=== PATIENT | female | born 1935 | race Caucasian/White ===

== ENCOUNTER 2017-02-24 09:43 | Inpatient (IN) ==
[2017-02-24] MEDS ORDERED: DUONEB (A & A) INH ONE (10:07)
[2017-02-24] MEDS ORDERED: TYLENOL PO ONE (10:09)
--- NOTE | 2017-02-24 10:10 | PROVIDER DOCUMENTATION ---
HPI-Respiratory General - General Chief Complaint: Flu Symptoms Stated Complaint: FLU SX Time Seen by Provider: 02/24/17 10:01 Allergies/Adverse Reactions: Patient Allergies Allergy/AdvReac Type Severity Reaction Status Date / Time No Known Allergies Allergy Verified 02/24/17 10:16 Home Medications: Home Medication List Medication Instructions Recorded Confirmed Last Taken Type Bimatoprost 0.03% Oph Solution 1 drop BOTH EYES HS 05/31/13 03/31/15 03/31/15 07 :00 History [Lumigan 0.03% Oph Solution] Gabapentin [Neurontin] 300 mg PO QHS 05/31/13 03/31/15 03/30/15 20:00 History Insulin Detemir [Levemir] 35 unit SUBQ HS 05/31/13 03/31/15 03/30/15 20:00 History Metformin [Glucophage] 1,000 mg PO BID CC 05/31/13 03/31/15 03/31/15 07:00 History SIMVAstatin [Zocor] 20 mg PO QHS 05/31/13 03/31/15 03/30/15 20:00 History Timolol Maleate [Timoptic] 2.5 ml OP HS 05/31/13 03/31/15 03/30/15 20:00 History Triamterene/Hctz [Dyazide] 1 each PO DAILY 05/31/13 03/31/15 03/31/15 07:00 History Acetaminophen [Tylenol] 650 mg PO Q4H PRN PRN #0 tablet 01/09/15 03/31/15 Unknown Rx Albuterol Sulfate [Proair Hfa] 8.5 inhaler IH Q4-6H PRN PRN #0 01/09/15 Unknown Rx hfa.[email or web address] Docusate Sodium [Colace] 100 mg PO BID PRN PRN #0 capsule 01/09/15 03/31/15 Unknown Rx Estradiol 1 mg PO DAILY #0 01/09/15 03/31/15 03/31/15 07:00 Rx Non-Formulary Bulk Med 0 each BOTH EYES QAM #0 misc 01/09/15 03/31/15 03/31/15 07:00 Rx [place]-3 Fatty Acids [Fish Oil 1,000 mg PO BID #0 capsule 01/09/15 03/31/1503/31 07:00 Rx Concentrate] Omeprazole [Prilosec] 40 mg PO DAILY@0700 #0 capsule 01/09/15 03/31/15 Unknown Rx Valsartan [Diovan] 320 mg PO DAILY #0 tablet 01/09/15 03/31/15 03/31/15 07:00 Rx Magnesium Oxide [Magnesium] 400 mg PO TID #21 capsule 03/31/15 Unknown Rx Meloxicam [Mobic] 7.5 mg PO DAILY PRN #30 tablet 03/31/15 Unknown Rx Rivaroxaban [Xarelto] 0 mg PO DAILY 03/31/15 03/31/15 03/30/15 20:00 History Tramadol HCl [Ultram] 50 mg PO Q8H PRN PRN #20 tablet 03/31/15 Unknown Rx - History of Present Illness-Resp Nature of Presenting Problem: 81 yof with cough and congestion since that continues to get worse. Mild fever in the ED. Quality of Pain: reports: aching Severity in ED: reports: moderate Onset/Duration: reports: 4 days ago Timing: reports: still present, getting worse Exposure: reports: unknown cause Cough Quality/Degree: reports: moderate, productive cough Episode Frequency: occasional episodes Current Respiratory Medication Therapy: Initiated see nurses note Associated Symptoms: reports: cough, shortness of breath Similar Symptoms Previously?: Yes Recently seen or treated by another doctor?: No Review of Systems - Adult - REVIEW OF SYSTEMS - ADULT Constitutional: reports: see HPI, chills, fever Eyes: reports: no symptoms reported Ears, Nose, Mouth & Throat: reports: no symptoms reported Cardiovascular: reports: no symptoms reported Respiratory: reports: see HPI, cough, excessive sputum production, shortness of breath, wheezing Gastrointestinal: reports: no symptoms reported Genitourinary: reports: no symptoms reported Musculoskeletal: reports: no symptoms reported Integumentary: reports: no symptoms reported Neurological: reports: no symptoms reported Psychiatric: reports: no symptoms reported Endocrine: reports: no symptoms reported Hematologic/Lymphatic: reports: no symptoms reported Allergic/Immunologic: reports: no symptoms reported All Other Systems: Reviewed and Negative Past History - Adult - PAST MEDICAL HISTORY-ADULT Review of Records: reports: Old Records Reviewed, Nursing Assessment Review, Medications Reviewed, Social history reviewed & non-contributory. Cardiovascular: reports: CAD (minimal), HTN, hyperlipidemia Respiratory: reports: asthma, sleep apnea (obstructive) Gastrointestinal: reports: GERD, hemorrhoids (external), polyps (coloric), other (chronic constipation) Musculoskeletal: reports: arthritis (osteo), other (neuropathy) Endocrine/Immune: reports: Diabetes Other Conditions: reports: cataract/glaucoma (glaucoma) - PRIOR SURGERIES/PROCEDURES Surgical/Procedure History: reports: hysterectomy - IMMUNIZATION STATUS Childhood Immunizations: UTD Flu Vaccine: UTD Physical Exam-General - PHYSICAL EXAM-ADULT Initial Vital Signs Reviewed: Yes - CONSTITUTIONAL General Appearance: alert, no apparent distress - EYES Eyes: PERRL/EOMI, pink conjunctivae - HEAD, EARS, NOSE, MOUTH & THROAT HENMT: normocephalic/atraumatic, moist mucous membranes, normal ENT inspection - NECK Neck: non-tender, full range of motion, supple, normal inspection - RESPIRATORY Respiratory: chest non-tender, no pleuratic chest pain, no respiratory distress , no accessory muscle use, rhonchi, wheezing - CARDIOVASCULAR Cardiovascular: normal peripheral pulses, regular rate, rhythm, no edema - GASTROINTESTINAL (ABDOMEN) Abdominal Exam: normal bowel sounds, non tender, soft - LYMPHATIC Lymphatic: no adenopathy - MUSCULOSKELETAL Back Exam: normal inspection, no CVA tenderness, no vertebral tenderness Extremity: normal range of motion, non-tender, normal gait, normal inspection, no pedal edema, no calf tenderness, normal capillary refill, pelvis stable - SKIN Integumentary: normal color, normal turgor, warm/dry - NEUROLOGIC Neurologic: grossly normal, no motor/sensory deficits - PSYCHIATRIC Psych/Mental Status: normal mood/affect, normal thought content, normal thought process, oriented x 3 Progress - PLAN OF CARE/RESULTS Progress/Plan/Lab Results: Vital Signs - 8 hr 02/24/17 09:51 02/24/17 10:22 Temperature 100.4 F H Pulse Rate 106 H 102 H Respiratory Rate 16 22 Blood Pressure 173/74 O2 Sat by Pulse Oximetry 98 94 L 02/24/17 09:53 Influenza Screen - Final Nasopharyngeal Orders Category Date Time Status Saline Loc NOW Care 02/24/17 10:59 Ordered CHEST-2 VIEWS [RAD] Stat Exams 02/24/17 10:07 Completed BLOOD CULTURE [BLDCUL] Stat Lab 02/24/17 10:59 Uncollected CBC WITH DIFF [HEME] Stat Lab 02/24/17 10:59 Uncollected COMPREHENSIVE METABOLIC PANEL [CHEM] Stat Lab 02/24/17 10:59 Uncollected Flu Swab [INFLUENZA SCREEN A/B] Stat Lab 02/24/17 09:53 Completed Acetaminophen [Tylenol] Med 02/24/17 10:09 Discontinued 1,000 mg PO NOW ONE Albuterol 2.5MG/Ipratrop 0.5MG [Duoneb (A & A)] Med 02/24/17 10:07 Discontinued 6 ml INH NOW ONE CefTRIAXONE 1 GM/NS [Rocephin 1 gm/Ns] Med 02/24/17 10:59 Ordered 1 gm in 50 ml IV NOW CefTRIAXONE [Rocephin] Med 02/24/17 10:24 Stop Req 1 gm IM NOW ONE Dexamethasone [Decadron] Med 02/24/17 10:24 Stop Req 10 mg IM NOW ONE Lidocaine 1% Pf [Xylocaine-Mpf 1%] Med 02/24/17 10:24 Stop Req 5 ml INJ NOW ONE Methylprednisolone Sod Succ [Solu-Medrol] Med 02/24/17 11:00 Once 125 mg IV NOW ONE Aerosol Treatments Routine Oth 02/24/17 10:07 Active Aerosol Treatments Stat Oth 02/24/17 10:07 Active - XRAY 1 XRAY Study: Chest Impression: See EMR Report (Small righ middle lobe pneumonia. Per Dr. Su radiologist report.) - CONSULTS/PCP/HOSPITALIST Notification #1 *Consult/PCP/Hospitalist*: Dr. Hansen Time Discussed: 11:01 Consult Disposition: Will see in ED Departure - Departure Time of Disposition Decision: 11:02 DIAGNOSIS: Pneumonia Qualifiers: Pneumonia type: due to unspecified organism Laterality: right Lung location: middle lobe of lung Qualified Code(s): J18.1 - Lobar pneumonia, unspecified organism Disposition: ADMITTED INPATIENT 09 Certified Medical Emergency: Emergent Condition: Stable Referrals and Follow-Ups: South Gaines MD [Primary Care Provider] - - Critical Care Note This patient required my direct & personal management of CC.: No Attestation - Physician/ MICAH Attestation Patient care was provided by Advanced Practice Provider:: Yes Advanced Practice Provider:: Ildefonso Quiles Advanced Practice Provider documentation review:: The Mid-level provider documentation, treatment plan and medical decision making was reviewed by the physician who agrees with all treatment and medical decision making by the MLP.
--- NOTE | 2017-02-24 10:23 | Diag Imaging Result Doc PS360 ---
EXAM: CHEST-2 VIEWS HISTORY: cough/congestion/fever TECHNIQUE: COMPARISON: 01/06/2015 FINDINGS: The lungs are well expanded. The heart is not enlarged. The vessels are not distended. There is a small infiltrate in the right middle lobe. No pleural effusions. IMPRESSION: Small right middle lobe pneumonia. Electronically signed by Arron Su 02/24/2017 10:20 AM
[2017-02-24] MEDS ORDERED: ROCEPHIN IM ONE (10:24)
[2017-02-24] MEDS ORDERED: DECADRON IM ONE (10:24)
[2017-02-24] MEDS ORDERED: XYLOCAINE-MPF 1% INJ ONE (10:24)
[2017-02-24] MEDS ORDERED: ROCEPHIN 1 GM/NS 1 GM/50 ML IVPB IV ONE (10:59)
[2017-02-24] MEDS ORDERED: SOLU-MEDROL IV ONE (11:00)
[2017-02-24 11:30] LABS: MANUAL DIFF NEEDED? NO
[2017-02-24 11:33] LABS: BASO% 0.3 % (0.0-0.8); EOS# 0.25 X1000 (0.0-0.7); EOS% 3.2 % (0.0-10.0); HEMATOCRIT 39.3 % (37.0-47.0); HEMOGLOBIN 13.5 g/dL (12.0-16.0); IMM GRAN# 0.02 X1000 (0.0-0.04); IMM GRAN% 0.3 % (0.0-0.5); LYMPH# 0.99 X1000 (1.2-3.4); LYMPH% 12.7 % (20.5-51.1); MCHC 34.4 g/dL (33-37); MCV 84.3 FL (81-99); MONO# 0.91 X1000 (0.11-0.59); MONO% 11.6 % (1.7-9.3); MPV 11.6 FL (7.4-10.4); NEUT% 71.9 % (42.2-75.2); PLT 184 X1000 (130-400); RBC 4.66 XMIL (4.2-5.4)
[2017-02-24 11:54] LABS: ALBUMIN 4.2 g/dL (3.5-5.0); CALCIUM 9.4 mg/dL (8.8-10.2); POTASSIUM 3.9 mmol/L (3.5-5.1); TOTAL BILIRUBIN 0.44 mg/dL (0.20-1.00); TOTAL PROTEIN 7.8 g/dL (6.3-8.3)
--- NOTE | 2017-02-24 12:38 | HISTORY AND PHYSICAL ---
CHIEF COMPLAINT: Cough, chest congestion, and low-grade fever. PRESENT ILLNESS: Ms. Weber is an 81-year-old woman followed by Dr. South Gaines for multiple medical problems, including type 2 diabetes mellitus, GERD, essential hypertension, obstructive sleep apnea, who presents to the emergency room with a 5-day history of progressive cough, chest congestion, and shortness of breath. She states she gets out of breath walking from 1 end of the house to the other. She is coughing up fairly copious amounts of thick tenacious white sputum. She actually came in complaining of "flu-like symptoms" but her flu nasal swab was negative. She denies any fever at home but has not checked her temperature. She denies any hard shaking chills. She does state she has this almost every spring and was hospitalized here 2 years ago with similar symptoms. Her chest x-ray today does document an infiltrate in the right middle lobe, most obvious on the lateral film. Her blood work tests are pending. She denies a history of lung disease but has fairly regular episodes of "bronchospasm." I suspect she has intermittent asthma, [id number] in severity and just has long enough symptom-free intervals that she does not normally use inhalers at home. She was discharged 2 years ago on a Symbicort inhaler. PAST MEDICAL HISTORY: In addition to her current acute bronchospasm associated with upper respiratory infections, she has a history of atypical chest pain with multiple negative cardiac evaluations, constipation, type 2 diabetes mellitus with peripheral neuropathy, gastroesophageal reflux disease, glaucoma, hyperlipidemia, essential hypertension, obesity, osteoarthritis, obstructive sleep apnea. [facility] HISTORY[facility] HOME MEDICATIONS: 1. Diovan 320 mg daily. 2. Dyazide 1 daily. 3. Estrace 1 mg daily. 4. Fish oil 1000 mg twice a day. 5. Glucophage 1000 mg twice a day. 6. Levemir 35 units subcutaneously at bedtime. 7. Mobic 15 mg daily. 8. Neurontin 300 mg at bedtime. 9. Timoptic eyedrops in each eye every morning. 10. Lumigan eyedrops in each eye at bedtime. 11. Norvasc 5 mg q.a.m. 12. Prilosec 40 mg daily. 13. Zocor 20 mg at bedtime. ALLERGIES: No known drug allergies. SOCIAL HISTORY: She is and lives alone. Her daughter is here with her in the emergency room. She is a never smoker and denies significant alcohol intake. REVIEW OF SYSTEMS: She has a mild headache today after being up all night coughing. Appetite is good. She has had no weight loss. HEENT: Vision and hearing are adequate without recent changes. Respiratory: No history of tuberculosis. Cardiovascular: No recent chest pains. Her television director is Dr. Teddy Gilliam. She is currently wearing a heart monitor from his office. Apparently, this was for some minor palpitations. She denies any syncope or near-syncope. No history of congestive heart failure or valvular heart disease. GI: Appetite is good. No nausea, vomiting, diarrhea, constipation, melena or bright red blood per rectum. No history of liver disease. : No dysuria or hematuria. Neurologic: Some burning tingling pain in her feet at bedtime. No history of strokes or seizures. Psychiatric: Positive history of episodic depression. No recent excessive sadness. No history of memory or disorders. Orthopaedic: She takes meloxicam for generalized osteoarthritis. PHYSICAL EXAMINATION: VITAL SIGNS: Temperature 100.4 degrees, pulse 102, blood pressure 173/74, respirations 22, O2 saturations 94% on room air. GENERAL APPEARANCE: Obese, elderly, white female who was alert and talkative. HEENT: Pupils are equal, round, and react to light. Extraocular movements intact. Tympanic membranes are pink and pearly. Oropharynx is benign. NECK: Supple with no adenopathy, JVD, thyromegaly or bruits. CHEST: There is diffuse bilateral wheezing with slightly reduced air movement and prolonged expiratory phase. I do not appreciate any crackles. CARDIOVASCULAR: Regular rate and rhythm. Borderline tachycardia. No S3 or murmurs are heard. BREASTS: Not examined. ABDOMEN: Soft, obese, and nontender with active bowel sounds. No masses are appreciated. EXTREMITIES: No cyanosis, clubbing, or edema. NEUROLOGIC: Speech is clear and well articulated. Her mental status is normal. She moves all extremities on command. Gait is not tested. DATABASE: White blood count 7800. Hemoglobin 13.5, hematocrit 39.3. Chemistry profile remarkable for glucose of 96, BUN 22, creatinine 1.1. Chest x-ray shows right middle lobe infiltrate. ASSESSMENT: 1. Right middle lobe pneumonia. 2. Recurrent bronchospasm, probably. 3. Intermittent asthma, [id number] in severity. 4. Essential hypertension. 5. Type 2 diabetes mellitus. 6. History of obstructive sleep apnea, TREATMENT PLAN: Admit for intravenous Solu-Medrol around the clock nebulizer treatments, intravenous antibiotics. cc: Edgar Hansen MD
[2017-02-24] MEDS ORDERED: SOLU-MEDROL IV SCH ×2 (14:08→23:00)
[2017-02-24] MEDS ORDERED: ULTRAM PO PRN (14:08)
[2017-02-24] MEDS: ALBUTEROL NEB INH SCH ×2 (15:12→19:17)
[2017-02-24] MEDS ORDERED: DOXYCYCLINE PO SCH (18:00)
[2017-02-24] MEDS: MAG-OX PO SCH ×2 (18:14→18:20)
[2017-02-24] MEDS: GLUCOPHAGE PO SCH (18:20)
[2017-02-24] MEDS: TYLENOL PO PRN (18:28)
[2017-02-24] MEDS ORDERED: TIMOPTIC 0.5% OPH SOLUTION OPH SCH (21:00)
[2017-02-24] MEDS ORDERED: INSULIN PEN NEEDLES ONE (21:12)
[2017-02-24] MEDS: ZOCOR PO SCH (21:15)
[2017-02-24] MEDS: NEURONTIN PO SCH (21:15)
[2017-02-24] MEDS: LOVENOX SUBQ SCH (21:16)
[2017-02-24] MEDS: LEVEMIR SUBQ SCH (21:16)
[2017-02-24] MEDS: TIMOPTIC 0.5% OPH SOLUTION OPH SCH (21:16)
[2017-02-24] MEDS: DOXYCYCLINE PO SCH (21:44)
[2017-02-25] MEDS: PATIENT'S OWN MED BOTH EYES SCH ×2 (02:26→21:17)
[2017-02-25] MEDS: ALBUTEROL NEB INH SCH (03:43)
--- NOTE | 2017-02-25 05:25 | EKG Report ---
Test Performed on : 02/24/2017 2:53:33 PM Test Reason : CP Blood Pressure : / mmHG Vent. Rate : 082 BPM Atrial Rate : 082 BPM P-R Int : 192 ms QRS Dur : 098 ms QT Int : 386 ms P-R-T Axes : 030 -21 032 degrees QTc Int : 450 ms Normal sinus rhythm. Normal ECG When compared with ECG of 31-MAR-2015 15:45, No significant change was found Confirmed by Adam Shah MD ([id number]) on 02/25/2017 8:20:53 AM
[2017-02-25] MEDS: PRILOSEC PO SCH ×2 (05:51→06:38)
[2017-02-25] MEDS: DOXYCYCLINE PO SCH ×2 (08:16→18:53)
[2017-02-25] MEDS: DIOVAN PO SCH (08:17)
[2017-02-25] MEDS: MAG-OX PO SCH ×2 (08:17→13:50)
[2017-02-25] MEDS: GLUCOPHAGE PO SCH ×2 (08:18→17:10)
[2017-02-25] MEDS: ROCEPHIN 1 GM/NS 1 GM/50 ML IVPB IV SCH (08:19)
[2017-02-25] MEDS ORDERED: ESTRACE PO SCH (09:00)
[2017-02-25] MEDS ORDERED: DYAZIDE PO SCH (09:00)
[2017-02-25] MEDS: DUONEB (A & A) INH SCH ×4 (10:31→22:48)
[2017-02-25] MEDS: SOLU-MEDROL IV SCH ×2 (10:59→17:10)
[2017-02-25] MEDS: HUMALOG SUBQ SCH ×3 (11:00→20:48)
[2017-02-25] MEDS: LOVENOX SUBQ SCH (20:46)
[2017-02-25] MEDS: ZOCOR PO SCH (20:46)
[2017-02-25] MEDS: NEURONTIN PO SCH (20:46)
[2017-02-25] MEDS: LEVEMIR SUBQ SCH (20:47)
[2017-02-25] MEDS: TIMOPTIC 0.5% OPH SOLUTION OPH SCH (20:47)
[2017-02-25] MEDS: LUMIGAN 0.01% OPH SOLUTION BOTH EYES SCH (20:47)
[2017-02-25] MEDS: TYLENOL PO PRN (21:01)
--- NOTE | 2017-02-25 22:58 | PROGRESS NOTE ---
DATE: 02/25/2017 SUBJECTIVE: Patient's chart was reviewed. In summary, the patient was admitted yesterday with significant cough, congestion, low-grade fevers, and wheezing. She was diagnosed with a right middle lobe pneumonia and significant bronchospasm. The patient was placed on broad-spectrum antibiotics in the form of Rocephin and doxycycline therapy. Acute bronchospasm was treated with IV steroids and albuterol/Atrovent. Over the course of the first 24 hours, patient's overall condition remained largely unchanged. She continues to have significant weakness. She also notes persistent shortness of breath and wheezing. She denies fevers, chills, nausea, vomiting, or chest discomfort. Patient does complain of some right lower quadrant and right upper quadrant abdominal discomfort. Bowel movements and urination have been unchanged. OBJECTIVE: Vital signs: Temperature maximum 98.2 degrees, heart rate 81-97, respirations 14-18, blood pressure 136 to 167/69 to 80. General: Well nourished, well developed, in no acute distress. Cardiovascular: Regular rate and rhythm. No significant murmurs, rubs, or gallops. Pulmonary: Wheezing diffusely in bilateral lungs. Abdomen: Soft, nondistended. Tenderness in the right lower quadrant and right upper quadrant. No significant guarding or rebound. Positive bowel sounds. Extremities: Moves all extremities well. No significant clubbing, cyanosis, or edema. Dermatologic: Evaluation reveals no evidence of rash. LABORATORY DATA: None. ASSESSMENT AND PLAN: 1. Right middle lobe pneumonia-patient is being covered appropriately with levofloxacin and doxycycline therapy. We will treat patient's acute bronchospasm as below. 2. Acute bronchospasm-patient has considerable bronchospasm with compromised air movement on examination today. We will increase patient's Solu-Medrol 80 mg q.8 hours. We will continue albuterol and Atrovent nebulizer every 4 hours. We will follow this closely. 3. Hypertension-patient will be continued on her home medications while hospitalized. 4. Type 2 diabetes-the patient will be continued on her current home medications. We will add a sliding-scale insulin. We will follow this closely. 5. Disposition-at this point, patient continues to require shelter care in the hospital setting. We will plan discharge home with appropriate. cc: South Gaines MD
[2017-02-26] MEDS: DUONEB (A & A) INH SCH ×6 (03:07→23:01)
[2017-02-26] MEDS: SOLU-MEDROL IV SCH ×4 (03:44→17:19)
[2017-02-26] MEDS: HUMALOG SUBQ SCH ×4 (06:02→20:00)
[2017-02-26] MEDS: PRILOSEC PO SCH (06:06)
[2017-02-26] MEDS: FOLIC ACID PO SCH (08:25)
[2017-02-26] MEDS: DOXYCYCLINE PO SCH ×2 (08:25→20:00)
[2017-02-26] MEDS: LEXAPRO PO SCH (08:25)
[2017-02-26] MEDS: DYAZIDE PO SCH (08:26)
[2017-02-26] MEDS: ZYLOPRIM PO SCH (08:26)
[2017-02-26] MEDS: SINGULAIR PO SCH (08:26)
[2017-02-26] MEDS: DIOVAN PO SCH (08:27)
[2017-02-26] MEDS: GLUCOPHAGE PO SCH ×2 (08:27→16:39)
[2017-02-26] MEDS: FERROUS SULFATE PO SCH (08:27)
[2017-02-26] MEDS: NEURONTIN PO SCH ×2 (08:27→19:59)
[2017-02-26] MEDS: ROCEPHIN 1 GM/NS 1 GM/50 ML IVPB IV SCH (08:29)
--- NOTE | 2017-02-26 08:57 | Diag Imaging Result Doc PS360 ---
EXAM: ABDOMEN FLAT/UPRIGHT HISTORY: abdominal pain TECHNIQUE: Two views COMPARISON: None. FINDINGS: There is stool throughout the colon. No organomegaly. Mild scoliosis with mild degenerative changes IMPRESSION: Prominent constipation Electronically signed by Arron Su 02/26/2017 8:55 AM
[2017-02-26] MEDS ORDERED: NORVASC PO SCH (09:00)
[2017-02-26] MEDS ORDERED: COGENTIN PO SCH (09:00)
[2017-02-26] MEDS: ULTRAM PO PRN ×2 (09:52→17:22)
[2017-02-26] MEDS: TIMOPTIC 0.5% OPH SOLUTION OPH SCH (09:53)
[2017-02-26] MEDS: LOVENOX SUBQ SCH (19:59)
[2017-02-26] MEDS: ZOCOR PO SCH (20:00)
[2017-02-26] MEDS: LEVEMIR SUBQ SCH (20:00)
[2017-02-26] MEDS: NORVASC PO SCH (20:00)
[2017-02-26] MEDS: LUMIGAN 0.01% OPH SOLUTION BOTH EYES SCH (20:04)
[2017-02-26] MEDS: PATIENT'S OWN MED BOTH EYES SCH (20:05)
--- NOTE | 2017-02-26 22:30 | PROGRESS NOTE ---
DATE: 02/26/2017 SUBJECTIVE: Overall patient's condition is largely unchanged from yesterday. Patient continues to have considerable shortness of breath, wheezing, and weakness. She continues to exhibit significant shortness of breath with minimal exertion. She denies fevers, chills, nausea, vomiting, or chest discomfort. Patient's abdominal pain has improved slightly from yesterday. OBJECTIVE: Vital signs: Temperature maximum 98.1 degrees, heart rate 84-94, respirations 14-18, blood pressure 147-158/64-90. General: Well nourished, well developed, in no acute distress. Cardiovascular: Regular rate and rhythm. No significant murmurs, rubs, or gallops. Pulmonary: Diffuse wheezing bilaterally. Abdomen: Soft, diffusely tender without rebound or guarding. Positive bowel sounds. Extremities: Moves all extremities well. No significant clubbing, cyanosis, or edema. Dermatologic: Evaluation reveals no evidence of rash. LABORATORY DATA: None. PLAN/ASSESSMENT: 1. Right middle lobe pneumonia-the patient is currently being treated with levofloxacin and doxycycline therapy. We will continue her current regimen and encourage incentive spirometry and aspiration precautions. We will treat acute bronchospasm as described below. 2. Acute bronchospasm-patient continues to have considerable wheezing. We will continue her current dose of Solu-Medrol 80 mg IV hours. We will continue albuterol and Atrovent nebulizer treatment every 4 hours. We will plan to initiate steroid taper once the patient wheezing improves. 3. Hypertension-patient's blood pressure is reasonably controlled on her current regimen. 4. Type 2 diabetes-we will continue patient on her home regimen with sliding scale. Blood sugars have increased slightly associated with steroid use. 5. Abdominal discomfort-patient's flat and upright suggests constipation. She did have a bowel movement today. Her abdominal discomfort is improving. 6. Disposition-at this point, patient continues to require nursing home care in a hospital setting. We will plan discharge home once appropriate that time. cc: South Gaines MD
[2017-02-27] MEDS: SOLU-MEDROL IV SCH ×3 (02:12→18:24)
[2017-02-27] MEDS: DUONEB (A & A) INH SCH ×6 (04:02→23:00)
[2017-02-27] MEDS: PRILOSEC PO SCH (06:18)
[2017-02-27] MEDS: HUMALOG SUBQ SCH ×4 (06:18→21:43)
[2017-02-27] MEDS: DOXYCYCLINE PO SCH ×2 (08:18→21:41)
[2017-02-27] MEDS: DIOVAN PO SCH (08:19)
[2017-02-27] MEDS: GLUCOPHAGE PO SCH ×2 (08:19→18:24)
[2017-02-27] MEDS: ZYLOPRIM PO SCH (08:20)
[2017-02-27] MEDS: LEXAPRO PO SCH (08:20)
[2017-02-27] MEDS: NEURONTIN PO SCH ×2 (08:20→21:41)
[2017-02-27] MEDS: SINGULAIR PO SCH (08:20)
[2017-02-27] MEDS: FERROUS SULFATE PO SCH (08:20)
[2017-02-27] MEDS: FOLIC ACID PO SCH (08:21)
[2017-02-27] MEDS: ROCEPHIN 1 GM/NS 1 GM/50 ML IVPB IV SCH (08:22)
[2017-02-27] MEDS: TIMOPTIC 0.5% OPH SOLUTION OPH SCH (08:23)
[2017-02-27] MEDS: DYAZIDE PO SCH (08:31)
[2017-02-27] MEDS: ULTRAM PO PRN (21:41)
[2017-02-27] MEDS: LOVENOX SUBQ SCH (21:41)
[2017-02-27] MEDS: NORVASC PO SCH (21:41)
[2017-02-27] MEDS: ZOCOR PO SCH (21:41)
[2017-02-27] MEDS: LUMIGAN 0.01% OPH SOLUTION BOTH EYES SCH (21:42)
[2017-02-27] MEDS: LEVEMIR SUBQ SCH (21:42)
--- NOTE | 2017-02-27 22:02 | PROGRESS NOTE ---
DATE: 02/27/2017 SUBJECTIVE: Patient continues to have considerable wheezing. The patient does note her energy level to be increasing. Her abdominal discomfort has essentially resolved. Her p.o. intake is improving. She continues to tolerate medications as prescribed with the exception of some increasing anxiety. She denies fevers, chills, nausea, and vomiting. She continues to have mild shortness of breath. OBJECTIVE: Vital Signs: Temperature maximum 98.0, heart rate 72-91, respirations 16-20, blood pressure 141-174/72-91. General: Well-nourished, well-developed, in no acute distress. Cardiovascular: Regular rate and rhythm. No significant murmurs, rubs, or gallops. Pulmonary: Bilateral wheezing, diffuse. Abdomen: Soft, nontender, nondistended. Positive bowel sounds. Extremities: Moves all extremities well. No significant clubbing, cyanosis, or edema. Dermatologic Examination: Reveals no evidence of rash. LABORATORY DATA: None. ASSESSMENT AND PLAN: 1. Right middle lobe pneumonia - We will continue patient on levofloxacin and doxycycline therapy. We will plan to recheck a chest x-ray in the morning. We will continue treatment of her underlying bronchospasm as described below. 2. Acute bronchospasm - This is persistent. We will continue Solu-Medrol and bronchodilator. We will encourage aspiration precautions. We will follow this closely as well. 3. Hypertension - Patient's blood pressure is slightly elevated. At this point, we will continue her current regimen. We will consider whether medication adjustments are necessary depending on her progress. 4. Abdominal discomfort - Patient has achieved improvement. We will follow this. DISPOSITION: At this point, patient continues to require usp care in a hospital setting. We will plan discharge home once appropriate. cc: South Gaines MD
[2017-02-28] MEDS: DUONEB (A & A) INH SCH ×6 (03:45→22:44)
[2017-02-28] MEDS: SOLU-MEDROL IV SCH ×3 (05:15→20:18)
[2017-02-28] MEDS: PATIENT'S OWN MED BOTH EYES SCH ×2 (05:16→20:20)
[2017-02-28] MEDS: HUMALOG SUBQ SCH ×4 (06:55→20:19)
--- NOTE | 2017-02-28 07:32 | Diag Imaging Result Doc PS360 ---
EXAM: CHEST-2 VIEWS HISTORY: hypoxia TECHNIQUE: PA and lateral COMMENT: There is continued atelectasis in the right middle lobe. There may be slight improvement since 02/24/2017 otherwise there is been no significant change. IMPRESSION: Slightly improved atelectasis or pneumonia in the right middle lobe. Electronically signed by Julio C Alexis 02/28/2017 7:30 AM
[2017-02-28] MEDS: PRILOSEC PO SCH (08:31)
[2017-02-28] MEDS: SINGULAIR PO SCH (09:01)
[2017-02-28] MEDS: DIOVAN PO SCH (09:02)
[2017-02-28] MEDS: NEURONTIN PO SCH ×2 (09:02→20:18)
[2017-02-28] MEDS: DYAZIDE PO SCH (09:02)
[2017-02-28] MEDS: FERROUS SULFATE PO SCH (09:02)
[2017-02-28] MEDS: GLUCOPHAGE PO SCH ×2 (09:02→17:49)
[2017-02-28] MEDS: DOXYCYCLINE PO SCH ×2 (09:02→20:18)
[2017-02-28] MEDS: LEXAPRO PO SCH (09:03)
[2017-02-28] MEDS: TIMOPTIC 0.5% OPH SOLUTION OPH SCH (09:03)
[2017-02-28] MEDS: ZYLOPRIM PO SCH (09:03)
[2017-02-28] MEDS: FOLIC ACID PO SCH (09:03)
[2017-02-28] MEDS: ROCEPHIN 1 GM/NS 1 GM/50 ML IVPB IV SCH (09:08)
--- NOTE | 2017-02-28 18:24 | PROGRESS NOTE ---
DATE: 02/28/2017 SUBJECTIVE: Unfortunately, patient's condition has not largely changed from yesterday. She continues to have significant wheezing and shortness of breath. Chest x-ray revealed a slight improvement of the right middle lobe pneumonia. The patient continues to have significant dyspnea on exertion. She also complains of weakness. Her p.o. intake is reasonable. She denies fevers, chills, nausea, vomiting, or chest discomfort. OBJECTIVE: Vital Signs: T-max 98.0, heart rate 79 to 98, respirations 18-20, blood pressure 117 to 174/63 to 96. General: Well nourished, well developed, no acute distress. Cardiovascular: Regular rate and rhythm. No significant murmurs, rubs, or gallops. Pulmonary: Bilateral wheezing, slightly improved from yesterday. Abdomen: Soft, nontender, nondistended. Positive bowel sounds. Extremities: Moves all extremities well. No significant clubbing, cyanosis, or edema. Dermatologic: Evaluation reveals no evidence of rash. LABORATORY DATA: None. ASSESSMENT AND PLAN: 1. Right middle lobe pneumonia-as above, patient has achieved some improvement per x-ray. We will continue levofloxacin and doxycycline therapy. We will continue treatment of her acute bronchospasm as described below. 2. Acute bronchospasm-unfortunately, this is very slowly improving. Clinically, patient does not note significant change. On examination, she does have some decreased wheezing. We will continue current dose of Solu-Medrol. We will continue albuterol and Atrovent nebulizer treatments. We will continue aspiration precautions and encourage incentive spirometry. We will follow this. 3. Hypertension-patient's blood pressure is reasonably controlled on her current regimen. We will continue to follow. 4. Abdominal discomfort-patient has achieved improvement with time. We will remain aware. 5. Diabetes-the patient's blood sugars remained reasonably controlled with Levemir and sliding scale insulin. DISPOSITION: At this point, patient continues to require correction care in a hospital setting. We will plan discharge home with appropriate. cc: South Gaines MD
[2017-02-28] MEDS: ZOCOR PO SCH (20:18)
[2017-02-28] MEDS: LUMIGAN 0.01% OPH SOLUTION BOTH EYES SCH (20:18)
[2017-02-28] MEDS: NORVASC PO SCH (20:18)
[2017-02-28] MEDS: LEVEMIR SUBQ SCH (20:19)
[2017-02-28] MEDS: LOVENOX SUBQ SCH (20:19)
[2017-02-28] MEDS: ULTRAM PO PRN (20:30)
[2017-03-01] MEDS: PRILOSEC PO SCH (06:21)
[2017-03-01] MEDS: SOLU-MEDROL IV SCH ×3 (06:21→20:20)
[2017-03-01] MEDS: HUMALOG SUBQ SCH ×4 (06:48→20:17)
[2017-03-01] MEDS: ROCEPHIN 1 GM/NS 1 GM/50 ML IVPB IV SCH (08:15)
[2017-03-01] MEDS: NEURONTIN PO SCH ×2 (08:16→20:18)
[2017-03-01] MEDS: SINGULAIR PO SCH (08:16)
[2017-03-01] MEDS: LEXAPRO PO SCH (08:16)
[2017-03-01] MEDS: GLUCOPHAGE PO SCH ×2 (08:17→16:21)
[2017-03-01] MEDS: FOLIC ACID PO SCH (08:17)
[2017-03-01] MEDS: ZYLOPRIM PO SCH (08:17)
[2017-03-01] MEDS: DOXYCYCLINE PO SCH ×2 (08:17→20:21)
[2017-03-01] MEDS: FERROUS SULFATE PO SCH (08:18)
[2017-03-01] MEDS: DIOVAN PO SCH (08:19)
[2017-03-01] MEDS: TIMOPTIC 0.5% OPH SOLUTION OPH SCH (08:19)
[2017-03-01] MEDS: DYAZIDE PO SCH (08:22)
--- NOTE | 2017-03-01 13:35 | PROGRESS NOTE ---
DATE: 03/01/2017 SUBJECTIVE: The patient's overall condition has improved slightly from yesterday. She notes decreasing wheezing and shortness of breath. She denies fevers, chills, nausea, vomiting, or chest discomfort. Her p.o. intake is adequate. OBJECTIVE: Vital Signs: T-max 98.3 degrees, heart rate 84-95, respirations 16-20, blood pressure 102-160 over 60-76. General: Well nourished, well developed, in no acute distress. Cardiovascular: Regular rate and rhythm. No significant murmurs, rubs, or gallops. Pulmonary: Minimal wheezing bilaterally, significantly improved from previous. Adequate air movement. Abdomen: Soft, nontender, nondistended. Positive bowel sounds. Extremities: Moves all extremities well. No significant clubbing, cyanosis, or edema. Dermatologic: Evaluation reveals no evidence of rash. LABORATORY DATA: None. ASSESSMENT AND PLAN: 1. Right middle lobe pneumonia - Chest x-ray yesterday suggested improvement. We will continue levofloxacin and doxycycline therapy. We will continue treatment of her bronchospasms as below. We will encourage aspiration precautions. 2. Acute bronchospasm - I suspect patient has underlying asthma. We will continue bronchodilators. We will decrease Solu-Medrol to 40 mg q.8 hours. We will encourage incentive spirometry and monitor closely. 3. Hypertension - The patient's blood pressure is controlled on her current regimen. 4. Abdominal discomfort - The patient has achieved resolution. 5. Diabetes - The patient's blood sugars are reasonably controlled with Levemir and sliding scale insulin. 6. Disposition - At this point, patient continues to require senior living care in a hospital setting. We will plan discharge home once appropriate. cc: South Gaines MD
[2017-03-01] MEDS: DUONEB (A & A) INH SCH ×3 (19:15→23:45)
[2017-03-01] MEDS: NORVASC PO SCH (20:18)
[2017-03-01] MEDS: ZOCOR PO SCH (20:18)
[2017-03-01] MEDS: LUMIGAN 0.01% OPH SOLUTION BOTH EYES SCH (20:19)
[2017-03-01] MEDS: LEVEMIR SUBQ SCH (20:19)
[2017-03-01] MEDS: LOVENOX SUBQ SCH (20:20)
[2017-03-01] MEDS: PATIENT'S OWN MED BOTH EYES SCH (20:21)
[2017-03-02] MEDS: SOLU-MEDROL IV SCH ×4 (03:05→17:40)
[2017-03-02] MEDS: DUONEB (A & A) INH SCH ×6 (03:34→22:55)
[2017-03-02] MEDS: PRILOSEC PO SCH (06:10)
[2017-03-02] MEDS: DOXYCYCLINE PO SCH ×3 (06:10→21:36)
[2017-03-02] MEDS: HUMALOG SUBQ SCH ×4 (06:10→21:37)
[2017-03-02] MEDS: ROCEPHIN 1 GM/NS 1 GM/50 ML IVPB IV SCH (08:36)
[2017-03-02] MEDS: LEXAPRO PO SCH (08:37)
[2017-03-02] MEDS: SINGULAIR PO SCH (08:37)
[2017-03-02] MEDS: FERROUS SULFATE PO SCH (08:37)
[2017-03-02] MEDS: GLUCOPHAGE PO SCH ×2 (08:37→16:46)
[2017-03-02] MEDS: DYAZIDE PO SCH (08:37)
[2017-03-02] MEDS: NEURONTIN PO SCH ×2 (08:37→21:36)
[2017-03-02] MEDS: DIOVAN PO SCH (08:38)
[2017-03-02] MEDS: FOLIC ACID PO SCH (08:38)
[2017-03-02] MEDS: ZYLOPRIM PO SCH (08:38)
[2017-03-02] MEDS: TIMOPTIC 0.5% OPH SOLUTION OPH SCH (08:41)
--- NOTE | 2017-03-02 09:26 | PROGRESS NOTE ---
DATE: 03/02/2017 SUBJECTIVE: Overall, patient continues to slowly improve. She notes decreasing wheezing and shortness of breath. She continues to have an intermittent cough, although this is largely nonproductive. She denies fevers, chills, nausea, vomiting, or chest discomfort. The patient has energy level is slowly improving. She is currently tolerating p.o. OBJECTIVE: Vital signs: T-max 98.5 degrees, heart rate 75-100, respirations 18-20, blood pressure 128-149 over 66-73. General: Well nourished, well developed, no acute distress. Cardiovascular: Regular rate and rhythm. No significant murmurs, rubs, or gallops. Pulmonary: Minimal wheezing bilaterally, continued improvement. Adequate air movement. Abdomen: Soft, nontender, nondistended. Positive bowel sounds. Extremities: Moves all extremities well. No significant clubbing, cyanosis, or edema. Dermatologic: Evaluation reveals no evidence of rash. LABORATORY DATA: None. ASSESSMENT AND PLAN: 1. Right middle lobe pneumonia - As per recent chest x-ray, she has achieved improvement, although not resolution with levofloxacin and doxycycline therapy. We will continue current antibiotic coverage. We will treat bronchospasm as described below. 2. Acute bronchospasm - As above, patient continues to have very slow improvement. We will decrease Solu-Medrol to 40 mg q.12 hours. We will continue bronchodilators. We will continue to encourage incentive spirometry as well. 3. Hypertension - Blood pressure is reasonably controlled on her current regimen. This will be continued. 4. Abdominal discomfort - Patient has intermittent abdominal discomfort, although this is non- limiting. She has adequate p.o. intake. For now, we will follow. 5. Diabetes - The patient's blood sugars are reasonably controlled with Levemir and sliding scale insulin. We will continue this. 6. Disposition - At this point, patient continues to require intermediate care in a hospital setting. We will plan discharge home once appropriate. cc: South Gaines MD
[2017-03-02] MEDS ORDERED: INSULIN PEN NEEDLES ONE (15:53)
[2017-03-02] MEDS: LEVEMIR SUBQ SCH (21:36)
[2017-03-02] MEDS: ZOCOR PO SCH (21:36)
[2017-03-02] MEDS: NORVASC PO SCH (21:36)
[2017-03-02] MEDS: LUMIGAN 0.01% OPH SOLUTION BOTH EYES SCH (21:37)
[2017-03-02] MEDS: LOVENOX SUBQ SCH (21:37)
[2017-03-02] MEDS: PATIENT'S OWN MED BOTH EYES SCH (21:37)
[2017-03-02] MEDS: ULTRAM PO PRN (21:39)
[2017-03-03] MEDS: DUONEB (A & A) INH SCH ×3 (03:20→11:27)
[2017-03-03] MEDS ORDERED: PREDNISONE PO ONE (08:08)
[2017-03-03] MEDS ORDERED: MUCINEX DM PO SCH (09:00)
[2017-03-03] MEDS: FOLIC ACID PO SCH (10:35)
[2017-03-03] MEDS: SINGULAIR PO SCH (10:35)
[2017-03-03] MEDS: DYAZIDE PO SCH (10:35)
[2017-03-03] MEDS: DIOVAN PO SCH (10:35)
[2017-03-03] MEDS: GLUCOPHAGE PO SCH (10:35)
[2017-03-03] MEDS: FERROUS SULFATE PO SCH (10:35)
[2017-03-03] MEDS: ZYLOPRIM PO SCH (10:35)
[2017-03-03] MEDS: LEXAPRO PO SCH (10:35)
[2017-03-03] MEDS: NEURONTIN PO SCH (10:35)
[2017-03-03] MEDS: TIMOPTIC 0.5% OPH SOLUTION OPH SCH (10:36)
[2017-03-03] MEDS: ROCEPHIN 1 GM/NS 1 GM/50 ML IVPB IV SCH (10:45)
[2017-03-03] MEDS: HUMALOG SUBQ SCH (11:53)
[2017-03-03 14:10] VITALS: BP 114/66
--- NOTE | 2017-03-04 06:24 | DISCHARGE SUMMARY ---
ADMISSION DATE: 02/24/2017 DISCHARGE DATE: 03/03/2017 ADMISSION DIAGNOSIS: 1. Cough. 2. Congestion. 3. Low grade fever. DISCHARGE DIAGNOSES: 1. Right middle lobe pneumonia, improving. 2. Acute bronchospasm, likely secondary to underlying asthma, improving. 3. Hypertension, present on arrival. 4. Abdominal discomfort, improving. 5. Diabetes, present on arrival. CONSULTATIONS: None. PROCEDURES: 1. A chest x-ray was performed on 02/24/2017 which revealed small right middle lobe pneumonia. 2. Abdominal x-ray was performed on 02/25/2017 which revealed prominent constipation. 3. A chest x-ray was performed on 02/28/2017 which revealed slightly improved atelectasis or pneumonia in the right middle lobe. HISTORY AND PHYSICAL EXAMINATION: See admit note. PHYSICAL EXAMINATION PRIOR TO DISCHARGE: Vital Signs: Temperature 98.6 degrees, heart rate 86, respirations 16, blood pressure is 114/66. General: Well nourished, well developed, no acute distress. Cardiovascular: Regular rate and rhythm. No significant murmurs, rubs, or gallops. Pulmonary: Minimal wheezing bilaterally. Excellent air movement. Abdomen: Soft, nontender, nondistended. Positive bowel sounds. Extremities: Moves all extremities well. No significant clubbing, cyanosis, or edema. Dermatologic: Evaluation reveals no evidence of rash. LABORATORY DATA: Prior to discharge: None. HOSPITAL COURSE: Patient was admitted as per history and physical examination. Hospital course per condition is as follows: 1. Right middle lobe pneumonia-upon admission, patient was noted to have a right middle lobe pneumonia per chest x-ray. Patient was started on levofloxacin and doxycycline therapy. With time, x-ray showed improvement. Patient will complete an additional 7 days of treatment as an outpatient. We will follow this closely. 2. Acute bronchospasm-as above, this likely secondary to underlying asthma. The patient was initially placed on high-dose IV steroids. Unfortunately, patient continued wheezing despite steroid intervention and nebulizers. With time, however, the patient did achieve improvement. Once patient achieved a wheeze-free state, the patient was started on a steroid taper. At time of discharge, she was tolerating oral prednisone. Patient will be discharged home on 60 mg of prednisone decreasing 5 mg daily until off. She will also be discharged home with a nebulizer and DuoNeb to be used every 4 hours while awake. We will follow this closely as an outpatient. 3. Hypertension-patient's blood pressure remained reasonably controlled throughout hospitalization on her current regimen. 4. Abdominal discomfort-patient did achieve improvement while hospitalized. This likely was secondary to underlying constipation. We will follow this as an outpatient as well. 5. Diabetes-patient was continued on Levemir while hospitalized. Sliding scale insulin was also initiated. DISCHARGE CONDITION: Good. DISPOSITION: Discharged to home. MEDICATIONS: 1. Allopurinol 100 mg daily. 2. Doxycycline 100 mg every 12 hours for 7 days. 3. Lexapro 5 mg daily. 4. Iron sulfate 325 mg daily. 5. Folic acid 1 mg daily. 6. Singulair 10 mg daily. 7. Prednisone taper starting at 60 mg decreasing 5 mg daily until off. 8. Tramadol 50 mg 3 times daily as needed. 9. DuoNeb every 4 hours while awake. 10. Amlodipine 5 mg at bedtime. 11. Levofloxacin 500 mg daily. 12. Triamterene hydrochlorothiazide 1 tablet daily. 13. Mucinex DM 1 tablet twice daily. 14. Timoptic eye drops daily. 15. Gabapentin 300 mg at bedtime. 16. Lumigan eye drops 1 drop each eye at bedtime. 17. Simvastatin 20 mg at bedtime. 18. Metformin 1000 mg twice daily. 19. Levemir 35 units at bedtime. 20. Colace 100 mg twice daily as needed. 21. Valsartan 320 mg daily. 22. Omeprazole 40 mg daily. 23. Acetaminophen 650 mg every 4 hours as needed. 24. ProAir HFA as needed. FOLLOWUP: Patient is to follow up with me in approximately 1 week. cc: South Gaines MD
== END 2017-03-03 16:21 | disposition home health service (06) ==
LOC: ED 09:43 → 4N 12:49
PROVIDERS: ADMIT Internal Medicine; ATTEND Internal Medicine

== ENCOUNTER 2018-10-01 12:42 | Inpatient (IN) ==
--- NOTE | 2018-10-01 15:03 | HISTORY AND PHYSICAL ---
PRIMARY CARE PHYSICIAN: Dr. South Gaines. CHIEF COMPLAINT: Alteration of mental status. HISTORY OF PRESENT ILLNESS: An 83-year-old white female with a complicated past medical history presents for evaluation of above-mentioned symptoms. Pertinent history of present illness began approximately a month ago. At that time, patient noted increasing fatigue. She currently is being treated by Dr. Borjas for underlying multiple myeloma. Also of note, she recently lost her daughter to cancer. This has precipitated an increase in depression. Despite this, patient has continued her therapy and her normal activities. On Friday, patient's family found the patient with alteration of her mental status. She had intermittent difficulty with communication as well as an unsteady gait. The patient's [id number] noted a transient episode of an expressive aphasia. Throughout the day, her symptoms improved. She was seen by Dr. Borjas on Friday. Patient's laboratory data was drawn. She was found to be significantly hypomagnesemia. Magnesium therapy was initiated. This morning, patient again had a significant episode of expressive aphasia and confusion. The patient's [id number] contacted us and patient was evaluated in clinic. While in clinic, she was appropriate, but slow to respond. She denies any significant changes in her medications recently. She denies any infectious symptoms, including cough, congestion, fevers, chills, dysuria, hematuria, or pyuria. She does note having a significant fall on and has subsequently experienced headaches. Because of patient's mental status changes, inpatient evaluation was felt most appropriate. Of note, patient is being treated for multiple myeloma. She has a history of moderate carotid artery disease. She also has a history of diabetes, but notes adequately controlled blood sugars. PAST MEDICAL HISTORY: 1. Abnormal electrocardiogram, with chronic poor R-wave progression. 2. 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 3. Aneurysm of the ascending aorta. 4. Atypical chest pain with negative cardiac evaluation in 2005 and 2006. 5. Abnormal skin examination with multiple actinic keratoses, seborrheic keratoses and brown nevi. 6. History of intermittent bronchospasm treated with as needed ProAir HFA. 7. Carotid artery disease. 8. Constipation. 9. Presumed coronary artery disease with elevated CT coronary calcium score 363.5 in November 2016. 10. Depression/anxiety, situational. 11. Diabetes. 12. Diabetic neuropathy. 13. Reflux disease. 14. Hypertension. 15. Glaucoma. 16. Gout. 17. History of external hemorrhoids. 18. Hyperlipidemia. 19. Iron deficiency anemia. 20. Multiple myeloma. 21. Mild cognitive impairment. 22. Obstructive sleep apnea treated with positional management. 23. Osteoarthritis. 24. Overweight. 25. Postmenopausal state. 26. Restless leg syndrome. 27. History of uterine leiomyoma. 28. Vitamin B12 deficiency. CURRENT MEDICATIONS: 1. Colace 100 mg daily. 2. Vitamin B12, IM monthly. 3. Iron sulfate 325 mg twice daily. 4. Folic acid 1 mg daily. 5. Gabapentin 300 mg 1 tablet in the morning and 2 tablets in the evening. 6. Imdur 30 mg daily. 7. Lexapro 5 mg at bedtime. 8. Lumigan eye drops 1 drop each eye at bedtime. 9. Magnesium oxide 400 mg daily. 10. Metformin 1000 mg twice daily. 11. MiraLAX twice daily. 12. Omeprazole 40 mg daily. 13. ProAir HFA 1 2 puffs every 4 6 hours as needed. 14. Simvastatin 20 mg at bedtime. 15. Valacyclovir 500 mg daily. 16. Valsartan 40 mg daily. 17. Xarelto 20 mg with supper. ALLERGIES: The patient answered no known drug allergies. SOCIAL HISTORY: Patient denies tobacco, alcohol, or illicit drug use. 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 She denies hobbies. She does not exercise routinely. FAMILY HISTORY: Patient's father passed at age 86 secondary to complications of congestive heart failure. Patient's mother passed at age 68 secondary to complications of an acute myocardial infarction. She had a history of diabetes. Patient's daughter was diagnosed with breast cancer at age 43 and ultimately passed secondary to metastatic disease. REVIEW OF SYSTEMS: A 12 point review of systems was performed. Pertinent positives and negatives were noted in history of present illness. PHYSICAL EXAMINATION: VITAL SIGNS: Temperature 98, heart rate 93, respirations 18, blood pressure is 146/84. GENERAL: No acute distress. HEENT: Normocephalic, atraumatic. Pupils equal, round, reactive to light. Extraocular muscles intact. Sclerae anicteric. Rainelle conjunctivae. Oral and nasopharynx clear without exudate. NECK: Supple. No lymphadenopathy. No thyromegaly. No bruits auscultated. CARDIOVASCULAR: Regular rate and rhythm. No significant murmurs, rubs or gallops. PULMONARY: Clear to auscultation bilaterally. ABDOMEN: Soft, nontender, nondistended. Positive bowel sounds. EXTREMITIES: Moves all extremities well. No significant clubbing, cyanosis or edema. NEUROLOGIC: Cranial nerves 2-12 grossly intact. Motor and sensory grossly intact. Psychologic examination is appropriate. LABORATORY DATA: Pending at the time of admission. ASSESSMENT AND PLAN: An 83-year-old, white female with a complicated past medical history as noted presents for evaluation of mental status change. On examination, no focal findings are identified. She is, however, very slow to respond. In addition, she is having difficulty remembering her medications. This is outside of the normal range for her mentation. Patient will be admitted to the hospital for full evaluation and management of this condition. 1. Admit to General Medicine. 2. Alteration of mental status/metabolic encephalopathy - Differential diagnosis is quite broad. The patient recently suffered a fall and is anticoagulated. Intracranial bleed including a subdural hematoma will need to be considered. Additionally, patient has a history of carotid artery disease. Advancement of this with underlying stroke will need to be considered. Also of consideration is electrolyte abnormalities, urinary tract infection, and additional infectious etiologies. We will check multiple labs. We will check a CT scan of the head. We will schedule carotid Dopplers. We will follow patient on telemetry. Depending on these findings, we will consider whether an MRI with neurology consultation is appropriate in the a.m. 3. History of lower extremity deep venous thrombosis - We will continue Xarelto therapy. 4. Coronary artery disease - As above, this was noted per CT coronary calcium score in 2017. We will continue optimum medical and nonmedical management. 5. Depression/anxiety - Patient is currently being treated with Lexapro therapy. We will increase dosage to 10 mg at bedtime as this may be exacerbating her symptoms. We will remain aware. 6. Diabetes - We will continue metformin therapy. We will add sliding scale insulin. 7. Diabetic neuropathy - Patient currently is being treated with gabapentin 1 tablet in the morning and 2 tablets in the evening. We will decrease this to a 1 tablet twice daily as this could be precipitating the confusion. We will remain aware. 8. Reflux disease - We will continue patient on as needed omeprazole therapy. 9. Hypertension - We will continue valsartan therapy. We will follow blood pressures and address as necessary. 10. Hyperlipidemia - We will continue patient on simvastatin therapy. 11. Fluid, electrolytes, nutrition - We will monitor electrolytes. Saline lock IV. Diabetic diet. 12. Prophylaxis - Patient will be continued on Xarelto therapy. cc: South Gaines MD
[2018-10-01] MEDS ORDERED: COLACE PO PRN (16:09)
[2018-10-01] MEDS ORDERED: VENTOLIN HFA INH PRN (16:09)
[2018-10-01] MEDS ORDERED: TYLENOL PO PRN ×2 (16:09)
[2018-10-01] MEDS: XARELTO PO SCH (17:18)
--- NOTE | 2018-10-01 17:43 | Diag Imaging Result Doc PS360 ---
EXAM: CT HEAD W/O CONTRAST - 10/01/2018 HISTORY: AMS TECHNIQUE: CT head without contrast COMPARISON: 05/13/2018 FINDINGS: There are mild atrophic changes similar to prior. There is no evidence of intracranial hemorrhage, mass effect, or midline shift. There is no evidence of infarct, although acute infarcts may not be immediately visible. There are atherosclerotic calcifications noted at the base the brain. There is no evidence of skull fracture. IMPRESSION: No visible acute intracranial abnormality. No hemorrhage or mass effect. This exam was performed using automated exposure control, adjustment of mA or kV according to patient size, and/or use of iterative reconstruction technique. Electronically signed by Ariel Panchal 10/01/2018 5:40 PM
[2018-10-01 18:45] LABS: BASO# 0.01 X1000 (0.0-0.2); BASO% 0.2 % (0.0-0.8); EOS# 0.04 X1000 (0.0-0.7); EOS% 0.7 % (0.0-10.0); HEMATOCRIT 39.9 % (37.0-47.0); HEMOGLOBIN 13.5 g/dL (12.0-16.0); IMM GRAN# 0.03 X1000 (0.0-0.04); IMM GRAN% 0.5 % (0.0-0.5); LYMPH# 1.45 X1000 (1.2-3.4); LYMPH% 26.2 % (20.5-51.1); MCH 32.4 PG (27-31); MCHC 33.8 g/dL (33-37); MCV 95.7 FL (81-99); MONO% 10.8 % (1.7-9.3); MPV 12.2 FL (7.4-10.4); NEUT% 61.6 % (42.2-75.2); PLT 156 X1000 (130-400); RBC 4.17 XMIL (4.2-5.4); RDW 12.1 % (11.5-14.5); WBC 5.53 X1000 (4.8-10.8)
[2018-10-01 19:00] LABS: ALB/GLOB RATIO 1.8; ALBUMIN 4.1 g/dL (3.5-5.0); CALCIUM 7.9 mg/dL (8.8-10.2); CREATININE 1.1 mg/dL (0.5-0.9); MAGNESIUM 1.3 mg/dL (1.5-2.7); POTASSIUM 4.2 mmol/L (3.5-5.1); TOTAL BILIRUBIN 0.4 mg/dL (0.20-1.00); TOTAL PROTEIN 6.4 g/dL (6.3-8.3)
[2018-10-01 19:10] LABS: FREE T4 1.24 ng/dL (0.93-1.70); TSH 1.18 uIUmL (0.27-4.20)
[2018-10-01] MEDS ORDERED: MAGNESIUM SULFATE 2 GM/S.W.I. 2 GM/50 ML IVPB IV ONE (19:52)
[2018-10-01] MEDS: NEURONTIN PO SCH (21:03)
[2018-10-01] MEDS: LEXAPRO PO SCH (21:03)
[2018-10-01] MEDS: ZOCOR PO SCH (21:03)
[2018-10-01] MEDS: LUMIGAN 0.01% OPH SOLUTION BOTH EYES SCH (21:03)
[2018-10-01] MEDS: MIRALAX PO SCH (21:03)
[2018-10-02 07:18] LABS: URINE SOURCE CLEAN CATCH
[2018-10-02 07:22] LABS: BILIRUBIN URINE NEGATIVE (NEGATIVE); BLOOD URINE SMALL (NEGATIVE); COLOR YELLOW; GLUCOSE URINE NEGATIVE (NEGATIVE); KETONE URINE TRACE mg/dL (NEGATIVE); LEUKOCYTES URINE SMALL (NEGATIVE); NITRITE URINE NEGATIVE (NEGATIVE); PROTEIN URINE TRACE mg/dL (NEGATIVE); SP GRAVITY URINE 1.019; TURBIDITY URINE HAZY (CLEAR); UROBILINOGEN URINE 2 mg/dL (NORMAL)
[2018-10-02 07:23] LABS: UR EPITHELIAL CELLS <10 /HPF (<10); URINE BACTERIA 4+ /HPF; URINE RBC <10 /HPF (<10); URINE WBC <10 /HPF (<10)
[2018-10-02] MEDS: MIRALAX PO SCH ×2 (08:09→20:58)
[2018-10-02] MEDS: IMDUR PO SCH (08:09)
[2018-10-02] MEDS: MAG-OX PO SCH (08:09)
[2018-10-02] MEDS: VALTREX PO SCH (08:09)
[2018-10-02] MEDS: NEURONTIN PO SCH ×2 (08:10→20:58)
[2018-10-02] MEDS: FOLIC ACID PO SCH (08:10)
[2018-10-02] MEDS: TIMOPTIC 0.25% OPH SOLUTION OPH SCH (08:10)
--- NOTE | 2018-10-02 09:31 | Diag Imaging Result Doc PS360 ---
EXAM: CHEST-2 VIEWS HISTORY: AMS TECHNIQUE: Chest two views COMPARISON: 02/09/2018 FINDINGS: The lungs are well expanded. The heart is not enlarged. The vessels are not distended. There are no infiltrates. No pleural effusions. IMPRESSION: No acute abnormality. Electronically signed by Arron Su 10/02/2018 9:29 AM
--- NOTE | 2018-10-02 10:24 | Diag Imaging Result Doc PS360 ---
EXAM: MRI BRAIN W/WO CONTRAST 10/02/2018 HISTORY: AMS TECHNIQUE: T1 sagittal, axial and post gadolinium-enhanced FSPGR axial with coronal reformation, T2, FLAIR, DWI axial and coronal gradient echo. COMMENT: There are no previous MRI studies available for comparison. There is moderate generalized cerebral atrophy. There is increased T2-weighted signal intensity in the periventricular white matter and in a patchy and punctate manner in the subcortical white matter of both hemispheres. There is no evidence of mass effect, bleed, or abnormal extra-axial fluid collection. There is no evidence of restricted diffusion. There is hyperostosis frontalis interna. No evidence of abnormal gadolinium enhancement is present. IMPRESSION: Chronic ischemic microvascular white matter disease. No evidence of acute disease. Electronically signed by Julio C Alexis 10/02/2018 10:22 AM
[2018-10-02] MEDS ORDERED: MAGNESIUM SULFATE 2 GM/S.W.I. 2 GM/50 ML IVPB IV ONE (10:45)
[2018-10-02] MEDS: XARELTO PO SCH (16:38)
--- NOTE | 2018-10-02 16:59 | Carotid Study ---
DATE: 10/01/2018 PROCEDURE: Carotid duplex imaging. REFERRING PHYSICIAN: Dr. South Gaines INTERPRETING PHYSICIAN: Dr. Rebollar TECH: [place] INDICATIONS: Carotid stenosis. COMPARISON STUDY: 05/13/2018 OBSERVED DATA RIGHT LEFT Brachial Blood Pressure Carotid Pulse Bruits: Carotid/Sub DIAGRAM OF ULTRASOUND IMAGING R L RIGHT INT EXT INT EXT LEFT Shahab (cm/s) Shahab (cm/s) Subclavian 86/0 Subclavian 101/0 CCA Proximal 71/10 CCA Proximal 68/11 CCA Distal 52/9 CCA Distal 57/12 Bulb 61/12 Bulb 41/8 ICA Proximal 104/13 ICA Proximal 54/12 ICA Mid 79/14 ICA Mid 68/17 ICA Distal 82/19 ICA Distal 74/19 ECA 144/5 ECA 42/7 Vertebral 61/12 Vertebral 56/11 ICA/CCA Ratio 1.5 ICA/CCA Ratio 1.1 % Stenosis 0 to 39 % Stenosis 0 to 39 FINDINGS: In the right carotid bulb and internal carotid artery, there is some plaque disease, but no elevation of velocity or turbulence of flow is recorded. There are no ulcerations. The left side appears clear of any significant atherosclerotic disease. PHYSICIAN INTERPRETATION: Mild atherosclerotic disease, mainly in the right carotid bulb and internal carotid artery which is not hemodynamically significant, and it actually appears to be somewhat improved from the previous study on 05/13/2018. cc: MD South Blanc MD
[2018-10-02] MEDS: LUMIGAN 0.01% OPH SOLUTION BOTH EYES SCH (20:58)
[2018-10-02] MEDS: ZOCOR PO SCH (20:58)
[2018-10-02] MEDS: LEXAPRO PO SCH (20:58)
--- NOTE | 2018-10-03 01:53 | PROGRESS NOTE ---
DATE: 10/02/2018 SUBJECTIVE: This morning, the patient complains of persistent fatigue. Mental status, however, was approaching baseline. Laboratory data was significant for a low magnesium level. She was treated with IV replacement. Through the course of the day, the patient did increase her activity. She walked with physical therapy, although with significant instability. This evening, the patient states she feels better, but very weak. She denies fevers, chills, nausea, vomiting, shortness of breath, or chest discomfort. OBJECTIVE: Vital Signs: T-max 98.8 degrees, heart rate 72-77, respirations 16-20, blood pressure 148-174/66-75. General: Well nourished, well developed, no acute distress. Cardiovascular: Regular rate and rhythm. No significant murmurs, rubs, or gallops. Pulmonary: Clear to auscultation bilaterally. Abdomen: Soft, nontender, nondistended. Positive bowel sounds. Extremities: Moves all extremities well. No significant clubbing, cyanosis, or edema. Dermatologic: Evaluation reveals no evidence of rash. LABORATORY DATA: Magnesium 1.8. Urinalysis revealed trace protein, trace ketones, small blood, small leukocyte esterase, 4+ bacteria. MRI of the brain suggests chronic ischemic microvascular white matter disease. No evidence of acute disease. Carotid Doppler suggested mild atherosclerotic disease bilaterally, improved from previous study in April of 2018. ASSESSMENT AND PLAN: 1. Alteration of mental status/metabolic encephalopathy - the patient is demonstrating improvement. Thus far, I have not found a definitive etiology. The laboratory data was significant only for hypomagnesemia. Interestingly, in the past, with hypomagnesemic state, she has demonstrated significant fatigue and alteration. We will continue replacement. For now, we will continue supportive care. 2. History of lower extremity deep venous thrombosis - we will continue the patient on Xarelto therapy. 3. Coronary artery disease - we will continue the patient's optimum medical and nonmedical management. She is asymptomatic. 4. Depression/anxiety - yesterday, the patient's Lexapro was increased to 10 mg at bedtime. We will remain aware that this likely is exacerbating her overall symptoms. 5. Diabetes - we will continue metformin therapy and sliding scale insulin. 6. Diabetic neuropathy - the patient is being treated with gabapentin 1 tablet in the morning and 2 in the evening as an outpatient. Yesterday, I decreased this to 1 twice daily secondary to concern this may be precipitating confusion and weakness. We will continue to follow clinically. 7. Reflux disease - we will continue as needed omeprazole therapy. 8. Hypertension - blood pressure is slightly elevated today. We will continue valsartan for now. We will determine if further intervention is warranted. 9. Hyperlipidemia - we will continue simvastatin therapy. 10. Hypomagnesemia - the patient was replaced again today. We will recheck levels in the morning. 11. Profound weakness and unsteady gait - physical therapy was initiated. The patient continues to have considerable unsteadiness. At this point, we will continue aggressive intervention while inpatient. We will consider whether rehabilitation versus home physical therapy is necessary at discharge. 12. Disposition - at this point, the patient continues to require residential care in a hospital setting. We will plan discharge home once appropriate. cc: South Gaines MD
[2018-10-03 08:42] VITALS: BP 133/83
[2018-10-03] MEDS: FOLIC ACID PO SCH (09:24)
[2018-10-03] MEDS: TIMOPTIC 0.25% OPH SOLUTION OPH SCH (09:24)
[2018-10-03] MEDS: VALTREX PO SCH (09:24)
[2018-10-03] MEDS: NEURONTIN PO SCH (09:24)
[2018-10-03] MEDS: MAG-OX PO SCH (09:24)
[2018-10-03] MEDS: IMDUR PO SCH (09:24)
[2018-10-03] MEDS: MIRALAX PO SCH (09:24)
--- NOTE | 2018-10-03 22:00 | DISCHARGE SUMMARY ---
ADMISSION DATE: 10/01/2018 DISCHARGE DATE: 10/03/2018 ADMISSION DIAGNOSIS: Alteration of mental status. DISCHARGE DIAGNOSES: 1. Alteration of mental status/metabolic encephalopathy, improving. 2. History of lower extremity deep venous thrombosis, present on arrival. 3. Coronary artery disease, present on arrival. 4. Depression/anxiety, present on arrival. 5. Diabetes, present on arrival. 6. Diabetic neuropathy, present on arrival. 7. Reflux disease, present on arrival. 8. Hypertension, present on arrival. 9. Hyperlipidemia, present on arrival. 10. Hypomagnesemia. 11. Profound weakness/unsteady gait. 12. Urinary tract infection. CONSULTATIONS: None. PROCEDURES: 1. A carotid Doppler was performed on 10/01/2018 which revealed mild atherosclerotic disease, mainly in the right carotid bulb and internal carotid artery which is not hemodynamically significant and actually appears to be somewhat improved from the previous study in April 2018. 2. CT scan of the head was performed on 10/01/2018 which revealed no visible acute intracranial abnormality. No hemorrhage or mass effect. 3. Chest x-ray performed on 10/02/2018 which revealed no acute abnormality. 4. MRI of the brain was performed on 10/02/2018 which revealed chronic ischemic microvascular white matter disease. No evidence of acute disease. HISTORY AND PHYSICAL EXAMINATION: See admit note. PHYSICAL EXAMINATION PRIOR TO DISCHARGE: Temperature 98.4 degrees, heart rate 77, respirations 18, blood pressure is 133/83. General: Elderly, no acute distress. Cardiovascular: Regular rate and rhythm. No significant murmurs, rubs, or gallops. Pulmonary: Clear to auscultation bilaterally. Abdomen: Soft, nontender, nondistended. Positive bowel sounds. Extremities: Moves all extremities well. No significant clubbing, cyanosis, or edema. Dermatologic: Evaluation reveals no evidence of rash. LABORATORY DATA: Prior to discharge, magnesium 2.4. HOSPITAL COURSE: Patient was admitted as per history and physical examination. Hospital course per condition. 1. Alteration of mental status/metabolic encephalopathy-upon admission, patient was noted to have considerable symptoms. Full evaluation was pursued with radiologic imaging as described above. No acute abnormality was identified. Laboratory data was significant only for a mild urinary tract infection and hypomagnesemia. With treatment of each, patient's overall condition improved considerably. At time of discharge, her mental status was at baseline. We will continue to follow this closely as an outpatient. 2. Hypomagnesemia-interestingly, patient has presented with alteration of mental status with hypomagnesemia in the past. She was treated with IV replacement while hospitalized. We have subsequently started magnesium orally on a daily basis. This will be followed as an outpatient as well. 3. Profound weakness/unsteady gait-this has been increasing over the course of the last several weeks. This likely is multifactorial. With physical therapy and treatment of the underlying conditions, patient has achieved improvement. The patient will be discharged with home health and physical therapy. We will follow this as well. 4. Urinary tract infection-the patient's urinalysis was modestly abnormal. Culture thus far has revealed gram-negative rods. Patient will be discharged home with Keflex 500 mg twice daily for the next 5 days. 5. History of lower extremity deep venous thrombosis-patient was continued on Xarelto while hospitalized. 6. Coronary artery disease-patient has longstanding disease. She was treated with optimum medical management. She was asymptomatic while hospitalized. 7. Depression/anxiety-upon discussing with patient's family, they are concerned this is increasing recently. She recently lost her daughter secondary to metastatic breast cancer. We increased patient's Lexapro to 10 mg at bedtime. We will continue to follow this closely as an outpatient. 8. Diabetes-patient's blood sugars remain reasonably controlled with metformin and sliding scale insulin. We will continue this as an outpatient. 9. Diabetic neuropathy-upon admission, patient was being treated with gabapentin 300 mg in morning and 600 mg in the evening. With her unsteady gait and altered mental status, this was decreased to 300 mg twice daily. We will continue this as an outpatient. 10. Reflux disease-patient's symptoms remain controlled with as needed omeprazole therapy. 11. Hypertension-the patient's blood pressure remained under reasonable control with her home regimen. 12. Hyperlipidemia-the patient was continued on simvastatin therapy while hospitalized. DISCHARGE CONDITION: Good. DISPOSITION: Discharged to home. MEDICATIONS: 1. Keflex 500 mg twice daily for 5 days. 2. Lexapro was increased to 10 mg at bedtime. 3. Gabapentin was decreased to 300 mg twice daily. 4. Magnesium 400 mg daily. 5. Simvastatin 20 mg at bedtime. 6. Metformin 1000 mg twice daily. 7. Acetaminophen 650 mg every 4 hours as needed. 8. ProAir HFA 1 to 2 puffs every 4-6 hours as needed. 9. Folic acid 1 mg daily. 10. Tramadol 50 mg 3 times daily as needed. 11. Lumigan eye drops at bedtime. 12. Vitamin B12 IM monthly. 13. Colace 100 mg twice daily as needed. 14. Imdur 30 mg daily. 15. Xarelto 20 mg with supper. 16. Timoptic eye drops every morning. 17. MiraLAX 17 g in 8 ounces of juice twice daily as needed. 18. Valtrex 500 mg daily. 19. Valsartan 40 mg daily. 20. Iron sulfate 325 mg daily. 21. Omeprazole 40 mg daily as needed. FOLLOWUP: The patient is to follow up with me next week. Patient is to follow up with Dr. Borjas as arranged. cc: South Gaines MD
== END 2018-10-03 11:33 | disposition home health service (06) | DRG 640 ==
LOC: DIRADM 12:42 → 4N 15:53
PROVIDERS: ADMIT Internal Medicine; ATTEND Internal Medicine
CPT/HCPCS: 70450; 70553; 71020; 71046; 80053; 81001; 82948; 83735; 84439; 84443; 85025; 87077; 87088; 87186; 93880; 97116; 97162; 97530; A9270; A9579; J3475; XXXXX

== ENCOUNTER 2018-11-22 11:34 | Inpatient (IN) ==
--- NOTE | 2018-11-22 11:55 | PROVIDER DOCUMENTATION ---
HPI-Neurological Disorder - General Chief Complaint: Stroke-Like Symptoms Stated Complaint: SLURRED SPEACH / CONFUSION Time Seen by Provider: 11/22/18 11:47 Source: family Allergies/Adverse Reactions: Patient Allergies Allergy/AdvReac Type Severity Reaction Status Date / Time No Known Allergies Allergy Verified 02/24/17 10:16 Home Medications: Home Medication List Medication Instructions Recorded Confirmed Last Taken Type Metformin [Glucophage] 1,000 mg PO BID CC 05/31/13 10/01/18 01/23/18 09:00 History SIMVAstatin [Zocor] 20 mg PO QHS 05/31/13 10/01/18 01/22/18 21:00 History Acetaminophen [Tylenol] 650 mg PO Q4H PRN PRN #0 tablet 01/09/15 10/01/18 Rx Albuterol Sulfate [Proair Hfa] 8.5 inhaler IH Q4-6H PRN PRN #0 01/09/1502/23/17 Rx hfa.aer.ad Folic Acid 1 mg PO DAILY tablet 03/03/17 10/01/18 01/23/18 09:00 Rx Tramadol [Ultram] 50 mg PO TID PRN PRN #0 tablet 03/03/17 10/01/18 01/22/18 21: 00 Rx Bimatoprost 0.01% Oph Solution 0 ml BOTH EYES HS bottle 02/04/18 10/01/18 Unknown Rx [Lumigan 0.01% Oph Solution] Cyanocobalamin (Vitamin B-12) 1,000 mcg IM DIRECTED #1 ml 02/04/18 10/01/18 Unknown Rx [Cyanocobalamin Injection] Docusate Sodium [Colace] 100 mg PO BID PRN PRN capsule 02/04/18 10/01/18 Unknown Rx Isosorbide Mononitrate E.r. [Imdur] 30 mg PO DAILY #1 tablet 02/04/18 10/01/18 Unknown Rx Polyethylene Glycol 3350 [Miralax] 17 gm PO BID PRN PRN #1 powd.pack 02/04/18 Unknown Rx Rivaroxaban [Xarelto] 20 mg PO WSUPPER tablet 02/04/18 10/01/18 Unknown Rx Timolol Maleate/Pf [Timoptic 0.25% 1 each OP QAM #1 droperette 02/04/18 Unknown Rx Ocudose Drop] Valacyclovir [Valtrex] 500 mg PO DAILY 10/01/18 10/01/18 Unknown History Valsartan [Diovan] 40 mg PO DAILY 10/01/18 10/01/18 Unknown History Cephalexin [Keflex] 500 mg PO BID #10 cap 10/03/18 Unknown Rx Escitalopram [Lexapro] 10 mg PO QHS #90 tab 10/03/18 Unknown Rx Ferrous Sulfate 325 mg PO DAILY #0 tablet 10/03/18 10/01/18 Unknown Rx Gabapentin [Neurontin] 300 mg PO BID capsule 10/03/18 Unknown Rx Magnesium Oxide [Mag-Ox] 400 mg PO DAILY tablet 10/03/18 Unknown Rx Omeprazole [Prilosec] 40 mg PO DAILY PRN PRN #0 capsule 10/03/18 10/01/18 Unknown Rx - History of Present Illness-Neuro Nature of Presenting Problem: Woke up at 3am this morning confused with garbled speech, increased generalized weakness. On chemo for multiple myeloma, blood work has been good lately per family. PMH of low magnesium and near syncope. Past History - Adult - PAST MEDICAL HISTORY-ADULT Cardiovascular: reports: CAD (minimal), HTN, hyperlipidemia Respiratory: reports: asthma, sleep apnea (obstructive) Gastrointestinal: reports: GERD, hemorrhoids (external), polyps (coloric), other (chronic constipation) Musculoskeletal: reports: arthritis (osteo), other (neuropathy) Endocrine/Immune: reports: Diabetes Other Conditions: reports: cataract/glaucoma (glaucoma) - PRIOR SURGERIES/PROCEDURES Surgical/Procedure History: reports: hysterectomy - IMMUNIZATION STATUS Childhood Immunizations: UTD Flu Vaccine: UTD Progress - PLAN OF CARE/RESULTS Progress/Plan/Lab Results: Vital Signs - 8 hr 11/22/18 11:38 Pulse Rate 108 H Respiratory Rate 18 Blood Pressure 164/95 O2 Sat by Pulse Oximetry 99 Orders Category Date Time Status CT HEAD W/O CONTRAST [CT] Stat Exams 11/22/18 11:41 Ordered Departure - Departure Referrals and Follow-Ups: South Gaines MD [Primary Care Provider] -
--- NOTE | 2018-11-22 12:08 | Diag Imaging Result Doc PS360 ---
EXAM: CT HEAD W/O CONTRAST - 11/22/2018 HISTORY: code stroke TECHNIQUE: CT head without contrast COMPARISON: 10/01/2018 FINDINGS: Heart exam was repeated due to degradation some of the original images by patient motion. There is no evidence of intracranial hemorrhage, mass effect, or midline shift. There is no evidence of infarct, although acute infarcts may not be immediately visible. IMPRESSION: No visible acute intracranial abnormality. This exam was performed using automated exposure control, adjustment of mA or kV according to patient size, and/or use of iterative reconstruction technique. Electronically signed by Ariel Panchal 11/22/2018 12:06 PM
--- NOTE | 2018-11-22 12:17 | Diag Imaging Result Doc PS360 ---
EXAM: CHEST-PORTABLE - 11/22/2018 HISTORY: stroke like symptoms TECHNIQUE: Portable chest COMPARISON: 11/02/2018 FINDINGS: Heart size appears the upper range of normal and stable. The projection is somewhat lordotic which limits detail at the lung bases. Lungs appear grossly clear. There is no pleural effusion or pneumothorax identified. IMPRESSION: No evidence of acute disease. Electronically signed by Ariel Panchal 11/22/2018 12:15 PM
[2018-11-22 12:45] LABS: BASO# 0.01 X1000 (0.0-0.2); BASO% 0.2 % (0.0-0.8); EOS# 0.05 X1000 (0.0-0.7); EOS% 0.9 % (0.0-10.0); HEMATOCRIT 40.8 % (37.0-47.0); IMM GRAN# 0.02 X1000 (0.0-0.04); IMM GRAN% 0.3 % (0.0-0.5); LYMPH# 1.26 X1000 (1.2-3.4); LYMPH% 21.5 % (20.5-51.1); MCH 31.7 PG (27-31); MCHC 34.3 g/dL (33-37); MCV 92.5 FL (81-99); MONO% 10.2 % (1.7-9.3); MPV 12.7 FL (7.4-10.4); NEUT# 3.92 X1000 (1.4-6.5); NEUT% 66.9 % (42.2-75.2); PLT 145 X1000 (130-400); RBC 4.41 XMIL (4.2-5.4); RDW 11.8 % (11.5-14.5); WBC 5.86 X1000 (4.8-10.8)
[2018-11-22 12:53] LABS: INR 1.98
[2018-11-22 12:54] LABS: PTT 41.3 Seconds (22.3-41.8)
--- NOTE | 2018-11-22 13:05 | PROVIDER DOCUMENTATION ---
This chart was entered by Lachelle Gustafson Scribe, acting as scribe for Carol Fofana MD. HPI-Neurological Disorder - General Chief Complaint: Stroke-Like Symptoms Stated Complaint: SLURRED SPEACH / CONFUSION Time Seen by Provider: 11/22/18 11:47 Source: patient, family Allergies/Adverse Reactions: Patient Allergies Allergy/AdvReac Type Severity Reaction Status Date / Time No Known Allergies Allergy Verified 02/24/17 10:16 Home Medications: Home Medication List Medication Instructions Recorded Confirmed Last Taken Type Metformin [Glucophage] 1,000 mg PO BID CC 05/31/13 10/01/18 01/23/18 09:00 History SIMVAstatin [Zocor] 20 mg PO QHS 05/31/13 10/01/18 01/22/18 21:00 History Acetaminophen [Tylenol] 650 mg PO Q4H PRN PRN #0 tablet 01/09/15 10/01/18 Rx Albuterol Sulfate [Proair Hfa] 8.5 inhaler IH Q4-6H PRN PRN #0 01/09/1502/23/17 Rx hfa.aer.ad Folic Acid 1 mg PO DAILY tablet 03/03/17 10/01/18 01/23/18 09:00 Rx Tramadol [Ultram] 50 mg PO TID PRN PRN #0 tablet 03/03/17 10/01/18 01/22/18 21: 00 Rx Bimatoprost 0.01% Oph Solution 0 ml BOTH EYES HS bottle 02/04/18 10/01/18 Unknown Rx [Lumigan 0.01% Oph Solution] Cyanocobalamin (Vitamin B-12) 1,000 mcg IM DIRECTED #1 ml 02/04/18 10/01/18 Unknown Rx [Cyanocobalamin Injection] Docusate Sodium [Colace] 100 mg PO BID PRN PRN capsule 02/04/18 10/01/18 Unknown Rx Isosorbide Mononitrate E.r. [Imdur] 30 mg PO DAILY #1 tablet 02/04/18 10/01/18 Unknown Rx Polyethylene Glycol 3350 [Miralax] 17 gm PO BID PRN PRN #1 powd.pack 02/04/18 Unknown Rx Rivaroxaban [Xarelto] 20 mg PO WSUPPER tablet 02/04/18 10/01/18 Unknown Rx Timolol Maleate/Pf [Timoptic 0.25% 1 each OP QAM #1 droperette 02/04/18 Unknown Rx Ocudose Drop] Valacyclovir [Valtrex] 500 mg PO DAILY 10/01/18 10/01/18 Unknown History Valsartan [Diovan] 40 mg PO DAILY 10/01/18 10/01/18 Unknown History Cephalexin [Keflex] 500 mg PO BID #10 cap 10/03/18 Unknown Rx Escitalopram [Lexapro] 10 mg PO QHS #90 tab 10/03/18 Unknown Rx Ferrous Sulfate 325 mg PO DAILY #0 tablet 10/03/18 10/01/18 Unknown Rx Gabapentin [Neurontin] 300 mg PO BID capsule 10/03/18 Unknown Rx Magnesium Oxide [Mag-Ox] 400 mg PO DAILY tablet 10/03/18 Unknown Rx Omeprazole [Prilosec] 40 mg PO DAILY PRN PRN #0 capsule 10/03/18 10/01/18 Unknown Rx - History of Present Illness-Neuro Nature of Presenting Problem: 83 year old female presents to the ER with complaint of confusion and headache that started at 3 am per family. Family states the pt was slurring words and did not know name//year. Upon arrival pt had same confusion but when doctor at bedside pt knew name/. Pt states she still does not feel right but cannot explain what is not feeling right. Pt also has a large knot on left norman from a fall several weeks ago. Pt's family states her PCP has evaluated this injury. Headache Location: reports: frontal Onset/Duration: reports: this morning Timing: reports: improving Context: reports: impaired speech Character of Altered Mental Status: reports: disoriented, confused Character of Deficits: reports: new weakness, impaired speech Cognitive Baseline: alert but confused Associated Symptoms: reports: headache, dizziness, confusion, slurred speech Review of Systems - Adult - REVIEW OF SYSTEMS - ADULT Constitutional: denies: chills, fever Eyes: reports: no symptoms reported Ears, Nose, Mouth & Throat: reports: no symptoms reported Cardiovascular: reports: no symptoms reported Respiratory: reports: no symptoms reported Gastrointestinal: reports: no symptoms reported Genitourinary: reports: no symptoms reported Musculoskeletal: reports: bone pain (left lower leg). denies: joint swelling Integumentary: reports: no symptoms reported Neurological: reports: dizziness/vertigo, headache/migraines, slurred speech Psychiatric: reports: no symptoms reported Endocrine: reports: no symptoms reported Hematologic/Lymphatic: reports: no symptoms reported Allergic/Immunologic: reports: no symptoms reported All Other Systems: Reviewed and Negative Past History - Adult - PAST MEDICAL HISTORY-ADULT Review of Records: reports: Nursing Assessment Review, Medications Reviewed Cardiovascular: reports: CAD (minimal), HTN, hyperlipidemia Respiratory: reports: asthma, sleep apnea (obstructive) Gastrointestinal: reports: GERD, hemorrhoids (external), polyps (coloric), other (chronic constipation) Musculoskeletal: reports: arthritis (osteo), other (neuropathy) Endocrine/Immune: reports: Diabetes Other Conditions: reports: cataract/glaucoma (glaucoma) - PRIOR SURGERIES/PROCEDURES Surgical/Procedure History: reports: hysterectomy - IMMUNIZATION STATUS Childhood Immunizations: UTD Flu Vaccine: UTD Physical Exam- Neurological - Physical Exam-Neuro Initial Vital Signs Reviewed: Yes General Appearance: appears well, alert, no apparent distress Eye Exam: bilateral eye: PERRL (pinpoint bilataral) HENMT: moist mucous membranes, normal ENT inspection, TMs normal Head Injury: no evidence of injury Neck: non-tender, supple Respiratory: chest non-tender, lungs clear, normal breath sounds, no pleuratic chest pain, no respiratory distress Cardiovascular: normal peripheral pulses, regular rate, rhythm Abdominal Exam: non tender, soft Lymphatic: no adenopathy Extremity: normal range of motion, non-tender, other (fall a few weeks ago, left tibial tuberosity swelling without redness or 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: normal hearing, PERRL, other (slight slurred speech with 'no ifs ands or buts') Coordination/Gait: ABN nose to finger (R), ABN nose to finger (L) Motor/Sensory: other (RUE pronator drift) Neurologic: grossly normal Integumentary: normal color, normal turgor, warm/dry - [place]ow Coma Scale Best Eye Response: (4) open spontaneously Best Verbal Response: (5) oriented Best Motor Response: (6) obeys commands Progress - PLAN OF CARE/RESULTS Progress/Plan/Lab Results: Vital Signs - 8 hr 11/22/18 11:38 11/22/18 14:04 Temperature 99.9 F H Pulse Rate 108 H Respiratory Rate 18 Blood Pressure 164/95 O2 Sat by Pulse Oximetry 99 Laboratory Results - last 24 hr 11/22/18 11/22/18 11/22/18 11:59 12:08 12:08 WBC 5.86 RBC 4.41 Hgb 14.0 Hct 40.8 MCV 92.5 MCH 31.7 H MCHC 34.3 RDW Std Deviation 11.8 Plt Count 145 MPV 12.7 H Immature Gran % (Auto) 0.3 Neut % (Auto) 66.9 Lymph % (Auto) 21.5 [place] % (Auto) 10.2 H Eos % (Auto) 0.9 Baso % (Auto) 0.2 Immature Gran # (Auto) 0.02 Neut # (Auto) 3.92 Lymph # (Auto) 1.26 [place] # (Auto) 0.60 H Eos # (Auto) 0.05 Baso # (Auto) 0.01 PT INR PTT (Actin FS) Sodium 141 Potassium 4.0 Chloride 100 Carbon Dioxide 27 Anion Gap 14 BUN 21 Creatinine 1.2 H Estimated GFR/1.73 m2 43 BUN/Creatinine Ratio 18 Glucose 159 H POC Glucose 167 H Calculated Osmolality 288 Calcium 8.9 Magnesium 1.0 L* Total Bilirubin 0.44 AST 16 ALT 13 Alkaline Phosphatase 44 Troponin T Total Protein 6.8 Albumin 4.4 Globulin 2.4 Albumin/Globulin Ratio 1.8 11/22/18 11/22/18 12:08 12:08 WBC RBC Hgb Hct MCV MCH MCHC RDW Std Deviation Plt Count MPV Immature Gran % (Auto) Neut % (Auto) Lymph % (Auto) [place] % (Auto) Eos % (Auto) Baso % (Auto) Immature Gran # (Auto) Neut # (Auto) Lymph # (Auto) [place] # (Auto) Eos # (Auto) Baso # (Auto) PT 24.0 H INR 1.98 PTT (Actin FS) 41.3 Sodium Potassium Chloride Carbon Dioxide Anion Gap BUN Creatinine Estimated GFR/1.73 m2 BUN/Creatinine Ratio Glucose POC Glucose Calculated Osmolality Calcium Magnesium Total Bilirubin AST ALT Alkaline Phosphatase Troponin T < 0.010 Total Protein Albumin Globulin Albumin/Globulin Ratio Orders Category Date Time Status Cardiac Monitoring DIRECTED Care 11/22/18 11:53 Active Finger Stick Blood Sugar (ED) DIRECTED Care 11/22/18 11:53 Active Misc. NRSG Communication Order DIRECTED Care 11/22/18 11:53 Active Oxygen Therapy- ED Nursing DIRECTED Care 11/22/18 11:53 Active Saline Loc NOW Care 11/22/18 11:53 Active CHEST-PORTABLE [RAD] Stat Exams 11/22/18 11:[address] HEAD W/O CONTRAST [CT] Stat Exams 11/22/18 11:41 Completed CBC WITH ELECTRONIC DIFF [HEME] Stat Lab 11/22/18 12:08 Completed COMPREHENSIVE METABOLIC PANEL [CHEM] Stat Lab 11/22/18 12:08 Completed MAGNESIUM [CHEM] Stat Lab 11/22/18 12:08 Completed PROTIME WITH INR [COAG] Stat Lab 11/22/18 12:08 Completed PTT [COAG] Stat Lab 11/22/18 12:08 Completed TROPONIN T Stat Lab 11/22/18 12:08 Completed URINALYSIS W/POSS RFLX CULT [URINALYSIS] Stat Lab 11/22/18 11:53 Uncollected Acetaminophen [Tylenol] Med 11/22/18 13:20 Discontinued 650 mg PO NOW ONE Magnesium Sulfate 2 gm/S.w.i. [Magnesium Sulfate 2 gm/S Med 11/22/18 13:32 Discontinued .w.i] 2 gm in 50 ml IV NOW EKG [EKG] Stat Ther 11/22/18 11:53 Ordered Swallow Evaluation [OM.SPT] Stat Ther 11/22/18 13:20 Active per family pt began improving when I first saw pt, hypomag per labs, will give mag and re eval Post Mag family says pt symptoms have not improved, I feel her speech is better and less 'shaking' when lifting BUE 1518 call out to tele neuro [place] 1523 d/w Dr Lewis re HPI PMH exam on arrival subtle here, work up and family concerns and low mag corrected with 2 gm Mag IV, will conduct tele neuro within [address] Lewis completed exam, d/w pt and family plan to admit here, instead of hospitalist, Dr Gaines pt so Dr Hansen industrial relations manager, call out [phone] Dr Hansen 1703 d/w him HPI out of window for tPA, exam on arrival and now, results , treatment of Mg, no significant improvement post Mg [facility] family[facility] Result Diagrams: 11/22/18 12:08 11/22/18 12:08 - EKG 1 Time of EKG reading by physician:: 12:25 EKG Read and Signed by:: Carol Fofana EKG Interpretation (*Must complete 3 of following elements*): Abnormal Rate: 103 Rhythm: sinus tachycardia [place]: left (left axis deviation) QRS: LVH Departure - Departure Date of Disposition Decision: 11/22/18 Time of Disposition Decision: 16:42 DIAGNOSIS: Hypomagnesemia, CVA (cerebral vascular accident) DIAGNOSIS: (Ruled Out): Hypomagnesemia with secondary hypocalcemia Disposition: ADMITTED INPATIENT 09 Certified Medical Emergency: Emergent Condition: Good Additional Freetext Instructions: admit Dr Hansen [phone] Referrals and Follow-Ups: South Gaines MD [Primary Care Provider] - - Critical Care Note This patient required my direct & personal management of CC.: No Attestation - Physician/ MICAH Attestation The physician spent face to face time with patient:: Yes Advanced Practice Provider documentation review:: Supervising physician onsite and consulted in the evaluation and care of this patient. The physician did have a face to face encounter with the patient. - NIH Stroke Scale Level of Consciousness: 0-Alert LOC Questions (ask month and age): 0-Answers Both Correctly LOC Commands (ask to open & close eyes;make a fist, let go): 0-Obeys Both Correctly Best Gaze (horizontal eye movement): 0-Normal Visual (use finger movement, counting or visual threat): 0-No Visual Loss Facial Palsy (show teeth or raise eyebrows & close eyes tght: 0-Symmetrical Movement Motor Function-left arm: 0-Normal Motor Function-right arm: 0-Normal Motor Function-left le-Normal Motor Function-right le-Normal Limb Ataxia([id number], or heel to norman): 1-Present in one limb (RUE shaking limb) Sensory(pin prick to face,arms,trunk,legs-compare side/side): 0-No Ataxia Best Language(name item/read sentence.Ex-[place]): 0-No Aphasia Dysarthria(Pt read words or say words Ex.Mama,Tip-Top,Thanks: 1-Mild-Mod Slurring Words Extinction and Inattention: 0-Normal Modified [place] Score Criteria: 2-slight disability This chart was documented by the indicated scribe, (Lachelle Gustafson, Scribe) and accurately reflects the services I performed and decisions made by me, Carol Fofana MD, as attested by the provider's signature.
[2018-11-22 13:12] LABS: ALB/GLOB RATIO 1.8; ALBUMIN 4.4 g/dL (3.5-5.0); CALCIUM 8.9 mg/dL (8.8-10.2); CREATININE 1.2 mg/dL (0.5-0.9); TOTAL BILIRUBIN 0.44 mg/dL (0.20-1.00); TOTAL PROTEIN 6.8 g/dL (6.3-8.3)
[2018-11-22] MEDS ORDERED: TYLENOL PO ONE (13:20)
[2018-11-22] MEDS ORDERED: MAGNESIUM SULFATE 2 GM/S.W.I. 2 GM/50 ML IVPB IV ONE (13:32)
[2018-11-22] MEDS ORDERED: MIRALAX PO PRN (19:07)
[2018-11-22] MEDS ORDERED: VENTOLIN HFA INH PRN (19:07)
[2018-11-22] MEDS ORDERED: TYLENOL PO PRN ×2 (19:07)
[2018-11-22] MEDS ORDERED: COLACE PO PRN (19:07)
[2018-11-22] MEDS: LEXAPRO PO SCH (20:37)
[2018-11-22] MEDS: ULTRAM PO PRN (20:37)
[2018-11-22] MEDS: XARELTO PO SCH (20:37)
[2018-11-22] MEDS: ZOCOR PO SCH (20:37)
[2018-11-22] MEDS: NEURONTIN PO SCH (20:37)
[2018-11-22] MEDS: ROZEREM PO SCH (22:21)
[2018-11-22] MEDS: LUMIGAN 0.01% OPH SOLUTION BOTH EYES SCH (22:22)
--- NOTE | 2018-11-23 01:27 | HISTORY AND PHYSICAL ---
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 South Gaines. CHIEF COMPLAINT: Dysarthria and expressive aphasia that comes and goes. HISTORY OF PRESENT ILLNESS: Ms. Weber is an 83-year-old white female with a history of type 2 diabetes mellitus, essential hypertension, previous DVT, and multiple myeloma. About 11 o'clock this morning, her son called me and said that she had had difficulty speaking, both pronouncing her words and also putting her thoughts into words since about 3 o'clock this morning. He was visiting from out of town. Yesterday he noticed that she was unable to get out of her chair and walk back to bed when it was time to go to bed. He had to put her walker in front of her and assist her to standing position and then support her while she took a few steps back to bed. She continued to have weakness today, although they were able to get her in the car and bring her here for evaluation in the Emergency Room. He remembers an episode last year when her magnesium was extremely low and she had similar difficulty with garbled speech. When I examined her around 5:30 p.m. today, she was smiling and alert and able to speak without any noticeable difficulty. Her son was in attendance and stated that her ability to speak has come and gone and come back again several times since being here around 10:30. She does mention some occipital headache. PAST MEDICAL HISTORY: 1. Previous deep vein thrombosis of the right calf and left leg in 2014 and 2017. 2. History of multiple echocardiograms and carotid Doppler studies done within the last several years. Her mri technologist is Dr. Teddy Gilliam. She has mild carotid artery disease. 3. She has a history of intermittent bronchospasm treated with p.r.n. albuterol metered dose inhaler. 4. She has chronic constipation. 5. She has a history of adjustment disorder with depressed mood and anxiety following her daughter's from cancer. 6. She has longstanding type 2 diabetes mellitus with diabetic nephropathy. 7. Esophageal reflux. 8. Essential hypertension. 9. Glaucoma. 10.Hyperlipidemia. 11.Multiple myeloma was diagnosed in January of last year and she is followed by Dr. Borjas and has a weekly shot at his office. His note last year mentions Velcade. 12.She has a history of mild cognitive impairment. 13.Obstructive sleep apnea. 14.Osteoarthritis. 15.Obesity. 16.Vitamin B12 deficiency. ALLERGIES: No known drug allergies. CURRENT MEDICATIONS: 1. Colace 100 mg b.i.d. 2. Vitamin B12 IM monthly. 3. Ferrous sulfate 325 mg b.i.d. 4. Folic acid 1 mg daily. 5. Gabapentin 300 mg, 1 in the morning and 2 at h.s. 6. Imdur 30 mg daily. 7. Lexapro 10 mg q.h.s. 8. Lumigan eye drops, 1 drop in each eye at bedtime. 9. Magnesium oxide 400 mg daily. 10.Metformin 1000 mg twice a day. 11.MiraLAX 17 grams twice daily. 12.Omeprazole 40 mg daily. 13.ProAir HFA, 1 to 2 puffs 4 times a day as needed. 14.Simvastatin 20 mg q.h.s. 15.Valacyclovir 500 mg daily. 16.Valsartan 40 mg daily. 17.Xarelto 20 mg daily with supper. 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 She lives alone. She is a . She denies alcohol or tobacco use. FAMILY HISTORY: Her father at age 86 with congestive heart failure. Mother at age 68 with myocardial infarction and also had a history of diabetes. REVIEW OF SYSTEMS: General: Mild, dull, occipital headache that comes and goes since a fall last month. She denies any fever, chills or weight loss. HEENT: Vision and hearing are adequate without recent changes. Respiratory: No cough, shortness of breath, or sputum production or history of chronic lung disease. GI: She has occasional esophageal reflux and takes omeprazole as needed. She denies any nausea, vomiting, diarrhea, melena or bright red blood per rectum. She takes MiraLAX and Colace for chronic constipation. : No dysuria. On last admission 6 to 8 weeks ago, she was treated for a urinary tract infection. She denies symptoms now. Musculoskeletal: She has a history of diffuse osteoarthritis and also recurrent complaints of muscle weakness. She has been able to live alone at home until last night. Neurologic: She has a history of a very similar episode of transient and recurrent dysarthria and expressive aphasia with low magnesium level shortly after New Years this year. Psychiatric: As noted above, she has had some increased mood swings and anxiety since her daughter last year. She is somewhat improved on her higher dose of Lexapro. PHYSICAL EXAMINATION: VITAL SIGNS: Temperature 99.9 degrees, blood pressure 167/97, pulse rate 94, respiratory rate 17, oxygen saturation 95% on room air. GENERAL: A cheerful, elderly, obese female lying on a stretcher. HEENT: No evidence of trauma. Pupils equal, round and reactive to light. Extraocular movements intact. Sclerae are white. Unremarkable oral pharynx. NECK: Supple with no adenopathy, thyromegaly or bruits. CARDIOVASCULAR: Regular rate and rhythm. No murmurs or gallops. LUNGS: Clear to auscultation anteriorly and posteriorly. ABDOMEN: Soft, obese, nontender with active bowel sounds. EXTREMITIES: She moves all extremities well. No clubbing, cyanosis or edema. NEUROLOGICAL: Recent memory is fairly good. Her cranial nerve examination is unremarkable. Smile is symmetric. Neurologic exam by the teleneurologist is appreciated and shows no significant drift and 5/5 strength in her arms, and 4/5 in the legs. She has occasional mild tremors. DATA BASE: White blood cell count, hemoglobin, hematocrit and platelet count are all normal. Electrolytes are normal. BUN is 21, creatinine 1.2, glucose 169, magnesium 1.0. Liver enzymes: albumin unremarkable. ASSESSMENT: 1. Multiple symptoms pointing towards transient cerebral ischemia. She is already on Xarelto. She has a history of similar symptoms with a similarly low magnesium level in the past. Hypomagnesemia can cause cerebral vasospasms and could potentially explain some of her symptoms. However, as her symptoms have come and gone, I feel admission is necessary for Physical Therapy and Speech Therapy assessment. 2. Subjective weakness with difficulty walking. This has also been a frequent accompanying symptom in her recent admissions. I feel she will need some sort of assisted living facility or other support for her future health and safety. 3. Essential hypertension. We will allow blood pressure to remain somewhat elevated to maintain cerebral perfusion acutely. 4. Type 2 diabetes mellitus with acceptable control. We will continue diabetic diet and her metformin as at home. TREATMENT PLAN: 1. The recommendations of the teleneurologist are appreciated. 2. I have only ordered an MRI without contrast, as she has had at least 6 electrocardiograms in the last 5 years, 2 within the last 6 months. She has also had carotid Doppler studies done previously without surgical disease. 3. Continue Xarelto. It is possible that low-dose aspirin could be added to this. 4. Continue her Lexapro. 5. Anemia has resolved. We will leave a decision about her iron to Dr. Gaines. 6. Hyperlipidemia. The neurologist recommended atorvastatin. We will repeat her lipid profile in the morning and let Dr. Gaines decide about changing her statin. cc: Edgar Hansen MD
[2018-11-23 07:32] LABS: CHOLESTEROL 142 mg/dL (0-200); HDL 57 mg/dL (45-65); LDL 55 mg/dL; MAGNESIUM 1.7 mg/dL (1.5-2.7); TRIGLYCERIDES 151 mg/dL (35-135); VLDL 30 mg/dL
[2018-11-23] MEDS ORDERED: MAGNESIUM SULFATE 1 GM/D5W 1 GM/100 ML IVPB IV ONE (08:33)
[2018-11-23] MEDS ORDERED: MAG-OX PO SCH (09:00)
--- NOTE | 2018-11-23 09:01 | EKG Report ---
Test Performed on : 11/22/2018 11:44:36 AM Test Reason : Stroke like symptoms Blood Pressure : / mmHG Vent. Rate : 103 BPM Atrial Rate : 103 BPM P-R Int : 170 ms QRS Dur : 086 ms QT Int : 350 ms P-R-T Axes : 040 -39 049 degrees QTc Int : 458 ms Sinus tachycardia. Possible Left atrial enlargement Left axis deviation Left ventricular hypertrophy Possible Lateral infarct , age undetermined Abnormal ECG When compared with ECG of 24-FEB-2017 14:53, No significant change was found Unconfirmed Result
[2018-11-23] MEDS: VALTREX PO SCH (10:11)
[2018-11-23] MEDS: DIOVAN PO SCH (10:11)
[2018-11-23] MEDS: FOLIC ACID PO SCH (10:12)
[2018-11-23] MEDS: GLUCOPHAGE PO SCH ×2 (10:12→18:03)
[2018-11-23] MEDS: NEURONTIN PO SCH ×2 (10:12→21:37)
[2018-11-23] MEDS: TIMOPTIC 0.25% OPH SOLUTION BOTH EYES SCH (10:13)
[2018-11-23 10:52] LABS: URINE SOURCE CLEAN CATCH
[2018-11-23 10:57] LABS: BILIRUBIN URINE NEGATIVE (NEGATIVE); BLOOD URINE NEGATIVE (NEGATIVE); COLOR YELLOW; GLUCOSE URINE NEGATIVE (NEGATIVE); KETONE URINE NEGATIVE (NEGATIVE); LEUKOCYTES URINE NEGATIVE (NEGATIVE); NITRITE URINE NEGATIVE (NEGATIVE); PH URINE 6.5; PROTEIN URINE NEGATIVE (NEGATIVE); SP GRAVITY URINE 1.012; TURBIDITY URINE CLEAR (CLEAR); UR EPITHELIAL CELLS <10 /HPF (<10); URINE BACTERIA NEGATIVE /HPF; URINE RBC <10 /HPF (<10); URINE WBC <10 /HPF (<10); UROBILINOGEN URINE NORMAL (NORMAL)
[2018-11-23] MEDS: ULTRAM PO PRN ×2 (11:40→18:02)
[2018-11-23] MEDS: MAG-OX PO SCH ×2 (11:41→21:36)
[2018-11-23] MEDS: IMDUR PO SCH (11:41)
--- NOTE | 2018-11-23 13:04 | Diag Imaging Result Doc PS360 ---
EXAM: MRI BRAIN W/WO CONTRAST INDICATION: transient dysarthria COMPARISON: 10/02/2018 FINDINGS: There is no evidence of acute infarct. There is stable diffuse brain atrophy. There is patchy T2/FLAIR hyperintensity in the periventricular and subcortical white matter suggesting mild to moderate microangiopathy, stable. There is no discrete intracranial mass, mass effect, or intracranial hemorrhage. There is no evidence of abnormal intracranial enhancement. The surrounding soft tissues and bony structures are essentially unremarkable. IMPRESSION: Stable chronic changes as described. No evidence of acute intracranial pathology. Electronically signed by Gareth Jean 11/23/2018 1:02 PM
[2018-11-23] MEDS: XARELTO PO SCH (18:03)
[2018-11-23] MEDS: ZOCOR PO SCH (21:36)
[2018-11-23] MEDS: LEXAPRO PO SCH (21:36)
[2018-11-23] MEDS: LUMIGAN 0.01% OPH SOLUTION BOTH EYES SCH (21:36)
[2018-11-23] MEDS: ROZEREM PO SCH (21:42)
--- NOTE | 2018-11-23 22:01 | PROGRESS NOTE ---
DATE: 11/23/2018 SUBJECTIVE: Patient's chart was reviewed. In summary, patient was admitted to [facility] after an episode of profound weakness and dysarthria. CT scan of the head revealed no acute abnormality. Chest x-ray revealed no acute disease. Laboratory data was significant for hypomagnesemia. With IV fluids and magnesium replacement, patient achieved initial improvement. This morning patient stated she felt reasonably well. She noted only a headache and weakness. She denies fevers, chills, nausea, vomiting, shortness of breath, or chest discomfort overnight. Throughout the day, patient did reasonably well. Unfortunately, her headache continued. The MRI of the brain today revealed stable chronic changes with no evidence of acute pathology. This evening, patient states she continues to be very weak. She notes difficulty with ambulating short distances. Her headache persists, but is non limiting. She denies neurological deficits associated. OBJECTIVE: T-max 99.1 degrees, heart rate 77 to 87, respirations 16 to 20, blood pressure 124 to 156 over 64 to 75.General: Well nourished, well-developed, no acute distress. Cardiovascular: Regular rate and rhythm. No significant murmurs, rubs, or gallops. Pulmonary: Clear to auscultation bilaterally. Abdomen: Soft, nontender, nondistended. Positive bowel sounds. Extremities: Moves all extremities well. No significant clubbing, cyanosis, or edema. Dermatologic: Evaluation reveals no evidence of rash. LABORATORY DATA: None. ASSESSMENT AND PLAN: 1. Alteration of mental status-initially, concern was raised for the possibility of a transient ischemic attack. As symptoms were similar to her previous episode of hypomagnesemia, this is highest on my differential. The patient was again provided IV magnesium. We will increase her oral magnesium twice daily. We will remain aware that this could be an atypical presentation of a migraine headache. 2. Headache-this likely is reactive. We will remain aware that an atypical migraine could present in a similar fashion. We will continue supportive care. 3. Profound weakness-we will initiate physical therapy in the a.m. I do not appreciate any true neurological deficits. 4. Hypertension-we will continue patient on her home regimen. 5. Type 2 diabetes-we will continue patient on her home regimen. 6. Multiple myeloma-we will remain aware. 7. Disposition-at this point, patient continues to require [facility] care in a hospital setting. We will plan discharge home once appropriate. cc: MD Edgar Frias MD
[2018-11-24] MEDS: TIMOPTIC 0.25% OPH SOLUTION BOTH EYES SCH (09:25)
[2018-11-24] MEDS: GLUCOPHAGE PO SCH ×2 (09:26→17:36)
[2018-11-24] MEDS: MAG-OX PO SCH ×2 (09:27→21:49)
[2018-11-24] MEDS: IMDUR PO SCH (09:27)
[2018-11-24] MEDS: NEURONTIN PO SCH ×2 (09:27→21:48)
[2018-11-24] MEDS: VALTREX PO SCH (09:27)
[2018-11-24] MEDS: DIOVAN PO SCH (09:27)
[2018-11-24] MEDS: FOLIC ACID PO SCH (09:27)
[2018-11-24] MEDS: XARELTO PO SCH (17:36)
--- NOTE | 2018-11-24 20:44 | PROGRESS NOTE ---
DATE: 11/24/2018 SUBJECTIVE: Upon my arrival this morning, patient was resting in bed. She stated she had a reasonably restful night. Throughout the day today, patient remained active. She worked with physical therapy. Per report, patient had an episode of acute weakness with ambulation during her physical therapy. With rest, the patient improved. This evening, patient has noted some intermittent confusion through the day. She also describes having some visual hallucinations, including seeing her daughter and who are . She denies fevers, chills, nausea, vomiting, shortness of breath, chest discomfort, or additional neurological deficits. OBJECTIVE: Vital Signs: T-max 98.3, heart rate 76-80, respirations 16-20, blood pressure 99-156 over 46-75. General: Well nourished, well developed, in no acute distress. Cardiovascular: Regular rate and rhythm. No significant murmurs, rubs, or gallops. Pulmonary: Clear to auscultation bilaterally. Abdomen: Soft, nontender, nondistended. Positive bowel sounds. Extremities: Moves all extremities well. No significant clubbing, cyanosis, or edema. Dermatologic: Evaluation reveals no evidence of rash. LABORATORY DATA: None. ASSESSMENT AND PLAN: 1. Alteration of mental status/confusion-initially, this likely was a consequence of hypomagnesemia. With replacement, she achieved improvement. Full evaluation including MRI revealed no anatomical abnormalities. This evening, patient has again developed intermittent confusion and visual hallucinations. I suspect this likely represents medication associated changes. We will discontinue Rozerem. We will follow patient's clinical course closely. Should patient have persistence of symptoms, we will consider whether a neurology consultation is appropriate. 2. Headaches-the patient has achieved resolution from yesterday evening. The question is raised as to the etiology. The patient's mental status changes upon admission and associated headache the following day could represent an atypical migraine, however, this seems unlikely. 3. Profound weakness - as above, patient experienced significant weakness during physical therapy today. This raises the question as to her ability to care for herself at home. At this point, I suspect patient would benefit from rehabilitation. We will consult family welfare social work professor in the morning for consideration. 4. Hypertension. Patient's blood pressure is slightly low this evening. We will continue patient's home medication for now. We will continue to follow. 5. Type 2 diabetes-we will continue metformin therapy. 6. Multiple myeloma. We remain aware. 7. Disposition-at this point, patient continues to require half-way care in a hospital setting. We will plan discharge home or to rehabilitation once appropriate. cc: MD Edgar Frias MD
[2018-11-24] MEDS: LEXAPRO PO SCH (21:48)
[2018-11-24] MEDS: LUMIGAN 0.01% OPH SOLUTION BOTH EYES SCH (21:49)
[2018-11-24] MEDS: ZOCOR PO SCH (21:49)
[2018-11-25 06:57] LABS: BASO# 0.01 X1000 (0.0-0.2); BASO% 0.2 % (0.0-0.8); EOS# 0.07 X1000 (0.0-0.7); EOS% 1.3 % (0.0-10.0); HEMATOCRIT 37.7 % (37.0-47.0); LYMPH# 1.11 X1000 (1.2-3.4); LYMPH% 20.6 % (20.5-51.1); MCH 31.8 PG (27-31); MCHC 34.5 g/dL (33-37); MCV 92.2 FL (81-99); MONO% 11.2 % (1.7-9.3); MPV 12.5 FL (7.4-10.4); NEUT# 3.59 X1000 (1.4-6.5); NEUT% 66.7 % (42.2-75.2); PLT 158 X1000 (130-400); RBC 4.09 XMIL (4.2-5.4); RDW 11.7 % (11.5-14.5); WBC 5.38 X1000 (4.8-10.8)
[2018-11-25 07:20] LABS: ALB/GLOB RATIO 1.9; ALBUMIN 4.3 g/dL (3.5-5.0); CALCIUM 8.8 mg/dL (8.8-10.2); CREATININE 1.2 mg/dL (0.5-0.9); MAGNESIUM 1.8 mg/dL (1.5-2.7); POTASSIUM 4.1 mmol/L (3.5-5.1); TOTAL BILIRUBIN 0.43 mg/dL (0.20-1.00); TOTAL PROTEIN 6.6 g/dL (6.3-8.3)
[2018-11-25] MEDS: TIMOPTIC 0.25% OPH SOLUTION BOTH EYES SCH (09:35)
[2018-11-25] MEDS: NEURONTIN PO SCH (09:39)
[2018-11-25] MEDS: DIOVAN PO SCH (09:40)
[2018-11-25] MEDS: MAG-OX PO SCH ×2 (09:40→21:34)
[2018-11-25] MEDS: FOLIC ACID PO SCH (09:40)
[2018-11-25] MEDS: IMDUR PO SCH (09:40)
[2018-11-25] MEDS: GLUCOPHAGE PO SCH ×2 (09:41→17:42)
[2018-11-25] MEDS: VALTREX PO SCH (09:42)
[2018-11-25] MEDS ORDERED: ATIVAN IV ONE (12:13)
[2018-11-25] MEDS: XANAX PO PRN (13:27)
[2018-11-25] MEDS: XARELTO PO SCH (17:39)
[2018-11-25] MEDS ORDERED: MAGNESIUM SULFATE 1 GM/D5W 1 GM/100 ML IVPB IV ONE (19:49)
--- NOTE | 2018-11-25 20:06 | PROGRESS NOTE ---
DATE: 11/25/2018 SUBJECTIVE: Over the course of the last 24 hours, patient has experienced a considerable amount of confusion. This morning, patient was alert to person, but had difficulty understanding place and situation. Later in the day, patient became belligerent and agitated toward her son. This afternoon, upon arrival, patient was resting. She continued to have some confusion. There has been no evidence of fevers, chills, nausea, vomiting, shortness of breath, chest discomfort, or neurological deficits associated. OBJECTIVE: Vital Signs: T-max 98.5, heart rate 84 to 87, respirations 18-20, blood pressure 99- 163 over 46-114. General: Well nourished, well developed, no acute distress. Cardiovascular: Regular rate and rhythm. No significant murmurs, rubs, or gallops. Pulmonary: Clear to auscultation bilaterally. Abdomen: Soft, nontender, nondistended. Positive bowel sounds. Extremities: Moves all extremities well. No significant clubbing, cyanosis, or edema. Dermatologic: Evaluation reveals no evidence of rash. LABORATORY DATA: White blood cell count 5.38, hemoglobin 13.0, hematocrit 37.7, platelet count 158,000. Sodium 136, potassium 4.1, chloride 100, bicarb 24, BUN 27, creatinine 1.2, glucose 110, calcium 8.8, magnesium 1.8. Total bilirubin 0.43. Total protein 6.6, albumin 4.3, alkaline phosphatase 42, AST 15, ALT 11. ASSESSMENT AND PLAN: 1. Alteration of mental status/delirium-initially, this likely was secondary to hypomagnesemia. This has been replaced. Over the course of the day today, patient has developed increasing confusion. I suspect this may be medication associated. Rozerem has been discontinued. We also discontinued tramadol and gabapentin therapy. We will follow patient's clinical course today. We added as needed Xanax for agitation. We will determine whether further neurological consultation is appropriate depending on her progression. 2. Headaches-patient has achieved resolution. 3. Profound weakness-unfortunately, this persists. Patient likely will require physical therapy and rehabilitation at discharge. For now, we will continue physical therapy. 4. Hypertension - the patient's blood pressure is slightly elevated, but reasonably controlled on her current regimen. 5. Hypertension. 6. Diabetes-we will continue metformin therapy. 7. Multiple myeloma. We will remain aware. DISPOSITION: At this point, patient continues to require penitentiary care in a hospital setting. We will plan discharge home once appropriate. cc: MD Edgar Frias MD
[2018-11-25] MEDS: LEXAPRO PO SCH (21:33)
[2018-11-25] MEDS: ZOCOR PO SCH (21:33)
[2018-11-25] MEDS: LUMIGAN 0.01% OPH SOLUTION BOTH EYES SCH (22:00)
[2018-11-25 23:26] LABS: URINE SOURCE CLEAN CATCH
[2018-11-25 23:29] LABS: BILIRUBIN URINE NEGATIVE (NEGATIVE); BLOOD URINE TRACE (NEGATIVE); COLOR YELLOW; GLUCOSE URINE NEGATIVE (NEGATIVE); KETONE URINE NEGATIVE (NEGATIVE); LEUKOCYTES URINE TRACE (NEGATIVE); NITRITE URINE NEGATIVE (NEGATIVE); PROTEIN URINE NEGATIVE (NEGATIVE); SP GRAVITY URINE 1.004; TURBIDITY URINE CLEAR (CLEAR); UROBILINOGEN URINE NORMAL (NORMAL)
[2018-11-25 23:33] LABS: UR EPITHELIAL CELLS <10 /HPF (<10); URINE BACTERIA NEGATIVE /HPF; URINE RBC <10 /HPF (<10); URINE WBC <10 /HPF (<10)
[2018-11-26] LABS: URINE CASTS NONE SEEN; URINE CRYSTALS NONE SEEN; URINE SMALL ROUND CELLS NONE SEEN; URINE YEAST NONE SEEN
[2018-11-26] MEDS: XANAX PO PRN (05:22)
[2018-11-26] MEDS: DIOVAN PO SCH ×3 (07:02→21:46)
[2018-11-26] MEDS: IMDUR PO SCH ×2 (07:03→08:49)
[2018-11-26 08:31] LABS: ALB/GLOB RATIO 1.9; ALBUMIN 4.5 g/dL (3.5-5.0); CALCIUM 9.2 mg/dL (8.8-10.2); POTASSIUM 3.9 mmol/L (3.5-5.1); TOTAL BILIRUBIN 0.52 mg/dL (0.20-1.00); TOTAL PROTEIN 6.9 g/dL (6.3-8.3)
[2018-11-26 08:49] LABS: BASO# 0.01 X1000 (0.0-0.2); BASO% 0.1 % (0.0-0.8); EOS# 0.03 X1000 (0.0-0.7); EOS% 0.4 % (0.0-10.0); HEMATOCRIT 43.6 % (37.0-47.0); HEMOGLOBIN 15.1 g/dL (12.0-16.0); IMM GRAN# 0.02 X1000 (0.0-0.04); IMM GRAN% 0.3 % (0.0-0.5); LYMPH# 0.82 X1000 (1.2-3.4); LYMPH% 12.3 % (20.5-51.1); MCH 31.6 PG (27-31); MCHC 34.6 g/dL (33-37); MCV 91.2 FL (81-99); MONO# 0.75 X1000 (0.11-0.59); MONO% 11.2 % (1.7-9.3); MPV 12.7 FL (7.4-10.4); NEUT# 5.05 X1000 (1.4-6.5); NEUT% 75.7 % (42.2-75.2); PLT 164 X1000 (130-400); RBC 4.78 XMIL (4.2-5.4); RDW 11.9 % (11.5-14.5); WBC 6.68 X1000 (4.8-10.8)
[2018-11-26] MEDS: GLUCOPHAGE PO SCH ×2 (08:56→17:53)
[2018-11-26] MEDS: FOLIC ACID PO SCH (08:56)
[2018-11-26] MEDS: VALTREX PO SCH (08:56)
[2018-11-26] MEDS: TIMOPTIC 0.25% OPH SOLUTION BOTH EYES SCH (08:56)
[2018-11-26] MEDS: MAG-OX PO SCH ×2 (08:56→21:46)
[2018-11-26] MEDS: XARELTO PO SCH (17:53)
--- NOTE | 2018-11-26 20:21 | PROGRESS NOTE ---
DATE: 11/26/2018 SUBJECTIVE: Upon my arrival this morning, patient was resting in bed. Her son was at bedside. He noted patient to have rested very little overnight. The patient continued to have considerable confusion throughout the night. Her blood pressure was noted to be significantly elevated. The patient was given her home medical regimen for her blood pressure. Blood pressure demonstrated improvement. Several medications were held secondary to her mental status change. Gabapentin and tramadol were discontinued. As-needed alprazolam was continued. Throughout the day, patient's mental status did demonstrate improvement. There has been no evidence of agitation. She continues to have some confusion and visual hallucinations, although these have decreased. She denies fevers, chills, nausea, vomiting, shortness of breath or chest discomfort. OBJECTIVE: Vital Signs: T-max 98.6, heart rate 85-106, respirations 18-21, blood pressure 157- 242/81-130. General: Well nourished, well developed, no acute distress. Cardiovascular: Regular rate and rhythm. No significant murmurs, rubs, or gallops. Pulmonary: Clear to auscultation bilaterally. Abdomen: Soft, nontender, nondistended. Positive bowel sounds. Extremities: Moves all extremities well. No significant clubbing, cyanosis or edema. Dermatologic: Evaluation reveals no evidence of rash. LABORATORY DATA: White blood cell count 6.68, hemoglobin 15.1, hematocrit 43.6, platelet count 164,000. Sodium 140, potassium 3.9, chloride 102, bicarb 24, BUN 18, creatinine 1.0, glucose 113. Calcium 9.2, total bilirubin 0.52, total protein 6.9, albumin 4.5, alkaline phosphatase 47, AST 23, ALT 16. ASSESSMENT AND PLAN: 1. Alteration of mental status-upon admission, this likely was secondary to hypomagnesemia. Since hospitalization, I am concerned there has been an exacerbation secondary to medications. Rozerem, tramadol, and gabapentin have been discontinued. The patient is demonstrating improvement in her mental status. For now, we will continue as needed Xanax for agitation as this has been effective. 2. Headaches-patient has achieved full resolution. 3. Profound weakness-unfortunately, this persists. We will resume physical therapy in the a.m. The patient likely will require rehabilitation at discharge. 4. Hypertension-this morning, patient had an extremely elevated blood pressure spike. Throughout the day, this has been slightly elevated, but much more acceptable. We will increase patient's valsartan to 40 mg twice daily. We will continue to monitor this closely and adjust as necessary. 5. Diabetes-we will continue patient on metformin therapy. Blood sugars are reasonably controlled. 6. Multiple myeloma. We will discuss this in detail with Dr. Borjas tomorrow. I anticipate patient will require rehabilitation for 2-3 weeks. I would like to confirm it will be acceptable to hold her treatment for this duration of time. If not, we will need to consider alternative arrangements. DISPOSITION: At this point, patient continues to require snf care in a hospital setting. We will plan discharge home once appropriate. cc: MD Edgar Frias MD
[2018-11-26] MEDS: ZOCOR PO SCH (21:46)
[2018-11-26] MEDS: LEXAPRO PO SCH (21:46)
[2018-11-26] MEDS: LUMIGAN 0.01% OPH SOLUTION BOTH EYES SCH (21:46)
[2018-11-27] MEDS: XANAX PO PRN ×2 (02:51→22:01)
[2018-11-27] MEDS: TIMOPTIC 0.25% OPH SOLUTION BOTH EYES SCH (08:43)
[2018-11-27] MEDS: GLUCOPHAGE PO SCH ×2 (08:43→17:05)
[2018-11-27] MEDS: VALTREX PO SCH (08:44)
[2018-11-27] MEDS: MAG-OX PO SCH ×2 (08:44→22:03)
[2018-11-27] MEDS: DIOVAN PO SCH ×2 (08:44→22:02)
[2018-11-27] MEDS: IMDUR PO SCH (08:44)
[2018-11-27] MEDS: FOLIC ACID PO SCH (08:44)
[2018-11-27] MEDS: XARELTO PO SCH (17:13)
--- NOTE | 2018-11-27 20:42 | PROGRESS NOTE ---
DATE: 11/27/2018 SUBJECTIVE: This morning upon my arrival, the patient was alert. Unfortunately, she was noted to have considerable confusion. Throughout the day today, patient did reasonably well. She interacted with staff and with her family. Unfortunately, she continues to have intermittent confusion, and at times mild agitation. Her energy level and strength remain quite low. She denies fevers, chills, nausea, vomiting, shortness of breath, or chest discomfort. OBJECTIVE: Vital Signs: T-max 98.7, heart rate 88 to 96, respirations 16 to 21, blood pressure 128 to 204 over 71 to 102. General: Well nourished, well developed, in no acute distress. Cardiovascular: Regular rate and rhythm. No significant murmurs, rubs, or gallops. Pulmonary: Clear to auscultation bilaterally. Abdomen: Soft, nontender, nondistended. Positive bowel sounds. Extremities: Moves all extremities well. No significant clubbing, cyanosis, or edema. Dermatologic: Evaluation reveals no evidence of rash. LABORATORY DATA: None. ASSESSMENT AND PLAN: 1. Alteration of mental status - since admission, patient has had significant fluctuations. Originally, I felt this likely was secondary to hypomagnesemia. With repletion, her symptoms persist. Remeron, tramadol, and gabapentin have been discontinued. At this point, differential diagnosis, remains quite broad. With a negative MRI upon admission, significant intracranial abnormality seems less likely. She demonstrates no evidence of meningismus to suggest a meningeal infection. At this point, we will continue supportive care. Should her condition continue, we will consider neurology consultation. 2. Headaches - patient has achieved resolution while hospitalized. We will follow clinically. 3. Profound weakness - unfortunately, this is progressive, especially in the setting of her confusion. She likely will require rehabilitation at discharge. 4. Hypertension - the patient's blood pressure has demonstrated significantly lability. For now, we will continue her current regimen. 5. Diabetes - we will continue patient on metformin therapy. Blood sugars were reasonably controlled. 6. Multiple myeloma - the patient is currently receiving outpatient therapy per Dr. Borjas. We will follow this. Patient has no evidence of active disease at present time. 7. Disposition - at this point, patient continues to require assisted care in a hospital setting. We will plan discharge to rehabilitation once able. cc: MD Edgar Frias, MD
[2018-11-27] MEDS: ZOCOR PO SCH (22:02)
[2018-11-27] MEDS: LEXAPRO PO SCH (22:02)
[2018-11-27] MEDS: LUMIGAN 0.01% OPH SOLUTION BOTH EYES SCH (22:07)
[2018-11-27] MEDS: MELATONIN PO SCH (22:09)
[2018-11-28 07:14] LABS: BASO# 0.01 X1000 (0.0-0.2); BASO% 0.1 % (0.0-0.8); EOS# 0.08 X1000 (0.0-0.7); EOS% 1.2 % (0.0-10.0); HEMATOCRIT 41.4 % (37.0-47.0); HEMOGLOBIN 14.5 g/dL (12.0-16.0); LYMPH# 1.63 X1000 (1.2-3.4); MCH 31.9 PG (27-31); MONO# 0.74 X1000 (0.11-0.59); MONO% 10.9 % (1.7-9.3); MPV 12.1 FL (7.4-10.4); NEUT# 4.34 X1000 (1.4-6.5); NEUT% 63.8 % (42.2-75.2); PLT 196 X1000 (130-400); RBC 4.55 XMIL (4.2-5.4); RDW 11.9 % (11.5-14.5)
[2018-11-28 07:46] LABS: ALB/GLOB RATIO 1.8; ALBUMIN 4.4 g/dL (3.5-5.0); CALCIUM 8.6 mg/dL (8.8-10.2); CREATININE 1.1 mg/dL (0.5-0.9); POTASSIUM 4.4 mmol/L (3.5-5.1); TOTAL BILIRUBIN 0.6 mg/dL (0.20-1.00); TOTAL PROTEIN 6.9 g/dL (6.3-8.3)
[2018-11-28] MEDS: TIMOPTIC 0.25% OPH SOLUTION BOTH EYES SCH (09:12)
[2018-11-28] MEDS: FOLIC ACID PO SCH (09:13)
[2018-11-28] MEDS: IMDUR PO SCH (09:13)
[2018-11-28] MEDS: VALTREX PO SCH (09:13)
[2018-11-28] MEDS: DIOVAN PO SCH ×2 (09:13→21:16)
[2018-11-28] MEDS: MAG-OX PO SCH ×2 (09:13→21:16)
[2018-11-28] MEDS: GLUCOPHAGE PO SCH ×2 (09:13→16:47)
[2018-11-28] MEDS: MIRALAX PO SCH ×2 (11:38→21:15)
[2018-11-28] MEDS: NORVASC PO SCH ×2 (11:39→21:16)
[2018-11-28] MEDS: PERICOLACE PO SCH ×2 (11:43→21:16)
--- NOTE | 2018-11-28 13:20 | PROGRESS NOTE ---
DATE: 11/28/2018 SUBJECTIVE: This morning patient is much more alert and interactive than previous days. The patient was provided a dose of melatonin last night. Per report, she slept well. This morning she denies fevers, chills, nausea, vomiting, shortness of breath, or chest discomfort. Her energy level and strength remain quite low. Her only complaint this morning is that of a headache. Patient has been suffering from intermittent headaches for the last several weeks. OBJECTIVE: T-max 98.5 degrees, heart rate 74 to 86, respirations 16 to 20, and blood pressure 157 to 187 over 66 to 94.General: Well nourished, well developed in no acute distress. Cardiovascular: Regular rate and rhythm. No significant murmurs, rubs, or gallops. Pulmonary: Clear to auscultation bilaterally. Abdomen: Soft, nontender, and nondistended. Positive bowel sounds. Extremities: Moves all extremities well. No significant clubbing, cyanosis, or edema. Dermatologic: Evaluation reveals no evidence of rash. LABORATORY DATA: White blood cell count 6.80, hemoglobin 14.5, hematocrit 41.4 and platelet count 196,000. Sodium 137, potassium 4.4, chloride 102, bicarb 24, BUN 23, creatinine 1.1, glucose 104, calcium 8.6, total bilirubin 0.60. Total protein 6.9, albumin 4.4, alkaline phosphatase 43, AST 16 and ALT 13. ASSESSMENT AND PLAN: 1. Alteration of mental status - I am very encouraged the patient has had improvement over the last 24 hours. Since admission, her Rozerem, tramadol, and gabapentin have been discontinued. MRI returned without acute abnormality. Patient demonstrated no evidence of meningismus to suggest a meningeal infection. As above, patient was provided a dose of melatonin. She slept well. With the patient's improvement, we will begin to pursue more aggressive treatment of her weakness with physical therapy and rehabilitation. 2. Headaches-The patient has experienced intermittent headaches while hospitalized. Today, she has been treated with Tylenol therapy. Her headache is tolerable. As above, patient's gabapentin and tramadol have been held, likely playing a role. For now, we will continue Tylenol therapy. We will treat patient's blood pressure as below as this may also be playing a role. 3. Profound weakness-This remains a significant concern. We will continue physical therapy and plan rehabilitation at discharge. 4. Hypertension-The question is raised whether this may also be playing a role in her headaches. We will continue her current dose of valsartan. We will add amlodipine 2.5 mg twice daily. We will continue to follow blood pressure closely and address/adjust as necessary. 5. Diabetes-blood sugars are reasonably controlled with metformin therapy. 6. Multiple myeloma-We will remain aware. She currently is being treated as an outpatient by Dr. Borjas. 7. Disposition-At this point, patient continues to require care home care in a hospital setting. We will plan discharge to rehabilitation once appropriate. cc: MD Edgar Frias MD
[2018-11-28] MEDS: TYLENOL PO SCH ×2 (13:22→16:49)
[2018-11-28] MEDS: XARELTO PO SCH (16:47)
[2018-11-28] MEDS: LUMIGAN 0.01% OPH SOLUTION BOTH EYES SCH (21:15)
[2018-11-28] MEDS: ZOCOR PO SCH (21:15)
[2018-11-28] MEDS: LEXAPRO PO SCH (21:15)
[2018-11-28] MEDS: XANAX PO PRN (21:15)
[2018-11-28] MEDS: MELATONIN PO SCH (21:16)
[2018-11-29] MEDS: DIOVAN PO SCH ×2 (12:00→20:33)
[2018-11-29] MEDS: GLUCOPHAGE PO SCH ×2 (12:01→18:26)
[2018-11-29] MEDS: TYLENOL PO SCH ×2 (12:01→18:26)
[2018-11-29] MEDS: VALTREX PO SCH (12:02)
[2018-11-29] MEDS: FOLIC ACID PO SCH (12:02)
[2018-11-29] MEDS: NORVASC PO SCH ×2 (12:02→20:34)
[2018-11-29] MEDS: PERICOLACE PO SCH ×2 (12:02→20:35)
[2018-11-29] MEDS: IMDUR PO SCH (12:02)
[2018-11-29] MEDS: MIRALAX PO SCH ×2 (12:03→20:36)
[2018-11-29] MEDS: MAG-OX PO SCH ×2 (12:03→20:35)
[2018-11-29] MEDS: TIMOPTIC 0.25% OPH SOLUTION BOTH EYES SCH (12:03)
--- NOTE | 2018-11-29 13:04 | PROGRESS NOTE ---
DATE: 11/29/2018 SUBJECTIVE: Over the last 24 hours, patient has done quite well. Her mental status remains at baseline. This morning, she is sitting upright in a chair. She has already walked with Physical Therapy this morning. She denies fevers, chills, nausea, vomiting, shortness of breath, or chest discomfort. Headache has resolved from yesterday. Energy level remains low, but is slowly improving. OBJECTIVE: Vitals: Temperature maximum 98 degrees, heart rate 71 to 83, respirations 18 to 20, blood pressure 135 to 151/67 to 75. General: Well nourished, well developed, in no acute distress. Cardiovascular: Regular rate and rhythm. No significant murmurs, rubs, or gallops. Pulmonary: Clear to auscultation bilaterally. Abdomen: Soft, nontender, nondistended. Positive bowel sounds. Extremities: Moves all extremities well. No significant clubbing, cyanosis, or edema. Dermatologic: Evaluation reveals no evidence of rash. LABORATORY DATA: None. ASSESSMENT AND PLAN: 1. Alteration of mental status-the patient had a significant improvement beginning yesterday morning. Her mentation has returned to her baseline. The patient Rozerem, tramadol, and gabapentin have been discontinued. As described previously, MRI returned without acute abnormality. For now, we will continue supportive care. 2. Headaches-I am encouraged the patient has achieved improvement. I suspect this may be secondary to discontinuing her gabapentin and tramadol therapy. Yesterday, we scheduled Tylenol. Symptoms are controlled. 3. Profound weakness-this is of significant concern. As described above, she walked with Physical Therapy this morning. We will plan rehabilitation at discharge. 4. Hypertension-question was raised whether this was playing a role in her headaches. Yesterday, we continued valsartan, but added amlodipine 2.5 twice daily. Blood pressure has improved considerably. For now, we will continue her current regimen. 5. Diabetes-the patient's blood sugars are adequately controlled with metformin therapy. 6. Multiple myeloma-we will remain aware. She is treated as an outpatient by Dr. Borjas. 7. Disposition-at this point, patient continues to require correction care in a hospital setting. We will plan discharge to rehabilitation once able. cc: MD Edgar Frias MD
[2018-11-29] MEDS: XARELTO PO SCH (18:26)
[2018-11-29] MEDS: LUMIGAN 0.01% OPH SOLUTION BOTH EYES SCH (20:32)
[2018-11-29] MEDS: XANAX PO PRN (20:33)
[2018-11-29] MEDS: ZOCOR PO SCH (20:33)
[2018-11-29] MEDS: LEXAPRO PO SCH (20:33)
[2018-11-29] MEDS: MELATONIN PO SCH (20:35)
[2018-11-30] MEDS: TYLENOL PO SCH ×4 (03:21→16:10)
[2018-11-30] MEDS: MIRALAX PO SCH (08:06)
[2018-11-30] MEDS: NORVASC PO SCH (08:06)
[2018-11-30] MEDS: FOLIC ACID PO SCH (08:07)
[2018-11-30] MEDS: IMDUR PO SCH (08:07)
[2018-11-30] MEDS: GLUCOPHAGE PO SCH ×2 (08:07→16:10)
[2018-11-30] MEDS: DIOVAN PO SCH (08:07)
[2018-11-30] MEDS: VALTREX PO SCH (08:07)
[2018-11-30] MEDS: TIMOPTIC 0.25% OPH SOLUTION BOTH EYES SCH (08:07)
[2018-11-30] MEDS: MAG-OX PO SCH (08:07)
[2018-11-30] MEDS: PERICOLACE PO SCH (08:07)
[2018-11-30 11:30] VITALS: BP 146/67
--- NOTE | 2018-11-30 15:54 | DISCHARGE SUMMARY ---
ADMISSION DATE: 11/22/2018 DISCHARGE DATE: 11/30/2018 ADMISSION DIAGNOSIS: Dysarthria and expressive aphasia, transient. DISCHARGE DIAGNOSES: 1. Alteration of mental status, likely multifactorial. 2. Headaches, resolved. 3. Hypomagnesemia, resolved. 4. Profound weakness. 5. Hypertension, present on arrival. 6. Diabetes, present on arrival. 7. Multiple myeloma, present on arrival. CONSULTATIONS: None. PROCEDURES: 1. CT scan of the head was performed on 11/22/2018 which revealed no visible acute intracranial abnormalities. 2. MRI of the brain was performed on 11/23/2018 which revealed stable chronic changes. No evidence of acute intracranial pathology. HISTORY AND PHYSICAL EXAMINATION: See admit note. PHYSICAL EXAMINATION: Prior to discharge: Vital Signs: Temperature 98.1, heart rate 92, respirations 17, blood pressure is 146/67. General: Well nourished, well developed. In no acute distress. Cardiovascular: Regular rate and rhythm. No significant murmurs, rubs or gallops. Pulmonary: Clear to auscultation bilaterally. Abdomen: Soft, nontender, nondistended. Positive bowel sounds. Extremities: Moves all extremities well. No significant clubbing, cyanosis or edema. Dermatologic: Evaluation reveals no evidence of rash. LABORATORY DATA: Prior to discharge: None. HOSPITAL COURSE: Patient was admitted as per history and physical examination. Hospital course per condition is as follows: 1. Alteration of mental status/metabolic encephalopathy - Upon admission, patient was noted to have considerable alteration. A full evaluation revealed only hypomagnesemia. Patient was treated with replacement. Unfortunately, patient developed a persistent confusion for several days while hospitalized. This likely was multifactorial. Rozerem, tramadol and gabapentin were all discontinued. Melatonin was provided for sleep. With this change in medications and time, her mentation returned to baseline. At time of discharge, patient states she felt well and was approaching baseline mentally. 2. Hypomagnesemia - Upon admission, patient was noted to have considerable hypomagnesemia. Historically, she has been admitted to the hospital with hypomagnesemia and mental status changes. With replacement of her magnesium, however, she rapidly gained improvement. This hospitalization, replacing magnesium did not fully correct her mentation. Medication adjustments as described above were also necessary. Regardless, patient was treated with replacement and her home dosage was increased to twice daily. We will continue this at rehabilitation. 3. Headaches - Upon admission, patient was noted to have a considerable headache. MRI and CT scan were as described above. While hospitalized, patient continued to have intermittent headaches. This likely was secondary to a primary headache as well as exacerbated with discontinuing tramadol and gabapentin. With scheduled acetaminophen, headaches improved. We will follow this as an outpatient as well. 4. Profound weakness - Unfortunately, this became a limiting factor while hospitalized. At this point, physical therapy and rehabilitation are the best option for regaining her strength. We will follow this at rehabilitation. 5. Hypertension - The patient has longstanding disease. She was continued on valsartan therapy while hospitalized. Her amlodipine was increased to 2.5 mg twice daily. Blood pressure has improved considerably, approaching goal. The patient may require further titration at rehabilitation. 6. Diabetes - Patient has longstanding disease. She currently is being treated with metformin therapy alone with adequate response. I would recommend continuing a diabetic diet at rehabilitation. 7. Multiple myeloma - Patient is followed by Dr. Borjas as an outpatient. She is treated with chemotherapeutic intervention. We will defer further management to Dr. Borjas. DISCHARGE CONDITION: Good. DISPOSITION: Discharged to rehabilitation. MEDICATIONS: 1. Magnesium oxide 400 mg twice daily. 2. Melatonin 3 mg at bedtime. 3. Amlodipine 2.5 mg twice daily. 4. Simvastatin 20 mg at bedtime. 5. Glucophage 1000 mg twice daily. 6. Acetaminophen 650 mg every 4 hours as needed. 7. ProAir HFA 1 to 2 puffs every 4 to 6 hours as needed. 8. Folic acid 1 mg daily. 9. Lumigan eyedrops at bedtime. 10. Vitamin B12 injection monthly. 11. Colace 100 mg twice daily as needed. 12. Imdur 30 mg daily. 13. Xarelto 20 mg with supper. 14. Timoptic eyedrops every morning. 15. MiraLAX 17 g in 8 ounces of juice twice daily as needed. 16. Valtrex 500 mg daily. 17. Valsartan 40 mg daily. 18. Lexapro 10 mg at bedtime. 19. Iron sulfate 325 mg daily. 20. Omeprazole 40 mg daily as needed. 21. Patient has been instructed to discontinue tramadol and gabapentin therapy. FOLLOWUP: The patient is to follow up with me upon discharge from rehabilitation. cc: MD Edgar Frias, MD
[2018-11-30] MEDS: XARELTO PO SCH (16:10)
== END 2018-11-30 17:37 | DRG 92 ==
LOC: ED 11:34 → 3N 18:47
PROVIDERS: ADMIT Internal Medicine; ATTEND Internal Medicine
CPT/HCPCS: 70450; 70553; 71010; 71045; 80053; 80061; 81001; 82948; 83735; 84484; 85025; 85610; 85730; 87088; 92523; 93005; 94640; 94761; 96365; 97116; 97162; 97530; 99285; A9270; A9579; J2060; J3475; XXXXX

== ENCOUNTER 2019-06-17 18:03 | Inpatient (IN) ==
[2019-06-17] MEDS ORDERED: TYLENOL PO PRN ×2 (19:00)
[2019-06-17] MEDS ORDERED: ANUSOL-HC SUPP PR ONE (19:00)
[2019-06-17] MEDS ORDERED: ZOFRAN IV PRN (19:00)
[2019-06-17] MEDS ORDERED: ANUSOL-HC SUPP PR PRN (19:00)
[2019-06-17 19:49] LABS: BASO# 0.01 X1000 (0.0-0.2); BASO% 0.1 % (0.0-0.8); EOS# 0.03 X1000 (0.0-0.7); EOS% 0.4 % (0.0-10.0); HEMATOCRIT 35.9 % (37.0-47.0); HEMOGLOBIN 12.1 g/dL (12.0-16.0); IMM GRAN# 0.02 X1000 (0.0-0.04); IMM GRAN% 0.3 % (0.0-0.5); LYMPH# 0.85 X1000 (1.2-3.4); LYMPH% 12.2 % (20.5-51.1); MCH 29.8 PG (27-31); MCHC 33.7 g/dL (33-37); MCV 88.4 FL (81-99); MONO# 0.69 X1000 (0.11-0.59); MONO% 9.9 % (1.7-9.3); MPV 11.6 FL (7.4-10.4); NEUT# 5.34 X1000 (1.4-6.5); NEUT% 77.1 % (42.2-75.2); PLT 215 X1000 (130-400); RBC 4.06 XMIL (4.2-5.4); RDW 13.2 % (11.5-14.5); WBC 6.94 X1000 (4.8-10.8)
--- NOTE | 2019-06-17 19:58 | Diag Imaging Result Doc PS360 ---
EXAM: ABDOMEN FLAT/UPRIGHT INDICATION: Intractable nausea/ abdominal pain TECHNIQUE: 2 views COMPARISON: 02/25/2017 FINDINGS: There is a large amount stool in the rectum which may indicate a rectal fecal impaction. There is also increased stool in the colon on the right. There is no obstructive bowel pattern. There is no evidence of large volume free abdominal gas. IMPRESSION: Suggestion of constipation and likely rectal fecal impaction. Electronically signed by Gareth Jean 06/17/2019 7:55 PM
[2019-06-17 20:11] LABS: ALB/GLOB RATIO 1.8; ALBUMIN 4.2 g/dL (3.5-5.0); CALCIUM 9.1 mg/dL (8.8-10.2); POTASSIUM 4.1 mmol/L (3.5-5.1); TOTAL BILIRUBIN 0.38 mg/dL (0.20-1.00); TOTAL PROTEIN 6.5 g/dL (6.3-8.3)
[2019-06-17] MEDS: NS 1,000 ML IV SCH (20:13)
[2019-06-17 20:47] LABS: URINE SOURCE CLEAN CATCH
[2019-06-17 20:55] LABS: BILIRUBIN URINE NEGATIVE (NEGATIVE); BLOOD URINE SMALL (NEGATIVE); COLOR YELLOW; GLUCOSE URINE NEGATIVE (NEGATIVE); KETONE URINE NEGATIVE (NEGATIVE); LEUKOCYTES URINE TRACE (NEGATIVE); NITRITE URINE NEGATIVE (NEGATIVE); PH URINE 7.5; PROTEIN URINE TRACE mg/dL (NEGATIVE); SP GRAVITY URINE 1.015; TURBIDITY URINE HAZY (CLEAR); UROBILINOGEN URINE NORMAL (NORMAL)
[2019-06-17 20:58] LABS: UR EPITHELIAL CELLS <10 /HPF (<10); URINE BACTERIA 4+ /HPF; URINE RBC 20-40 /HPF (<10); URINE WBC <10 /HPF (<10)
[2019-06-17] MEDS ORDERED: COLACE PO SCH (21:00)
[2019-06-17] MEDS ORDERED: FLEET ENEMA PR ONE (21:12)
[2019-06-17] MEDS: ZOCOR PO SCH (21:53)
[2019-06-17] MEDS: LEXAPRO PO SCH (21:53)
[2019-06-17] MEDS: MELATONIN PO SCH (21:53)
[2019-06-17] MEDS: MAG-OX PO SCH (21:53)
[2019-06-17] MEDS: MIRALAX PO SCH (21:53)
[2019-06-17] MEDS: NORVASC PO SCH (21:54)
--- NOTE | 2019-06-18 02:01 | HISTORY AND PHYSICAL ---
PRIMARY CARE PHYSICIAN: Dr. South Gaines. CHIEF COMPLAINT: Profound weakness. HISTORY OF PRESENT ILLNESS: An 84-year-old, white female with a complicated past medical history, presents for evaluation of above-mentioned symptoms. Pertinent history of present illness began several weeks ago. The patient was evaluated at [facility] secondary to a pathologic fracture of the left tibia. The patient was taken to surgery by Dr. Karol Ramos and a biopsy, open reduction and internal fixation was performed on 05/14/2019. Postoperatively, patient did reasonably well. Per report, pathology returned with persistent multiple myeloma. The patient was transferred to [facility]. While there, patient states she did reasonably well. She was discharged home on Friday. Unfortunately, on Friday evening, she developed persistent nausea. Since Friday, she has had very little p.o. intake. Her energy level has persistently declined. She has had chills, but no fever. She denies dysuria, hematuria, or pyuria. She has had considerable constipation with rectal pain. She has had mild hematochezia, but no melena. Because of patient's progressive symptoms, she was seen in the office today. Upon my evaluation, patient was unable to ambulate without significant assistance. She noted difficulty tolerating p.o. secondary to persistent nausea. The patient will be admitted to the hospital for full evaluation and management of progressive weakness. PAST MEDICAL HISTORY: 1. Abnormal electrocardiogram with poor R-wave progression. 2. History of a right lower extremity DVT in 2014 and 2016. She is treated with lifelong Xarelto. 3. Ascending aortic aneurysm. 4. History of atypical chest pain with negative stress testing in 2006 and 2009. 5. Multiple actinic keratoses, seborrheic keratoses, and brown nevi. 6. History of a right breast nodule status post negative biopsy in 2018. 7. Minimal carotid artery disease. 8. Constipation. 9. Coronary artery disease with elevated CT coronary calcium score of 363.5. 10. Depression/anxiety. 11. Diabetes. 12. Neuropathy. 13. Reflux disease. 14. Hypertension. 15. Glaucoma. 16. Gout. 17. External hemorrhoids. 18. Hyperlipidemia. 19. Iron deficiency anemia. 20. Multiple myeloma diagnosed in 2018. 21. Obstructive sleep apnea, treated with positional management. 22. Osteoarthritis. 23. Overweight. 24. History of colonic polyps. 25. Menopause. 26. Restless legs syndrome. 27. Uterine leiomyoma status post ALBERTO/BSO. 28. Vitamin B12 deficiency. CURRENT MEDICATIONS: 1. Amlodipine 2.5 mg twice daily. 2. Vitamin B12, 1000 mcg monthly. 3. Colace 100 mg twice daily. 4. Lexapro 10 mg daily. 5. Folic acid 1 mg daily. 6. Levemir 3 units at bedtime for blood sugar greater than 200. 7. Imdur 30 mg daily. 8. Magnesium oxide 400 mg twice daily. 9. Melatonin 3 mg at bedtime. 10. Omeprazole 40 mg twice daily. 11. MiraLAX 17 g in 8 ounces of juice daily, as needed. 12. Simvastatin 20 mg at bedtime. 13. Valtrex 500 mg daily. 14. Valsartan 40 mg daily. 15. Xarelto 20 mg nightly with supper. 16. ProAir HFA 2 puffs every 4 hours as needed. 17. Metformin ER 500 mg twice daily. 18. Iron sulfate 325 mg twice daily. 19. Oxycodone 7.5/325 every 6 hours as needed for pain. 20. Gabapentin 300 mg in the morning and 900 mg in the evening. 21. Milk of magnesia as needed. ALLERGIES: Patient answered no known drug allergies. SOCIAL HISTORY: Patient denies tobacco, alcohol, or illicit drug use. 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 She is unable to exercise routinely. FAMILY HISTORY: Patient's Father passed at age 86 secondary to complications of congestive heart failure. Patient's Mother passed at age 68 secondary to complications of an acute myocardial infarction. She had a history of diabetes. The patient has a daughter that passed with breast cancer at age 43. REVIEW OF SYSTEMS: A 12-point review of systems was performed. Pertinent positives and negatives are noted in history present illness. PHYSICAL EXAMINATION: VITAL SIGNS: Temperature 99 degrees, heart rate 108, respirations 16, blood pressure is 135/81. GENERAL: Chronically ill appearing, no acute distress. HEENT: Normocephalic, atraumatic. Pupils equal, round, react to light. Extraocular muscles intact. Sclerae anicteric. [place] conjunctivae. Oral and nasopharynx clear without exudate. NECK: Supple. No lymphadenopathy. No thyromegaly. No bruits auscultated. CARDIOVASCULAR: Regular rate and rhythm. No significant murmurs, rubs, or gallops. PULMONARY: Clear to auscultation bilaterally. ABDOMEN: Soft, diffusely tender. No rebound. Positive bowel sounds. EXTREMITIES: Moves all extremities well. No significant clubbing, cyanosis, or edema. NEUROLOGIC: Cranial nerves 2-12 grossly intact. Motor and sensory grossly intact. PSYCHOLOGIC: Appropriate. LABORATORY DATA: White blood cell count 6.94, hemoglobin 12.1, hematocrit 35.9, platelet count 215,000. Sodium 138, potassium 4.1, chloride 100, bicarb 24, BUN 21, creatinine 1.0. Glucose 136, calcium 9.1, total bilirubin 0.38, total protein 6.5, albumin 4.2, alkaline phosphatase 113, AST 13, ALT 7, amylase 40, lipase 21. TSH is 1.71. Urinalysis revealed 4+ bacteria, less than 10 white blood cells. Abdomen flat and upright revealed suggestion of constipation and likely rectal fecal impaction. ASSESSMENT AND PLAN: An 84-year-old, white female with a very complicated past medical history, presents for evaluation of profound weakness. Examination is significant for abdominal discomfort. The patient does admit to intermittent rectal pain. X-ray suggests underlying constipation. Patient will be admitted to the hospital for full evaluation and management of each of these conditions. 1. Admit to General Medicine. 2. Profound weakness--differential diagnosis is quite broad. We will treat the patient's dehydration and constipation as described below. We will initiate physical therapy. We will start patient on IV hydration. We will monitor patient's clinical course closely. 3. Dehydration--the patient's oral intake has decreased over the course of the last several days. BUN/creatinine ratio is elevated. We will start patient on IV fluids. We will follow this closely. 4. Constipation with possible fecal rectal impaction--we will provide a Fleet's enema this evening. This will need to be monitored as well. 5. Multiple myeloma--unfortunately, patient has refractory disease. She recently has suffered a pathologic fracture. We will defer management to Dr. Borjas. 6. Type 2 diabetes--we will cover patient with sliding scale insulin. 7. Hypertension--we will continue patient on home medications. 8. External hemorrhoids--we will continue patient on as-needed Anusol HC. 9. Fluid, electrolytes, nutrition. We will monitor electrolytes. Normal saline at 75 mL/h. Diabetic diet. 10. Prophylaxis. Patient will be continued on Xarelto therapy. cc: South Gaines MD
[2019-06-18] MEDS: LUMIGAN 0.01% OPH SOLUTION BOTH EYES SCH ×2 (03:06→23:03)
[2019-06-18] MEDS: OXY IR PO PRN ×2 (04:33→08:50)
[2019-06-18] MEDS: PRILOSEC PO SCH (06:17)
[2019-06-18] MEDS: VENTOLIN HFA INH PRN (08:38)
[2019-06-18] MEDS: PERICOLACE PO SCH ×2 (08:50→21:20)
[2019-06-18] MEDS: VALTREX PO SCH (08:50)
[2019-06-18] MEDS: FOLIC ACID PO SCH (08:50)
[2019-06-18] MEDS: DIOVAN PO SCH (08:50)
[2019-06-18] MEDS: IMDUR PO SCH (08:50)
[2019-06-18] MEDS: NORVASC PO SCH ×2 (08:50→21:21)
[2019-06-18] MEDS: MIRALAX PO SCH ×2 (08:51→21:20)
[2019-06-18] MEDS: FERROUS SULFATE PO SCH (08:51)
[2019-06-18] MEDS: MAG-OX PO SCH ×2 (08:51→21:20)
[2019-06-18] MEDS: NS 1,000 ML IV SCH ×2 (08:51→21:21)
[2019-06-18] MEDS ORDERED: CYANOCOBALAMIN IM SCH (09:00)
[2019-06-18] MEDS: TIMOPTIC 0.25% OPH SOLUTION OPH SCH (12:32)
[2019-06-18] MEDS: XARELTO PO SCH (17:07)
--- NOTE | 2019-06-18 21:04 | PROGRESS NOTE ---
DATE: 06/18/2019 SUBJECTIVE: The patient was admitted yesterday with profound weakness. Full evaluation revealed dehydration, and constipation in the setting of underlying multiple myeloma with recent pathologic fracture. The patient's constipation was treated with a Fleet enema. She was started on IV fluids. This morning, upon my arrival, patient states that she did not rest well. She continued to have considerable rectal pain. She denied fevers, chills, nausea, fevers, chills, vomiting, or shortness of breath. She was noted to have some nausea and decreased appetite. Throughout the day, patient was treated with soapsuds enemas. She did have considerable output. This evening, patient states she continues to feel weak, but improved from this morning. She continues to be afebrile. P.o. intake is marginal. OBJECTIVE: VITAL SIGNS: T-max 99 degrees, heart rate 81 to 100, respirations 12-19, blood pressure 117 to 190 over 56 to 82. General: Chronically ill appearing, no acute distress. Cardiovascular: Regular rate and rhythm. No significant murmurs, rubs, or gallops. Pulmonary: Clear to auscultation bilaterally. Abdomen: Soft, decreased tenderness, nondistended positive bowel sounds. Extremities: Moves all extremities well. No significant clubbing, cyanosis, or edema. Dermatologic: Evaluation reveals no evidence of rash. LABORATORY DATA: None. ASSESSMENT AND PLAN: 1. Profound weakness-this likely is a consequence of dehydration, constipation, and urinary tract infection. Patient will be treated for each of these as below. Physical therapy was initiated today. I suspect with treatment of each, patient likely will be prepared for discharge in the near future. 2. Dehydration-we will continue patient on IV fluids. Volume status is approaching euvolemia. 3. Constipation with fecal rectal impaction-patient was treated with soapsuds enemas. Throughout the day today. The patient has achieved improvement. [*] 4. Urinary tract infection. [*] 5. Type 2 diabetes-we will continue patient on sliding scale insulin. 6. Hypertension-we will continue patient's home medications. Blood pressure is improving. 7. External hemorrhoids-on examination, I do not appreciate any evidence of thrombosis. We will continue SCDs and [*]. 8. Disposition-at this point, patient continues to require [facility] care in a hospital setting. We will plan discharge home once appropriate. cc: South Gaines MD
[2019-06-18] MEDS: KEFLEX PO SCH (21:20)
[2019-06-18] MEDS: ZOCOR PO SCH (21:21)
[2019-06-18] MEDS: MELATONIN PO SCH (21:21)
[2019-06-18] MEDS: LEXAPRO PO SCH (21:21)
[2019-06-19] MEDS: PRILOSEC PO SCH (06:23)
[2019-06-19] MEDS: MIRALAX PO SCH ×2 (09:48→20:12)
[2019-06-19] MEDS: FERROUS SULFATE PO SCH (09:49)
[2019-06-19] MEDS: FOLIC ACID PO SCH (09:49)
[2019-06-19] MEDS: KEFLEX PO SCH ×2 (09:49→20:11)
[2019-06-19] MEDS: DIOVAN PO SCH (09:49)
[2019-06-19] MEDS: PERICOLACE PO SCH ×2 (09:49→20:11)
[2019-06-19] MEDS: VALTREX PO SCH (09:49)
[2019-06-19] MEDS: NORVASC PO SCH ×2 (09:49→20:11)
[2019-06-19] MEDS: MAG-OX PO SCH ×2 (09:49→20:11)
[2019-06-19] MEDS: IMDUR PO SCH (09:49)
[2019-06-19] MEDS: TIMOPTIC 0.25% OPH SOLUTION OPH SCH (09:50)
[2019-06-19] MEDS: VENTOLIN HFA INH PRN (10:49)
[2019-06-19] MEDS ORDERED: NS 1,000 ML IV SCH (12:05)
--- NOTE | 2019-06-19 12:29 | PROGRESS NOTE ---
DATE: 06/19/2019 SUBJECTIVE: Upon arrival this morning, patient was sitting upright in the bed. Overall, she states she feels better than yesterday. She continues to have some abdominal discomfort and some rectal pain. She contributes this to constipation. She has had no evidence of fevers, chills, vomiting, chest pain, shortness of breath, or chest discomfort. She continues to have some nausea, as well as decreased appetite. Her energy level remains low. OBJECTIVE: Vital Signs: T-max 99.1 degrees, heart rate 76 to 100, respiration 12 to 18, blood pressure 117 to 164 over 56 to 72. General: Well nourished, well developed, no acute distress. Cardiovascular: Regular rate and rhythm. No significant murmurs, rubs, or gallops. Pulmonary: Clear to auscultation bilaterally. Abdomen: Soft. Tenderness in the right lower quadrant without guarding or rebound. Positive bowel sounds. Extremities: Moves all extremities well. No significant clubbing, cyanosis or edema. Dermatologic: Evaluation reveals no evidence of rash. LABORATORY DATA: None. ASSESSMENT AND PLAN: 1. Profound weakness--this likely is a consequence of dehydration, constipation and urinary tract infection. We will continue treatment of her urinary tract infection as described below. We will continue physical therapy and intravenous fluids. With her clinical improvement, my expectation is this patient will be prepared for discharge with home health in the next 24 to 48 hours. 2. Dehydration--clinically, patient approaching euvolemia. We will decrease normal saline to keep veins open. We will encourage oral intake. 3. Constipation--patient was treated with soapsuds enemas, MiraLAX, and Hilary-Colace yesterday. She has achieved improvement, although states she does not feel that this has resolved. We will treat patient again with soapsuds enemas today. We will follow this as well. Should patient continue to have abdominal discomfort in the near future, we will consider CT scan evaluation. 4. Urinary tract infection--culture grew Escherichia coli. The patient was started on Keflex yesterday. We will continue this. 5. Type 2 diabetes--we will continue patient on sliding scale insulin. 6. Hypertension--the patient's blood pressure is reasonably controlled on home medications. We will continue this. 7. External hemorrhoids--the patient has a history with rectal pain; it was suspected this may be the culprit. On examination, I do not appreciate any concern for thrombosed hemorrhoids. For now, we will continue symptomatic management. 8. Disposition--at this point, patient continues to require penitentiary care in a hospital setting. We will plan discharge home once appropriate. cc: South Gaines MD
[2019-06-19] MEDS: XARELTO PO SCH (17:55)
[2019-06-19] MEDS: ZOCOR PO SCH (20:11)
[2019-06-19] MEDS: MELATONIN PO SCH (20:11)
[2019-06-19] MEDS: LEXAPRO PO SCH (20:11)
[2019-06-19] MEDS: LUMIGAN 0.01% OPH SOLUTION BOTH EYES SCH (20:12)
[2019-06-20] MEDS: PRILOSEC PO SCH (05:59)
[2019-06-20] MEDS: FERROUS SULFATE PO SCH (09:52)
[2019-06-20] MEDS: MIRALAX PO SCH ×2 (09:52→20:13)
[2019-06-20] MEDS: FOLIC ACID PO SCH (09:52)
[2019-06-20] MEDS: MAG-OX PO SCH ×2 (09:52→20:14)
[2019-06-20] MEDS: DIOVAN PO SCH (09:52)
[2019-06-20] MEDS: VALTREX PO SCH (09:52)
[2019-06-20] MEDS: KEFLEX PO SCH ×2 (09:52→20:14)
[2019-06-20] MEDS: IMDUR PO SCH (09:53)
[2019-06-20] MEDS: PERICOLACE PO SCH ×2 (09:53→20:14)
[2019-06-20] MEDS: NORVASC PO SCH ×2 (09:53→20:13)
[2019-06-20] MEDS: TIMOPTIC 0.25% OPH SOLUTION OPH SCH (09:54)
--- NOTE | 2019-06-20 10:11 | Diag Imaging Result Doc PS360 ---
EXAM: ABDOMEN FLAT/UPRIGHT 06/20/2019 HISTORY: Abdominal pain TECHNIQUE: Flat and upright abdomen COMMENT: There is a large amount of stool present in the right colon and to a lesser extent in the left. The stomach and small bowel are not distended. 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 No evidence of organomegaly or mass is present. Compared to 06/17/2019 the quantity of stool particularly in the rectum has diminished. IMPRESSION: Improved constipation. Electronically signed by Julio C Alexis 06/20/2019 10:09 AM
--- NOTE | 2019-06-20 10:22 | PROGRESS NOTE ---
DATE: 06/20/2019 SUBJECTIVE: Over the course of the last 24 hours, patient states she has continued to demonstrate improvement. The patient was treated with soapsuds enemas yesterday. She does note having significant bowel output. She notes decreasing abdominal and rectal pain. Energy level remains low, but is improving. Appetite remains low, but also is improving. She denies fevers, chills, nausea, vomiting, shortness of breath, or chest discomfort. OBJECTIVE: T-max 99 degrees, heart rate 68 to 102, respirations 14 to 18, blood pressure 96 to 166 over 48 to 77.General: Well nourished, well developed, no acute distress. Cardiovascular: Regular rate and rhythm. No significant murmurs, rubs, or gallops. Pulmonary: Clear to auscultation bilaterally. Abdomen: Soft, nontender, nondistended. Positive bowel sounds. Extremities: Moves all extremities well. No significant clubbing, cyanosis, or edema. Dermatologic: Evaluation reveals no evidence of rash. LABORATORY DATA: None. ASSESSMENT AND PLAN: 1. Profound weakness-this likely is a consequence of dehydration, constipation, and urinary tract infection. With treatment of each of these, patient is demonstrating some improvement. We will continue physical therapy. We will encourage p.o. intake. Should patient's condition continue to improve over the next 24 hours we will plan discharge home with home health. 2. Dehydration-patient does appear to be euvolemic on examination today. We will saline lock IV. We will encourage p.o. intake. 3. Constipation-the patient has achieved significant improvement after soapsuds enemas, MiraLAX, and Hilary-Colace therapy. We will check a flat and upright of the abdomen today to confirm resolution of her obstipation. We will follow this as well. 4. Urinary tract infection-we will continue Keflex therapy. Escherichia coli is sensitive. 5. Type 2 diabetes-we will continue sliding scale insulin. 6. Hypertension-we will continue to continue patient on her home regimen. Blood pressure is reasonably controlled. 7. Disposition-at this point, patient continues to require prison care in a hospital setting. We will plan discharge home once appropriate. cc: South Gaines MD
[2019-06-20] MEDS: XARELTO PO SCH (17:20)
[2019-06-20] MEDS: TYLENOL PO SCH ×2 (17:21→20:16)
[2019-06-20] MEDS: LUMIGAN 0.01% OPH SOLUTION BOTH EYES SCH (20:14)
[2019-06-20] MEDS: MELATONIN PO SCH (20:14)
[2019-06-20] MEDS: LEXAPRO PO SCH (20:14)
[2019-06-20] MEDS: ZOCOR PO SCH (20:14)
[2019-06-21] MEDS: PRILOSEC PO SCH (06:01)
[2019-06-21] MEDS: TYLENOL PO SCH ×2 (06:01→20:47)
[2019-06-21 07:17] LABS: HEMATOCRIT 35.8 % (37.0-47.0); HEMOGLOBIN 12.1 g/dL (12.0-16.0); MCH 29.8 PG (27-31); MCHC 33.8 g/dL (33-37); MCV 88.2 FL (81-99); MPV 11.1 FL (7.4-10.4); PLT 211 X1000 (130-400); RBC 4.06 XMIL (4.2-5.4); RDW 13.1 % (11.5-14.5)
[2019-06-21 07:18] LABS: BASO# 0.01 X1000 (0.0-0.2); BASO% 0.2 % (0.0-0.8); EOS# 0.19 X1000 (0.0-0.7); EOS% 3.7 % (0.0-10.0); IMM GRAN# 0.02 X1000 (0.0-0.04); IMM GRAN% 0.4 % (0.0-0.5); LYMPH# 0.91 X1000 (1.2-3.4); LYMPH% 17.8 % (20.5-51.1); MONO# 0.66 X1000 (0.11-0.59); MONO% 12.9 % (1.7-9.3); NEUT# 3.31 X1000 (1.4-6.5)
[2019-06-21 07:36] LABS: ALB/GLOB RATIO 1.3; ALBUMIN 3.5 g/dL (3.5-5.0); CALCIUM 9.1 mg/dL (8.8-10.2); CREATININE 0.9 mg/dL (0.5-0.9); TOTAL BILIRUBIN 0.27 mg/dL (0.20-1.00); TOTAL PROTEIN 6.1 g/dL (6.3-8.3)
--- NOTE | 2019-06-21 09:26 | Diag Imaging Result Doc PS360 ---
CT HEAD W/O CONTRAST - 06/21/2019 INDICATION: Fall COMPARISON: 11/22/2018 FINDINGS: There is stable severe diffuse cerebral atrophy. This is worst at the frontal and temporal lobes. The parietal and occipital lobes are spared. No intracranial mass or hemorrhage. The skull is intact. The sinuses, mastoids, and middle ears are clear. IMPRESSION: Severe cerebral atrophy with a frontotemporal pattern. 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 No acute injury. This exam was performed using automated exposure control, adjustment of mA or kV according to patient size, and/or use of iterative reconstruction technique Electronically signed by Eder Clark 06/21/2019 9:24 AM
[2019-06-21] MEDS: DIOVAN PO SCH (09:35)
[2019-06-21] MEDS: VALTREX PO SCH (09:35)
[2019-06-21] MEDS: MAG-OX PO SCH ×2 (09:35→20:45)
[2019-06-21] MEDS: FOLIC ACID PO SCH (09:35)
[2019-06-21] MEDS: KEFLEX PO SCH ×2 (09:35→20:45)
[2019-06-21] MEDS: PERICOLACE PO SCH ×2 (09:35→20:44)
[2019-06-21] MEDS: FERROUS SULFATE PO SCH (09:35)
[2019-06-21] MEDS: MIRALAX PO SCH ×2 (09:35→20:46)
[2019-06-21] MEDS: IMDUR PO SCH (09:35)
[2019-06-21] MEDS: NORVASC PO SCH ×2 (09:36→20:44)
[2019-06-21] MEDS: TIMOPTIC 0.25% OPH SOLUTION OPH SCH (09:38)
--- NOTE | 2019-06-21 20:23 | PROGRESS NOTE ---
DATE: 06/21/2019 SUBJECTIVE: Upon my arrival, the patient was doing very well. She was prepared for discharge. Discharge arrangements were made. Sensor Operator were consulted to plan home health and physical therapy. Soon after I left this morning, the patient suffered a fall. Patient noted that she fell to the ground, striking her head on her way down. She denied loss of consciousness. The patient was noted to have headache as well as some dizziness. CT scan of the head was performed. This revealed severe cerebral atrophy with a frontotemporal pattern. No evidence of acute bleed was identified. Throughout the day, patient continued to have some dizziness and weakness. This evening, patient states she has achieved some improvement. She denies fevers, chills, nausea, vomiting, shortness of breath, or chest discomfort. Her p.o. intake has been decreased today. OBJECTIVE: Vital Signs: T-max 99.0 degrees, heart rate 74 to 86, respirations 14 to 20, blood pressure 94 to 176 over 59 to 84. General: Well nourished, well developed, in no acute distress. Cardiovascular: Regular rate and rhythm. No significant murmurs, rubs, or gallops. Pulmonary: Clear to auscultation bilaterally. Abdomen: Soft, nontender, nondistended. Positive bowel sounds. Extremities: Moves all extremities well. No significant clubbing, cyanosis, or edema. Dermatologic: Evaluation reveals no evidence of rash. LABORATORY DATA: White blood cell count 5.10, hemoglobin 12.1, hematocrit 35.8, platelet counts 211,000. Sodium 142, potassium 4.0, chloride 104, bicarb 26, BUN 10, creatinine 0.9, glucose 134, calcium 9.1, total bilirubin 0.27, total protein 6.1, albumin 3.5, alkaline phosphatase 90, AST 11, ALT 7. ASSESSMENT AND PLAN: 1. Profound weakness: This likely was a consequence of dehydration, constipation, and urinary tract infection. With each of these, patient has achieved improvement while hospitalized. Unfortunately, patient did suffer a fall as described below today. Physical therapy was resumed. Should the patient's condition continue to improve over the next 24 hours, we will plan discharge home. 2. Dehydration: The patient has achieved improvement with intravenous hydration. 3. Constipation: The patient has achieved resolution status post soapsuds enemas, MiraLAX, and Hilary-Colace therapy. We will continue MiraLAX and Hilary-Colace as needed as an outpatient. 4. Urinary tract infection: Patient's urine culture grew Escherichia coli. Patient is treated with Keflex therapy. 5. Type 2 diabetes: Patient will be continued on sliding scale insulin. 6. Hypertension: Patient's blood pressure is reasonably controlled on her current regimen. 7. Fall with closed head trauma: Patient did note modest head trauma with the fall. CT scan revealed no evidence of bleed. The patient did have dizziness through the day, but has achieved improvement. We will monitor patient overnight. Should her condition continue to improve, we will plan discharge home tomorrow. 8. Disposition: At this point, patient continues to require long term care in a hospital setting. We will plan discharge home once appropriate. cc: South Gaines MD
[2019-06-21] MEDS: LEXAPRO PO SCH (20:45)
[2019-06-21] MEDS: ZOCOR PO SCH (20:45)
[2019-06-21] MEDS: MELATONIN PO SCH (20:45)
[2019-06-21] MEDS: LUMIGAN 0.01% OPH SOLUTION BOTH EYES SCH (20:46)
[2019-06-22] MEDS: TYLENOL PO SCH (06:33)
[2019-06-22] MEDS: PRILOSEC PO SCH (06:34)
[2019-06-22 08:14] VITALS: BP 134/66
[2019-06-22] MEDS: MAG-OX PO SCH (09:28)
[2019-06-22] MEDS: MIRALAX PO SCH (09:28)
[2019-06-22] MEDS: FOLIC ACID PO SCH (09:29)
[2019-06-22] MEDS: VALTREX PO SCH (09:29)
[2019-06-22] MEDS: NORVASC PO SCH (09:29)
[2019-06-22] MEDS: IMDUR PO SCH (09:30)
[2019-06-22] MEDS: PERICOLACE PO SCH (09:30)
[2019-06-22] MEDS: DIOVAN PO SCH (09:30)
[2019-06-22] MEDS: KEFLEX PO SCH (09:30)
[2019-06-22] MEDS: TIMOPTIC 0.25% OPH SOLUTION OPH SCH (09:30)
[2019-06-22] MEDS: FERROUS SULFATE PO SCH (09:30)
--- NOTE | 2019-06-22 20:47 | DISCHARGE SUMMARY ---
ADMISSION DATE: 06/17/2019 DISCHARGE DATE: 06/22/2019 ADMISSION DIAGNOSIS: Profound weakness. DISCHARGE DIAGNOSES: 1. Profound weakness, improving. 2. Dehydration, resolved. 3. Constipation, resolved . 4. Urinary tract infection, treated. 5. Fall with closed head trauma with no residual effect. 6. Type 2 diabetes, present on arrival. 7. Hypertension, present on arrival. CONSULTATIONS: None. PROCEDURES: 1. Abdominal x-ray was performed on 06/17/2019 which revealed suggestion of constipation and likely rectal fecal impaction. 2. Abdominal x-ray was performed on 06/20/2019 which revealed improved constipation . 3. CT scan of the head was performed on 06/21/2019 which revealed severe cerebral atrophy with a frontotemporal pattern. 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 No acute injury . HISTORY AND PHYSICAL EXAMINATION: See admit note. PHYSICAL EXAMINATION PRIOR TO DISCHARGE: Temperature 98.2 degrees, heart rate 75, respirations 19, blood pressure is 134/66. General: Well nourished, well developed, no acute distress. Cardiovascular: Regular rate and rhythm. No significant murmurs, rubs or gallops. Pulmonary: Clear to auscultation bilaterally. Abdomen: Soft, nontender, nondistended. Positive bowel sounds. Extremities: Moves all extremities well. No significant clubbing, cyanosis or edema. Dermatologic: Evaluation reveals no evidence of rash. LABORATORY DATA: Prior to discharge none. HOSPITAL COURSE: Patient was admitted as per history and physical examination. Hospital course per condition is as follows. 1. Profound weakness-upon admission, patient was noted to be profoundly weak. She was having difficulty with ambulation. This likely is a consequence of dehydration, constipation, and urinary tract infection. With treatment of each of these, patient's condition improved. Patient was treated with physical therapy while hospitalized. Patient will be discharged home with home health and physical therapy. We will follow patient closely as an outpatient. 2. Dehydration-upon admission, patient was noted to be dehydrated. Patient was treated with IV fluids with resolution. We will encourage p.o. intake as an outpatient. 3. Constipation-patient was noted to have abdominal discomfort as well as significant constipation per x-ray upon admission. The patient was treated with soapsuds enemas, MiraLAX and Hilary-Colace. Ultimately, we achieved resolution of her constipation. The patient will be treated with MiraLAX and Hilary-Colace as an outpatient as needed. We will follow this as well. 4. Urinary tract infection-initial urine culture grew E coli. The patient was treated with Keflex while hospitalized. She will complete 5 additional days as an outpatient. 5. Fall with closed head trauma-this occurred on the day prior to discharge. The patient was noted to have some dizziness on that day. CT scan returned as above. On the day of discharge patient denied any symptoms associated. We will remain aware. 6. Type 2 diabetes-patient was continued on sliding scale insulin while hospitalized. We will continue this as an outpatient. 7. Hypertension-patient's blood pressure remains reasonably controlled on her current regimen. DISCHARGE CONDITION: Good. DISPOSITION: Discharge to home. MEDICATIONS: 1. Keflex 500 mg twice daily for 5 additional days. 2. Lexapro 10 mg at bedtime. 3. Melatonin 3 mg at bedtime. 4. Omeprazole 40 mg daily. 5. Valtrex 500 mg daily. 6. Valsartan 40 mg daily. 7. Acetaminophen 650 mg every 8 hours as needed. 8. Hilary-Colace 1 tablet twice daily as needed. 9. Simvastatin 20 mg at bedtime. 10. Metformin 1000 mg twice daily. 11. ProAir HFA 1 to 2 puffs every 4-6 hours as needed. 12. Folic acid 1 mg daily. 13. Lumigan eye drops to each eye at bedtime. 14. Vitamin B12 1000 mcg IM monthly. 15. Imdur 30 mg daily. 16. Xarelto 20 mg with supper. 17. MiraLAX 17 g in 8 ounces of juice twice daily as needed. 18. Iron sulfate 325 mg daily. 19. Magnesium oxide 400 mg twice daily. 20. Amlodipine 2.5 mg daily. FOLLOWUP: The patient is to follow up with me in approximately 1 to 2 weeks. cc: South Gaines MD
== END 2019-06-22 10:52 | disposition home health service (06) | DRG 690 ==
LOC: DIRADM 18:03 → EDIPHOLD 18:19 → 3N 23:08
PROVIDERS: ADMIT Internal Medicine; ATTEND Internal Medicine

== ENCOUNTER 2019-09-18 15:42 | Inpatient (IN) ==
--- NOTE | 2019-09-18 16:34 | Diag Imaging Result Doc PS360 ---
EXAM: CT HEAD W/O CONTRAST HISTORY: stroke like symptoms TECHNIQUE: CT head without contrast COMPARISON: 06/21/2019 FINDINGS: No parenchymal hemorrhage. No epidural or subdural hematoma. No subarachnoid hemorrhage. There is atrophy with chronic microvascular ischemic changes. No mass identified on this noncontrasted exam. No hydrocephalus. No sinus opacification. IMPRESSION: 1.No hemorrhage 2.Atrophy with chronic microvascular ischemic changes This exam was performed using automated exposure control, adjustment of mA or kV according to patient size, and/or use of iterative reconstruction technique. Electronically signed by Arron Su 09/18/2019 4:32 PM
--- NOTE | 2019-09-18 17:07 | Diag Imaging Result Doc PS360 ---
EXAM: CHEST-PORTABLE HISTORY: stroke like symptoms TECHNIQUE: Single view COMPARISON: 11/22/2018 FINDINGS: Poor inspiratory effort. The heart is mildly prominent. The vessels are not distended. There are no infiltrates. No effusion identified. There is a right-sided portacatheter. No pneumothorax. IMPRESSION: Mild cardiac megaly. Electronically signed by Arron Su 09/18/2019 5:05 PM
[2019-09-18 17:43] LABS: BASO# 0.01 X1000 (0.0-0.2); BASO% 0.2 % (0.0-0.8); EOS# 0.02 X1000 (0.0-0.7); EOS% 0.4 % (0.0-10.0); HEMATOCRIT 30.7 % (37.0-47.0); HEMOGLOBIN 10.1 g/dL (12.0-16.0); LYMPH# 0.35 X1000 (1.2-3.4); LYMPH% 7.3 % (20.5-51.1); MCH 28.9 PG (27-31); MCHC 32.9 g/dL (33-37); MONO# 0.75 X1000 (0.11-0.59); MONO% 15.6 % (1.7-9.3); MPV 11.9 FL (7.4-10.4); NEUT# 3.68 X1000 (1.4-6.5); NEUT% 76.5 % (42.2-75.2); PLT 103 X1000 (130-400); RBC 3.49 XMIL (4.2-5.4); RDW 15.4 % (11.5-14.5); WBC 4.81 X1000 (4.8-10.8)
[2019-09-18 17:49] LABS: INR 1.42; PROTIME 17.6 Seconds (11.0-16.0); PTT 27.3 Seconds (22.3-41.8)
--- NOTE | 2019-09-18 18:07 | PROVIDER DOCUMENTATION ---
This chart was entered by Whitney Dasilva Scribe, acting as scribe for Braxton Curiel MD. HPI-General Adult - General Stated Complaint: GENERAL WEAKNESS Time Seen by Provider: 09/18/19 15:44 Source: patient, EMS (First Response) Unable to obtain history due to:: altered (pt showed confusion at time of arrival in ED) Allergies/Adverse Reactions: Patient Allergies Allergy/AdvReac Type Severity Reaction Status Date / Time No Known Allergies Allergy Verified 09/18/19 16:12 Home Medications: Home Medication List Medication Instructions Recorded Confirmed Last Taken Type Metformin [Glucophage] 1,000 mg PO BID CC 05/31/13 09/18/19 09/17/19 History SIMVAstatin [Zocor] 20 mg PO QHS 05/31/13 09/18/19 09/17/19 History Folic Acid 1 mg PO DAILY tablet 03/03/17 09/18/19 09/17/19 Rx Rivaroxaban [Xarelto] 20 mg PO WSUPPER tablet 02/04/18 09/18/19 09/17/19 Rx Amlodipine [Norvasc] 2.5 mg PO BID tablet 11/30/18 09/18/19 09/17/19 Rx Magnesium Oxide [Mag-Ox] 400 mg PO BID tablet 11/30/18 09/18/19 09/17/19 Rx Escitalopram [Lexapro] 10 mg PO QHS tab 06/21/19 09/18/19 09/17/19 Rx Melatonin 3 mg PO QHS tab 06/21/19 Unknown Rx Omeprazole [Prilosec] 40 mg PO DAILY@0700 cap 06/21/19 09/18/19 09/17/19 Rx Valacyclovir [Valtrex] 500 mg PO DAILY tab 06/21/19 09/18/19 09/17/19 Rx Valsartan [Diovan] 40 mg PO DAILY tab 06/21/19 09/18/19 09/17/19 Rx - History of Present Illness -Gen Adult Nature of Presenting Problems: Patient was brought to the ED by EMS, reporting Nausea and vomiting. Family thinks her magnesium must have been low per EMS as previous. Here in the ED, p atient unable to give history, patient was confused and ems states this was a change from when they picked her up. Further hx could not been obtained Location of Pain/Injury: reports: generalized (weakness) Pain Radiation: reports: no radiation Quality of Pain: reports: none Severity: reports: moderate Onset/Duration: reports: unsure, this morning Timing: reports: still present, getting worse (showed general weakness at home and is now slurring words and showing confusion) Context/Activities at Onset: reports: light activity Associated Symptoms: reports: nausea (x2), vomiting (x2). denies: back/neck pain, chest pain Similar Symptoms Previously?: Yes (PCP stated pt has had previous episodes of low magnesium) Recently seen or treated by another doctor?: Yes (PCP) Review of Systems - Adult - REVIEW OF SYSTEMS - ADULT ROS:: limited per condition (pt presented in ED with confusion and slurring of words) Constitutional: reports: no symptoms reported Eyes: reports: no symptoms reported Ears, Nose, Mouth & Throat: reports: no symptoms reported Cardiovascular: reports: no symptoms reported Respiratory: reports: no symptoms reported Gastrointestinal: reports: no symptoms reported Genitourinary: reports: no symptoms reported Musculoskeletal: reports: no symptoms reported Integumentary: reports: no symptoms reported Neurological: reports: no symptoms reported Psychiatric: reports: no symptoms reported Endocrine: reports: no symptoms reported Hematologic/Lymphatic: reports: no symptoms reported Allergic/Immunologic: reports: no symptoms reported All Other Systems: Reviewed and Negative Past History - Adult - PAST MEDICAL HISTORY-ADULT Review of Records: reports: Old Records Reviewed, Nursing Assessment Review, Medications Reviewed, Social history reviewed & non-contributory. Major Childhood Illnesses: reports: denies history Cardiovascular: reports: CAD (minimal), HTN, hyperlipidemia Respiratory: reports: asthma, sleep apnea (obstructive) Gastrointestinal: reports: GERD, hemorrhoids (external), polyps (coloric), other (chronic constipation) Genitourinary: reports: denies history Musculoskeletal: reports: arthritis (osteo), other (neuropathy) Neurological: reports: denies history Endocrine/Immune: reports: Diabetes Other Conditions: reports: cataract/glaucoma (glaucoma) - PRIOR SURGERIES/PROCEDURES Surgical/Procedure History: reports: hysterectomy - IMMUNIZATION STATUS Childhood Immunizations: UTD Flu Vaccine: UTD - SOCIAL HISTORY Smoking: non-smoker Living Situation: family (son and daughter in law) Physical Exam-General - PHYSICAL EXAM-ADULT Initial Vital Signs Reviewed: Yes (Temp 102.9, HR 118, O2 94 RA) - CONSTITUTIONAL General Appearance: no apparent distress, obese, lethargic, slow to respond - EYES Eyes: PERRL/EOMI - HEAD, EARS, NOSE, MOUTH & THROAT HENMT: moist mucous membranes - NECK Neck: non-tender, full range of motion - RESPIRATORY Respiratory: chest non-tender, lungs clear, normal breath sounds - CARDIOVASCULAR Cardiovascular: normal peripheral pulses, tachycardia - GASTROINTESTINAL (ABDOMEN) Abdominal Exam: normal bowel sounds, non tender, soft - MUSCULOSKELETAL Back Exam: no CVA tenderness, no vertebral tenderness Extremity: normal range of motion, non-tender - SKIN Integumentary: normal color, normal turgor, warm/dry, abrasion(s) (left congregational) - NEUROLOGIC Neurologic: motor weakness - PSYCHIATRIC Psych/Mental Status: normal mood/affect, disoriented x 3 Progress - PLAN OF CARE/RESULTS Result Diagrams: 09/18/19 17:16 09/18/19 17:16 - REASSESSMENT Reassessment #1 Time Reassessed: 18:35 Status: unchanged (Awake, condition remained unchange) - EKG 1 Time of EKG reading by physician:: 17:45 EKG Read and Signed by:: Oswald Caballero EKG Interpretation (*Must complete 3 of following elements*): Abnormal Rate: 100 Rhythm: NSR [place]: left (deviation) QRS: LVH (minimal voltage criteria, may be normal variant) - XRAY 1 XRAY Study: Chest ( EXAM: CHEST-PORTABLE HISTORY: stroke like symptoms TECHNIQUE: Single view COMPARISON: 11/22/2018 FINDINGS: Poor inspiratory effort. The heart is mildly prominent. The vessels are not distended. There are no infiltrates. No effusion identified. There is a right-sided portacatheter. No pneumothorax. IMPRESSION: Mild cardiac megaly. Electronically signed by Arronkumar Su 09/18/2019 5:05 PM) Impression: See EMR Report (EXAM: CHEST-PORTABLE HISTORY: stroke like symptoms TECHNIQUE: Single view COMPARISON: 11/22/2018 FINDINGS: Poor inspiratory effort. The heart is mildly prominent. The vessels are not distended. There are no infiltrates. No effusion identified. There is a right-sided portacatheter. No pneumothorax. IMPRESSION: Mild cardiac megaly. Electronically signed by Arronkumar Su 09/18/2019 5:05 PM 09/18/19 1705 Interpreting Physician: Arron Su MD Dictated Date/Time: 09/18/19 1704 cc: Maty Curiel MD; South Gaines MD) - CT/MRI 1 CT Study: Head ( EXAM: CT HEAD W/O CONTRAST HISTORY: stroke like symptoms TECHNIQUE: CT head without contrast COMPARISON: 06/21/2019 FINDINGS: No parenchymal hemorrhage. No epidural or subdural hematoma. No subarachnoid hemorrhage. There is atrophy with chronic microvascular ischemic changes. No mass identified on this noncontrasted exam. No hydrocephalus. No sinus opacification. IMPRESSION: 1.No hemorrhage 2.Atrophy with chronic microvascular ischemic changes This exam was performed using automated exposure control, adjustment of mA or kV according to patient size, and/or use of iterative reconstruction technique. Electronically signed by Arron Su 09/18/2019 4:32 PM) MRI Study: Head ( EXAM: CT HEAD W/O CONTRAST HISTORY: stroke like symptoms TECHNIQUE: CT head without contrast COMPARISON: 06/21/2019 FINDINGS: No parenchymal hemorrhage. No epidural or subdural hematoma. No subarachnoid hemorrhage. There is atrophy with chronic microvascular ischemic changes. No mass identified on this noncontrasted exam. No hydrocephalus. No sinus opacification. IMPRESSION: 1.No hemorrhage 2.Atrophy with chronic microvascular ischemic changes This exam was performed using automated exposure control, adjustment of mA or kV according to patient size, and/or use of iterative reconstruction technique. Electronically signed by Arron Su 09/18/2019 4:32 PM) - CONSULTS/PCP/HOSPITALIST Notification #1 *Consult/PCP/Hospitalist*: Dr Thapa Time Discussed: 18:40 Consult Disposition: Admit (Dr Thapa was in the ER, I discussed admission with him and he took over management of patient.) Departure - Departure Date of Disposition Decision: 09/18/19 Time of Disposition Decision: 18:53 DIAGNOSIS: Hypomagnesemia AMS (altered mental status) Qualifiers: Altered mental status type: disorientation Qualified Code(s): R41.0 - Disorientation, unspecified Disposition: ADMITTED INPATIENT 09 Certified Medical Emergency: Emergent Condition: Fair - Critical Care Note This patient required my direct & personal management of CC.: No Attestation - Physician/ MICAH Attestation Patient care was provided by Advanced Practice Provider:: No The physician spent face to face time with patient:: Yes Advanced Practice Provider documentation review:: Supervising physician onsite and consulted in the evaluation and care of this patient. The physician did have a face to face encounter with the patient. This chart was documented by the indicated scribe, (Whitney Dasilva, Andry) and accurately reflects the services I performed and decisions made by me, Braxton Curiel MD, as attested by the provider's signature.
--- NOTE | 2019-09-18 18:09 | EKG Report ---
Test Performed on : 09/18/2019 5:39:54 PM Test Reason : ams Blood Pressure : / mmHG Vent. Rate : 100 BPM Atrial Rate : 100 BPM P-R Int : 144 ms QRS Dur : 094 ms QT Int : 362 ms P-R-T Axes : 014 -33 023 degrees QTc Int : 466 ms Normal sinus rhythm. Left axis deviation Minimal voltage criteria for LVH, may be normal variant Abnormal ECG When compared with ECG of 22-NOV-2018 11:44, No significant change was found Unconfirmed Result
[2019-09-18] MEDS ORDERED: NS 1,000 ML IV ONE (18:11)
[2019-09-18 18:19] LABS: ALB/GLOB RATIO 2.1; ALBUMIN 3.6 g/dL (3.5-5.0); CALCIUM 8.9 mg/dL (8.8-10.2); CREATININE 1.2 mg/dL (0.5-0.9); MAGNESIUM 0.7 mg/dL (1.5-2.7); POTASSIUM 3.7 mmol/L (3.5-5.1); TOTAL BILIRUBIN 0.52 mg/dL (0.20-1.00); TOTAL PROTEIN 5.3 g/dL (6.3-8.3)
[2019-09-18] MEDS ORDERED: MAGNESIUM SULFATE 2 GM/S.W.I. 2 GM/50 ML IVPB IV ONE (18:55)
[2019-09-18] MEDS ORDERED: VANCOMYCIN IV PER PHARMACY MISC SCH (19:15)
[2019-09-18 19:17] LABS: URINE SOURCE CLEAN CATCH
[2019-09-18 19:20] LABS: BILIRUBIN URINE NEGATIVE (NEGATIVE); BLOOD URINE SMALL (NEGATIVE); COLOR YELLOW; GLUCOSE URINE NEGATIVE (NEGATIVE); KETONE URINE NEGATIVE (NEGATIVE); LEUKOCYTES URINE MODERATE (NEGATIVE); NITRITE URINE POSITIVE (NEGATIVE); PROTEIN URINE 50 mg/dL (NEGATIVE); SP GRAVITY URINE 1.017; TURBIDITY URINE CLEAR (CLEAR); UR EPITHELIAL CELLS <10 /HPF (<10); URINE BACTERIA 4+ /HPF; URINE RBC <10 /HPF (<10); URINE WBC 20-40 /HPF (<10); UROBILINOGEN URINE NORMAL (NORMAL)
[2019-09-18 19:35] LABS: UR AMPHETAMINES QUAL NONE DETECTED (NONE DETECT); UR BARBITUATES QUAL NONE DETECTED (NONE DETECT); UR BENZODIAZEPIN QUAL NONE DETECTED (NONE DETECT); UR CANNABINOIDS QUAL NONE DETECTED (NONE DETECT); UR COCAINE QUAL NONE DETECTED (NONE DETECT); UR METHADONE QUAL NONE DETECTED (NONE DETECT); UR OPIATES QUAL NONE DETECTED (NONE DETECT); UR OXYCODONE QUAL NONE DETECTED (NONE DETECT); UR PCP QUAL NONE DETECTED (NONE DETECT)
[2019-09-18] MEDS ORDERED: MAXIPIME 2 GM/NS 2 GM/100 ML IVPB IV ONE (20:00)
[2019-09-18] MEDS ORDERED: VANCOMYCIN 1.3 GM in NS 250 ML IV SCH (20:00)
[2019-09-18] MEDS ORDERED: VANCOMYCIN 1.7 GM in NS 250 ML IV ONE (20:15)
[2019-09-18] MEDS ORDERED: TYLENOL PO PRN (20:16)
[2019-09-18] MEDS ORDERED: HUMALOG SUBQ ONE (20:16)
--- NOTE | 2019-09-18 20:55 | HISTORY AND PHYSICAL ---
PRIMARY CARE PHYSICIAN: Dr. South Gaines CHIEF COMPLAINT: Alteration of mental status. 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 Pertinent history of present illness began on Friday. At that time, patient states she had 2 episodes of loose stools. The patient denied any associated symptoms. Overall, she states she continued to feel well. Yesterday she awoke and "felt bad." She denied any specific symptoms at that time. Throughout the day, she had decreased p.o. intake. Overnight, patient states she slept well. Upon awaking this morning, she again felt poorly. She attempted to eat breakfast, although this proved unsuccessful. Throughout the day, she continued to have considerable fatigue as well as have feeling of ill being. Relatives were at her house during the day and she experienced 2 episodes of vomiting. She denied abdominal discomfort or loose stools associated. This afternoon upon arrival of her [id number]-cz-xhn, she was resting on her couch. The patient's yleebdkt-wz-zgo noted considerable confusion. Because of her profound weakness and confusion, EMS was contacted. Patient was transported to the emergency department for further evaluation and management. Upon arrival, patient was noted to be febrile at a temperature of 102.9 degrees. Her mental status was noted to be altered. Full evaluation was pursued. The patient was found to have an abnormal urinalysis, hypomagnesemia, and an elevated lactate. Patient will be admitted to the hospital for full evaluation and management of each of these conditions. Of note, the patient denies abdominal pain, recent diarrhea, constipation, hematochezia, melena, dysuria, hematuria, pyuria, cough, congestion, shortness of breath, or sick contacts. She has had an increase in her blood sugars recently. PAST MEDICAL HISTORY: 1. Abnormal electrocardiogram with chronic poor R-wave progression. 2. History of a right lower extremity deep venous thrombosis in 2016 and left lower extremity DVT in 2017 treated with lifelong Xarelto. 3. Ascending aortic aneurysm. 4. 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 5. History of abnormal mammogram in 2018 with negative pathology. 6. Intermittent bronchospasm. 7. Minimal carotid artery disease. 8. Constipation. 9. Coronary artery disease with elevated CT coronary calcium score. 10. Depression/anxiety, situational. 11. Type 2 diabetes, insulin dependent. 12. Reflux disease. 13. Hypertension. 14. Glaucoma. 15. Gout. 16. History of external hemorrhoids. 17. Hyperlipidemia. 18. Iron deficiency anemia. 19. Multiple myeloma. 20. Mild cognitive impairment. 21. Obstructive sleep apnea, unable to tolerate CPAP. 22. Generalized osteoarthritis. 23. History of colonic polyps. 24. Restless legs syndrome. 25. Vitamin B12 deficiency. CURRENT MEDICATIONS: 1. Acetaminophen 650 mg every 8 hours as needed. 2. Amlodipine 2.5 mg twice daily. 3. Vitamin B12 1000 mcg IM monthly. 4. Iron sulfate 325 mg daily. 5. Folic acid 1 mg daily. 6. Imdur 30 mg daily. 7. Levemir 15 units at bedtime. 8. Lexapro 10 mg at bedtime. 9. [place] eye drops 1 drop each eye at bedtime. 10. Magnesium oxide 400 mg twice daily. 11. Melatonin 3 mg at bedtime. 12. Metformin 1000 mg twice daily. 13. Omeprazole 40 mg daily. 14. Hilary-Colace daily. 15. Polyethylene glycol as needed. 16. Revlimid 10 mg daily. 17. Simvastatin 20 mg at bedtime. 18. Timolol 1 drop each eye daily. 19. Valacyclovir 500 mg daily. 20. Valsartan 40 mg daily. 21. Ventolin HFA 1 to 2 puffs every 4-6 hours as needed. 22. Xarelto 10 mg daily with supper. ALLERGIES: Patient answered no known drug allergies. SOCIAL HISTORY: Patient denies tobacco, alcohol or illicit drug use. 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 She is unable to exercise routinely. FAMILY HISTORY: Patient's father passed at age 86 secondary to complications of congestive heart failure. Patient's mother passed at age 68 secondary to complications of an acute myocardial infarction. She had a history of diabetes. REVIEW OF SYSTEMS: A 12 point review of systems was performed. Pertinent positives and negatives are noted in history present illness. PHYSICAL EXAMINATION: Temperature 102.9 degrees, heart rate 118, respirations 23, blood pressure is 118/57. GENERAL: Elderly. No acute distress. HEENT: Normocephalic, atraumatic. Pupils equal, round, reactive to light. Extraocular muscles intact. Sclerae anicteric. [place] conjunctivae. Oral and nasopharynx clear without exudate. NECK: Supple. No lymphadenopathy. No thyromegaly. No bruits auscultated. CARDIOVASCULAR: Tachycardic, regular rhythm. No significant murmurs, rubs, or gallops. PULMONARY: Clear to auscultation bilaterally. ABDOMEN: Soft, nontender, nondistended. Positive bowel sounds. EXTREMITIES: Moves all extremities well. No significant clubbing, cyanosis, or edema. NEUROLOGIC: Cranial nerves 2 through 12 grossly intact. Motor and sensory grossly intact. PSYCHOLOGIC: Patient is intermittently confused. LABORATORY DATA: White blood cell count 4.81, hemoglobin 10.1, hematocrit 30.7, platelet count is 103,000, PT 17.6, INR is 1.42, PTT is 27.3. Sodium 131, potassium 3.7, chloride 95, bicarb 23, BUN 18, creatinine 1.2, glucose 175, calcium 8.9, magnesium 0.7, total bilirubin 0.52, total protein 5.3, albumin 3.6, alkaline phosphatase 48, AST 12, ALT 8, CK total 23, troponin less than 0.010. Initial plasma lactate returned at 2.4. Urinalysis reveals positive nitrite, moderate leukocytes, 4+ bacteria. Chest x-ray revealed mild cardiomegaly. CT scan of the head suggested no hemorrhage. Atrophy with chronic microvascular ischemic changes. EKG demonstrated a normal sinus rhythm. ASSESSMENT AND PLAN: An 84-year-old, white female with a very complicated past medical history presents for evaluation of alteration of mental status in the setting of fever and urinary tract infection. Patient will be admitted to the hospital for full evaluation and management of this condition. 1. Admit to General Medicine. 2. Fever/sepsis-in the setting of significant fever, tachycardia, alteration of mental status and elevated lactate, patient will be treated as a septic patient. Patient will be started on aggressive but cautious hydration. We will check blood cultures. We will send urine for culture. Because of her immunocompromised state, we will aggressively manage patient with cefepime, Levaquin and vancomycin therapy. We will treat fevers with as needed Tylenol. 3. Alteration of mental status-this likely is a consequence of her acute illness. CT scan returned without acute changes. For now, we will treat as above. Should patient continue to have persistent symptoms, we will consider further radiologic imaging. 4. Hypomagnesemia-historically, patient has demonstrated episodes of confusion associated with her hypomagnesemia. While I do not expect that this is the primary cause of the patient's confusion this event, we will treat this aggressively. The patient will be provided IV magnesium while in the emergency department. We will continue oral magnesium in the hospital. We will check a level in the a.m. 5. Multiple myeloma-patient is currently undergoing oral chemotherapy. This places patient at an immunocompromised state. We will hold her chemotherapy for the next several days while we are treating her infection. We will resume this once able. 6. History of a deep venous thrombosis-we will continue patient on Xarelto therapy. 7. Diabetes-we will continue home medications. We will cover patient with sliding scale insulin. 8. Hypertension-we will continue her home medications with the exception of holding all blood pressure medications for systolic blood pressure less than 140. 9. Hyperlipidemia-we will continue patient on simvastatin therapy. 10. Anemia/thrombocytopenia-I suspect this is secondary to her chemotherapy. We will remain aware. 11. Fluid, electrolytes, nutrition. We will monitor electrolytes. Normal saline at 75 mL an hour. Diabetic diet. 12. Prophylaxis. Patient will be continued on Xarelto therapy. cc: South Gaines MD
[2019-09-18] MEDS: NS 1,000 ML IV SCH (21:56)
[2019-09-18] MEDS: LUMIGAN 0.01% OPH SOLUTION BOTH EYES SCH (21:57)
[2019-09-18] MEDS: ZOCOR PO SCH (21:57)
[2019-09-18] MEDS: NORVASC PO SCH (21:57)
[2019-09-18] MEDS: MELATONIN PO SCH (21:57)
[2019-09-18] MEDS: MAG-OX PO SCH (21:57)
[2019-09-18] MEDS: LEXAPRO PO SCH (21:59)
[2019-09-18] MEDS: LEVAQUIN 500 MG in NS 100 ML IV SCH (22:24)
[2019-09-19] MEDS ORDERED: OFIRMEV 1000 MG/ISOTONIC SOLN 1,000 MG/100 ML BOTTLE IV PRN (02:11)
[2019-09-19] MEDS: MAXIPIME 2 GM/NS 2 GM/100 ML IVPB IV SCH ×3 (03:51→21:00)
[2019-09-19 04:28] LABS: EOS# 0.02 X1000 (0.0-0.7); EOS% 0.7 % (0.0-10.0); HEMATOCRIT 26.6 % (37.0-47.0); HEMOGLOBIN 8.7 g/dL (12.0-16.0); LYMPH# 0.18 X1000 (1.2-3.4); LYMPH% 6.5 % (20.5-51.1); MCH 29.1 PG (27-31); MCHC 32.7 g/dL (33-37); MONO# 0.23 X1000 (0.11-0.59); MONO% 8.3 % (1.7-9.3); MPV 11.3 FL (7.4-10.4); NEUT# 2.33 X1000 (1.4-6.5); NEUT% 84.5 % (42.2-75.2); PLT 80 X1000 (130-400); RBC 2.99 XMIL (4.2-5.4); RDW 15.2 % (11.5-14.5); WBC 2.76 X1000 (4.8-10.8)
[2019-09-19 05:19] LABS: ALB/GLOB RATIO 1.6; CALCIUM 8.2 mg/dL (8.8-10.2); CREATININE 1.1 mg/dL (0.5-0.9); MAGNESIUM 1.2 mg/dL (1.5-2.7); POTASSIUM 3.7 mmol/L (3.5-5.1); TOTAL BILIRUBIN 0.63 mg/dL (0.20-1.00); TOTAL PROTEIN 4.9 g/dL (6.3-8.3)
[2019-09-19] MEDS: PRILOSEC PO SCH (06:07)
[2019-09-19] MEDS: DIOVAN PO SCH (08:03)
[2019-09-19] MEDS: NORVASC PO SCH ×2 (08:20→20:59)
[2019-09-19] MEDS ORDERED: TIMOPTIC 0.25% OPH SOLUTION BOTH EYES SCH (09:00)
[2019-09-19] MEDS: FOLIC ACID PO SCH (09:00)
[2019-09-19] MEDS: VALTREX PO SCH (09:00)
[2019-09-19] MEDS: GLUCOPHAGE PO SCH ×2 (09:00→16:55)
[2019-09-19] MEDS: MAG-OX PO SCH ×2 (09:00→20:59)
[2019-09-19] MEDS: IMDUR PO SCH (09:00)
[2019-09-19] MEDS: FERROUS SULFATE PO SCH (09:01)
[2019-09-19] MEDS ORDERED: MAGNESIUM SULFATE 2 GM/S.W.I. 2 GM/50 ML IVPB IV ONE (09:59)
[2019-09-19] MEDS ORDERED: NS 1,000 ML IV ONE (10:00)
--- NOTE | 2019-09-19 11:46 | Diag Imaging Result Doc PS360 ---
EXAM: CT ABDOMEN/PELVIS W/O CONTRAST INDICATION: abdominal pain/ elevated lactate/ sepsis TECHNIQUE: This exam was performed using automated exposure control, adjustment of mA or kV according to patient size, and/or use of iterative reconstruction technique. COMPARISON: 02/11/2018 FINDINGS: There is minimal subsegmental atelectasis at the lung bases. The gallbladder, liver, and spleen are unremarkable. The pancreas is somewhat atrophic but is unremarkable, otherwise. The adrenal glands are unremarkable. There is stable chronic bilateral perinephric stranding, which can be associated with renal insufficiency. The urinary bladder is unremarkable. There has been a prior hysterectomy. There is increased stool in the colon and rectum suggesting possible mild to moderate constipation. No definite bowel wall thickening or bowel obstruction is appreciated. No focal inflammatory changes, free abdominal gas, or free fluid is identified. There is a moderate to extensive degree of aortic atherosclerotic calcification. No SMA or celiac trunk calcification is appreciated. There is spinal degenerative changes and there is an essentially stable small lytic lesion associated with the sacrum. IMPRESSION: 1.Possible mild to moderate constipation. No bowel wall thickening is appreciated. 2.Other incidental/nonacute findings detailed above. Electronically signed by Gareth Jean 09/19/2019 11:44 AM
--- NOTE | 2019-09-19 12:08 | PROGRESS NOTE ---
DATE: 09/19/2019 SUBJECTIVE: The patient was admitted yesterday with alteration of mental status, hypomagnesemia, and urinary tract infection with associated sepsis. The patient was placed on broad-spectrum antibiotics in the form of cefepime, Levaquin, and vancomycin therapy. Magnesium was repleted. Overnight, at approximately 2 a.m., I was contacted in regards to further mental status change. Per report, the patient was noted to have slurring of her speech, as well as an expressive aphasia. At that time, the patient's temperature had risen. The patient's antibiotics were continued. IV acetaminophen was provided secondary to associated nausea and vomiting. With this, the patient did have resolution back to her baseline mentation. Upon my arrival this morning, the patient was lying in bed. She was alert to person, place, and situation. The patient states she continues to feel poorly; however, does note some improvement from yesterday. Overnight, she states she also had considerable abdominal discomfort, although this has decreased, but not resolved. She was unable to eat breakfast due to nausea. She denied shortness of breath or chest discomfort. OBJECTIVE: Vital Signs: T-max 102.9 degrees, heart rate 79 to 118, respirations 18 to 25, blood pressure 103 to 124/37 to 57. General: Elderly. No acute distress. Cardiovascular: Regular rate and rhythm. No significant murmurs, rubs, or gallops. Pulmonary: Clear to auscultation bilaterally. Abdomen: Soft. No significant tenderness. Nondistended. Positive bowel sounds. Extremities: Moves all extremities well. No significant clubbing, cyanosis, or edema. Dermatologic: No evidence of rash. LABORATORY DATA: White blood cell count 2.76, hemoglobin 8.7, hematocrit 26.6, platelet count 80,000. Sodium 137, potassium 3.7, chloride 100, bicarb 22, BUN 21, creatinine 1.1, glucose 110, calcium 8.2. Magnesium 1.2. Total bilirubin 0.63, total protein 4.9, albumin 3.0, alkaline phosphatase 38, AST 8, ALT 5. Lactate 4.5 with repeat 1.2. ASSESSMENT AND PLAN: 1. Fever/sepsis. This likely is a consequence of urinary tract infection and possible pyelonephritis. Blood cultures and urine cultures are pending. For now, with the patient's immunocompromised state, we will continue aggressive management with intravenous fluids, cefepime, Levaquin, and vancomycin therapy. In the setting of an elevated lactate, we will re- bolus normal saline. We will repeat a lactate this afternoon. Clinically, the patient appears to have demonstrated some improvement from yesterday. 2. Alteration of mental status. This likely is a consequence of her acute illness. With afebrile state, the patient's symptoms increased considerably. As she is afebrile currently, symptoms have improved. We will follow this. CT scan of the head revealed no evidence of acute disease. 3. Hypomagnesemia. The patient's magnesium level has improved, although not to goal. We will re- dose intravenous magnesium today. We will continue oral replacement as well. 4. Abdominal discomfort/nausea/vomiting. In the setting of an elevated lactate, we will check a CT scan of the abdomen and pelvis. We will determine if further intervention is warranted. 5. Multiple myeloma. The patient is currently being treated with oral chemotherapy. In the setting of her acute illness, we will hold her chemotherapy, but will resume this once infection is better controlled. 6. History of deep venous thrombosis. We will continue Xarelto therapy. 7. Diabetes. The patient's blood sugars are controlled on sliding scale insulin. 8. Hypertension. The patient's home medications have been continued. However, will be held for systolic blood pressure less than 140. We will remain aware. 9. Hyperlipidemia. We will continue simvastatin therapy. 10. Anemia/thrombocytopenia. This likely is a consequence of her current chemotherapy. Levels dropped slightly from yesterday. We will remain aware, and continue following serial examinations. 11. Disposition. At this point, the patient continues to require fpc care in a hospital setting. We will plan discharge home once appropriate. cc: South Gaines MD
[2019-09-19] MEDS: NS 1,000 ML IV SCH ×2 (13:00→21:42)
[2019-09-19] MEDS: TIMOPTIC 0.25% OPH SOLUTION BOTH EYES SCH (15:27)
[2019-09-19] MEDS: XARELTO PO SCH (16:54)
[2019-09-19] MEDS ORDERED: VANCOMYCIN 1.3 GM in NS 250 ML IV SCH (20:15)
[2019-09-19] MEDS: MELATONIN PO SCH (20:59)
[2019-09-19] MEDS: ZOCOR PO SCH (20:59)
[2019-09-19] MEDS: LEXAPRO PO SCH (20:59)
[2019-09-19] MEDS: LUMIGAN 0.01% OPH SOLUTION BOTH EYES SCH (21:00)
[2019-09-19] MEDS: LEVAQUIN 500 MG in NS 100 ML IV SCH (21:42)
[2019-09-20] MEDS: NS 1,000 ML IV SCH (00:25)
[2019-09-20] MEDS: MAXIPIME 2 GM/NS 2 GM/100 ML IVPB IV SCH ×2 (03:42→11:43)
[2019-09-20] MEDS: PRILOSEC PO SCH (06:22)
[2019-09-20 06:49] LABS: BASO# 0.02 X1000 (0.0-0.2); BASO% 0.7 % (0.0-0.8); EOS# 0.12 X1000 (0.0-0.7); EOS% 4.1 % (0.0-10.0); HEMATOCRIT 26.3 % (37.0-47.0); HEMOGLOBIN 8.5 g/dL (12.0-16.0); LYMPH# 0.44 X1000 (1.2-3.4); LYMPH% 15.2 % (20.5-51.1); MCHC 32.3 g/dL (33-37); MCV 89.8 FL (81-99); MONO# 0.28 X1000 (0.11-0.59); MONO% 9.7 % (1.7-9.3); MPV 12.8 FL (7.4-10.4); NEUT# 2.04 X1000 (1.4-6.5); NEUT% 70.3 % (42.2-75.2); PLT 66 X1000 (130-400); RBC 2.93 XMIL (4.2-5.4); RDW 15.4 % (11.5-14.5)
[2019-09-20 06:50] LABS: ALB/GLOB RATIO 1.6; CALCIUM 7.7 mg/dL (8.8-10.2); CREATININE 1.1 mg/dL (0.5-0.9); POTASSIUM 3.8 mmol/L (3.5-5.1); TOTAL BILIRUBIN 0.36 mg/dL (0.20-1.00); TOTAL PROTEIN 4.9 g/dL (6.3-8.3)
[2019-09-20] MEDS: DIOVAN PO SCH (08:08)
[2019-09-20] MEDS: FOLIC ACID PO SCH (08:08)
[2019-09-20] MEDS: MAG-OX PO SCH ×2 (08:08→20:16)
[2019-09-20] MEDS: GLUCOPHAGE PO SCH ×2 (08:08→17:08)
[2019-09-20] MEDS: IMDUR PO SCH (08:08)
[2019-09-20] MEDS: FERROUS SULFATE PO SCH (08:08)
[2019-09-20] MEDS: NORVASC PO SCH ×2 (08:08→20:16)
[2019-09-20] MEDS: VALTREX PO SCH (08:08)
[2019-09-20] MEDS: TIMOPTIC 0.25% OPH SOLUTION BOTH EYES SCH (09:55)
[2019-09-20] MEDS ORDERED: VANCOMYCIN 1.3 GM in NS 250 ML IV SCH (10:00)
--- NOTE | 2019-09-20 13:07 | PROGRESS NOTE ---
DATE: 09/20/2019 SUBJECTIVE: Upon arrival, patient was sitting upright in bed. Overall, she states she feels much better. The patient's mental status has returned to her baseline. Her p.o. intake is improving. She denies fevers, chills, nausea, vomiting, shortness of breath, or chest discomfort. Energy level remains low. OBJECTIVE: Vital Signs: T-max 100.7 degrees, heart rate 71-81 respirations 16-23. Blood pressure 116-151/54-67. General: No acute distress. Cardiovascular: Regular rate and rhythm. No significant murmurs, rubs, or gallops. Pulmonary: Clear to auscultation bilaterally. Abdomen: Soft, nontender, nondistended. Positive bowel sounds. Extremities: Moves all extremities well. No significant clubbing, cyanosis, or edema. Dermatologic: Evaluation reveals no evidence of rash. LABORATORY DATA: White blood cell count 2.90, hemoglobin 8.5, hematocrit 26.3, platelet count 66,000. Sodium 143, potassium 3.8, chloride 107, bicarb 24, BUN 17, creatinine 1.1, glucose 98, calcium 7.7, total bilirubin 0.36, total protein 4.9, albumin 3.0, alkaline phosphatase 37, AST 7, ALT 5. ASSESSMENT AND PLAN: 1. Fever/sepsis-this likely is a consequence of her urinary tract infection and possible pyelonephritis. Blood cultures thus far are negative. Urine culture has grown a pansensitive Escherichia coli. We will transition patient from cefepime, levofloxacin and vancomycin to Rocephin therapy. Depending on her progress, we likely can transition to oral antibiotics in the near future and discharge home. 2. Alteration of mental status-this likely is a consequence of her acute illness as well as hypomagnesemia. With treatment of each, she has achieved improvement. She is approaching baseline. 3. Hypomagnesemia-the patient has been treated with IV magnesium while hospitalized. Her oral magnesium has been resumed. We will continue this. 4. Abdominal discomfort/nausea/vomiting-patient has achieved improvement. This likely is a consequence of her acute illness. CT scan demonstrated no evidence of acute disease. 5. Multiple myeloma-the patient is currently being treated with oral chemotherapy as an outpatient. This has been held while hospitalized. We will plan to resume this as an outpatient. We will remain aware that patient is pancytopenic, likely secondary to her disease and medications. She has no evidence of active bleeding. 6. History of deep venous thrombosis-we will continue patient on Xarelto therapy. 7. Diabetes-patient's blood sugars are reasonably controlled with her home regimen and sliding scale insulin. 8. Hypertension-blood pressure is reasonably controlled on her current regimen. 9. Hyperlipidemia-we will continue patient on simvastatin therapy. 10. Disposition. At this point, patient continues to require care home care in a hospital setting. She will likely be able to be discharged home in the near future. cc: South Gaines MD
[2019-09-20] MEDS ORDERED: ROCEPHIN 1 GM in NS 50 ML IV SCH (15:00)
[2019-09-20] MEDS: XARELTO PO SCH (17:08)
[2019-09-20] MEDS: LEXAPRO PO SCH (20:15)
[2019-09-20] MEDS: ZOCOR PO SCH (20:15)
[2019-09-20] MEDS: MELATONIN PO SCH (20:16)
[2019-09-20] MEDS: LUMIGAN 0.01% OPH SOLUTION BOTH EYES SCH (20:17)
[2019-09-21] MEDS: PRILOSEC PO SCH (06:17)
[2019-09-21 07:41] LABS: BASO# 0.02 X1000 (0.0-0.2); BASO% 0.7 % (0.0-0.8); EOS# 0.16 X1000 (0.0-0.7); EOS% 5.4 % (0.0-10.0); HEMATOCRIT 27.6 % (37.0-47.0); LYMPH# 0.68 X1000 (1.2-3.4); LYMPH% 22.9 % (20.5-51.1); MCH 29.1 PG (27-31); MCHC 32.6 g/dL (33-37); MCV 89.3 FL (81-99); MONO# 0.29 X1000 (0.11-0.59); MONO% 9.8 % (1.7-9.3); MPV 11.8 FL (7.4-10.4); NEUT# 1.82 X1000 (1.4-6.5); NEUT% 61.2 % (42.2-75.2); PLT 77 X1000 (130-400); RBC 3.09 XMIL (4.2-5.4); RDW 15.1 % (11.5-14.5); WBC 2.97 X1000 (4.8-10.8)
[2019-09-21 08:12] LABS: ALB/GLOB RATIO 1.6; ALBUMIN 3.3 g/dL (3.5-5.0); CALCIUM 7.8 mg/dL (8.8-10.2); POTASSIUM 4.2 mmol/L (3.5-5.1); TOTAL BILIRUBIN 0.3 mg/dL (0.20-1.00); TOTAL PROTEIN 5.3 g/dL (6.3-8.3)
[2019-09-21] MEDS: FERROUS SULFATE PO SCH (08:23)
[2019-09-21] MEDS: IMDUR PO SCH (08:23)
[2019-09-21] MEDS: NORVASC PO SCH (08:23)
[2019-09-21] MEDS: GLUCOPHAGE PO SCH (08:23)
[2019-09-21] MEDS: DIOVAN PO SCH (08:24)
[2019-09-21] MEDS: MAG-OX PO SCH (08:24)
[2019-09-21] MEDS: FOLIC ACID PO SCH (08:24)
[2019-09-21] MEDS: VALTREX PO SCH (08:24)
[2019-09-21] MEDS: TIMOPTIC 0.25% OPH SOLUTION BOTH EYES SCH (08:25)
[2019-09-21 08:26] VITALS: BP 156/75
[2019-09-21] MEDS ORDERED: MILK OF MAGNESIA PO ONE (08:37)
--- NOTE | 2019-09-21 09:44 | DISCHARGE SUMMARY ---
ADMISSION DATE: 09/18/2019 DISCHARGE DATE: 09/21/2019 HISTORY OF PRESENT ILLNESS: She presented with altered mental status. She is a patient of Dr. South Gaines. This is an 84-year-old white female, very complicated past medical history including deep venous thrombosis, diabetes mellitus type 2 on insulin, multiple myeloma, recent history of superficial cell left temporal spindle cell cancer. History of illness began on this last Friday, this is Friday today. At that time, the patient states she had 2 episodes of loose stools. Denied any associated symptoms. Overall, she states she continued to feel well. She awoke and felt bad. Denied any specific symptoms at that time. Throughout the day, she had decreased p.o. intake. Overnight, the patient states she slept well. Upon waking the following morning, she again felt poorly. She attempted to eat breakfast although proved unsuccessful. Throughout the day, she continued to have considerable fatigue, as well as feeling of ill-being. Relatives were at her house during the day, and she experienced 2 episodes of vomiting. She denied abdominal discomfort or loose stools, and in the afternoon on arrival, the [id number] states she was resting on the couch. The patient's zabuvhvo-nh-exx had noted considerable confusion. Because of this, she had profound weakness and confusion. EMS was contacted. Patient was transferred to the emergency department for further evaluation and management. Upon arrival, patient noted to be febrile, temperature 102.9 degrees. Her mental status was noted to be altered. Full evaluation was pursued, found abnormal urinalysis, hypomagnesemia, and elevated lactate. The patient admitted to the hospital. PAST MEDICAL HISTORY: 1. Abnormal electrocardiogram, chronic poor R-wave progression. 2. History of right lower extremity deep venous thrombosis in 2016, left lower extremity deep venous thrombosis in 2017, treated with lifelong Xarelto. 3. Ascending aortic aneurysm. 4. Abnormal skin examination, multiple actinic keratosis, seborrheic keratosis, brown nevi, recent history of superficial spindle cell carcinoma of the left gnosticist. 5. History of abnormal mammogram in 2018, negative pathology. 6. Intermittent bronchospasm. 7. Minimal carotid artery disease. 8. Constipation. 9. Coronary artery disease with elevated CT coronary calcium score. 10. Depression and anxiety, situational. 11. Diabetes mellitus type 2, insulin dependent. 12. Reflux disease. 13. Hypertension. 14. Glaucoma. 15. Gout. 16. History of external hemorrhoids. 17. Hyperlipidemia. 18. Iron deficiency anemia. 19. Multiple myeloma. 20. Mild cognitive impairment. 21. Obstructive sleep apnea, unable to tolerate CPAP. 22. Generalized osteoarthritis. 23. History of colonic polyps. 24. Restless legs syndrome. 25. Vitamin B12 deficiency. HOME MEDICATIONS: Reviewed her list of medications coming in. ADMISSION DIAGNOSES/HOSPITAL COURSE: 1. Fever, possible sepsis, stating significant fever, tachycardia, alteration of mental status, elevated lactate. The patient was started on antibiotics and hydration. Blood cultures were obtained. Urine grew out Escherichia coli. Blood cultures with no growth over 48 hours. Her Escherichia coli was sensitive to cefazolin, sensitive to Levaquin. She was given some IV hydration. 2. Ascending aortic aneurysm. Aware. 3. Abnormal skin examination with multiple actinic keratoses, seborrheic keratoses, brown nevi, and recent history of superficial spindle cell carcinoma of the left gnosticist that is being treated. 4. History of multiple myeloma, undergoing current chemotherapy. Note that her blood counts are adequate. Her white count is 2970; on presentation, it was 4810; hematocrit 27, platelet count 77,000. Her electrolytes, magnesium was at 0.7. Started on magnesium sulfate tablets 400 mg twice a day, and magnesium came up to 1.7, continued to climb. She had no further confusion. On 09/21/2019, she was eating well, remained afebrile. Cultures were negative and she wanted to go home. She had discussed with Dr. Gaines about potentially moving to assisted living at some point, but we will plan on letting her go home. DISCHARGE MEDICATIONS: She is on Norvasc 2.5 mg b.i.d., Lexapro 10 mg every night at bedtime, ferrous sulfate 325 mg a day, folic acid 1 mg daily, Imdur 30 mg a day, Mag-Ox 400 mg p.o. b.i.d., melatonin 3 mg every night at bedtime, Glucophage 1000 mg p.o. b.i.d., Prilosec 40 mg a day, Xarelto 10 mg a day, Zocor 20 mg every night at bedtime, Timoptic eye drops, and Valtrex 500 mg p.o. daily, Diovan 40 mg daily. I am going to put her on Levaquin 500 mg p.o. daily for another week because of the Escherichia coli in her urine, and in fact, because it looks like she had possible UTI, we will her on it for another 7 days. FOLLOWUP: She will follow up with Dr. Gaines. cc: MD South Mcnally MD
== END 2019-09-21 12:14 | disposition home health service (06) | DRG 871 ==
LOC: SUPCPDRO → ED 15:42 → 2N 19:27 → 3N 09-20 15:37
PROVIDERS: ADMIT Internal Medicine; ATTEND Internal Medicine

== ENCOUNTER 2019-09-27 16:00 | Inpatient (IN) ==
[2019-09-27] MEDS ORDERED: TYLENOL PO PRN (17:17)
[2019-09-27] MEDS: ZOSYN 3.375 GM in NS 50 ML IV SCH (18:23)
[2019-09-27] MEDS: NS 1,000 ML IV SCH (18:23)
[2019-09-27 18:53] LABS: EOS# 0.04 X1000 (0.0-0.7); EOS% 1.6 % (0.0-10.0); HEMATOCRIT 31.2 % (37.0-47.0); HEMOGLOBIN 10.2 g/dL (12.0-16.0); IMM GRAN# 0.02 X1000 (0.0-0.04); IMM GRAN% 0.8 % (0.0-0.5); LYMPH# 0.55 X1000 (1.2-3.4); LYMPH% 22.6 % (20.5-51.1); MCH 29.4 PG (27-31); MCHC 32.7 g/dL (33-37); MCV 89.9 FL (81-99); MONO# 0.33 X1000 (0.11-0.59); MONO% 13.6 % (1.7-9.3); NEUT# 1.49 X1000 (1.4-6.5); NEUT% 61.4 % (42.2-75.2); PLT 107 X1000 (130-400); RBC 3.47 XMIL (4.2-5.4); RDW 15.6 % (11.5-14.5); WBC 2.43 X1000 (4.8-10.8)
[2019-09-27 19:11] LABS: ALB/GLOB RATIO 1.8; ALBUMIN 3.8 g/dL (3.5-5.0); CREATININE 1.7 mg/dL (0.5-0.9); MAGNESIUM 1.1 mg/dL (1.5-2.7); POTASSIUM 4.3 mmol/L (3.5-5.1); TOTAL BILIRUBIN 0.27 mg/dL (0.20-1.00); TOTAL PROTEIN 5.9 g/dL (6.3-8.3)
[2019-09-27] MEDS ORDERED: MAGNESIUM SULFATE 2 GM/S.W.I. 2 GM/50 ML IVPB IV ONE (19:16)
[2019-09-27] MEDS: HUMALOG SUBQ SCH (20:26)
[2019-09-27] MEDS: ZOCOR PO SCH (20:26)
[2019-09-27] MEDS: MAG-OX PO SCH (20:26)
[2019-09-27] MEDS: MELATONIN PO SCH (20:26)
[2019-09-27] MEDS: LEXAPRO PO SCH (20:26)
[2019-09-28] MEDS: ZOSYN 3.375 GM in NS 50 ML IV SCH ×4 (00:59→18:53)
[2019-09-28 04:06] LABS: URINE SOURCE CLEAN CATCH
[2019-09-28 04:11] LABS: BILIRUBIN URINE NEGATIVE (NEGATIVE); BLOOD URINE NEGATIVE (NEGATIVE); COLOR YELLOW; GLUCOSE URINE NEGATIVE (NEGATIVE); KETONE URINE NEGATIVE (NEGATIVE); LEUKOCYTES URINE NEGATIVE (NEGATIVE); NITRITE URINE NEGATIVE (NEGATIVE); PH URINE 5.5; PROTEIN URINE TRACE mg/dL (NEGATIVE); SP GRAVITY URINE 1.019; TURBIDITY URINE CLEAR (CLEAR); UROBILINOGEN URINE NORMAL (NORMAL)
[2019-09-28 04:46] LABS: UR EPITHELIAL CELLS <10 /HPF (<10); URINE BACTERIA NEGATIVE /HPF; URINE CASTS GRANULAR PRESENT; URINE CRYSTALS NONE SEEN; URINE SMALL ROUND CELLS NONE SEEN; URINE WBC <10 /HPF (<10); URINE YEAST NONE SEEN
[2019-09-28] MEDS: PRILOSEC PO SCH ×2 (05:49→12:09)
--- NOTE | 2019-09-28 06:32 | HISTORY AND PHYSICAL ---
CHIEF COMPLAINT: Alteration of mental status and profound weakness. HISTORY OF PRESENT ILLNESS: An 84-year-old, white female with a very complicated past medical history presents for evaluation of above-mentioned symptoms. Pertinent history of present illness began on 09/18/2019. At that time, patient was admitted to [facility] secondary to fever/sepsis in the setting of a urinary tract infection. The patient also was noted to have mental status changes and hypomagnesemia. The patient was treated aggressively while hospitalized with IV antibiotic intervention. Urine cultures ultimately grew E coli. The patient while hospitalized, with IV hydration, magnesium supplementation, and IV antibiotic intervention, she achieved improvement in her condition. On 09/21/2019 because of a significant improvement, patient was discharged home. Initially, patient did reasonably well, but within 24 to 48 hours, her condition deteriorated. The patient experienced profound weakness and mild mental status changes. Her p.o. intake has remained marginal. The patient has completed antibiotic intervention. She presented to my office today for further evaluation and management. Upon arrival, she was confined to a wheelchair. She was noted to have an elevated heart rate and decreased blood pressure. Because of her deteriorating condition, patient was admitted for full evaluation and management. Of note, patient denies fevers, chills, shortness of breath, chest pain, palpitations, dysuria, hematuria, pyuria, or change in bowel movements. PAST MEDICAL HISTORY: 1. Abnormal electrocardiogram with chronic poor R-wave progression. 2. History of right lower extremity venous thrombosis in 2016 and left lower extremity deep venous thrombosis in 2017. Treated with lifelong Xarelto. 3. Ascending aortic aneurysm. 4. 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 5. History of abnormal mammogram 2018 with negative biopsy. 6. Intermittent bronchospasm. 7. Minimal carotid artery disease. 8. Constipation. 9. Coronary artery disease with elevated CT coronary calcium score. 10. Depression/anxiety. 11. Type 2 diabetes. 12. Reflux disease. 13. Hypertension. 14. Glaucoma. 15. Gout. 16. External hemorrhoids. 17. Hyperlipidemia. 18. Iron deficiency anemia. 19. Multiple myeloma. 20. Mild cognitive impairment. 21. Obstructive sleep apnea, unable tolerate CPAP. 22. Generalized osteoarthritis. 23. History of colonic polyps. 24. Restless legs syndrome. 25. Vitamin B12 deficiency. CURRENT MEDICATIONS: 1. Acetaminophen 650 mg every 8 hours as needed. 2. Amlodipine 2.5 mg twice daily. 3. Vitamin B12 1000 mcg IM monthly. 4. Iron sulfate 325 mg daily. 5. Folic acid 1 mg daily. 6. Imdur 30 mg daily. 7. Levemir 15 units at bedtime. 8. Lexapro 10 mg at bedtime. 9. Lumigan eye drops 1 drop each eye at bedtime. 10. Magnesium 400 mg twice daily. 11. Melatonin 3 mg at bedtime. 12. Metformin 1000 mg twice daily. 13. Omeprazole 40 mg daily. 14. Hilary-Colace 1 tablet daily. 15. Polyethylene glycol as needed. 16. Revlimid 10 mg daily. 17. Simvastatin 20 mg at bedtime. 18. Timolol 1 drop each eye daily. 19. Valacyclovir 500 mg daily. 20. Valsartan 40 mg daily. 21. Ventolin HFA 1-2 puffs every 4-6 hours as needed. 22. Xarelto 10 mg daily with supper. ALLERGIES: Patient answered no known drug allergies. SOCIAL HISTORY: Patient denies tobacco, alcohol or illicit drug use. 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 She is unable to exercise routinely. FAMILY HISTORY: Patient's father passed at age 86 secondary to complications of congestive heart failure. Patient's mother passed at age 68 secondary to complications of an acute myocardial infarction. She had a history of diabetes. REVIEW OF SYSTEMS: A 12-point review of systems was performed. Pertinent positives and negatives are noted in history of present illness. PHYSICAL EXAMINATION: VITAL SIGNS: Temperature 98.7 degrees, heart rate 113, respirations 16, blood pressure 79/50. GENERAL: Chronically ill-appearing, no acute distress. HEENT: Normocephalic, atraumatic. Pupils equal, round, reactive to light. Extraocular muscles intact. Sclerae anicteric. [place] conjunctivae. Oral and nasopharynx clear without exudate. NECK: Supple. No lymphadenopathy. No thyromegaly. No bruits auscultated. CARDIOVASCULAR: Tachycardic. Regular rhythm. No significant murmurs, rubs, or gallops. PULMONARY: Clear to auscultation bilaterally. ABDOMEN: Soft, nontender, nondistended. Positive bowel sounds. EXTREMITIES: Moves all extremities well. No significant clubbing, cyanosis, or edema. NEUROLOGIC: Cranial nerves 2 through 12 grossly intact. Motor and sensory grossly intact. PSYCHOLOGIC EXAMINATION: Appropriate. LABORATORY DATA: White blood cell count 2.43, hemoglobin 10.2, hematocrit 31.2, platelet count 107,000. Sodium 138, potassium 4.3, chloride 99, bicarb 24, BUN 23, creatinine 1.7, glucose 163, calcium 10.0, total bilirubin 0.27, total protein 5.9, albumin 3.8, alkaline phosphatase 47, AST 9, ALT 5, CK total 14, troponin less than 0.010. Urinalysis is pending at the time of your admission. ASSESSMENT AND PLAN: An 84-year-old, white female with a complicated past medical history presents for evaluation of hypotension, profound weakness, and alteration of mental status. Patient will be admitted to the hospital for full evaluation and management of these conditions. 1. Admit to General Medicine. 2. Hypotension--Question is raised as to the etiology. We will check blood cultures and urine cultures. We will start patient on hydration. We will hold antihypertensive intervention. We will follow this closely. At present time, it does not appear pressor intervention is warranted. 3. Alteration of mental status--Patient notes having some alteration of her mental status over the course of the last several days. She is, however, not functioning appropriately. At this point, I suspect this is multifactorial. We will evaluate for possible infection. We will treat patient hypomagnesemia as noted. We will follow this. 4. Profound weakness--Unfortunately, patient is unable to ambulate without assistance. I suspect this is multifactorial. We will evaluate for possible infection. We will treat hypomagnesemia as noted. We will start patient on IV fluids. 5. Hypomagnesemia--Unfortunately, patient continues to have issues despite outpatient intervention. We will provide patient with IV magnesium while hospitalized. We will follow this. 6. Acute renal dysfunction--Patient's creatinine has increased to 1.7. We will start patient on IV hydration. We will remain aware. 7. Multiple myeloma--Patient has longstanding disease. She is currently being treated with chemotherapeutic intervention. We will hold this for now, but plan to resume this once discharged from the hospital. 8. History of deep venous thrombosis--We will continue patient on Xarelto therapy. 9. Diabetes--We will start patient on sliding scale insulin. 10. Hyperlipidemia--We will continue patient on simvastatin therapy. 11. Anemia/thrombocytopenia--This likely is a consequence of her chemotherapy. We will remain aware. She has no evidence of active bleeding. 12. Fluid, electrolytes, nutrition--We will monitor electrolytes. Normal saline at 75 mL an hour. Diabetic diet. 13. Prophylaxis--Patient will be continued on Xarelto therapy. cc: South Gaines MD
[2019-09-28] MEDS ORDERED: MAGNESIUM SULFATE 2 GM/S.W.I. 2 GM/50 ML IVPB IV ONE (08:20)
[2019-09-28] MEDS: FOLIC ACID PO SCH (10:25)
[2019-09-28] MEDS: MAG-OX PO SCH ×2 (10:25→21:14)
[2019-09-28] MEDS: VALTREX PO SCH (10:25)
[2019-09-28] MEDS: GLUCOPHAGE PO SCH ×2 (10:25→18:54)
[2019-09-28] MEDS: HUMALOG SUBQ SCH ×4 (12:39→21:14)
[2019-09-28] MEDS: XARELTO PO SCH (18:55)
--- NOTE | 2019-09-28 19:20 | PROGRESS NOTE ---
DATE: 09/28/2019 SUBJECTIVE: Upon my arrival this morning, the patient was resting in bed. Patient states that she rested well overnight. Throughout the day today, patient does note improvement in her overall condition. Her energy level has increased. Her p.o. intake is increasing. This evening, patient is back in bed, but states she was in the chair for approximately 2 hours. She denies current fevers, chills, nausea, vomiting, shortness of breath, or chest discomfort. OBJECTIVE: Vital Signs: T-max 98.5, heart rate 65 to 95, respirations 18 to 19, blood pressure 108 to 157 over 52 to 73. General: Elderly, no acute distress. Cardiovascular: Regular rate and rhythm. No significant murmurs, rubs, or gallops. Pulmonary: Clear to auscultation bilaterally. Abdomen: Soft, nontender, nondistended. Positive bowel sounds. Extremities: Moves all extremities well. No significant clubbing, cyanosis, or edema. Dermatologic: Evaluation reveals no evidence of rash. LABORATORY DATA: None. ASSESSMENT AND PLAN: 1. Hypotension - While in the office, patient was noted to be hypotensive. With IV hydration, patient has achieved improvement. Antihypertensive intervention has been held. Blood pressure is trending upwards. We will consider resuming and antihypertensives in the a.m. 2. Alteration of mental status - The patient does note some increased improved clarity. This likely is multifactorial. We will continue treatment as below. 3. Profound weakness - Physical therapy was initiated today. Overall, patient states she is improving. We will continue to encourage patient out of bed for all meals. 4. Hypomagnesemia - I suspect this is contributing to her overall condition. She was treated with IV magnesium again today. We will recheck a magnesium level in the morning. We will determine if further intervention is warranted. 5. Acute renal dysfunction - Patient's creatinine was 1.7 upon admission. She is treated with IV fluids. We will recheck creatinine in the a.m. 6. Multiple myeloma - Patient is currently being treated with chemotherapeutic intervention. We will hold this while hospitalized, but plan to resume this upon discharge. 7. History of deep venous thrombosis - We will continue Xarelto therapy. Thus far, she is tolerating well. 8. Diabetes - The patient is currently being covered with sliding-scale insulin. 9. Hyperlipidemia - We will continue the patient on simvastatin therapy. 10. Anemia/thrombocytopenia - We will recheck a CBC in the a.m. 11. Disposition - At this point, patient continues to require [facility] care in a hospital setting. We will plan discharge home once appropriate. cc: South Gaines MD
[2019-09-28] MEDS: ZOCOR PO SCH (21:14)
[2019-09-28] MEDS: LEXAPRO PO SCH (21:14)
[2019-09-28] MEDS: MELATONIN PO SCH (21:14)
[2019-09-29] MEDS: NS 1,000 ML IV SCH ×2 (00:22→11:06)
[2019-09-29] MEDS: ZOSYN 3.375 GM in NS 50 ML IV SCH ×2 (00:23→06:34)
[2019-09-29] MEDS: PRILOSEC PO SCH (06:34)
[2019-09-29] MEDS: HUMALOG SUBQ SCH ×4 (06:34→21:58)
[2019-09-29 07:18] LABS: BASO# 0.01 X1000 (0.0-0.2); BASO% 0.5 % (0.0-0.8); EOS# 0.16 X1000 (0.0-0.7); EOS% 7.8 % (0.0-10.0); HEMATOCRIT 29.8 % (37.0-47.0); HEMOGLOBIN 9.6 g/dL (12.0-16.0); LYMPH# 0.52 X1000 (1.2-3.4); LYMPH% 25.2 % (20.5-51.1); MCH 29.1 PG (27-31); MCHC 32.2 g/dL (33-37); MCV 90.3 FL (81-99); MONO# 0.21 X1000 (0.11-0.59); MONO% 10.2 % (1.7-9.3); MPV 11.6 FL (7.4-10.4); NEUT# 1.16 X1000 (1.4-6.5); NEUT% 56.3 % (42.2-75.2); PLT 92 X1000 (130-400); RDW 15.6 % (11.5-14.5); WBC 2.06 X1000 (4.8-10.8)
[2019-09-29 07:37] LABS: ALB/GLOB RATIO 1.9; ALBUMIN 3.5 g/dL (3.5-5.0); CALCIUM 8.2 mg/dL (8.8-10.2); CREATININE 1.1 mg/dL (0.5-0.9); MAGNESIUM 1.6 mg/dL (1.5-2.7); POTASSIUM 3.8 mmol/L (3.5-5.1); TOTAL BILIRUBIN 0.35 mg/dL (0.20-1.00); TOTAL PROTEIN 5.3 g/dL (6.3-8.3)
[2019-09-29] MEDS: GLUCOPHAGE PO SCH ×2 (08:43→16:21)
[2019-09-29] MEDS: MAG-OX PO SCH ×2 (08:43→21:57)
[2019-09-29] MEDS: FOLIC ACID PO SCH (08:43)
[2019-09-29] MEDS: VALTREX PO SCH (08:43)
[2019-09-29] MEDS ORDERED: MAGNESIUM SULFATE 2 GM/S.W.I. 2 GM/50 ML IVPB IV ONE (10:25)
[2019-09-29] MEDS ORDERED: NS 1,000 ML IV SCH (11:40)
--- NOTE | 2019-09-29 12:00 | PROGRESS NOTE ---
DATE: 09/29/2019 SUBJECTIVE: Overall, the patient continues to demonstrate slow improvement. Over the course of yesterday, the patient states she did reasonably well. This morning, she states that her energy level has decreased, however, remains better than admission. Mental status continues to approach her baseline. PO intake is improving. She denies fevers, chills, nausea, vomiting, shortness of breath, or chest discomfort. OBJECTIVE: Vitals: T-max 98.3 degrees, heart rate 65 to 73, respirations 18 to 20, blood pressure 125 to 155/61 to 76. General: Well nourished, well developed, in no acute distress. Cardiovascular: Regular rate and rhythm. No significant murmurs, rubs, or gallops. Pulmonary: Clear to auscultation bilaterally. Abdomen: Soft, nontender, nondistended. Positive bowel sounds. Extremities: Moves all extremities well. No significant clubbing, cyanosis, or edema. Dermatologic: Evaluation reveals no evidence of rash. LABORATORY DATA: White blood cell count 2.06, hemoglobin 9.6, hematocrit 29.8, platelet count is 92,000. Sodium 143, potassium 3.8, chloride 104, bicarb 27, BUN 17, creatinine 1.1, glucose 83. Calcium 8.2. Magnesium 1.6. Total bilirubin 0.35. Total protein 5.3. Albumin 3.5. Alkaline phosphatase 47, AST 10, ALT 6. ASSESSMENT AND PLAN: 1. Hypotension. The patient was diagnosed while in my office. With IV fluids, her condition has essentially resolved. Once I see more stability in her blood pressure levels, we will plan to resume her home medications. Blood cultures are negative. We will discontinue antibiotics. 2. Alteration of mental status. This likely is a consequence of her hypotension, hypomagnesemia, and acute renal failure. As above, she is approaching her baseline. We will continue aggressive management with anticipation for discharge home in the near future. 3. Profound weakness. Physical therapy was initiated yesterday. They demonstrated a need for further assistance. We will continue this while hospitalized and plan for home health at discharge. 4. Hypomagnesemia. The patient's magnesium level has reached within normal limits, although at the lower limits. We will again treat the patient with 2 g of IV today. We will plan to adjust her home magnesium to 3 times daily at discharge. 5. Acute renal dysfunction. The patient's creatinine has improved from 1.7 to 1.1. We will decrease her IV fluids to KVO. 6. Multiple myeloma. The patient is currently being treated per Dr. Borjas with chemotherapeutic intervention. We will continue to hold this while hospitalized, but plan to resume this at discharge. 7. History of deep venous thrombosis. We will continue Xarelto therapy. 8. Diabetes. Blood sugars are controlled with sliding scale insulin. 9. Hyperlipidemia. We will continue simvastatin therapy. 10. Anemia/thrombocytopenia. We will remain aware. This likely is secondary to her chemotherapeutic intervention. 11. Disposition. At this point, the patient continues to require halfway care in a hospital setting. We will plan discharge home once appropriate. cc: South Gaines MD
[2019-09-29] MEDS: XARELTO PO SCH (16:21)
[2019-09-29] MEDS: MELATONIN PO SCH (21:57)
[2019-09-29] MEDS: LEXAPRO PO SCH (21:57)
[2019-09-29] MEDS: ZOCOR PO SCH (21:57)
[2019-09-30] MEDS: PRILOSEC PO SCH (06:32)
[2019-09-30] MEDS: HUMALOG SUBQ SCH ×4 (06:32→20:20)
[2019-09-30] MEDS: VALTREX PO SCH (10:15)
[2019-09-30] MEDS: FOLIC ACID PO SCH (10:15)
[2019-09-30] MEDS: GLUCOPHAGE PO SCH ×2 (10:15→16:27)
[2019-09-30] MEDS: MAG-OX PO SCH ×3 (10:16→16:27)
[2019-09-30] MEDS: DIOVAN PO SCH (10:17)
[2019-09-30] MEDS: XARELTO PO SCH (16:27)
--- NOTE | 2019-09-30 20:14 | PROGRESS NOTE ---
DATE: 09/30/2019 SUBJECTIVE: Overall, patient's condition continues to slowly improve. This morning, patient was resting in bed. Through the day today, patient states she ambulated with Physical Therapy. Her energy level is improving. Her p.o. intake is also improving. This evening, she is sitting upright in a chair. She denies fevers, chills, nausea, vomiting, shortness of breath, and chest discomfort. OBJECTIVE: Temperature max 98.6 degrees, heart rate 71 to 83 respirations, respirations 71 to 83, blood pressure 114 to 176 over 55 to 72.General: Well nourished, well developed, no acute distress. Cardiovascular: Regular rate and rhythm. No significant murmurs, rubs, or gallops. Pulmonary: Clear to auscultation bilaterally. Abdomen: Soft, nontender, nondistended. Positive bowel sounds. Extremities: Moves all extremities well. No significant clubbing, cyanosis, or edema. Dermatologic: No evidence of rash. LABORATORY DATA: None. ASSESSMENT AND PLAN: 1. Hypotension. The patient has resolved this condition. We will resume patient's home blood pressure medications. We will monitor this closely. 2. Alteration of mental status. This is likely the consequence of hypotension, acute renal failure, and hypomagnesemia. With treatment of each, mental status is approaching baseline. 3. Profound weakness. The patient has demonstrated improvement. We will continue physical therapy. Should this continue to improve, we will plan discharge home tomorrow. 4. Hypomagnesemia. Patient's magnesium was increased to 3 times daily today. We will check a magnesium level in the a.m. 5. Acute renal failure. As of last laboratory evaluation, patient has achieved improvement from admission. The patient's IV fluids have been placed saline lock. 6. Multiple myeloma. Patient is treated per Dr. Borjas. We will resume chemotherapeutic intervention upon discharge. 7. History of deep venous thrombosis. Patient continues to be treated with Xarelto therapy. 8. Diabetes. We will continue patient on sliding scale insulin. 9. Hyperlipidemia. Patient is treated with simvastatin therapy. This will be continued. 10. Anemia/thrombocytopenia. This likely is secondary to her underlying chemotherapy. We will remain aware. 11. Disposition. At this point, patient continues to require [facility] care in a hospital setting. We will plan discharge home once appropriate. cc: South Gaines MD
[2019-09-30] MEDS: MELATONIN PO SCH (20:22)
[2019-09-30] MEDS: LEXAPRO PO SCH (20:22)
[2019-09-30] MEDS: ZOCOR PO SCH (20:22)
[2019-09-30] MEDS ORDERED: NORVASC PO SCH (21:00)
[2019-10-01] MEDS: HUMALOG SUBQ SCH ×2 (06:13→14:39)
[2019-10-01] MEDS: PRILOSEC PO SCH (06:14)
[2019-10-01 07:26] LABS: BASO# 0.01 X1000 (0.0-0.2); BASO% 0.4 % (0.0-0.8); EOS# 0.27 X1000 (0.0-0.7); EOS% 11.5 % (0.0-10.0); HEMATOCRIT 29.9 % (37.0-47.0); HEMOGLOBIN 9.5 g/dL (12.0-16.0); LYMPH# 0.74 X1000 (1.2-3.4); LYMPH% 31.5 % (20.5-51.1); MCH 28.8 PG (27-31); MCHC 31.8 g/dL (33-37); MCV 90.6 FL (81-99); MONO# 0.23 X1000 (0.11-0.59); MONO% 9.8 % (1.7-9.3); MPV 11.3 FL (7.4-10.4); NEUT% 46.8 % (42.2-75.2); PLT 117 X1000 (130-400); RDW 15.8 % (11.5-14.5); WBC 2.35 X1000 (4.8-10.8)
[2019-10-01 07:40] LABS: AGAP 11; ALB/GLOB RATIO 1.7; ALBUMIN 3.4 g/dL (3.5-5.0); ALKALINE PHOSPHATASE 42 U/L (32-104); BUN 14 mg/dL (8-22); CALCIUM 7.7 mg/dL (8.8-10.2); CHLORIDE 106 mmol/L (98-107); COSMO 283; CREATININE 0.8 mg/dL (0.5-0.9); ESTIMATED GFR > 60; GLUCOSE 88 mg/dL (70-104); GOT 9 U/L (10-30); GPT 6 U/L (10-36); MAGNESIUM 1.6 mg/dL (1.5-2.7); POTASSIUM 3.4 mmol/L (3.5-5.1); SODIUM 142 mmol/L (136-145); TCO2 25 mmol/L (25-35); TOTAL BILIRUBIN 0.26 mg/dL (0.20-1.00); TOTAL PROTEIN 5.4 g/dL (6.3-8.3)
[2019-10-01 08:26] VITALS: BP 125/70
[2019-10-01] MEDS ORDERED: MAGNESIUM SULFATE 2 GM/S.W.I. 2 GM/50 ML IVPB IV ONE (08:29)
[2019-10-01] MEDS ORDERED: KLOR-CON PO ONE (08:31)
[2019-10-01] MEDS: FOLIC ACID PO SCH (09:36)
[2019-10-01] MEDS: GLUCOPHAGE PO SCH (09:36)
[2019-10-01] MEDS: MAG-OX PO SCH ×2 (09:36→14:39)
[2019-10-01] MEDS: VALTREX PO SCH (09:36)
[2019-10-01] MEDS: DIOVAN PO SCH (09:37)
--- NOTE | 2019-10-01 15:41 | DISCHARGE SUMMARY ---
ADMISSION DATE: 09/27/2019 DISCHARGE DATE: 10/01/2019 ADMISSION DIAGNOSES: 1. Alteration of mental status. 2. Profound weakness. DISCHARGE DIAGNOSES: 1. Hypotension, resolved. 2. Alteration of mental status/metabolic encephalopathy, resolved. 3. Profound weakness, improving. 4. Hypomagnesemia, resolved. 5. Acute renal failure, resolved. 6. Multiple myeloma, present on arrival. 7. History of a deep venous thrombosis, present on arrival. 8. Diabetes, present on arrival. 9. Hyperlipidemia, present on arrival. 10. Anemia/thrombocytopenia, present on arrival. CONSULTATIONS: None. PROCEDURES: None. HISTORY AND PHYSICAL EXAMINATION: See admit note. PHYSICAL EXAMINATION PRIOR TO DISCHARGE: Vitals: Temperature 98.1 degrees, heart rate 68, respirations 18, blood pressure is 125/70. General: Elderly, in no acute distress. Cardiovascular: Regular rate and rhythm. No significant murmurs, rubs, or gallops. Pulmonary: Clear to auscultation bilaterally. Abdomen: Soft, nontender, nondistended. Positive bowel sounds. Extremities: Moves all extremities well. No significant clubbing, cyanosis, or edema. Dermatologic: Evaluation reveals no evidence of rash. LABORATORY DATA PRIOR TO DISCHARGE: White blood cell count 2.35, hemoglobin 9.5, hematocrit 29.9, platelet count 117,000. Sodium 142, potassium 3.4, chloride 106, bicarb 25, BUN 14, creatinine 0.8, glucose 159, calcium 7.7, magnesium 1.6. Total bilirubin 0.26, total protein 5.4, albumin 3.4, alkaline phosphatase 42, AST 9, ALT 6. HOSPITAL COURSE: The patient was admitted as per history and physical examination. Hospital course per condition is as follows: 1. Hypotension-upon arrival at my office, patient's blood pressure was noted to be considerably low. With IV hydration and holding antihypertensive intervention, patient achieved resolution while hospitalized. With resolution, patient's blood pressure has returned to an elevated state. The patient's valsartan was resumed at home dosage. Amlodipine was decreased to 2.5 mg at bedtime. With these changes, patient tolerated this quite well. Blood pressure remains reasonably controlled. We will reevaluate patient as an outpatient. We will determine if increasing amlodipine is necessary. We will ask patient to keep a blood pressure log between now and next visit. 2. Alteration of mental status-upon admission, patient was noted to have alteration of mental status. This likely was a consequence of metabolic encephalopathy in the setting of hypotension, acute renal failure, and hypomagnesemia. With treatment of each of these, her mental status returned to baseline. At time of discharge, patient's mentation was within normal limits. 3. Profound weakness-once again, this likely was a consequence of hypotension, acute renal failure and hypomagnesemia. With treatment of each, patient achieved improvement. She will be discharged home with home health and physical therapy. We will follow this as well. 4. Hypomagnesemia-the patient was treated with IV magnesium while hospitalized. The patient's magnesium will be increased to 400 mg 3 times daily as an outpatient. Once again, this will be followed. 5. Acute renal failure-patient's creatinine was 1.7 upon admission. With hydration, patient has achieved resolution. At time of discharge, creatinine is 0.8. We will follow this. We will encourage hydration. 6. Multiple myeloma-patient has advanced disease. She is followed by Dr. Borjas. She will resume chemotherapeutic intervention at discharge. 7. History of deep venous thrombosis-the patient was maintained on Xarelto therapy while hospitalized. She continues to tolerate this well. 8. Diabetes-the patient was treated with metformin and sliding scale insulin while hospitalized. Blood sugars remained reasonably controlled. We will follow this as an outpatient as well. 9. Hyperlipidemia-patient was continued on simvastatin therapy. 10. Anemia/thrombocytopenia-this likely is a consequence of her chemotherapy in the setting of multiple myeloma. Levels remained reasonably stable while hospitalized. DISCHARGE CONDITION: Good. DISPOSITION: Discharged to home. MEDICATIONS: 1. Acetaminophen 650 mg every 6 hours as needed. 2. Lexapro 10 mg at bedtime. 3. Folic acid 1 mg daily. 4. Magnesium oxide 400 mg 3 times daily. 5. Melatonin 3 mg at bedtime. 6. Metformin 1,000 mg twice daily. 7. Omeprazole 40 mg daily. 8. Xarelto 20 mg with supper. 9. Simvastatin 20 mg at bedtime. 10. Valtrex 500 mg daily. 11. Amlodipine 2.5 mg at bedtime, decreased from 2.5 mg twice daily. 12. Valsartan 40 mg daily. FOLLOWUP: The patient is to follow up with me in approximately 1 to 2 weeks. cc: South Gaines MD
== END 2019-10-01 15:14 | disposition home health service (06) | DRG 314 ==
LOC: DIRADM 16:00 → 3N 17:06
PROVIDERS: ADMIT Internal Medicine; ATTEND Internal Medicine

== ENCOUNTER 2019-11-13 11:24 | Inpatient (IN) ==
[2019-11-13] MEDS ORDERED: ZOFRAN IV ONE ×2 (12:45→15:30)
[2019-11-13] MEDS ORDERED: NS 1,000 ML IV ONE ×2 (12:45)
[2019-11-13] MEDS ORDERED: MAXIPIME 1 GM in NS 50 ML IV ONE (12:46)
[2019-11-13] MEDS ORDERED: VANCOMYCIN 1 GM/NS 1 GM/250 ML IVPB IV ONE (12:46)
--- NOTE | 2019-11-13 13:18 | Diag Imaging Result Doc PS360 ---
EXAM: CHEST-2 VIEWS HISTORY: fever, cancer TECHNIQUE: Two views COMPARISON: 09/18/2019 FINDINGS: The lungs are well expanded. The heart is not enlarged. The vessels are not distended. There are no infiltrates. No pleural effusions. Right-sided portacatheter. No pneumothorax. No lung nodules identified. IMPRESSION: No pneumonia Electronically signed by Arron Su 11/13/2019 1:16 PM
[2019-11-13 14:16] LABS: BASO# 0.01 X1000 (0.0-0.2); BASO% 0.2 % (0.0-0.8); HEMATOCRIT 29.8 % (37.0-47.0); HEMOGLOBIN 10.1 g/dL (12.0-16.0); IMM GRAN# 0.02 X1000 (0.0-0.04); IMM GRAN% 0.5 % (0.0-0.5); LYMPH# 0.45 X1000 (1.2-3.4); LYMPH% 10.3 % (20.5-51.1); MCH 31.3 PG (27-31); MCHC 33.9 g/dL (33-37); MCV 92.3 FL (81-99); MONO# 1.21 X1000 (0.11-0.59); MONO% 27.6 % (1.7-9.3); NEUT% 61.4 % (42.2-75.2); PLT 113 X1000 (130-400); RBC 3.23 XMIL (4.2-5.4); RDW 18.3 % (11.5-14.5); WBC 4.39 X1000 (4.8-10.8)
[2019-11-13 14:25] LABS: INR 1.91; PROTIME 22.3 Seconds (11.0-16.0); PTT 43.2 Seconds (22.3-41.8)
[2019-11-13 14:45] LABS: LARGE PLATELETS 1+; LYMPHS 22 % (21-51); MONO 8 % (1-9); SEGS 70 % (42-75)
[2019-11-13 15:03] LABS: ALB/GLOB RATIO 1.9; ALBUMIN 3.5 g/dL (3.5-5.0); CALCIUM 5.5 mg/dL (8.8-10.2); CREATININE 1.3 mg/dL (0.5-0.9); POTASSIUM 3.4 mmol/L (3.5-5.1); TOTAL BILIRUBIN 0.73 mg/dL (0.20-1.00); TOTAL PROTEIN 5.3 g/dL (6.3-8.3)
[2019-11-13] MEDS ORDERED: CALCIUM GLUCONATE 2 GM in NS 100 ML IV ONE (15:19)
[2019-11-13 16:05] LABS: MAGNESIUM 0.8 mg/dL (1.5-2.7); PHOSPHORUS 0.6 mg/dL (2.7-4.5)
[2019-11-13] MEDS ORDERED: MAGNESIUM SULFATE 2 GM/S.W.I. 2 GM/50 ML IVPB IV ONE (16:18)
[2019-11-13 17:28] LABS: URINE SOURCE CLEAN CATCH
[2019-11-13 17:31] LABS: BILIRUBIN URINE NEGATIVE (NEGATIVE); BLOOD URINE TRACE (NEGATIVE); COLOR YELLOW; GLUCOSE URINE NEGATIVE (NEGATIVE); KETONE URINE NEGATIVE (NEGATIVE); LEUKOCYTES URINE SMALL (NEGATIVE); NITRITE URINE NEGATIVE (NEGATIVE); PROTEIN URINE 50 mg/dL (NEGATIVE); SP GRAVITY URINE 1.013; TURBIDITY URINE HAZY (CLEAR); UROBILINOGEN URINE NORMAL (NORMAL)
[2019-11-13 17:32] LABS: UR EPITHELIAL CELLS <10 /HPF (<10); URINE BACTERIA 2+ /HPF; URINE RBC <10 /HPF (<10); URINE WBC 20-40 /HPF (<10)
--- NOTE | 2019-11-13 17:49 | PROVIDER DOCUMENTATION ---
This chart was entered by Myrna Prabhakar Scribe, acting as scribe for Norm Yip MD. HPI-General Adult - General Chief Complaint: UTI Symptoms Stated Complaint: SOB,UTI Time Seen by Provider: 11/13/19 12:32 Source: patient, family Allergies/Adverse Reactions: Patient Allergies Allergy/AdvReac Type Severity Reaction Status Date / Time No Known Allergies Allergy Verified 09/18/19 16:12 Home Medications: Home Medication List Medication Instructions Recorded Confirmed Last Taken Type Metformin [Glucophage] 1,000 mg PO BID CC 05/31/13 09/18/19 09/17/19 History SIMVAstatin [Zocor] 20 mg PO QHS 05/31/13 09/18/19 09/17/19 History Folic Acid 1 mg PO DAILY tablet 03/03/17 09/18/19 09/17/19 Rx Rivaroxaban [Xarelto] 20 mg PO WSUPPER tablet 02/04/18 09/18/19 09/17/19 Rx Escitalopram [Lexapro] 10 mg PO QHS tab 06/21/19 09/18/19 09/17/19 Rx Melatonin 3 mg PO QHS tab 06/21/19 Unknown Rx Omeprazole [Prilosec] 40 mg PO DAILY@0700 cap 06/21/19 09/18/19 09/17/19 Rx Valacyclovir [Valtrex] 500 mg PO DAILY tab 06/21/19 09/18/19 09/17/19 Rx Valsartan [Diovan] 40 mg PO DAILY tab 06/21/19 09/18/19 09/17/19 Rx Acetaminophen [Tylenol] 650 mg PO Q6H PRN PRN tab 10/01/19 Unknown Rx Amlodipine [Norvasc] 2.5 mg PO QHS #0 tab 10/01/19 09/18/19 09/17/19 Rx Magnesium Oxide [Mag-Ox] 400 mg PO TID #270 tab 10/01/19 Unknown Rx - History of Present Illness -Gen Adult Nature of Presenting Problems: 84 yowf presents to the ed with c/o fever, chills, nausea, vomiting, diarrhea acute onset yesterday with abdominal tenderness. pt sts it feels like she has a UTI but denies any dysuria or hematuria. pt is currently taking weekly chemo for multiple cancers. pt saw dr murdock yesterday and was given abx and started last night Location of Pain/Injury: reports: abdomen Quality of Pain: reports: aching Severity: reports: mild Onset/Duration: reports: last night Timing: reports: still present, intermittent Context/Activities at Onset: reports: light activity Modifying Factors: improves with: nothing Associated Symptoms: reports: diarrhea, fever/chills, malaise, nausea, vomiting. denies: back/neck pain, chest pain, shortness of breath Similar Symptoms Previously?: Yes Recently seen or treated by another doctor?: Yes (saw dr murdock yesterday) Review of Systems - Adult - REVIEW OF SYSTEMS - ADULT Constitutional: reports: chills, fever Eyes: reports: no symptoms reported Ears, Nose, Mouth & Throat: reports: no symptoms reported Cardiovascular: denies: chest pain, palpitations Respiratory: denies: cough, shortness of breath, wheezing Gastrointestinal: reports: see HPI, abdominal pain, diarrhea, nausea, vomiting Genitourinary: reports: see HPI, frequent UTI's. denies: dysuria, hematuria Musculoskeletal: denies: back pain, neck pain Integumentary: reports: no symptoms reported Neurological: reports: no symptoms reported Psychiatric: reports: no symptoms reported Endocrine: reports: no symptoms reported Hematologic/Lymphatic: reports: no symptoms reported Allergic/Immunologic: reports: no symptoms reported All Other Systems: Reviewed and Negative Past History - Adult - PAST MEDICAL HISTORY-ADULT Review of Records: reports: Old Records Reviewed, Nursing Assessment Review, Medications Reviewed, Social history reviewed & non-contributory. Major Childhood Illnesses: reports: denies history Cardiovascular: reports: CAD (minimal), HTN, hyperlipidemia Respiratory: reports: asthma, sleep apnea (obstructive) Gastrointestinal: reports: GERD, hemorrhoids (external), polyps (coloric), other (chronic constipation) Obstetrical/Gynecological: reports: denies history Genitourinary: reports: chronic UTI's Musculoskeletal: reports: arthritis (osteo), other (neuropathy) Neurological: reports: denies history Psychiatric: reports: denies history Endocrine/Immune: reports: Diabetes, immunosuppression Diabetes Type: Type 2 Other Conditions: reports: cataract/glaucoma (glaucoma) Additional History: multiple cancers - PRIOR SURGERIES/PROCEDURES Surgical/Procedure History: reports: hysterectomy - IMMUNIZATION STATUS Childhood Immunizations: UTD Flu Vaccine: UTD - FAMILY HISTORY Family History: reviewed, not pertinent - SOCIAL HISTORY Smoking: denies Substance Use: denies Living Situation: alone Physical Exam-General - PHYSICAL EXAM-ADULT Initial Vital Signs Reviewed: Yes - CONSTITUTIONAL General Appearance: appears well, alert, mild distress, obese - EYES Eyes: PERRL/EOMI, pink conjunctivae - HEAD, EARS, NOSE, MOUTH & THROAT HENMT: moist mucous membranes - NECK Neck: non-tender, full range of motion, supple, normal inspection - RESPIRATORY Respiratory: chest non-tender, lungs clear, normal breath sounds, increased rate - CARDIOVASCULAR Cardiovascular: normal peripheral pulses, tachycardia (108) - CHEST (BREASTS) Chest/Breast: other (port noted rt upper chest) - GASTROINTESTINAL (ABDOMEN) Abdominal Exam: normal bowel sounds, soft, tenderness (LUQ) - GENITOURINARY Female Genitalia/Pelvic Exam: deferred Rectal Exam: deferred Hemoccult Exam: deferred - LYMPHATIC Lymphatic: no adenopathy - MUSCULOSKELETAL Back Exam: no CVA tenderness, no vertebral tenderness Extremity: normal range of motion, non-tender, normal inspection - SKIN Integumentary: normal color, normal turgor, warm/dry - NEUROLOGIC Neurologic: grossly normal - PSYCHIATRIC Psych/Mental Status: normal mood/affect, normal thought content, normal thought process, oriented x 3 Progress - PLAN OF CARE/RESULTS Progress/Plan/Lab Results: Vital Signs - 8 hr 11/13/19 11:33 Temperature 99.0 F Pulse Rate 101 H Respiratory Rate 18 Blood Pressure 103/82 O2 Sat by Pulse Oximetry 97 Orders Category Date Time Status Cardiac Monitoring DIRECTED Care 11/13/19 12:44 Active IV Insertion ORDERED Care 11/13/19 12:44 Active Nursing- Obtain EKG once Care 11/13/19 12:44 Active CHEST-2 VIEWS [RAD] Stat Exams 11/13/19 12:44 Ordered BLOOD CULTURE [BLDCUL] Stat Lab 11/13/19 12:44 Uncollected CBC WITH DIFF [HEME] Stat Lab 11/13/19 12:44 Uncollected CK PROFILE [SP CHEM] Stat Lab 11/13/19 12:44 Uncollected COMPREHENSIVE METABOLIC PANEL [CHEM] Stat Lab 11/13/19 12:44 Uncollected DIRECT STREP Stat Lab 11/13/19 12:45 Ordered INFLUENZA SCREEN A/B Stat Lab 11/13/19 12:45 Uncollected LACTATE, PLASMA [CHEM] Q3H Lab 11/13/19 12:45 Uncollected LACTATE, PLASMA [CHEM] Q3H Lab 11/13/19 15:45 Uncollected LACTATE, PLASMA [CHEM] Q3H Lab 11/13/19 18:45 Uncollected PROTIME WITH INR [COAG] Stat Lab 11/13/19 12:44 Uncollected PTT [COAG] Stat Lab 11/13/19 12:44 Uncollected TROPONIN T HIGH SENSITIVITY Stat Lab 11/13/19 12:44 Uncollected URINALYSIS W/POSS RFLX CULT [URINALYSIS] Stat Lab 11/13/19 12:22 Uncollected 0.9% Sodium Chloride Inj [Ns] 1,000 ml Med 11/13/19 12:45 Active IV 999 mls/hr 0.9% Sodium Chloride Inj [Ns] 1,000 ml Med 11/13/19 12:45 Active IV 999 mls/hr CefEPIME [Maxipime] 1 gm Med 11/13/19 12:46 Active 0.9% Sodium Chloride Inj [Ns] 50 ml IV NOW Ondansetron [Zofran] Med 11/13/19 12:45 Discontinued 4 mg IV NOW ONE Vancomycin 1 gm/Ns Med 11/13/19 12:46 Active 1 gm in 250 ml IV NOW Oxygen Device Stat Oth 11/13/19 12:44 Active EKG [EKG] Stat Ther 11/13/19 12:44 Ordered Result Diagrams: 11/13/19 13:39 11/13/19 13:39 - REASSESSMENT Reassessment #1 Time Reassessed: 15:33 Status: improving (States feels better after IVF bolus. Given Maxepime and Vanc in case of sepsis d/t UTI or skin infection from port. Given 2 grams of calcium gluconate for severe hypocalcemia. Awiating Urine and CT a/p results prior to admission.) - EKG 1 Time of EKG reading by physician:: 16:01 EKG Read and Signed by:: Norm Yip EKG Interpretation (*Must complete 3 of following elements*): Abnormal Rate: 89 Rhythm: nsr Eugene: normal QRS: LVH AL Interval: normal ST Wave: normal Comments: prolonged QT - XRAY 1 XRAY: Bilateral XRAY Study: Chest Impression: See EMR Report (EXAM: CHEST-2 VIEWS HISTORY: fever, cancer TECHNIQUE: Two views COMPARISON: 09/18/2019 FINDINGS: The lungs are well expanded. The heart is not enlarged. The vessels are not distended. There are no infiltrates. No pleural effusions. Right-sided portacatheter. No pneumothorax. No lung nodules identified. IMPRESSION: No pneumonia Electronically signed by Arron Su 11/13/2019 1:16 PM 11/13/19 1316 Interpreting Physician: Arron Su MD Dictated Date/Time: 11/13/19 1315 cc: Norm Yip MD; South Gaines MD) - CONSULTS/PCP/HOSPITALIST Notification #1 *Consult/PCP/Hospitalist*: Jade, panel monitor for Eder, paged at [id number] Time Discussed: 17:49 Consult Disposition: Will see in ED, Admit #2 Consult: dr shaver Time Discussed: 17:48 Reason/Comments: is in ed speaking with dr yip Departure - Departure Date of Disposition Decision: 11/13/19 Time of Disposition Decision: 17:34 DIAGNOSIS: Sepsis with organ dysfunction, Complicated UTI (urinary tract infection), Maintenance antineoplastic chemotherapy, Hypomagnesemia, Hypocalcemia syndrome, Hypophosphatemia, Febrile illness, acute Disposition: ADMITTED INPATIENT 09 Certified Medical Emergency: Emergent Condition: Fair Referrals and Follow-Ups: South Gaines MD [Primary Care Provider] - - Critical Care Note This patient required my direct & personal management of CC.: Yes Total Time (mins): 45 Critical Care Statement: This patient required my direct personal management to treat or rule out processes, the absence of which, could potentiallly result in sudden, clinically significant life or limb threatening deterioration. Attestation - Physician/ MICAH Attestation Patient care was provided by Advanced Practice Provider:: No The physician spent face to face time with patient:: Yes Advanced Practice Provider documentation review:: Supervising physician onsite and consulted in the evaluation and care of this patient. The physician did have a face to face encounter with the patient. This chart was documented by the indicated scribe, (Myrna Prabhakar Scribe) and accurately reflects the services I performed and decisions made by me, Norm Yip MD, as attested by the provider's signature.
[2019-11-13] MEDS ORDERED: NS IV ONE (21:20)
[2019-11-13] MEDS ORDERED: POTASSIUM PHOSPHATE IV ONE (21:20)
[2019-11-13] MEDS: NORVASC PO SCH (21:37)
[2019-11-14] MEDS: ZOCOR PO SCH ×2 (00:35→23:25)
[2019-11-14] MEDS: LEXAPRO PO SCH ×2 (00:35→23:24)
[2019-11-14] MEDS: MELATONIN PO SCH ×2 (00:35→23:24)
--- NOTE | 2019-11-14 02:43 | HISTORY AND PHYSICAL ---
CHIEF COMPLAINT: Fever without chills, recent chemotherapy. HISTORY OF PRESENT ILLNESS: Mrs. Weber is an 84-year-old white female with a complex recent past medical history. She is under Dr. Borjas's care for multiple myeloma. She had chemotherapy a week ago and also takes an oral chemotherapy medicine daily for 21 days then off for 7 days. She says that today she has felt nauseated and vomited once. She also has felt very weak and had fever of 101 at home. She vomited once this morning but is feeling better now. Denies any nausea. She has also noticed some increased urinary urgency but denies actual dysuria. She has had similar complaints with other recent admissions back in August which were also characterized by hypocalcemia and hypomagnesemia. Her son is at the bedside and has not noticed any significant confusion. Emergency room evaluation has documented significant hypocalcemia, hypomagnesemia, anemia. 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 She has a history of an ascending thoracic aortic aneurysm, coronary artery disease, type 2 diabetes, hypertension, glaucoma, history of gout, history of iron deficiency anemia, history of mild cognitive impairment. She has a history of obstructive sleep apnea but has been unable to tolerate CPAP. She has also had a history of vitamin B12 deficiency and restless leg syndrome. CURRENT MEDICATIONS: Lexapro 10 mg at bedtime, folic acid 1 mg daily, magnesium oxide 400 mg 3 times a day, melatonin 3 mg at bedtime, metformin 1000 mg twice a day, omeprazole 40 mg daily, Xarelto 20 mg with supper, simvastatin 20 mg at bedtime, Valtrex 500 mg daily, amlodipine 2.5 mg at bedtime, valsartan 40 mg daily. ALLERGIES: No known drug allergies. SOCIAL HISTORY: She is . 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 She denies using alcohol or tobacco. FAMILY HISTORY: Positive for congestive heart failure, myocardial infarctions and diabetes. REVIEW OF SYSTEMS: General: No headache. Positive fever. No chills, night sweats or weight loss. HEENT: Vision and hearing are adequate without recent changes. Respiratory: No cough, shortness of breath, sputum production. Cardiovascular: No angina or other chest pain. No palpitations, orthopnea, PND. Gastrointestinal: She has had some loose stools recently. No abdominal pain. She vomited once this morning as noted above. No history of liver disease. Genitourinary: No dysuria or hematuria. Some increased frequency. Musculoskeletal: Multiple joint pains in her knees and hips with more than minimal walking. Neurologic: No history of strokes or seizures. Psychiatric: She has been on Lexapro for mood regulation for years. She denies significant depression currently. PHYSICAL EXAMINATION: VITAL SIGNS: Temperature is 99.0, blood pressure 126/58, pulse 82, respirations 23, O2 saturation is 95% on room air. GENERAL APPEARANCE: Obese, talkative, comfortable white female with son at the bedside. HEENT: Pupils equal, round, reactive to light. Extraocular movements intact. Oropharynx benign. NECK: Supple with no adenopathy, JVD, bruits. CHEST: Lungs are clear bilaterally. CARDIOVASCULAR: Regular rate and rhythm. No murmurs or gallops. There is a port palpable in the right parasternal area. ABDOMEN: Soft, obese and nontender with active bowel sounds with no guarding or rebound tenderness. Bowel sounds are active. RECTAL: Exam was deferred. EXTREMITIES: No cyanosis, clubbing or edema. DIAGNOSTIC STUDIES: Her chest x-ray shows no acute disease. Urinalysis: 20-40 WBCs, 2-plus bacteria. Magnesium 0.8. Phosphorus 0.6. Hemoglobin 10.1. Hematocrit 29.8%. Platelet count 113,000. Potassium is 3.4. BUN 17. Creatinine 1.3. ASSESSMENT: 1. Fever probably due to acute pyelonephritis. 2. Multiple myeloma with recent chemotherapy and immunosuppression. 3. Type 2 diabetes mellitus with stable but minimally elevated blood sugar. 4. History of deep venous thrombosis, on Xarelto. 5. History of coronary disease with no recent angina. 6. History of hypertension. 7. History of B12 deficiency, on monthly IM B12. TREATMENT PLAN: We will admit for IV cefepime and vancomycin pending results of blood and urine cultures. Try to maintain her mobility and also consult Dr. Borjas. I have ordered potassium and phosphorus replacement and the emergency room physician has already ordered calcium and magnesium replacement. cc: MD South Connelly MD MTDD
[2019-11-14] MEDS: MAXIPIME 1 GM in NS 50 ML IV SCH ×2 (03:27→16:19)
[2019-11-14] MEDS: VANCOMYCIN 1 GM/NS 1 GM/250 ML IVPB IV SCH ×2 (04:18→18:48)
[2019-11-14] MEDS: PRILOSEC PO SCH ×2 (05:52→06:00)
--- NOTE | 2019-11-14 07:58 | Diag Imaging Result Doc PS360 ---
EXAM: CT ABDOMEN/PELVIS W/O CONTRAST HISTORY: abd pain, acute kidney injury TECHNIQUE: CT abdomen and pelvis without oral or intravenous contrast COMPARISON: 09/19/2019 FINDINGS: There are tiny effusions. Small hiatal hernia. Calcified granuloma in the lung bases. No calcified gallstones or adjacent inflammation. Moderately distended gallbladder. No focal hepatic abnormality identified on this noncontrasted exam. The spleen measures 15.4 cm in AP diameter. No inflammation about the pancreas. Normal adrenal glands. No renal stones. No hydronephrosis. Moderate atherosclerosis. No aortic aneurysm. No bowel obstruction. The appendix is not identified. No inflammation about the cecum. No abscess. The urinary bladder is moderately distended and appears normal. The uterus has been removed. No pelvic mass. Mild scoliosis with degenerative spine changes. IMPRESSION: 1.Mild splenomegaly 2.Small hiatal hernia 3.Trace pleural fluid 4.Prominent atherosclerosis This report was dictated by Dr. Arron Su. This exam was performed using automated exposure control, adjustment of mA or kV according to patient size, and/or use of iterative reconstruction technique. Electronically signed by Julio C Alexis 11/14/2019 7:56 AM
[2019-11-14 08:03] LABS: MAGNESIUM 1.2 mg/dL (1.5-2.7); PHOSPHORUS 1.7 mg/dL (2.7-4.5)
[2019-11-14 08:33] LABS: CALCIUM 5.4 mg/dL (8.8-10.2); CREATININE 1.1 mg/dL (0.5-0.9); POTASSIUM 3.5 mmol/L (3.5-5.1)
[2019-11-14] MEDS ORDERED: CALCIUM GLUCONATE 2 GM in NS 100 ML IV ONE (08:36)
[2019-11-14] MEDS: MAG-OX PO SCH ×3 (09:53→17:20)
[2019-11-14] MEDS: FOLIC ACID PO SCH (09:53)
[2019-11-14] MEDS: DIOVAN PO SCH (09:53)
[2019-11-14] MEDS: GLUCOPHAGE PO SCH ×2 (09:54→17:20)
[2019-11-14] MEDS: VALTREX PO SCH (09:54)
[2019-11-14] MEDS: NEUTRA-PHOS PO SCH ×2 (10:30→23:24)
[2019-11-14] MEDS: XARELTO PO SCH (17:20)
--- NOTE | 2019-11-14 20:01 | HEMO/ONC CONSULTATION ---
DATE: 11/14/2019 REASON FOR CONSULTATION: Ms. Weber is a known patient of ours for the treatment of multiple myeloma. HISTORY OF PRESENT ILLNESS: Ms. Weber is an 84-year-old female whom we treat in the office for multiple myeloma. The patient tells me that on Friday she began to not feel very well. She denied any particular pain. She states she felt nauseated and vomited. She felt very weak and had a temperature of a 101 degrees at home. She had increased urinary urgency. Denies any dysuria. The patient came to the ER Friday evening, but upon evaluation in the ER, patient was found to have significant hypocalcemia, hypomagnesemia, anemia, and hypophosphatemia. The patient is treated in our clinic for a IgG lambda multiple myeloma. Her current treatment is Revlimid and Darzalex. She Revlimid 10 mg 3 weeks on and 1 week off. She is currently in her off week. She also takes Darzalex every other week on . Her last treatment was on 11/04/2019. We last saw the patient in the clinic on , 11/11. She was feeling well and her CBC was normal for her with mild anemia. PAST MEDICAL HISTORY: 1. DVT twice in 2016 in 2017. The patient on life-long Xarelto therapy. 2. Ascending thoracic aortic aneurysm. 3. Coronary artery disease. 4. Type 2 diabetes. 5. Hypertension. 6. Glaucoma. 7. History of gout. 8. History of iron deficiency anemia. 9. History of mild cognitive impairment. 10. History of obstructive sleep apnea, unable to tolerate CPAP. 11. History of vitamin B12 deficiency. 12. History of restless legs syndrome. SOCIAL HISTORY: The patient does not use tobacco, alcohol, or illicit drugs. ALLERGIES: No known drug allergies. CURRENT MEDICATIONS: Lexapro, folic acid, magnesium oxide, melatonin, metformin omeprazole, Xarelto, simvastatin, Valtrex, amlodipine, and valsartan. REVIEW OF SYSTEMS: This morning, the patient is feeling a lot better. She states she does not feel 100%, but she does not have any particular complaint. Patient continues to deny dysuria, suprapubic pain, nausea, vomiting, constipation, or diarrhea. VITAL SIGNS: Temperature 99.8 degrees, pulse rate 86, respiratory rate 20, blood pressure 122/58, O2 saturation 98% on room air. She is in 0/10 pain. PHYSICAL EXAMINATION: General: The patient appears very comfortable, in no acute distress. HEENT: Sclerae anicteric. Pupils round, reactive to light. Oral mucosa normal. Respiratory: Lung sounds are clear to auscultation. Normal respiratory effort. Cardiovascular: Normal S1, S2. Regular rate and rhythm. Gastrointestinal: Abdomen is soft, nontender, nondistended. Extremities: No lower extremity edema noted. LABORATORY: CBC was not drawn today. Sodium 141, creatinine 1.1, calcium 5.4, phosphorus 1.7, magnesium 1.2. RADIOLOGY: CT abdomen and pelvis shows. 1. Mild splenomegaly 15.4 cm in AP diameter. 2. Small hiatal hernia. 3. Trace pleural fluid. 4. Prominent atherosclerosis. Chest x-ray shows no pneumonia. No other significant pathology. ASSESSMENT: 1. Acute pyelonephritis with fever. 2. IgG lambda multiple myeloma, currently under treatment with Revlimid and Darzalex. 3. Type 2 diabetes. 4. History of deep vein thrombosis, on Xarelto therapy. 5. Coronary artery disease. 6. Hypertension. 7. B12 deficiency on monthly B12 IM injections. 8. Lytic bone disease. The patient is on Xgeva every 28 days. 9. Normocytic anemia. The patient was recently found to be iron deficient. She had 2 doses of IV Injectafer her on 10/27/2019 and 11/03/2019. 10. Hypocalcemia, Hypomagnesiemia and hypophosphatemia. PLAN: Continue medical management per PMD for the treatment of pyelonephritis. We will currently hold the patient's treatments while she is in the hospital and recovering. Replete the patient's electrolyte abnormalities. We will continue to follow up and monitor those in the clinic as an outpatient. The patient will require protein shakes to keep her protein and nutrition up while she is in the hospital. We will continue to monitor and follow along. Dictated by EZEKIEL Wolff for Soy Borjas MD As above. Mutiple myeloma, recent PET scan negative. Doing well on Darzalex and revlimid. Admitted with Fever, nausea, vomiting. Diagnosed with pyelonephritis. Electrolyte imbalance being corrected. Soy Borjas MD cc: MD South Serna MD [facility]
[2019-11-14] MEDS ORDERED: ZOFRAN ODT PO ONE (22:48)
[2019-11-14] MEDS: NORVASC PO SCH (23:24)
[2019-11-15] MEDS: MAXIPIME 1 GM in NS 50 ML IV SCH ×2 (04:00→15:32)
[2019-11-15] MEDS: ZOFRAN ODT PO PRN (04:52)
[2019-11-15] MEDS: PRILOSEC PO SCH ×2 (04:54→06:38)
[2019-11-15] MEDS: FOLIC ACID PO SCH (11:21)
[2019-11-15] MEDS: MAG-OX PO SCH ×3 (11:21→18:06)
[2019-11-15] MEDS: DIOVAN PO SCH (11:21)
[2019-11-15] MEDS: NEUTRA-PHOS PO SCH ×2 (11:21→23:20)
[2019-11-15] MEDS: GLUCOPHAGE PO SCH ×2 (11:21→18:06)
[2019-11-15] MEDS: VALTREX PO SCH (11:32)
[2019-11-15 11:44] LABS: BASO# 0.01 X1000 (0.0-0.2); BASO% 0.3 % (0.0-0.8); EOS# 0.05 X1000 (0.0-0.7); EOS% 1.3 % (0.0-10.0); HEMATOCRIT 30.3 % (37.0-47.0); HEMOGLOBIN 10.1 g/dL (12.0-16.0); LYMPH# 0.82 X1000 (1.2-3.4); LYMPH% 21.2 % (20.5-51.1); MCH 31.3 PG (27-31); MCHC 33.3 g/dL (33-37); MCV 93.8 FL (81-99); MONO# 0.68 X1000 (0.11-0.59); MONO% 17.6 % (1.7-9.3); MPV 11.1 FL (7.4-10.4); NEUT% 59.6 % (42.2-75.2); PLT 137 X1000 (130-400); RBC 3.23 XMIL (4.2-5.4); RDW 18.7 % (11.5-14.5); WBC 3.86 X1000 (4.8-10.8)
[2019-11-15 12:25] LABS: MAGNESIUM 1.2 mg/dL (1.5-2.7)
[2019-11-15 12:26] LABS: PHOSPHORUS 0.8 mg/dL (2.7-4.5)
[2019-11-15] MEDS ORDERED: MAGNESIUM SULFATE 2 GM/S.W.I. 2 GM/50 ML IVPB IV ONE (12:45)
--- NOTE | 2019-11-15 13:34 | HEMO/ONC PROGRESS NOTE ---
DATE: 11/15/2019 SUBJECTIVE: Ms. Weber is sitting up in her bedside recliner today. She wanted to get up out of bed and move around more, and is feeling much better than she did yesterday. The patient tells me that she is continuing to have diarrhea as she has had since Friday. She has started to feel better with replacement of electrolytes. She has no complaints today. She states she had a good night's sleep. She states her appetite is good. She is requesting some cereal for breakfast and protein shake. No acute events occurred overnight. OBJECTIVE: Vital Signs: Temperature 98.7 degrees, pulse rate 85, respiratory rate 18, and blood pressure 123/60. She is 100% on room air. She is in 0/10 pain. General: The patient is in no acute distress sitting in her recliner. HEENT: Sclerae anicteric. PERRLA. Oral mucosa is normal. Cardiovascular: Normal S1, S2. Heart rate and rhythm regular. Respiratory: Lung sounds are clear to auscultation. Normal respiratory effort. Gastrointestinal: Abdomen is soft, nontender, and nondistended. Nontender to suprapubic area. Musculoskeletal: No CVA tenderness. Extremities: No lower extremity edema noted. LABORATORY: WBCs 3.86, hemoglobin 10.1, hematocrit 30.3, and platelet count 137,000. Phosphorus 0.8 and magnesium 1.2. Calcium level was not ordered today. Urine culture showed positive for E. Coli. ASSESSMENT AND PLAN: 1. Acute pyelonephritis with fever. 2. IgG lambda multiple myeloma: Currently under treatment with Darzelex and Revlimed. 3. Type 2 diabetes. 4. History of DVT, on Xarelto therapy. 5. CAD. 6. Hypertension. 7. B12 deficiency on monthly B12 IM injections. 8. Lytic bone disease. The patient is on Xgeva every 28 days. 9. Normocytic anemia. The patient has had doses of IV iron recently. 10. Hypocalcemia, hypomagnesemia and hypophosphatemia. Aware. PLAN: Continue medical management per primary medical doctor for the treatment of the pyelonephritis and electrolyte imbalance. The patient is feeling better. The patient is continuing to have significant amount of diarrhea. Continue the patient on protein shakes. Continue to allow her to get out of bed as she requests. Dictated by EZEKIEL Wolff for Soy Borjas MD E.Coli UTI on antibiotics. Electrolyte Imbalance improving. Diarrhea persists. Continue current management. Soy Borjas MD cc: MD South Serna MD MTDD
[2019-11-15 15:21] LABS: ALB/GLOB RATIO 0.9; ALBUMIN 2.8 g/dL (3.5-5.0); CALCIUM 5.3 mg/dL (8.8-10.2); CREATININE 1.1 mg/dL (0.5-0.9); POTASSIUM 3.5 mmol/L (3.5-5.1); TOTAL BILIRUBIN 0.27 mg/dL (0.20-1.00); TOTAL PROTEIN 5.8 g/dL (6.3-8.3)
[2019-11-15] MEDS ORDERED: CALCIUM GLUCONATE 2 GM in NS 100 ML IV ONE (16:30)
[2019-11-15] MEDS ORDERED: POTASSIUM PHOSPHATE 40 MEQ in NS 250 ML IV ONE ×2 (16:30→17:30)
[2019-11-15] MEDS: XARELTO PO SCH (18:06)
--- NOTE | 2019-11-15 20:44 | PROGRESS NOTE ---
DATE: 11/15/2019 SUBJECTIVE: Patient's chart was reviewed. The patient presented to the emergency department on 11/13/2019 with fevers. Full evaluation was pursued. She was noted to have a urinary tract infection/possible acute pyelonephritis. The patient was immediately placed on cefepime therapy. Fevers quickly resolved. Additionally, patient was noted to be hypomagnesemic, hypocalcemic and hypophosphatemia. Replacement was provided. She was started on IV fluids. Since admission, patient's overall condition has slowly improved. Energy level is low but improved. She is tolerating antibiotic intervention reasonably well. Additionally, patient has noted diarrhea over the course of the last several days. Stool studies have been ordered but not performed. This morning upon my arrival patient noted some improvement in her overall condition. Throughout the day, she tolerated p.o. Her loose stools are slowly improving. This evening she again notes improvement. She is receiving additional treatment for her underlying hypomagnesemia, hypophosphatemia and hypocalcemia. OBJECTIVE: T-max 99.5 degrees, heart rate 82 to 106, respirations 16 to 20, blood pressure 96 to 123 over 47 to 74.General: Well nourished, well developed, no acute distress. Cardiovascular: Regular rate and rhythm. No significant murmurs, rubs or gallops. Pulmonary: Clear to auscultation bilaterally. Abdomen: Soft, nontender, nondistended. Positive bowel sounds. Extremities: Moves all extremities well. No significant clubbing, cyanosis, or edema. Dermatologic: Evaluation reveals no evidence of rash. LABORATORY DATA: White blood cell count 3.86, hemoglobin 10.1, hematocrit 30.3, platelet count 137,000. Sodium 139, potassium 3.5, chloride 108, bicarb 12, BUN 13, creatinine 1.1, glucose 120, calcium 5.3, phosphorus 0.8, magnesium 1.2, total bilirubin 0.27, total protein 5.8, albumin 2.8, alkaline phosphatase 52, AST 21, ALT 11. ASSESSMENT AND PLAN: 1. Acute pyelonephritis-urinalysis has grown E coli. For now, we will continue cefepime therapy. We will plan to transition patient to oral antibiotics upon discharge. 2. IgG lambda multiple myeloma-patient's chemotherapeutic intervention has been held while acutely ill. I appreciate Dr. Borjas's consultation. 3. Type 2 diabetes-we will continue patient on her home medical regimen. Blood sugars have been adequately controlled. 4. History of a deep venous thrombosis-we will continue Xarelto therapy. 5. Coronary artery disease-patient is treated with optimized medical and nonmedical management. We will remain aware. 6. Hypertension-we will continue patient on home medications. Blood pressure is controlled. 7. B12 deficiency-patient is treated with vitamin B12 replacement on a monthly basis. 8. Hypocalcemia-the patient was treated with calcium gluconate again today. We will repeat levels in the morning. 9. Hypomagnesemia-the patient was provided magnesium sulfate IV. Once again, we will check this in the a.m. 10. Hypophosphatemia-patient was provided potassium phosphate. Once again, this will be reevaluated in the morning. 11. Profound weakness-overall patient is improving. This is a consequence of her acute illness. We will encourage activity. Disposition-at this point, patient continues to require custodial care in a hospital setting. We will plan discharge home once appropriate. cc: South Gaines MD
[2019-11-15] MEDS: TYLENOL PO PRN (23:20)
[2019-11-15] MEDS: MELATONIN PO SCH (23:20)
[2019-11-15] MEDS: LEXAPRO PO SCH (23:20)
[2019-11-15] MEDS: ZOCOR PO SCH (23:20)
[2019-11-15] MEDS: NORVASC PO SCH ×2 (23:20→23:28)
[2019-11-16] MEDS: MAXIPIME 1 GM in NS 50 ML IV SCH ×2 (07:57→22:22)
[2019-11-16] MEDS: PRILOSEC PO SCH (07:57)
[2019-11-16 08:07] LABS: BASO# 0.01 X1000 (0.0-0.2); BASO% 0.3 % (0.0-0.8); EOS# 0.06 X1000 (0.0-0.7); HEMATOCRIT 27.8 % (37.0-47.0); HEMOGLOBIN 9.3 g/dL (12.0-16.0); LYMPH# 0.48 X1000 (1.2-3.4); LYMPH% 16.1 % (20.5-51.1); MCH 31.3 PG (27-31); MCHC 33.5 g/dL (33-37); MCV 93.6 FL (81-99); MONO# 0.77 X1000 (0.11-0.59); MONO% 25.8 % (1.7-9.3); MPV 11.2 FL (7.4-10.4); NEUT# 1.67 X1000 (1.4-6.5); NEUT% 55.8 % (42.2-75.2); PLT 146 X1000 (130-400); RBC 2.97 XMIL (4.2-5.4); RDW 18.7 % (11.5-14.5); WBC 2.99 X1000 (4.8-10.8)
[2019-11-16] MEDS: FOLIC ACID PO SCH (08:21)
[2019-11-16] MEDS: GLUCOPHAGE PO SCH ×2 (08:24→18:15)
[2019-11-16] MEDS: VALTREX PO SCH (08:24)
[2019-11-16] MEDS: DIOVAN PO SCH (08:25)
[2019-11-16] MEDS: MAG-OX PO SCH ×3 (08:25→18:15)
[2019-11-16 08:43] LABS: MAGNESIUM 1.5 mg/dL (1.5-2.7); PHOSPHORUS 1.5 mg/dL (2.7-4.5)
[2019-11-16 08:51] LABS: ALB/GLOB RATIO 1.1; ALBUMIN 2.7 g/dL (3.5-5.0); POTASSIUM 2.8 mmol/L (3.5-5.1); TOTAL BILIRUBIN 0.25 mg/dL (0.20-1.00); TOTAL PROTEIN 5.1 g/dL (6.3-8.3)
[2019-11-16 09:31] LABS: CALCIUM 5.1 mg/dL (8.8-10.2)
[2019-11-16] MEDS ORDERED: MAGNESIUM SULFATE 2 GM/S.W.I. 2 GM/50 ML IVPB IV ONE (10:20)
[2019-11-16] MEDS ORDERED: POTASSIUM PHOSPHATE 40 MEQ in NS 250 ML IV ONE (10:21)
[2019-11-16] MEDS ORDERED: CALCIUM GLUCONATE 2 GM in NS 100 ML IV ONE (10:21)
[2019-11-16] MEDS: TYLENOL PO PRN (12:12)
[2019-11-16] MEDS: XARELTO PO SCH (18:15)
--- NOTE | 2019-11-16 19:41 | PROGRESS NOTE ---
DATE: 11/16/2019 SUBJECTIVE: Upon my arrival this morning, the patient noted persistent improvement in her overall condition. Energy level is improving. Laboratory data suggested persistent hypokalemia, hypocalcemia, hypomagnesemia, and hypophosphatemia. The patient was treated with replacement. Throughout the day, patient states, overall, she demonstrated improvement. Her p.o. intake has improved considerably. She has had only 1 stool described as slightly loose. She denies fevers, chills, nausea, vomiting, shortness of breath, or chest discomfort. OBJECTIVE: T-max 98.8 degrees, heart rate 74 to 92, respirations 16 to 24, blood pressure 108 to 131 over 48 to 64.General: No acute distress. Cardiovascular: Regular rate and rhythm. No significant murmurs, rubs, or gallops. Pulmonary: Clear to auscultation bilaterally. Abdomen: Soft, nontender, nondistended. Positive bowel sounds. Extremities: Moves all extremities well. No significant clubbing, cyanosis, or edema. Dermatologic: Evaluation reveals no evidence of rash. LABORATORY DATA: White blood cell count 2.99, hemoglobin 9.3, hematocrit 27.8, platelet count a 146,000. Sodium 141, potassium 2.8, chloride 110, bicarb 18, BUN 12, creatinine 1.0, glucose 94, calcium 5.1, total bilirubin 0.25, total protein 5.1, albumin 2.7, alkaline phosphatase 49. AST 10 ALT 9. ASSESSMENT AND PLAN: 1. Acute pyelonephritis - Urine culture grew Escherichia coli. She is currently treated with cefepime therapy. We will continue this for now. We will transition the patient to oral antibiotics upon discharge. 2. IgG lambda multiple myeloma - The patient's chemotherapeutic intervention has been postponed secondary to her acute illness. I appreciate Dr. Borjas's consultation. 3. Hypocalcemia - We will again treat patient with calcium gluconate, We will recheck levels in the a.m. 4. Hypomagnesemia - We will again treat the patient with magnesium sulfate IV. Once again, magnesium level will be checked in the a.m. 5. Hypophosphatemia - Potassium phosphate was again provided today. We will encourage p.o. intake. 6. Hypokalemia - As above, potassium phosphate IV was provided today. 7. Type 2 diabetes - We will continue the patient on her home regimen. Blood sugars are controlled. 8. History of deep venous thrombosis - We will continue patient on Xarelto therapy. 9. Coronary artery disease - The patient is treated with optimized medical and nonmedical management. She is asymptomatic. 10. Hypertension - The patient's blood pressure is controlled on her current regimen. 11. Vitamin B12 deficiency - We will continue patient on B12 replacement as an outpatient. 12. Profound weakness - Overall, patient is achieving improvement. We will continue to encourage physical therapy. 13. Loose stools - As above, patient's symptoms are improving. Stool studies have not been performed today. If patient does develop a recurrence, we will plan to check these. 14. Disposition - At this point, patient continues to require penitentiary care in a hospital setting. We will plan discharge home once appropriate. cc: South Gainse MD
[2019-11-16] MEDS: ZOCOR PO SCH (22:22)
[2019-11-16] MEDS: LEXAPRO PO SCH (22:22)
[2019-11-16] MEDS: NORVASC PO SCH (22:23)
[2019-11-16] MEDS: MELATONIN PO SCH (22:23)
[2019-11-17] MEDS: PRILOSEC PO SCH (06:43)
[2019-11-17 06:52] LABS: BASO# 0.02 X1000 (0.0-0.2); BASO% 0.7 % (0.0-0.8); EOS# 0.07 X1000 (0.0-0.7); EOS% 2.4 % (0.0-10.0); HEMATOCRIT 27.1 % (37.0-47.0); HEMOGLOBIN 8.9 g/dL (12.0-16.0); LYMPH# 0.57 X1000 (1.2-3.4); LYMPH% 19.2 % (20.5-51.1); MCH 30.4 PG (27-31); MCHC 32.8 g/dL (33-37); MCV 92.5 FL (81-99); MONO# 0.73 X1000 (0.11-0.59); MONO% 24.6 % (1.7-9.3); MPV 10.6 FL (7.4-10.4); NEUT# 1.58 X1000 (1.4-6.5); NEUT% 53.1 % (42.2-75.2); PLT 171 X1000 (130-400); RBC 2.93 XMIL (4.2-5.4); RDW 18.3 % (11.5-14.5); WBC 2.97 X1000 (4.8-10.8)
[2019-11-17 07:54] LABS: ALB/GLOB RATIO 1.4; CREATININE 0.9 mg/dL (0.5-0.9); MAGNESIUM 1.3 mg/dL (1.5-2.7); POTASSIUM 3.1 mmol/L (3.5-5.1); TOTAL BILIRUBIN 0.22 mg/dL (0.20-1.00); TOTAL PROTEIN 5.1 g/dL (6.3-8.3)
[2019-11-17 07:55] LABS: EOS 2 % (1-10); LYMPHS 8 % (21-51); MONO 8 % (1-9); SEGS 82 % (42-75)
[2019-11-17 08:12] LABS: PHOSPHORUS 0.9 mg/dL (2.7-4.5)
[2019-11-17] MEDS: DIOVAN PO SCH (08:42)
[2019-11-17] MEDS: VALTREX PO SCH (08:42)
[2019-11-17] MEDS: MAXIPIME 1 GM in NS 50 ML IV SCH ×2 (08:43→20:42)
[2019-11-17] MEDS: FOLIC ACID PO SCH (08:43)
[2019-11-17] MEDS: MAG-OX PO SCH ×3 (08:43→17:17)
[2019-11-17] MEDS: GLUCOPHAGE PO SCH ×2 (08:43→17:06)
[2019-11-17] MEDS ORDERED: CALCIUM GLUCONATE 2 GM in NS 100 ML IV ONE (09:42)
[2019-11-17] MEDS ORDERED: MAGNESIUM SULFATE 2 GM/S.W.I. 2 GM/50 ML IVPB IV ONE (09:44)
[2019-11-17] MEDS ORDERED: POTASSIUM PHOSPHATE 40 MEQ in NS 250 ML IV ONE (11:00)
[2019-11-17] MEDS: XARELTO PO SCH (17:17)
--- NOTE | 2019-11-17 17:25 | HEMO/ONC PROGRESS NOTE ---
DATE: 11/17/2019 SUBJECTIVE: Ms. Weber is comfortable in her bedside recliner today. She states her diarrhea is improving and that she has not had any diarrhea this morning. She is starting to feel better. Her appetite is slightly improved. She has no complaints and she had no acute events overnight. OBJECTIVE: Vital Signs: Temperature 98.5 degrees, pulse rate 102, respiratory rate 18, blood pressure 143/88, O2 saturation 99% on room air. She is in 0/10 pain. PHYSICAL EXAMINATION: General: Patient is in no acute distress. HEENT: Sclerae anicteric. PERRLA. Oral mucosa is normal. Cardiovascular: Normal S1, S2. Heart rate and rhythm is regular. Respiratory: Lungs clear to auscultation. Normal respiratory effort. Abdomen: Soft, nontender, nondistended. Positive bowel sounds. Extremities: No lower extremity edema noted. Neurological: Alert and oriented x3. No focal motor deficits noted. LABORATORY DATA: WBCs 2.97, hemoglobin 8.9, hematocrit 27.1, platelet count 171,000. ANC 1.58, potassium 3.1, calcium 5.0. Phosphorus 0.9, magnesium 1.3, total protein 5.1, albumin 3.4. ASSESSMENT AND PLAN: 1. Acute pyelonephritis with fever. Patient's culture grew Escherichia coli. She was treated with appropriate antibiotics. She is improving. She denies pain. Continue medical management. 2. IgG lambda multiple myeloma. Patient's treatment in the clinic is with Darzalex and Revlimid. Her treatments are on hold while she is being treated for her acute illness. We will follow up with her after her discharge. 3. History of deep venous thrombosis. Continue deep venous thrombosis prophylaxis. The patient needs to remain on her Xarelto therapy. 4. Normocytic anemia. The patient has had 2 recent doses of IV iron. We will continue to monitor that. 5. Hypocalcemia, hypomagnesemia, hypophosphatemia. Etiology unclear. She continues to remain low. 6. Weakness and diarrhea. The patient's diarrhea is improving. As of this morning, she had not had any episodes. From yesterday, it had significantly slowed down. She is slowly improving. Continue current management per her medical. Dictated by EZEKIEL Wolff for Soy Borjas MD cc: MD South Serna MD MTDD
--- NOTE | 2019-11-17 18:38 | PROGRESS NOTE ---
DATE: 11/17/2019 SUBJECTIVE: Overall, patient states she continues to demonstrate improvement clinically. The patient's p.o. intake has improved over the last 24 hours. Energy level is also improving. The patient notes decrease in loose stools. Interestingly, labs continue to be quite concerning. Calcium, phosphorus, magnesium, and potassium remain low, despite improvement in her overall clinical condition. She denies fevers, chills, nausea, vomiting, shortness of breath, or chest discomfort. OBJECTIVE: Temperature max 99.4 degrees, heart rate 79 to 102, respirations 17 to 20, blood pressure 107 to 143 over 59 to 88.General: No acute distress. Cardiovascular: Regular rate and rhythm. No significant murmurs, rubs, or gallops. Pulmonary: Clear to auscultation bilaterally. Abdomen: Soft, nontender, nondistended. Positive bowel sounds. Extremities: Moves all extremities well. No significant clubbing, cyanosis, or edema. Dermatologic: Evaluation reveals no evidence of rash. LABORATORY DATA: White blood cell count 2.97, hemoglobin 8.9, hematocrit 27.1, platelet count is 171,000. Sodium 144, potassium 3.1, chloride 109, bicarbonate 21, BUN 13, creatinine 0.9, glucose 89, calcium 5.0, magnesium 1.3, phosphorus 0.9, total bilirubin 0.22, total protein 5.1, albumin 3.0, alkaline phosphatase 52, AST 10, ALT 9. ASSESSMENT AND PLAN: 1. Acute pyelonephritis. Urine culture grew Escherichia coli. For now, we will continue cefepime intervention. 2. IgG lambda multiple myeloma. The patient's chemotherapeutic intervention has been postponed. Her Xgeva will also be held as this may be contributing to her electrolyte abnormalities. We will defer further management to Dr. Borjas. 3. Hypocalcemia. We will again treat with calcium gluconate. Once again, after discussing this with Dr. Borjas, it is suspected that Xgeva may be playing a role. 4. Hypomagnesemia. This likely is chemotherapeutic associated. We will again replace magnesium today. 5. Hypophosphatemia. Once again, I suspect this is Xgeva associated. We will again treat patient with potassium phosphate and encourage p.o. intake. 6. Hypokalemia. We will treat patient with potassium phosphate as noted. 7. Type 2 diabetes. We will continue patient's home medical regimen. Blood sugars are controlled. 8. History of deep venous thrombosis. We will continue patient on Xarelto therapy. 9. Coronary artery disease. Patient has longstanding disease. She is treated with optimum medical and nonmedical management. She is asymptomatic. 10. Hypertension. Blood pressure is controlled on her current regimen. 11. Vitamin B12 deficiency. We will continue the patient on vitamin B12 replacement as an outpatient. 12. Profound weakness. Symptoms are improving. We will encourage activity and p.o. intake. 13. Loose stools. Once again, patient is achieving improvement in her overall condition. Stool studies have been ordered, but not been performed secondary to improving condition. 14. Disposition. At this point, patient continues to require assisted care in a hospital setting. We will plan discharge home once appropriate. cc: Suoth Gaines MD
[2019-11-17] MEDS: NORVASC PO SCH (20:41)
[2019-11-17] MEDS: ZOCOR PO SCH (20:41)
[2019-11-17] MEDS: LEXAPRO PO SCH (20:42)
[2019-11-17] MEDS: MELATONIN PO SCH (20:42)
[2019-11-18] MEDS: PRILOSEC PO SCH (06:42)
[2019-11-18 07:50] LABS: ALBUMIN 2.7 g/dL (3.5-5.0); CREATININE 0.9 mg/dL (0.5-0.9); MAGNESIUM 1.6 mg/dL (1.5-2.7); POTASSIUM 3.5 mmol/L (3.5-5.1); TOTAL BILIRUBIN 0.23 mg/dL (0.20-1.00); TOTAL PROTEIN 5.5 g/dL (6.3-8.3)
[2019-11-18 08:06] LABS: CALCIUM 5.1 mg/dL (8.8-10.2); PHOSPHORUS 0.9 mg/dL (2.7-4.5)
[2019-11-18] MEDS ORDERED: MAGNESIUM SULFATE 2 GM/S.W.I. 2 GM/50 ML IVPB IV ONE (08:41)
[2019-11-18] MEDS ORDERED: CALCIUM GLUCONATE 2 GM in NS 100 ML IV ONE (08:42)
[2019-11-18] MEDS ORDERED: POTASSIUM PHOSPHATE 40 MEQ in NS 250 ML IV ONE (10:00)
[2019-11-18] MEDS: GLUCOPHAGE PO SCH ×3 (10:13→17:16)
[2019-11-18] MEDS: VALTREX PO SCH (10:13)
[2019-11-18] MEDS: DIOVAN PO SCH (10:13)
[2019-11-18] MEDS: FOLIC ACID PO SCH (10:13)
[2019-11-18] MEDS: MAXIPIME 1 GM in NS 50 ML IV SCH ×2 (10:14→21:42)
[2019-11-18] MEDS: MAG-OX PO SCH ×3 (10:14→17:16)
[2019-11-18 14:58] LABS: URINE SOURCE CLEAN CATCH
[2019-11-18 15:02] LABS: BILIRUBIN URINE NEGATIVE (NEGATIVE); BLOOD URINE NEGATIVE (NEGATIVE); COLOR YELLOW; GLUCOSE URINE NEGATIVE (NEGATIVE); KETONE URINE NEGATIVE (NEGATIVE); LEUKOCYTES URINE SMALL (NEGATIVE); NITRITE URINE NEGATIVE (NEGATIVE); PROTEIN URINE 30 mg/dL (NEGATIVE); SP GRAVITY URINE 1.014; TURBIDITY URINE CLEAR (CLEAR); UROBILINOGEN URINE NORMAL (NORMAL)
[2019-11-18 15:03] LABS: UR EPITHELIAL CELLS <10 /HPF (<10); URINE BACTERIA NEGATIVE /HPF; URINE RBC <10 /HPF (<10); URINE WBC <10 /HPF (<10)
[2019-11-18 15:16] LABS: UR CHLORIDE 104 mmoll; UR CREAT RANDOM 56.8 mg/dL (11-20); UR MAGNESIUM RANDOM 11.1 mg/dL; UR SODIUM 91 mmoll
[2019-11-18] MEDS: XARELTO PO SCH (17:16)
--- NOTE | 2019-11-18 19:04 | PROGRESS NOTE ---
DATE: 11/18/2019 SUBJECTIVE: Overall, clinically patient continues to demonstrate improvement. Oral intake is excellent. She has had one episode of diarrhea over the course of the last 24 hours. Unfortunately, she continues to have a persistently low calcium, phosphorus, magnesium, and potassium levels despite aggressive replacement. She denies fevers, chills, nausea, vomiting, shortness of breath, or chest discomfort. OBJECTIVE: Vital Signs: T-max 99.2 degrees, heart rate 58 to 102, respirations 16 to 18, blood pressure 115 to 137/48 to 64. General: No acute distress. Cardiovascular: Regular rate and rhythm. No significant murmurs, rubs, or gallops. Pulmonary: Clear to auscultation bilaterally. Abdomen: Soft, nontender, nondistended. Positive bowel sounds. Extremities: Moves all extremities well. No significant clubbing, cyanosis, or edema. Dermatologic: Evaluation reveals no evidence of rash. LABORATORY DATA: Sodium 143, potassium 3.5, chloride 110, bicarb 20, BUN 13, creatinine 0.9, glucose 86, calcium 5.1, magnesium 1.6, phosphorus 0.9, total bilirubin 0.23, total protein 5.5, albumin 2.7, alkaline phosphatase 53, AST 10, ALT 8. ASSESSMENT AND PLAN: 1. Acute pyelonephritis-urine culture grew Escherichia coli. She has completed five days of cefepime therapy. We will continue this for now. 2. IgG lambda multiple myeloma-patient's chemotherapeutic intervention has been postponed. I have discussed case with Dr. Borjas in detail. The chemotherapy versus Xgeva may be contributing to her electrolyte abnormalities. We will remain aware. 3. Hypocalcemia-the patient was again repleted with calcium gluconate. Again, this may be chemotherapy associated. Because of the persistence and levels, we will consult Dr. Chavarria to confirm this is not a filtering issue with renal involvement. 4. Hypomagnesemia - we will replace magnesium again today. Once again, Dr. Chavarria will be consulted. 5. Hypophosphatemia-we will continue patient with potassium phosphate replacement. 6. Hypokalemia-we will replace with potassium phosphate as noted. 7. Type 2 diabetes-we will continue patient's home medications. Blood sugars are controlled. 8. History of deep venous thrombosis-we will continue patient on Xarelto therapy. 9. Coronary artery disease-patient has longstanding disease. She is treated with optimum medical and nonmedical management. She is asymptomatic. 10. Hypertension-blood pressure is controlled on her current regimen. 11. Vitamin B12 deficiency-we will continue patient on B12 replacement. 12. Profound weakness-energy level is improving. We will treat conditions as described above. 13. Loose stools-this remains intermittent. This certainly could be magnesium associated. We will check stool studies. 14. Disposition-at this point, patient continues to require long-term care in a hospital setting. We will plan discharge home once appropriate. cc: South Gaines MD
--- NOTE | 2019-11-18 19:59 | NEPHROLOGY CONSULTATION ---
DATE: 11/18/2019 REASON FOR ADMISSION: Fever without chills, recent chemotherapy on 11/04/2019. REASON FOR CONSULT: Persistent hypomagnesemia, hypocalcemia, hypophosphatemia. CONSULTING PHYSICIAN: Dr. South Gaines. HISTORY OF PRESENT ILLNESS: Ms. Weber is an 84-year-old, white female, with a long past medical history significant for IgG lambda multiple myeloma diagnosed in April 2019, under the care of Dr. Borjas. The patient has recently been on Darzalex and Revlimid. Dr. Borjas had recently given her most recent treatment on 11/04/2019. The patient stated that on 11/11/2019, she developed a decreased appetite, was unable to the eat, had nausea, 2 days later developed nausea with emesis, fever, malaise, urinary urgency. She had denied increased work of breathing. No dizziness. No chest pain. No recent falls. No exposure to the flus. She has not had any hematochezia, hemoptysis, or hematuria. She was brought to the emergency room. In the ER, she was found to have hypocalcemia, hypomagnesemia, and hypokalemia with hypophosphatemia. Urine culture was obtained. She is growing E coli and has recently been started on 1 g cefepime b.i.d. It is noted that patient had been hospitalized in August 2019, with the same abnormalities of her electrolytes. She had received IV replacement of calcium gluconate, magnesium, potassium phosphate yesterday, and is currently receiving another dose today per her primary care. She voices no complaints. She states that her appetite is just slightly better and at that Dr. Gaines has requested that she increase taking supplements 3 times a day. PAST MEDICAL HISTORY: IgG lambda multiple myeloma, ascending thoracic aortic aneurysm, DVT in 2016 and in 2017, coronary artery disease, hypertension, glaucoma, gout, anemia, iron deficiency anemia, obstructive sleep apnea, vitamin B12 deficiency, restless legs syndrome. She also has a history of hospitalization for hypomagnesium, hypophosphatemia, and hypocalcemia. SOCIAL HISTORY: The patient is . 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 Denies tobacco, alcohol, or illicit drug use. Lives alone. FAMILY HISTORY: Mother and father both positive for coronary artery disease, . Also, positive with diabetes. Daughter had breast cancer and has since . ALLERGIES: Listed as no known drug allergies. MEDICATIONS: Lexapro, folic acid, magnesium oxide, melatonin, metformin, omeprazole, Xarelto, simvastatin, Valtrex, amlodipine, and valsartan. REVIEW OF SYSTEMS: Ten systems with pertinent positives listed above in the HPI. PHYSICAL EXAMINATION: vital signs: Temperature 98.7 degrees, blood pressure 120/48, heart rate is 79, respirations are 16. She is on room air. O2 saturation of 100%. She has had 869 in, 402 out, voiding already of approximately 500. She states that she is eating better. General: This is an 84-year-old, white female. She is resting quietly in bed. She appears chronically ill, though no acute distress. Skin: Warm and dry. HEENT: Normocephalic, atraumatic. Conjunctiva is pale. She has ANNE. Mucous membranes are moist. Neck: Supple. Trachea midline. She has no evidence of JVD. Cardiovascular: Regular rate and rhythm. No murmur or gallop appreciated. Lungs: Clear to auscultation anteriorly. Equal excursion. She is on O2. Abdomen: Soft, large, round, nontender. Positive bowel sounds. Genitourinary: Not inspected. Patient has been voiding, adequate amount documented. Integumentary: No rashes or lesions evident. She does have a port to the right parasternal area. Extremities: No edema. No clubbing or cyanosis. Neurological: Alert and oriented x3. Able to give appropriate review of systems. ASSESSMENT AND PLAN: 1. Abnormal electrolytes. Patient received calcium gluconate, potassium phosphate, and magnesium yesterday. Her labs still continue to remain low. She is currently receiving another dose of calcium gluconate 2 g, 2 g of magnesium, and potassium phosphate per her primary care. The cause is not obvious. She does not seem to have Fanconi syndrome - at least in as much as she does not have glycosuria. Will measure urinary excretion of these minerals. 2. Acid-base balance. This is acceptable with a mild anion gap. 3. Anemia. This is low, but stable. Hemoglobin of 8.9 yesterday. 4. Urinary tract infection. Patient is currently receiving Rocephin. Positive UTI. 5. Multiple myeloma. Followed by Dr. Borjas. We would like to thank you for allowing us to follow with this patient. Dictated by EZEKIEL Allan for Jenaro Chavarria MD cc: EZEKIEL Allan MD Scott A. Matthews, MD [facility] CENTERAiden
[2019-11-18] MEDS: NORVASC PO SCH (21:41)
[2019-11-18] MEDS: LEXAPRO PO SCH (21:41)
[2019-11-18] MEDS: MELATONIN PO SCH (21:41)
[2019-11-18] MEDS: ZOCOR PO SCH (21:42)
[2019-11-19] MEDS: PRILOSEC PO SCH (06:18)
[2019-11-19 07:11] LABS: AGAP 12; BUN 14 mg/dL (8-22); CHLORIDE 105 mmol/L (98-107); COSMO 278; CREATININE 0.8 mg/dL (0.5-0.9); ESTIMATED GFR > 60; GLUCOSE 99 mg/dL (70-104); MAGNESIUM 1.3 mg/dL (1.5-2.7); POTASSIUM 3.8 mmol/L (3.5-5.1); SODIUM 139 mmol/L (136-145); TCO2 22 mmol/L (25-35)
[2019-11-19 07:13] LABS: PHOSPHORUS 0.6 mg/dL (2.7-4.5)
[2019-11-19] MEDS ORDERED: CALCIUM GLUCONATE 2 GM in NS 100 ML IV ONE (08:21)
[2019-11-19] MEDS ORDERED: MAGNESIUM SULFATE 2 GM/S.W.I. 2 GM/50 ML IVPB IV ONE (08:21)
[2019-11-19] MEDS ORDERED: POTASSIUM PHOSPHATE 40 MEQ in NS 250 ML IV ONE (08:22)
[2019-11-19] MEDS: GLUCOPHAGE PO SCH ×2 (09:23→17:48)
[2019-11-19] MEDS: MAXIPIME 1 GM in NS 50 ML IV SCH ×2 (09:23→21:39)
[2019-11-19] MEDS: DIOVAN PO SCH (09:24)
[2019-11-19] MEDS: MAG-OX PO SCH ×3 (09:24→21:45)
[2019-11-19] MEDS: VALTREX PO SCH (09:24)
[2019-11-19] MEDS: FOLIC ACID PO SCH (09:24)
--- NOTE | 2019-11-19 11:59 | HEMO/ONC PROGRESS NOTE ---
DATE: 11/19/2019 SUBJECTIVE: Ms. Weber refers to feeling much better today. Her diarrhea has resolved. She is continuing to attempt to get the specimen, but has not had any further diarrhea. She states she feels better. She does have some weakness when she attempts to get up, but overall feels like she is improving. She has no complaints today, and she has had no acute events overnight. VITAL SIGNS: Temperature 99.6 degrees, pulse rate 88, respiratory rate 16, blood pressure 122/61, O2 saturation 95% on room air. She is in 0/10 pain. PHYSICAL EXAMINATION: General: The patient is in no acute distress. She is in pleasant spirits. Cardiovascular: Normal S1, S2. Heart rate and rhythm is regular. Respiratory: Lung sounds are clear to auscultation. Normal respiratory effort. Abdomen: Soft, nontender, nondistended. Bowel sounds are positive. Extremities: No lower extremity edema noted. Neurological: Alert and oriented x3. No focal motor deficits noted. LABORATORY: No CBC done today. Calcium remains 5.0, phosphorus 0.6, magnesium 1.3. Sodium 139, potassium 3.8. PTH intact is 358. ASSESSMENT AND PLAN: 1. Abnormal electrolytes, hypocalcemia and hypophosphatemia. The patient has continued to have been repleted and yet her levels remain low. Her parathyroid hormone intact is elevated. She is being followed by Dr. Chavarria for further management. 2. IgG lambda multiple myeloma. The patient's treatment in the clinic is with Darzalex and Revlimid; these are currently on hold while she is being treated for her acute illness. We will follow up with her in the clinic after her discharge. 3. Acute pyelonephritis with fever and Escherichia coli. The patient is continuing to be treated on antibiotics. She has improved from this standpoint. 4. Normocytic anemia. We have recently given the patient 2 doses of intravenous iron. Her anemia should start to improve within a few weeks.. 5. Weakness and diarrhea. The patient has improved in regards to the diarrhea. Assessment has been requested and she has been unable to provide. She states that she is very weak when she gets up and down from her bed to chair, but she also states she is getting better every day. 6. History of deep vein thrombosis. The patient needs to remain on deep vein thrombosis prophylaxis. She is currently on Xarelto therapy. Please call us if needed over the weekend. Dictated by EZEKIEL Wolff for Soy Borjas MD cc: MD South Serna MD MTDD
--- NOTE | 2019-11-19 15:05 | NEPHROLOGY PROGRESS NOTE ---
DATE: 11/19/2019 SUBJECTIVE: No complaints. She is sitting up in the chair ready to eat breakfast. No shortness of breath, nausea or vomiting. Her stools described as liquid brown but she is having no more than 1 per day. OBJECTIVE: Vital Signs: Blood pressure 122/61, heart rate 88, respirations 16, afebrile. General: No acute distress. Skin: Warm and dry. Heart: Regular. No gallops. Lungs: Equal. No crackles. Abdomen: Soft, nontender. Bowel sounds present. Extremities: 1+ edema. No clubbing or cyanosis. IMPRESSION: Hypomagnesemia/hypophosphatemia/hypocalcemia. Cause is not obvious. The urine studies do suggest that she is wasting magnesium and phosphorus. I am not sure how to connect those 2 problems. I do believe that the hypocalcemia is secondary to the hypomagnesemia. Continue to replete. cc: MD South Mccain MD
[2019-11-19] MEDS: XARELTO PO SCH (17:48)
--- NOTE | 2019-11-19 19:30 | PROGRESS NOTE ---
DATE: 11/19/2019 SUBJECTIVE: Upon my arrival this morning, patient states she felt reasonably well. Unfortunately, laboratory data remained concerning with severe hypocalcemia, hypophosphatemia, and hypomagnesemia. The patient was treated with IV replacement. This afternoon, a loose stool was collected for evaluation. The patient's C difficile toxin returned positive. This evening, patient was sitting upright in her bed. Overall, she states she feels reasonably well. She denies fevers, chills, nausea, vomiting, shortness of breath or chest discomfort. P.o. intake remains adequate. OBJECTIVE: T-max 99.6, heart rate 80 to 87, respirations 16 to 21, blood pressure 115 to 132 over 53 to 61.General: No acute distress. Cardiovascular: Regular rate and rhythm. No significant murmurs, rubs, or gallops. Pulmonary: Clear to auscultation bilaterally. Abdomen: Soft, nontender, nondistended. Positive bowel sounds. Extremities: Moves all extremities well. No significant clubbing, cyanosis or edema. Dermatologic: Evaluation reveals no evidence of rash. LABORATORY DATA: Sodium 139, potassium 3.8, chloride 105, bicarb 22, BUN 14, creatinine 0.8, glucose 99, calcium 5.0, magnesium 1.3, phosphorus 0.6. ASSESSMENT AND PLAN: 1. Acute pyelonephritis-urine culture grew Escherichia coli. She has completed 6 days of cefepime therapy. We will continue this for now with the knowledge that this may be exacerbating her Clostridium difficile colitis. 2. Clostridium difficile colitis-this is a new diagnosis. We will start patient on oral vancomycin. The patient will be placed on contact precaution. 3. IgG lambda multiple myeloma-chemotherapeutic intervention has been postponed. This likely is contributing to her electrolyte abnormalities. We will remain aware. 4. Hypocalcemia-unfortunately, patient's calcium level remains critically low. We will again replace with calcium gluconate. We will follow this and replaced on a daily basis. 5. Hypomagnesemia-the patient's magnesium remains low as well. We will continue oral replacement as well as IV magnesium. 6. Hypophosphatemia-we will again replace with potassium phosphate. We will start Neutra-Phos orally. At this point, with the critical level of her calcium and phosphorus, she is not a candidate for discharge home. 7. Hypokalemia-we will replace again with potassium phosphate. 8. Type 2 diabetes-the patient's home medications have been continued. Blood sugars are controlled. 9. History of deep venous thrombosis-we will continue Xarelto therapy. 10. Coronary artery disease-patient is treated with optimized medical and nonmedical management. She is asymptomatic. 11. Hypertension-the patient's blood pressure is controlled on her current regimen. 12. Vitamin B12 deficiency-we will continue patient on outpatient replacement. 13. Profound weakness-patient has achieved improvement with treatment of her above-mentioned conditions. We will encourage activity. 14. Disposition-at this point, patient continues to require shelter care in a hospital setting. We will plan discharge home once appropriate. cc: South Gaines MD
[2019-11-19] MEDS: MELATONIN PO SCH (21:39)
[2019-11-19] MEDS: NORVASC PO SCH (21:39)
[2019-11-19] MEDS: LEXAPRO PO SCH (21:40)
[2019-11-19] MEDS: ZOCOR PO SCH (21:40)
[2019-11-19] MEDS: VANCOCIN PO SCH (21:45)
[2019-11-20] MEDS: VANCOCIN PO SCH ×4 (03:48→23:06)
[2019-11-20] MEDS: PRILOSEC PO SCH ×2 (05:25→06:25)
[2019-11-20] MEDS: MAG-OX PO SCH ×4 (05:26→23:06)
[2019-11-20] MEDS: TYLENOL PO PRN (05:26)
[2019-11-20 06:49] LABS: BASO# 0.05 X1000 (0.0-0.2); BASO% 1.3 % (0.0-0.8); EOS# 0.08 X1000 (0.0-0.7); EOS% 2.1 % (0.0-10.0); HEMATOCRIT 29.6 % (37.0-47.0); HEMOGLOBIN 9.7 g/dL (12.0-16.0); LYMPH# 0.97 X1000 (1.2-3.4); LYMPH% 25.4 % (20.5-51.1); MCH 30.6 PG (27-31); MCHC 32.8 g/dL (33-37); MCV 93.4 FL (81-99); MONO# 0.56 X1000 (0.11-0.59); MONO% 14.7 % (1.7-9.3); MPV 10.3 FL (7.4-10.4); NEUT# 2.16 X1000 (1.4-6.5); NEUT% 56.5 % (42.2-75.2); PLT 217 X1000 (130-400); RBC 3.17 XMIL (4.2-5.4); RDW 17.7 % (11.5-14.5); WBC 3.82 X1000 (4.8-10.8)
[2019-11-20 07:22] LABS: AGAP 13; ALBUMIN 3.1 g/dL (3.5-5.0); ALKALINE PHOSPHATASE 57 U/L (32-104); BUN 12 mg/dL (8-22); CHLORIDE 106 mmol/L (98-107); CHOLESTEROL 122 mg/dL (0-200); COSMO 279; CREATININE 0.8 mg/dL (0.5-0.9); ESTIMATED GFR > 60; GLUCOSE 104 mg/dL (70-104); GOT 12 U/L (10-30); GPT 9 U/L (10-36); HDL 48 mg/dL (45-65); LDL 51 mg/dL; SODIUM 140 mmol/L (136-145); TCO2 21 mmol/L (25-35); TOTAL BILIRUBIN 0.26 mg/dL (0.20-1.00); TOTAL PROTEIN 6.1 g/dL (6.3-8.3); TRIGLYCERIDES 114 mg/dL (35-135); VLDL 23 mg/dL
[2019-11-20 08:10] LABS: CALCIUM 5.4 mg/dL (8.8-10.2); PHOSPHORUS 0.9 mg/dL (2.7-4.5)
[2019-11-20] MEDS ORDERED: CALCIUM GLUCONATE IV PUSH ONE (08:15)
[2019-11-20] MEDS ORDERED: CALCIUM GLUCONATE 2 GM in NS 100 ML IV ONE (08:25)
[2019-11-20] MEDS ORDERED: POTASSIUM PHOSPHATE 40 MEQ in NS 250 ML IV ONE (08:26)
[2019-11-20] MEDS: MAXIPIME 1 GM in NS 50 ML IV SCH ×2 (08:43→23:05)
[2019-11-20] MEDS: GLUCOPHAGE PO SCH ×2 (08:51→17:11)
[2019-11-20] MEDS: DIOVAN PO SCH (08:51)
[2019-11-20] MEDS: VALTREX PO SCH (08:51)
[2019-11-20] MEDS: FOLIC ACID PO SCH (08:52)
--- NOTE | 2019-11-20 12:47 | PROGRESS NOTE ---
DATE: 11/20/2019 SUBJECTIVE: Upon arrival this morning, patient was sitting upright in bed eating breakfast. Overall, patient states she continues to feel much better. Yesterday, she was diagnosed with Clostridium difficile colitis. Contact precautions were initiated. Vancomycin therapy was started. Patient has not had a loose stools since yesterday. She continues to tolerate all vitamin replacements. She denies fevers, chills, nausea, vomiting, shortness of breath, or chest discomfort. Her p.o. intake is adequate. OBJECTIVE: Vital Signs: T-max 98.9 degrees, heart rate 81 to 90, respirations 14 to 22, blood pressure 114 to 133/49 to 84. General: Well nourished, well developed, in no acute distress. Cardiovascular: Regular rate and rhythm. No significant murmurs, rubs, or gallops. Pulmonary: Clear to auscultation bilaterally. Abdomen: Soft, nontender, nondistended. Positive bowel sounds. Extremities: Moves all extremities well. No significant clubbing, cyanosis, or edema. Dermatologic: Evaluation reveals no evidence of rash. LABORATORY DATA: White blood cell count 3.82, hemoglobin 9.7, hematocrit 29.6, platelet counts 217,000. Sodium 140, potassium 4.0, chloride 106, bicarb 21, BUN 12, creatinine 0.8, glucose 104, calcium 5.4, phosphorus 0.9, total bilirubin 0.26, total protein 6.1, albumin 3.1, alkaline phosphatase 57, AST 12, ALT 9. ASSESSMENT AND PLAN: 1. Acute pyelonephritis-urine culture grew Escherichia coli. The patient has completed 7 days of cefepime therapy. We will repeat a urinalysis today. If negative, we will plan to discontinue cefepime therapy. 2. Clostridium difficile colitis-this is a new diagnosis. We will continue vancomycin therapy. Her bowel movements are decreasing in frequency. As above, we will discontinue cefepime as this likely is contributing. We will follow this. 3. IgG lambda multiple myeloma-patient's chemotherapy and Xgeva have been postponed. This likely contributed to her electrolyte abnormalities. 4. Hypocalcemia-calcium level remains low, however, at 5.4, this is the highest it has been while hospitalized. We will replace with calcium gluconate again. We will repeat levels in the a.m. I suspect this is a consequence of chemotherapy/Xgeva, as well as the diagnosis of Clostridium difficile colitis. 5. Hypomagnesemia-once again, we will replete with IV magnesium replacement. We will recheck magnesium level in the morning. 6. Hypophosphatemia-the patient is being treated with potassium phosphate on a daily basis. Phosphorus returned at 0.9. We will again replace today. We will repeat levels in the a.m. We will encourage p.o. intake. 7. Hypokalemia-patient's potassium level returned acceptable at 4.0. We will remain aware, especially in the setting of K-Phos replacement. 8. Type 2 diabetes-we will continue patient's home medications. Blood sugars are controlled. 9. History of deep venous thrombosis-we will continue Xarelto therapy. 10. Coronary artery disease-patient is treated with optimized medical and nonmedical management. She is asymptomatic. 11. Hypertension-patient's blood pressure is controlled on her current regimen. This will be continued. 12. Profound weakness-with treatment of her above-mentioned conditions, she has achieved improvement. We will encourage activity. 13. Disposition. At this point, patient continues to require [facility] care in a hospital setting. We will plan discharge home once appropriate. cc: South Gaines MD
[2019-11-20] MEDS: MAGNESIUM SULFATE 2 GM/S.W.I. 2 GM/50 ML IVPB IV ONE ×2 (13:50→13:52)
[2019-11-20] MEDS: XARELTO PO SCH (17:11)
[2019-11-20] MEDS: LEXAPRO PO SCH (23:05)
[2019-11-20] MEDS: ZOCOR PO SCH (23:05)
[2019-11-20] MEDS: NORVASC PO SCH (23:06)
[2019-11-20] MEDS: MELATONIN PO SCH (23:06)
[2019-11-21] MEDS: PRILOSEC PO SCH ×2 (05:47→07:34)
[2019-11-21] MEDS: VANCOCIN PO SCH ×4 (05:47→20:46)
[2019-11-21] MEDS: MAG-OX PO SCH ×4 (05:47→20:47)
[2019-11-21] MEDS: ZOFRAN ODT PO PRN (06:55)
--- NOTE | 2019-11-21 07:57 | PROGRESS NOTE ---
DATE: 11/21/2019 SUBJECTIVE: Ms. Weber said she had a little bit of nausea this morning but otherwise she felt better. She had a fairly uneventful night. She remains afebrile. OBJECTIVE: Vital Signs: Temperature 98.6 degrees, pulse 90, respirations 16, blood pressure 136/59. HEENT: Pupils are equal and round. Lungs: Clear in all lung schulte. Cardiovascular: Regular rhythm and rate without murmur or S3. Urine output was 1000 mL. LABORATORY DATA: Last 4 blood sugars were 154, 187, 118, and 122. ASSESSMENT/PLAN: 1. Acute pyelonephritis. Urine culture grew Escherichia coli. She has completed now 8 days of cefepime. Urinalysis was repeated and if this is negative, Dr. Gaines plans on stopping her antibiotics. 2. Clostridium difficile colitis is a new diagnosis. Continue vancomycin. Apparently, her bowel movements are decreasing in frequency and will discontinue the cefepime based on the urine. Looking at the urine, it was negative. There were less than 10 white blood cells, so I am going to stop the cefepime. 3. IgG lambda multiple myeloma. The patient's chemotherapy was Xgeva, and this has been postponed, likely contributes to electrolyte abnormalities. 4. Hypocalcemia. Calcium level still low. I have been giving her some calcium. I gave her some calcium gluconate. 5. Magnesium. Continue to replete for hypomagnesemia. 6. Hypophosphatemia. Will continue to supplement as needed, and likewise hypokalemia. Will supplement. 7. Diabetes mellitus type 2. Blood sugars appear well controlled. 8. History of deep venous thrombosis. Continue Xarelto therapy. 9. Coronary artery disease. Patient does not appear to have any active cardiac ischemia. 10. Hypertension. Blood pressure is under good control. 11. Profound weakness. Continue physical therapy and looking to see if she may require nursing home or rehab facility. REVIEW OF LABS: Urinalysis already mentioned, negative for bacteria and less than 10 white blood cells. CBC from yesterday was white count 3820, hematocrit 29, platelet count 217,000. Electrolytes: Sodium was 140, potassium 4.0 chloride 106, BUN 12, creatinine 0.8, and her phosphorus was 0.9 yesterday, so I think those are still pending. We will see what her numbers show. She was complaining of some tenderness and some redness in the first metatarsal of her left foot, and I suspect that is probably gouty arthritis, so looking back I am trying to see if we checked a uric acid level. We will check a uric acid level and she may need to be on some allopurinol. I will start her on 300 mg allopurinol daily. cc: MD South Mcnally MD
[2019-11-21 08:09] LABS: AGAP 14; ALB/GLOB RATIO 1.3; ALKALINE PHOSPHATASE 51 U/L (32-104); BUN 11 mg/dL (8-22); CHLORIDE 104 mmol/L (98-107); COSMO 275; CREATININE 0.8 mg/dL (0.5-0.9); ESTIMATED GFR > 60; GLUCOSE 94 mg/dL (70-104); GOT 10 U/L (10-30); GPT 8 U/L (10-36); MAGNESIUM 1.5 mg/dL (1.5-2.7); POTASSIUM 3.9 mmol/L (3.5-5.1); SODIUM 138 mmol/L (136-145); TCO2 20 mmol/L (25-35); TOTAL BILIRUBIN 0.22 mg/dL (0.20-1.00); TOTAL PROTEIN 5.4 g/dL (6.3-8.3)
[2019-11-21 08:36] LABS: CALCIUM 5.2 mg/dL (8.8-10.2); PHOSPHORUS 0.7 mg/dL (2.7-4.5)
[2019-11-21 08:45] LABS: URINE SOURCE CLEAN CATCH
[2019-11-21 09:19] LABS: BILIRUBIN URINE NEGATIVE (NEGATIVE); BLOOD URINE NEGATIVE (NEGATIVE); COLOR YELLOW; GLUCOSE URINE NEGATIVE (NEGATIVE); KETONE URINE NEGATIVE (NEGATIVE); LEUKOCYTES URINE NEGATIVE (NEGATIVE); NITRITE URINE NEGATIVE (NEGATIVE); PH URINE 6.5; PROTEIN URINE TRACE mg/dL (NEGATIVE); SP GRAVITY URINE 1.014; TURBIDITY URINE CLEAR (CLEAR); UROBILINOGEN URINE NORMAL (NORMAL)
[2019-11-21 09:21] LABS: UR EPITHELIAL CELLS <10 /HPF (<10); URINE BACTERIA NEGATIVE /HPF; URINE RBC <10 /HPF (<10); URINE WBC <10 /HPF (<10)
[2019-11-21] MEDS: VALTREX PO SCH (09:41)
[2019-11-21] MEDS: FOLIC ACID PO SCH (09:41)
[2019-11-21] MEDS: DIOVAN PO SCH (09:41)
[2019-11-21] MEDS: GLUCOPHAGE PO SCH ×2 (09:41→16:47)
[2019-11-21] MEDS: ZYLOPRIM PO SCH (09:46)
[2019-11-21] MEDS ORDERED: CALCIUM GLUCONATE IV PUSH ONE (10:19)
[2019-11-21] MEDS ORDERED: POTASSIUM PHOSPHATE 40 MEQ in NS 250 ML IV ONE (15:33)
[2019-11-21] MEDS: XARELTO PO SCH (16:47)
[2019-11-21] MEDS: LEXAPRO PO SCH (20:46)
[2019-11-21] MEDS: ZOCOR PO SCH (20:46)
[2019-11-21] MEDS: NORVASC PO SCH (20:46)
[2019-11-21] MEDS: MELATONIN PO SCH (20:47)
[2019-11-21] MEDS: TYLENOL PO PRN (20:53)
[2019-11-22] MEDS: VANCOCIN PO SCH ×4 (02:10→21:29)
[2019-11-22] MEDS: PRILOSEC PO SCH ×2 (05:58→06:06)
[2019-11-22] MEDS: MAG-OX PO SCH ×4 (05:58→21:29)
[2019-11-22 07:46] LABS: CALCIUM 5.3 mg/dL (8.8-10.2)
[2019-11-22 07:47] LABS: CREATININE 0.9 mg/dL (0.5-0.9); MAGNESIUM 1.3 mg/dL (1.5-2.7); PHOSPHORUS 1.2 mg/dL (2.7-4.5); POTASSIUM 4.6 mmol/L (3.5-5.1)
[2019-11-22] MEDS: DIOVAN PO SCH (08:09)
[2019-11-22] MEDS: VALTREX PO SCH (08:09)
[2019-11-22] MEDS: FOLIC ACID PO SCH (08:09)
[2019-11-22] MEDS: GLUCOPHAGE PO SCH ×2 (08:09→17:22)
[2019-11-22] MEDS: ZYLOPRIM PO SCH (08:09)
[2019-11-22] MEDS ORDERED: CALCIUM GLUCONATE 2 GM in NS 100 ML IV ONE (10:24)
[2019-11-22] MEDS ORDERED: MAGNESIUM SULFATE 2 GM/S.W.I. 2 GM/50 ML IVPB IV ONE (10:25)
[2019-11-22] MEDS ORDERED: POTASSIUM PHOSPHATE 30 MEQ in NS 250 ML IV ONE ×2 (10:25→11:30)
[2019-11-22] MEDS: DUONEB (A & A) INH SCH ×4 (11:17→23:36)
[2019-11-22] MEDS: TYLENOL PO PRN (11:39)
--- NOTE | 2019-11-22 11:42 | NEPHROLOGY PROGRESS NOTE ---
DATE: 11/22/2019 SUBJECTIVE: Patient is sitting up in a chair. No complaints today. OBJECTIVE: Vital Signs: Temperature 98.9 degrees, pulse 95, respiratory rate 20, blood pressure 145/73. Intake 480 mL and output 800 mL. General: Chronically ill-appearing elderly female resting in a chair. She is awake and alert. She is in no acute distress. HEENT: Normocephalic, atraumatic. Conjunctivae are pale. Oral mucosa moist. Neck: Supple. There is no JVD. Cardiovascular: Regular rate and rhythm without murmur or gallop. Pulmonary: She has equal excursion. She is clear bilaterally. Abdomen: Soft with positive bowel sounds. Genitourinary: Voiding. Extremities: She has 1 to 2+ lower extremity edema. She has some point tenderness to the great toe joints. Skin: Pale, warm and dry. Neurologic: She has some asterixis noted with flexion of the hands. LABORATORY DATA: Her labs yesterday: Sodium 138, potassium 3.9, CO2 20, creatinine 0.8. Her calcium today is 5.3. Her magnesium today is 1.3. Her phosphorus today is 1.2 and albumin is 3. ASSESSMENT AND PLAN: Hypomagnesemia, hypocalcemia, hypophosphatemia. The patient had been on Xgeva. It has a half-life of 28 days. The patient normally takes this for 21 days and off 7 days. She has been off this medication for 10 days now. This particular medication does have significant side effects of hypocalcemia, hypophosphatemia and hypomagnesemia. Because of the extended half-life of it, I will continue repletion at this point. This has been stopped. We will sign off. rg Dictated by EZEKIEL Valdovinos for Jenaro Chavarria MD Face to face encounter, data reviewed, discussed with Kiley Dasilva on 11/22/19. I agree with the above assessment and plan of care. valentin cc: MD South Mccain MD [facility]ITAL[facility]
--- NOTE | 2019-11-22 13:44 | HEMO/ONC PROGRESS NOTE ---
DATE: 11/22/2019 SUBJECTIVE: Ms. Weber tells me she does not feel very good today. She states that she did have a pretty good weekend. Her diarrhea did come back, which has been diagnosed with colitis. She states she continues to feel very weak and has had difficulty getting up and down. She denies any pain. She had no acute events over the weekend. OBJECTIVE: Vital Signs: Temperature 99.6 degrees, pulse rate 98, respiratory rate 18, blood pressure 126/70, and O2 saturation 96% on room air. She is in 0/10 pain. General: The patient is in no acute distress. She is sitting upright in her recliner. She has been pleasant. Cardiovascular: Normal S1 and S2. Heart rate and rhythm is regular. Respiratory: Lung sounds are clear to auscultation. Normal respiratory effort. Abdomen: Soft, nontender, nondistended. Bowel sounds are present. Extremities: No lower extremity edema noted. Neurological: Alert and oriented x3. LABORATORY DATA: No CBC done today. Calcium 5.3, phosphorus 1.2, magnesium 1.3. Chemistry panel otherwise unremarkable. ASSESSMENT AND PLAN: 1. Hypocalcemia, hypomagnesemia, and hypophosphatemia. The patient has had daily repletion of these electrolytes, yet her levels do not improve. It is possible that this is an extreme side effect of Xgeva. The patient has been receiving Xgeva every 28 days for bone metastasis. Her last dose was on 11/03/2019. At this time, we have discontinued any further doses. She is being followed by her primary care doctor and nephrology for further investigations. 2. IgG lambda multiple myeloma. The patient is being treated in the clinic with Darzalex and Revlimid. She takes these medications 3 weeks on and 1 week off. These are being held while she is in the hospital. Her last dose of Darzalex was 11/04/2019. Her last dose of Revlimid was 11/12/2019. We are continuing to follow the patient peripherally. 3. Clostridium difficile. The patient has been having a significant amount of diarrhea, which specimen showed Clostridium difficile. Her frequency has been decreasing. Her antibiotics have been stopped. She was started on vancomycin. 4. Normocytic anemia. This is chemotherapy-induced. The patient has had intravenous iron recently. We will continue to monitor. It is stable. 5. Weakness. The patient has complained of weakness, which may in part be due to diarrhea. It is multifactorial. Please continue to have her work with physical therapy and get up out of bed often and do exercises. 6. Deep venous thrombosis prophylaxis. The patient has a history of deep vein thrombosis. She needs to remain on her Xarelto therapy. Dictated by EZEKIEL Wolff for Soy Borjas MD cc: MD South Serna MD
[2019-11-22] MEDS: XARELTO PO SCH (17:21)
--- NOTE | 2019-11-22 21:04 | PROGRESS NOTE ---
DATE: 11/22/2019 SUBJECTIVE: Upon my arrival this morning, patient was sitting upright in the chair eating breakfast. Overall, she states she felt worse than yesterday. She complained of cough and congestion as well some intermittent wheezing. The patient was started on bronchodilators. Throughout the day, patient did reasonably well. This evening, patient was again sitting upright in bed. She noted decreasing diarrhea. She denies fevers, chills, nausea, vomiting, or chest discomfort. OBJECTIVE: T-max 100.3, heart rate 94 to 107, respirations 16 to 20, blood pressure 118 to 145 over 56 to 73.General: Chronically ill-appearing, no acute distress. Cardiovascular: Regular rate and rhythm. No significant murmurs, rubs, or gallops. Pulmonary: Wheezing bilaterally. Adequate air movement. Abdomen: Soft, nontender, nondistended. Positive bowel sounds. Extremities: Moves all extremities well. No significant clubbing, cyanosis or edema. Dermatologic: Evaluation reveals no evidence of rash. LABORATORY DATA: Sodium 143, potassium 4.6, chloride 107, bicarb 21, BUN 8, creatinine 0.9, glucose 89, calcium 5.3, magnesium 1.3, phosphorus 1.2. ASSESSMENT AND PLAN: 1. Acute pyelonephritis-patient has completed 9 days of cefepime therapy. We will continue this for now. 2. Clostridium difficile colitis-patient is currently being treated with oral vancomycin. The diarrhea is slowly decreasing. 3. IgG lambda multiple myeloma-patient's chemotherapy and Xgeva has been postponed. This is likely contributing to her electrolyte abnormalities. 4. Hypocalcemia-patient was repleted again today. We will recheck in the morning. 5. Hypomagnesemia-once again, patient was treated with intravenous replacement. We will continue oral replacement as well. We will check levels in the morning. 6. Hypophosphatemia-patient was repleted again today. Once again, we will recheck in the morning. 7. Type 2 diabetes-we will continue patient's home medications. Blood sugars are controlled. 8. History of deep venous thrombosis-we will continue Xarelto therapy. 9. Coronary artery disease-patient is asymptomatic. We will continue optimized medical management. 10. Hypertension-blood pressure is controlled on her current regimen. 11. Profound weakness-the patient is slowly improving. We will continue treatment as above. 12. Upper respiratory tract infection with associated bronchospasm-we will check a chest x-ray. Albuterol has been initiated. She is treated with cefepime as above. 13. Disposition-at this point, patient continues to require [facility] care in a hospital setting. We will plan discharge home once appropriate. cc: South Gaines MD
[2019-11-22] MEDS: LEXAPRO PO SCH (21:29)
[2019-11-22] MEDS: ZOCOR PO SCH (21:29)
[2019-11-22] MEDS: NORVASC PO SCH (21:29)
[2019-11-22] MEDS: MELATONIN PO SCH (21:29)
[2019-11-23] MEDS: VANCOCIN PO SCH ×4 (02:59→22:16)
[2019-11-23] MEDS: DUONEB (A & A) INH SCH ×4 (03:10→22:05)
[2019-11-23] MEDS: MAG-OX PO SCH ×4 (06:13→22:16)
[2019-11-23] MEDS: PRILOSEC PO SCH (06:13)
--- NOTE | 2019-11-23 06:46 | Diag Imaging Result Doc PS360 ---
EXAM: CHEST-PORTABLE HISTORY: dyspnea TECHNIQUE: Single view COMPARISON: 11/13/2019 FINDINGS: Poor inspiratory effort. The heart is mildly enlarged. No change in the right-sided portacatheter. No pneumothorax. The vessels are not distended. There are no infiltrates. No effusion identified. IMPRESSION: Mild cardiomegaly Electronically signed by Arron Su 11/23/2019 6:44 AM
[2019-11-23 08:08] LABS: CREATININE 0.9 mg/dL (0.5-0.9); MAGNESIUM 1.3 mg/dL (1.5-2.7); PHOSPHORUS 1.2 mg/dL (2.7-4.5); POTASSIUM 3.8 mmol/L (3.5-5.1)
[2019-11-23 08:13] LABS: CALCIUM 5.3 mg/dL (8.8-10.2)
[2019-11-23] MEDS ORDERED: MAGNESIUM SULFATE 2 GM/S.W.I. 2 GM/50 ML IVPB IV ONE (08:43)
[2019-11-23] MEDS: DIOVAN PO SCH (08:49)
[2019-11-23] MEDS: GLUCOPHAGE PO SCH ×2 (08:49→16:11)
[2019-11-23] MEDS: ZYLOPRIM PO SCH (08:49)
[2019-11-23] MEDS: FOLIC ACID PO SCH (08:49)
[2019-11-23] MEDS: VALTREX PO SCH (08:49)
[2019-11-23] MEDS ORDERED: CALCIUM GLUCONATE 2 GM in NS 100 ML IV ONE (09:00)
[2019-11-23] MEDS ORDERED: POTASSIUM PHOSPHATE 40 MEQ in NS 250 ML IV ONE (10:00)
[2019-11-23] MEDS: XARELTO PO SCH (16:11)
--- NOTE | 2019-11-23 21:07 | PROGRESS NOTE ---
DATE: 11/23/2019 SUBJECTIVE: Overall, the patient continues to slowly improve. Upon my arrival this morning, the patient was sitting upright in her chair. She complained of cough and wheezing, but noted decreasing frequency of her bowel movements. Throughout the day, the patient did reasonably well. PO intake is adequate. Energy level is low, but slowly improving. This evening the patient is again sitting upright in her chair. With the exception of cough and wheezing, she states she is doing well. She denies nausea, vomiting, chest discomfort or palpitations. OBJECTIVE: T-max 99.5 degrees, heart rate 94 to 111, respirations 17 to 20. Blood pressure 109 to 170 over 59 to 86.General: Well nourished, well developed, no acute distress. Cardiovascular: Regular rate and rhythm. No significant murmurs, rubs or gallops. Pulmonary: Intermittent wheezing bilaterally. Adequate air movement. Abdomen is soft, nontender, nondistended. Positive bowel sounds. Extremities: Moves all extremities well. No significant clubbing, cyanosis or edema. Dermatologic evaluation reveals no evidence of rash. LABORATORY DATA: Sodium 137, potassium 3.8, chloride 103, bicarbonate 22, BUN 10, creatinine 0.9, glucose 92, calcium 5.3, magnesium 1.3, phosphorus 1.2. ASSESSMENT AND PLAN: 1. Acute pyelonephritis: The patient has completed 10 days of cefepime therapy. We will discontinue antibiotic intervention. 2. Clostridium difficile colitis: The patient is being treated with oral vancomycin. Diarrhea is slowly improving. 3. IgG lambda multiple myeloma: The patient's chemotherapy and Xgeva have been postponed. This likely is contributing to her electrolyte abnormalities. 4. Hypocalcemia: The patient was again replenished today. We will continue to follow. 5. Hypomagnesemia: We will continue daily intravenous replacement and oral replacement. 6. Hypophosphatemia: We will again replenish with potassium phosphate. 7. Type 2 diabetes: We will continue the patient's home medications. Blood sugars are controlled. 8. History of deep venous thrombosis: We will continue Xarelto therapy. 9. Coronary artery disease: The patient remains asymptomatic with optimized medical management. 10. Hypertension: Blood pressure is reasonably controlled on her current regimen. 11. Profound weakness: Symptoms are slowly improving. We will continue to encourage activity. 12. Upper respiratory tract infection: Differential diagnosis includes a viral, bacterial and allergic etiology. Chest x-ray reveals no evidence of pneumonia. We will continue albuterol. We will hold further antibiotics for now. We will check a white count in the morning. 13. Disposition: At this point the patient continues to require halfway care in a hospital setting. We will plan discharge home once appropriate. cc: South Gaines MD
[2019-11-23] MEDS: NORVASC PO SCH (22:16)
[2019-11-23] MEDS: LEXAPRO PO SCH (22:16)
[2019-11-23] MEDS: ZOCOR PO SCH (22:17)
[2019-11-23] MEDS: MELATONIN PO SCH (22:17)
[2019-11-24] MEDS: VANCOCIN PO SCH ×4 (03:08→20:28)
[2019-11-24] MEDS: DUONEB (A & A) INH SCH ×4 (03:34→22:20)
[2019-11-24 07:03] LABS: BASO# 0.01 X1000 (0.0-0.2); BASO% 0.5 % (0.0-0.8); EOS# 0.02 X1000 (0.0-0.7); HEMATOCRIT 27.2 % (37.0-47.0); HEMOGLOBIN 8.6 g/dL (12.0-16.0); LYMPH# 0.29 X1000 (1.2-3.4); MCHC 31.6 g/dL (33-37); MCV 94.8 FL (81-99); MONO# 0.23 X1000 (0.11-0.59); MONO% 11.1 % (1.7-9.3); MPV 10.1 FL (7.4-10.4); NEUT# 1.52 X1000 (1.4-6.5); NEUT% 73.4 % (42.2-75.2); PLT 205 X1000 (130-400); RBC 2.87 XMIL (4.2-5.4); RDW 17.5 % (11.5-14.5); WBC 2.07 X1000 (4.8-10.8)
[2019-11-24] MEDS: MAG-OX PO SCH ×3 (07:21→20:28)
[2019-11-24] MEDS: PRILOSEC PO SCH (07:21)
[2019-11-24 07:33] LABS: ALB/GLOB RATIO 1.3; CREATININE 0.9 mg/dL (0.5-0.9); MAGNESIUM 1.7 mg/dL (1.5-2.7); PHOSPHORUS 1.4 mg/dL (2.7-4.5); POTASSIUM 3.8 mmol/L (3.5-5.1); TOTAL BILIRUBIN 0.18 mg/dL (0.20-1.00); TOTAL PROTEIN 5.4 g/dL (6.3-8.3)
[2019-11-24 07:37] LABS: CALCIUM 5.2 mg/dL (8.8-10.2)
[2019-11-24] MEDS ORDERED: MAGNESIUM SULFATE 2 GM/S.W.I. 2 GM/50 ML IVPB IV ONE (08:15)
[2019-11-24] MEDS ORDERED: CALCIUM GLUCONATE 2 GM in NS 100 ML IV ONE (08:16)
[2019-11-24] MEDS ORDERED: POTASSIUM PHOSPHATE 40 MEQ in NS 250 ML IV ONE (08:16)
[2019-11-24] MEDS: GLUCOPHAGE PO SCH ×2 (08:55→17:55)
[2019-11-24] MEDS: DIOVAN PO SCH (08:55)
[2019-11-24] MEDS: FOLIC ACID PO SCH (08:56)
[2019-11-24] MEDS: VALTREX PO SCH (08:56)
[2019-11-24] MEDS: ZYLOPRIM PO SCH (08:56)
--- NOTE | 2019-11-24 17:24 | PROGRESS NOTE ---
DATE: 11/24/2019 SUBJECTIVE: Upon my arrival this morning, patient was sitting upright in bed. The patient states she had 1 episode of loose stools overnight. Otherwise, she continues to have cough and wheezing. She denies fevers, chills, nausea, vomiting, or chest discomfort. OBJECTIVE: Is. T-max 99.9 degrees, heart rate 92 to 109, respirations is 16 to 20, blood pressure 110-139/48 to 61.General: Well nourished, well developed, no acute distress. Cardiovascular: Regular rate and rhythm. No significant murmurs, rubs, or gallops. Pulmonary: Wheezing bilaterally. Adequate air movement. Abdomen: Soft, nontender, nondistended. Positive bowel sounds. Extremities: Moves all extremities well. No significant clubbing, cyanosis, or edema. Dermatologic: Evaluation reveals no evidence of rash. LABORATORY DATA: White blood cell count. 2.07 hemoglobin 8.6, hematocrit 27.2, platelet count 205,000. Sodium 139, potassium 3.8 chloride 104 bicarbonate 21, BUN 13, creatinine 0.9 glucose 103, calcium 5.2, magnesium 1.7, phosphorus 1.4. Total bilirubin 0.18, total protein 5.4, albumin 3.0, alkaline phosphatase 52, AST 14, ALT 8. ASSESSMENT AND PLAN: 1. Acute pyelonephritis-patient completed 10 days of cefepime therapy. This has been discontinued. She is asymptomatic. 2. Clostridium difficile colitis-patient continues to have intermittent loose stools. We will continue oral vancomycin therapy. 3. IgG lambda multiple myeloma-chemotherapy and Xgeva have been postponed. We will remain aware that these likely are contributing to electrolyte abnormalities. 4. Hypocalcemia-we will get replete with calcium gluconate, 5. Hypomagnesemia-we will continue replacement with oral and IV supplementation. 6. Hypophosphatemia-we will again treat patient with potassium phosphate. Phosphate is slowly trending upwards. 7. Type 2 diabetes-the patient's blood sugars are controlled on her current regimen. 8. History of deep venous thrombosis-we will continue Xarelto therapy. 9. Coronary artery disease-the patient is treated with optimized medical and nonmedical management. She is asymptomatic. 10. Hypertension-blood pressure is controlled on her current regimen. 11. Profound weakness-overall, patient is slowly improving. We will follow this. We will continue to encourage exercise. 12. Upper respiratory tract infection-differential diagnosis includes that of a viral, bacterial, and allergic etiology. As patient has been treated with cefepime until recently, likely this represents a viral etiology. We will continue supportive care. We will treat bronchospasms with DuoNeb. 13. Disposition. At this point, patient continues to require [facility] care in a hospital setting. We will plan discharge home once appropriate. cc: South Gaines MD
[2019-11-24] MEDS: XARELTO PO SCH (17:55)
[2019-11-24] MEDS: NORVASC PO SCH (20:28)
[2019-11-24] MEDS: ZOCOR PO SCH (20:28)
[2019-11-24] MEDS: LEXAPRO PO SCH (20:28)
[2019-11-24] MEDS: TYLENOL PO PRN (20:28)
[2019-11-24] MEDS: MELATONIN PO SCH (20:28)
[2019-11-25] MEDS ORDERED: HALL'S COUGH LOZENGE MT PRN (00:46)
[2019-11-25] MEDS: DUONEB (A & A) INH SCH ×4 (03:35→21:51)
[2019-11-25] MEDS: PRILOSEC PO SCH ×2 (05:28→06:26)
[2019-11-25] MEDS: MAG-OX PO SCH ×4 (05:29→22:42)
[2019-11-25] MEDS: VANCOCIN PO SCH ×4 (05:32→22:42)
[2019-11-25 07:28] LABS: AGAP 11; BUN 12 mg/dL (8-22); CHLORIDE 107 mmol/L (98-107); COSMO 277; CREATININE 0.8 mg/dL (0.5-0.9); ESTIMATED GFR > 60; GLUCOSE 99 mg/dL (70-104); MAGNESIUM 1.9 mg/dL (1.5-2.7); PHOSPHORUS 1.5 mg/dL (2.7-4.5); SODIUM 139 mmol/L (136-145); TCO2 21 mmol/L (25-35)
[2019-11-25 07:49] LABS: CALCIUM 5.7 mg/dL (8.8-10.2)
[2019-11-25] MEDS ORDERED: MAGNESIUM SULFATE 2 GM/S.W.I. 2 GM/50 ML IVPB IV ONE (08:01)
[2019-11-25] MEDS ORDERED: POTASSIUM PHOSPHATE 40 MEQ in NS 250 ML IV ONE (08:05)
[2019-11-25] MEDS ORDERED: CALCIUM GLUCONATE 2 GM in NS 100 ML IV ONE (08:09)
[2019-11-25] MEDS: GLUCOPHAGE PO SCH ×2 (08:26→16:00)
[2019-11-25] MEDS: DIOVAN PO SCH (08:27)
[2019-11-25] MEDS: VALTREX PO SCH (08:28)
[2019-11-25] MEDS: FOLIC ACID PO SCH (08:28)
[2019-11-25] MEDS: CALTRATE 600 + D PO SCH ×2 (08:31→22:41)
[2019-11-25] MEDS: XARELTO PO SCH (16:00)
[2019-11-25] MEDS: TYLENOL PO PRN (17:10)
[2019-11-25] MEDS ORDERED: PHENERGAN IV PRN (18:05)
[2019-11-25] MEDS ORDERED: SODIUM CHLORIDE 0.9% INJ PRN (18:05)
[2019-11-25] MEDS ORDERED: ROCEPHIN 1 GM in NS 50 ML IV SCH (18:15)
--- NOTE | 2019-11-25 21:36 | PROGRESS NOTE ---
DATE: 11/25/2019 SUBJECTIVE: Upon my arrival this morning, patient states that she has developed increasing fatigue. Throughout the day, p.o. intake decreased. The patient's temperature increased to 100.2. She continues to have significant cough, congestion, and wheezing. Her bowel movements have decreased in frequency, but she continues to have some loose stools. She has had some intermittent nausea, but no vomiting. She denies chest discomfort or palpitations. OBJECTIVE: T-max 100.2 degrees, heart rate 88 to 99, respirations 16 to 20, blood pressure 126 to 146/60 to 71.General: No acute distress. Cardiovascular: Regular rate and rhythm. No significant murmurs, rubs, or gallops. Pulmonary: Diffuse wheezing bilaterally. Adequate air movement. Abdomen: Soft, nontender, nondistended. Positive bowel sounds. Extremities: Moves all extremities well. No significant clubbing, cyanosis, or edema. Dermatologic: Evaluation reveals no evidence of rash. LABORATORY DATA: Sodium 139, potassium 4.0, chloride 107, bicarb 21, BUN 12, creatinine 0.8, glucose 99, calcium 5.7, magnesium 1.9, phosphorus 1.5. Influenza screen returned positive for influenza B. ASSESSMENT AND PLAN: 1. Acute pyelonephritis - The patient has completed 10 days of cefepime therapy. She is asymptomatic. 2. Clostridium difficile colitis - The patient's loose stools are slowly improving with oral vancomycin. We will continue this. 3. Influenza B - This is a new diagnosis. We will initiate Tamiflu therapy. We will continue treatment of bronchospasms as below. 4. Acute bronchospasms - We will continue DuoNeb. Unfortunately, she continues to have significant symptoms. We will add IV steroids. 5. Hypocalcemia - We will again replete with calcium gluconate, 6. Hypomagnesemia - We will again replete with magnesium sulfate. 7. Hypophosphatemia - We will replete again with potassium phosphate. 8. Type 2 diabetes - We will remain aware in the setting of steroid intervention. Blood sugars are currently controlled. 9. History of deep venous thrombosis - We will continue Xarelto therapy. 10. Coronary artery disease - We will continue to optimize the patient's medical management. She is asymptomatic. 11. Hypertension - Blood pressure is controlled on her current regimen. 12. Profound weakness - We will continue to encourage activity. 13. Disposition. At this point, the patient continues to require [facility] care in a hospital setting. We will plan discharge home once appropriate. cc: South Gaines MD
[2019-11-25] MEDS: LEXAPRO PO SCH (22:41)
[2019-11-25] MEDS: ZOCOR PO SCH (22:41)
[2019-11-25] MEDS: MELATONIN PO SCH (22:41)
[2019-11-25] MEDS: NORVASC PO SCH (22:41)
[2019-11-25] MEDS: SOLU-MEDROL IV SCH (22:42)
[2019-11-25] MEDS: TAMIFLU PO SCH (22:42)
[2019-11-26] MEDS: DUONEB (A & A) INH SCH ×3 (03:21→16:14)
[2019-11-26] MEDS: VANCOCIN PO SCH ×4 (05:49→17:37)
[2019-11-26] MEDS: MAG-OX PO SCH ×3 (06:00→21:18)
[2019-11-26 07:14] LABS: EOS# 0.01 X1000 (0.0-0.7); EOS% 0.7 % (0.0-10.0); HEMATOCRIT 28.9 % (37.0-47.0); HEMOGLOBIN 9.1 g/dL (12.0-16.0); LYMPH% 13.2 % (20.5-51.1); MCH 30.7 PG (27-31); MCHC 31.5 g/dL (33-37); MCV 97.6 FL (81-99); MONO# 0.03 X1000 (0.11-0.59); MPV 11.3 FL (7.4-10.4); NEUT# 1.27 X1000 (1.4-6.5); NEUT% 84.1 % (42.2-75.2); PLT 129 X1000 (130-400); RBC 2.96 XMIL (4.2-5.4); RDW 17.4 % (11.5-14.5); WBC 1.51 X1000 (4.8-10.8)
[2019-11-26 07:26] LABS: AGAP 16; ALB/GLOB RATIO 1.9; ALBUMIN 3.3 g/dL (3.5-5.0); ALKALINE PHOSPHATASE 54 U/L (32-104); BUN 11 mg/dL (8-22); CHLORIDE 107 mmol/L (98-107); COSMO 286; CREATININE 0.8 mg/dL (0.5-0.9); ESTIMATED GFR > 60; GLUCOSE 186 mg/dL (70-104); GOT 16 U/L (10-30); GPT 10 U/L (10-36); MAGNESIUM 1.8 mg/dL (1.5-2.7); PHOSPHORUS 1.6 mg/dL (2.7-4.5); SODIUM 141 mmol/L (136-145); TCO2 18 mmol/L (25-35); TOTAL BILIRUBIN 0.17 mg/dL (0.20-1.00)
--- NOTE | 2019-11-26 07:39 | Diag Imaging Result Doc PS360 ---
EXAM: CHEST-PORTABLE INDICATION: dyspnea TECHNIQUE: One view COMPARISON: 11/23/2019 FINDINGS: The right chest port is in stable position. There are increased central vascular markings as compared to the previous study suggesting development of mild pulmonary venous congestion. No other new consolidation is identified. There is stable cardiomegaly. IMPRESSION: Suggestion of mild pulmonary venous congestion. Stable chest, otherwise. Electronically signed by Gareth eJan 11/26/2019 7:37 AM
[2019-11-26] MEDS: PRILOSEC PO SCH (07:53)
[2019-11-26 08:11] LABS: CALCIUM 5.8 mg/dL (8.8-10.2)
[2019-11-26] MEDS: SOLU-MEDROL IV SCH ×2 (08:53→21:18)
[2019-11-26] MEDS: TAMIFLU PO SCH ×2 (08:53→21:18)
[2019-11-26] MEDS: GLUCOPHAGE PO SCH ×2 (08:53→17:38)
[2019-11-26] MEDS: VALTREX PO SCH (08:54)
[2019-11-26] MEDS: FOLIC ACID PO SCH (08:54)
[2019-11-26] MEDS: DIOVAN PO SCH (08:54)
[2019-11-26] MEDS: CALTRATE 600 + D PO SCH ×2 (08:55→21:18)
[2019-11-26] MEDS ORDERED: MAGNESIUM SULFATE 2 GM/S.W.I. 2 GM/50 ML IVPB IV ONE (09:00)
[2019-11-26] MEDS ORDERED: CALCIUM GLUCONATE 2 GM in NS 100 ML IV ONE (10:00)
--- NOTE | 2019-11-26 13:04 | HEMO/ONC PROGRESS NOTE ---
DATE: 11/26/2019 SUBJECTIVE: Ms. Weber is feeling a little better today than she did yesterday. She states she continues to have coughing with wheezing. She continues to have some diarrhea, but it is improving. She states she feels weak and has difficulty ambulating. She has been diagnosed with flu. She had no acute events since I have seen her last. OBJECTIVE: Vital Signs: Temperature 98.1 degrees, pulse rate 96, respiratory rate 20, blood pressure 131/72, O2 saturation 96% on room air. She is in 0/10 pain. PHYSICAL EXAMINATION: General: The patient is in pleasant spirits in no acute distress, sitting upright in her recliner today. Cardiovascular: Normal S1, S2. Heart rate and rhythm is regular. Respiratory: The patient has bilateral wheezing to upper lungs. Normal respiratory effort. Abdomen: Soft, nontender, nondistended. Bowel sounds are present. Extremities: No lower extremity edema noted. Neurological: Alert and oriented x3. LABORATORY DATA: WBCs 1.51, hemoglobin 9.1, hematocrit 28.9, platelet count 129,000. ANC 1.27. Sodium 141, potassium 5.0, calcium 5.8, phosphorus 1.6, magnesium 1.8, protein 5.0, and albumin 3.3. ASSESSMENT AND PLAN: 1. Hypocalcemia and hypophosphatemia. The patient continues to get daily repletion of these electrolytes. Her levels are minimally coming up each time. Xgeva is suspect and on hold. Her last Xgeva was given on 11/03/2019. 2. IgG lambda multiple myeloma. The patient's treatments are currently being held during her acute illness. 3. Clostridium difficile. The patient is taking antibiotics for this presently. Her other antibiotics have been stopped. Her diarrhea frequency has been decreasing. 4. Normocytic anemia. This is most likely chemotherapy-induced. It is continuing to improve. We will continue to monitor. It is stable. 5. Nutrition: The patient's protein levels are low. She needs to be provided with protein shakes. She needs to be encouraged to eat and drink as much as she can. 6. Weakness and deconditioning. This is in part from being confined in her room due to weakness and now the flu. Please encourage her to do in-room exercises, walk about the room, provide her with protein shakes. 7. Deep venous thrombosis prophylaxis. The patient has a history of deep vein thrombosis. She needs to remain on her Xarelto therapy. 8. Neutropenia. The patient's ANC is 1.27 today. This is not in relation to her chemotherapy. Dr. Borjas states that if her ANC becomes less than 1.0, to provide the patient with a Neupogen injection. We will continue to monitor. 9. Disposition: We will continue to follow the patient peripherally. Please call us if needed over the weekend. Dictated by EZEKIEL Wolff for Soy Borjas MD cc: MD South Serna MD [facility]
[2019-11-26] MEDS: XARELTO PO SCH (17:38)
--- NOTE | 2019-11-26 18:42 | PROGRESS NOTE ---
DATE: 11/26/2019 SUBJECTIVE: Upon my arrival this morning, patient was sitting upright in her chair. Patient states she had significant cough and wheezing overnight. She denied fevers or chills. Throughout the day today, patient states she did reasonably well. The patient's appetite is slowly improving. Her pulmonary status remains marginal but slightly improved. She notes decreasing wheezing and cough. The patient's bowel movements remain slightly loose, but improving in frequency. She denies nausea, vomiting, or chest discomfort. OBJECTIVE: T-max of 98.5 degrees, heart rate 75 to 99, respirations 16 to 20, blood pressure 123 to 144 over 65 to 74.General: No acute distress. Cardiovascular: Regular rate and rhythm. No significant murmurs, rubs, or gallops. Pulmonary: Diffuse wheezing bilaterally. Slightly improved from yesterday. Abdomen: Soft, nontender, nondistended. Positive bowel sounds. Extremities: Moves all extremities well. No significant clubbing, cyanosis, or edema. Dermatologic: Evaluation reveals no evidence of rash. LABORATORY DATA: White blood cell count 1.51, hemoglobin 9.1, hematocrit 28.9, platelet count 129,000. Sodium 141, potassium 5.0, chloride 107, bicarb 18, BUN 11, creatinine 0.8, glucose 186, calcium 5.8, magnesium 1.8, phosphorus 1.6, total bilirubin 0.17, total protein 5.0, albumin 3.3, alkaline phosphatase 54, AST 16, ALT 10. ASSESSMENT AND PLAN: 1. Acute pyelonephritis-patient completed 10 days of cefepime therapy. She is currently asymptomatic. 2. Clostridium difficile colitis-the patient was noted to have loose stools prior to admission. The patient is currently being treated with oral vancomycin. Symptoms are slowly improving. 3. Influenza B-the patient is currently being treated with Tamiflu therapy. We will treat underlying bronchospasms as below. She is currently afebrile. 4. Acute bronchospasm-this likely is a consequence of her acute influenza. We will continue patient on IV steroids and bronchodilators. 5. Hypocalcemia-patient was repleted again with calcium gluconate today. We will continue calcium plus vitamin D twice daily. 6. Hypomagnesemia-patient was repleted with magnesium sulfate again today. We will follow this. 7. Hypophosphatemia-this is slowly improving. We will continue to encourage p.o. intake. Potassium phosphate was held for today. 8. Type 2 diabetes-patient's blood sugars have increased slightly with the addition of steroids. We will initiate sliding scale insulin. 9. History of deep venous thrombosis-we will continue Xarelto therapy. 10. Coronary artery disease-patient has known disease. We will continue optimize the patient's medical and nonmedical management. She is asymptomatic. 11. Hypertension-patient's blood pressure is controlled on her current regimen. 12. Profound weakness-symptoms are slowly improving. We will encourage activity. 13. Disposition-at this point, patient continues to require [facility] care in a hospital setting. We will plan discharge home once appropriate. cc: South Gaines MD
[2019-11-26] MEDS: MELATONIN PO SCH (21:18)
[2019-11-26] MEDS: ZOCOR PO SCH (21:18)
[2019-11-26] MEDS: NORVASC PO SCH (21:18)
[2019-11-26] MEDS: LEXAPRO PO SCH (21:18)
[2019-11-27] MEDS: VANCOCIN PO SCH ×5 (00:43→21:35)
[2019-11-27] MEDS: DUONEB (A & A) INH SCH ×4 (00:58→21:58)
[2019-11-27] MEDS: PRILOSEC PO SCH (06:06)
[2019-11-27] MEDS: MAG-OX PO SCH ×3 (06:06→21:35)
[2019-11-27] MEDS: FOLIC ACID PO SCH (08:34)
[2019-11-27] MEDS: GLUCOPHAGE PO SCH ×2 (08:34→17:20)
[2019-11-27] MEDS: SOLU-MEDROL IV SCH ×2 (08:34→21:35)
[2019-11-27] MEDS: TAMIFLU PO SCH ×2 (08:35→21:35)
[2019-11-27] MEDS: DIOVAN PO SCH (08:35)
[2019-11-27] MEDS: VALTREX PO SCH (08:36)
[2019-11-27] MEDS: CALTRATE 600 + D PO SCH ×2 (08:36→21:36)
[2019-11-27 08:56] LABS: AGAP 10; BUN 14 mg/dL (8-22); CALCIUM 6.9 mg/dL (8.8-10.2); CHLORIDE 104 mmol/L (98-107); COSMO 276; CREATININE 0.7 mg/dL (0.5-0.9); ESTIMATED GFR > 60; GLUCOSE 135 mg/dL (70-104); POTASSIUM 5.3 mmol/L (3.5-5.1); SODIUM 137 mmol/L (136-145); TCO2 23 mmol/L (25-35)
[2019-11-27] MEDS ORDERED: NS 1,000 ML IV SCH (11:00)
--- NOTE | 2019-11-27 12:32 | PROGRESS NOTE ---
DATE: 11/27/2019 SUBJECTIVE: Upon my arrival this morning, patient was sitting upright in her chair. The patient states she rested reasonably well overnight. She continues to have significant cough, congestion, and wheezing. Diarrhea continues, although is slowly improving. She denies fevers, chills, nausea, vomiting, or chest discomfort. Her p.o. intake remains adequate. OBJECTIVE: Vital Signs: Temperature max 98.1 degrees, heart rate 75 to 91, respirations 16 to 20, blood pressure 124-210/70-95. General: Well nourished, well developed, in no acute distress. Cardiovascular: Regular rate and rhythm. No significant murmurs, rubs, or gallops. Pulmonary: Bilateral wheezing. Adequate air movement. Abdomen: Soft, nontender, nondistended. Positive bowel sounds. Extremities: Moves all extremities well. No significant clubbing, cyanosis, or edema. Dermatologic: Evaluation reveals no evidence of rash. LABORATORY DATA: Sodium 137, potassium 5.3, chloride 104, bicarb 23, BUN 14, creatinine 0.7, glucose 135, calcium 6.9, magnesium 2.0, phosphorus 1.0. ASSESSMENT AND PLAN: 1. Acute pyelonephritis - Patient completed 10 days of cefepime therapy. She remains asymptomatic. 2. Clostridium difficile colitis - The patient continues to have loose stools, however, this is slowly improving. We will continue oral vancomycin therapy. 3. Influenza B - Patient is currently being treated with Tamiflu. Her fever has resolved. We will treat bronchospasms as described below. 4. Acute bronchospasms - this likely is a consequence of her acute influenza. She currently is being treated with IV steroids and bronchodilators. Despite this, she has persistent wheezing. We will continue this for now. We will recheck a chest x-ray in the morning. At this point, without fever, I am hesitant to reinitiate antibiotics in the setting of Clostridium difficile colitis. We will recheck labs in the morning and have a low threshold for resuming if necessary. 5. Hypocalcemia - The patient has been treated with multiple doses of calcium gluconate while hospitalized. Calcium level has improved, although not to baseline. We will continue calcium plus vitamin D twice daily. We will hold off on IV intervention today. 6. Hypomagnesemia - The patient is being treated with oral magnesium at present time. We will hold off on additional IV magnesium today. We will recheck in the morning. 7. Hypophosphatemia - The patient's phosphorus level decreased from yesterday. With an elevated potassium, we will hold off on further treatment with potassium phosphate. We will start Neutra-Phos orally. She is asymptomatic. 8. Hyperkalemia - Potassium level is slightly elevated today. We will initiate IV fluids. We will continue to follow this closely. 9. Type 2 diabetes - The patient is treated with oral medications at present time. Fasting glucose is 135 today. We will continue to follow this. 10. History of deep venous thrombosis - We will continue patient on Xarelto therapy. 11. Coronary artery disease - Patient is treated with optimized medical and nonmedical management. She remains asymptomatic. 12. Hypertension - Patient had an isolated elevated blood pressure. We will confirm that this has resolved. We will continue her current regimen for now. 13. Profound weakness - Symptoms are slowly improving. We will continue to encourage activity. 14. Disposition - At this point, patient continues to require long-term care in a hospital setting. We will plan discharge home once appropriate. cc: South Gaines MD
[2019-11-27] MEDS: NEUTRA-PHOS PO SCH ×3 (13:32→21:36)
[2019-11-27] MEDS: XARELTO PO SCH (17:21)
[2019-11-27] MEDS: LEXAPRO PO SCH (21:35)
[2019-11-27] MEDS: NORVASC PO SCH (21:35)
[2019-11-27] MEDS: ZOCOR PO SCH (21:36)
[2019-11-27] MEDS: MELATONIN PO SCH (21:36)
[2019-11-28] MEDS: VANCOCIN PO SCH ×4 (01:47→21:15)
[2019-11-28] MEDS: DUONEB (A & A) INH SCH ×5 (03:27→22:18)
[2019-11-28] MEDS: MAG-OX PO SCH ×3 (06:46→21:15)
[2019-11-28] MEDS: PRILOSEC PO SCH (06:46)
[2019-11-28 07:50] LABS: AGAP 11; ALB/GLOB RATIO 1.4; ALBUMIN 3.7 g/dL (3.5-5.0); ALKALINE PHOSPHATASE 54 U/L (32-104); BUN 14 mg/dL (8-22); CALCIUM 6.8 mg/dL (8.8-10.2); CHLORIDE 102 mmol/L (98-107); COSMO 283; CREATININE 0.8 mg/dL (0.5-0.9); ESTIMATED GFR > 60; GLUCOSE 181 mg/dL (70-104); GOT 13 U/L (10-30); GPT 11 U/L (10-36); MAGNESIUM 1.9 mg/dL (1.5-2.7); PHOSPHORUS 1.1 mg/dL (2.7-4.5); POTASSIUM 5.5 mmol/L (3.5-5.1); SODIUM 139 mmol/L (136-145); TCO2 26 mmol/L (25-35); TOTAL BILIRUBIN 0.27 mg/dL (0.20-1.00); TOTAL PROTEIN 6.3 g/dL (6.3-8.3)
[2019-11-28] MEDS: CALTRATE 600 + D PO SCH ×2 (10:01→21:14)
[2019-11-28] MEDS: SOLU-MEDROL IV SCH ×2 (10:01→21:14)
[2019-11-28] MEDS: DIOVAN PO SCH (10:02)
[2019-11-28] MEDS: FOLIC ACID PO SCH (10:02)
[2019-11-28] MEDS: NEUTRA-PHOS PO SCH ×4 (10:02→21:14)
[2019-11-28] MEDS: GLUCOPHAGE PO SCH ×2 (10:02→16:00)
[2019-11-28] MEDS: VALTREX PO SCH (10:03)
[2019-11-28] MEDS: TAMIFLU PO SCH ×2 (10:03→21:14)
[2019-11-28] MEDS ORDERED: CALCIUM GLUCONATE 4.65 MEQ in NS 50 ML IV ONE (10:28)
--- NOTE | 2019-11-28 11:56 | PROGRESS NOTE ---
DATE: 11/28/2019 SUBJECTIVE: Mrs. Weber has a history of Clostridium difficile colitis. She continues with watery diarrhea. Her stools are not semi-formed. She does not have any significant crampy abdominal pain. She reports that the diarrhea may be a little bit better. She denies any fever, chills, nausea, or vomiting. She was recently treated with a 10-day course of cefepime for acute pyelonephritis. She denies any dysuria, increased urinary frequency, or low back pain. OBJECTIVE: Vital Signs: She is afebrile, pulse 82, respirations 18, BP 149/61. CV: Regular rate and rhythm. Lungs: Clear. Abdomen: Soft, nontender with active bowel sounds. ASSESSMENT AND PLAN: Clostridium difficile colitis. She continues with persistent diarrhea. We will continue oral Vancocin. I am going to add probiotics twice a day. Should the diarrhea persist on oral Vancocin, I will add Flagyl. cc: MD South Walker MD
[2019-11-28] MEDS: XARELTO PO SCH (16:00)
[2019-11-28] MEDS: CULTURELLE PO SCH (21:14)
[2019-11-28] MEDS: LEXAPRO PO SCH (21:14)
[2019-11-28] MEDS: MELATONIN PO SCH (21:15)
[2019-11-28] MEDS: ZOCOR PO SCH (21:15)
[2019-11-28] MEDS: NORVASC PO SCH (21:15)
[2019-11-29] MEDS: VANCOCIN PO SCH ×4 (02:11→20:50)
[2019-11-29] MEDS: DUONEB (A & A) INH SCH ×4 (04:55→21:35)
[2019-11-29] MEDS: PRILOSEC PO SCH (07:25)
[2019-11-29] MEDS: MAG-OX PO SCH ×3 (07:25→20:51)
[2019-11-29 08:04] LABS: HEMATOCRIT 30.5 % (37.0-47.0); HEMOGLOBIN 9.6 g/dL (12.0-16.0); IMM GRAN# 0.03 X1000 (0.0-0.04); IMM GRAN% 1.1 % (0.0-0.5); LYMPH# 0.45 X1000 (1.2-3.4); MCH 29.4 PG (27-31); MCHC 31.5 g/dL (33-37); MCV 93.6 FL (81-99); MONO# 0.27 X1000 (0.11-0.59); MONO% 9.6 % (1.7-9.3); MPV 10.7 FL (7.4-10.4); NEUT# 2.06 X1000 (1.4-6.5); NEUT% 73.3 % (42.2-75.2); PLT 207 X1000 (130-400); RBC 3.26 XMIL (4.2-5.4); RDW 16.3 % (11.5-14.5); WBC 2.81 X1000 (4.8-10.8)
[2019-11-29 08:34] LABS: AGAP 11; BUN 18 mg/dL (8-22); CALCIUM 7.4 mg/dL (8.8-10.2); CHLORIDE 102 mmol/L (98-107); COSMO 281; CREATININE 0.8 mg/dL (0.5-0.9); ESTIMATED GFR > 60; GLUCOSE 160 mg/dL (70-104); POTASSIUM 4.8 mmol/L (3.5-5.1); SODIUM 138 mmol/L (136-145); TCO2 25 mmol/L (25-35)
[2019-11-29 08:59] LABS: MAGNESIUM 1.6 mg/dL (1.5-2.7); PHOSPHORUS 1.3 mg/dL (2.7-4.5)
[2019-11-29] MEDS: TAMIFLU PO SCH ×2 (09:28→20:50)
[2019-11-29] MEDS: CULTURELLE PO SCH ×2 (09:28→20:50)
[2019-11-29] MEDS: GLUCOPHAGE PO SCH ×2 (09:28→18:42)
[2019-11-29] MEDS: DIOVAN PO SCH (09:28)
[2019-11-29] MEDS: SOLU-MEDROL IV SCH ×2 (09:29→20:49)
[2019-11-29] MEDS: NEUTRA-PHOS PO SCH ×4 (09:29→20:49)
[2019-11-29] MEDS: FOLIC ACID PO SCH (09:29)
[2019-11-29] MEDS: CALTRATE 600 + D PO SCH ×2 (09:29→20:50)
[2019-11-29] MEDS: VALTREX PO SCH (09:30)
--- NOTE | 2019-11-29 13:06 | HEMO/ONC PROGRESS NOTE ---
DATE: 11/29/2019 SUBJECTIVE: Ms. Weber is sitting up in her chair, in pleasant spirits this morning. She states she feels a lot better. She states when she first gets up to go to the bathroom, she feels a little lightheaded but it goes away quickly. She does complain that she is going to the bathroom a lot for urination. She states her watery diarrhea has almost stopped. Overall, she is feeling better. No acute events occurred over the weekend. OBJECTIVE: Vital Signs: Temperature 98.4 degrees, pulse rate 92, respiratory rate 19, blood pressure 144/71, O2 saturation 98% on room air. She is in 0/10 pain. Physical Examination: General: Patient is in pleasant spirits, in no acute distress, sitting upright in her recliner. Cardiovascular: Normal S1, S2. Heart rate and rhythm are regular. Respiratory: Patient has bilateral wheezing to upper lungs. Normal respiratory effort. Abdomen: Soft, nontender, nondistended. Bowel sounds are present. Extremities: No lower extremity edema noted. Neurological: Alert and oriented x3. Laboratory Data: WBCs 2.81, hemoglobin 9.6, hematocrit 30.5, platelet count 207,000, ANC 2.06. Sodium 138, potassium 4.8, calcium 7.4, phosphorus 1.3, magnesium 1.6. ASSESSMENT AND PLAN: 1. Hypocalcemia and hypophosphatemia. The patient's numbers are beginning to improve. She is getting calcium replenished daily. Her Xgeva shot was given on 11/23/2019. 2. IgG lambda multiple myeloma. We are continuing to hold the patient's treatments during her acute illness. We will follow back up with her in the office next week when she is feeling better. 3. Clostridium difficile. The patient is continuing to take vancomycin. Her watery diarrhea has improved. Probiotics have been added. Continue to monitor. 4. Normocytic anemia. This is chemotherapy-induced. We will continue to monitor. It is stable. 5. Nutrition. The patient has been drinking protein shakes as requested. Her protein numbers have improved. 6. Weakness and deconditioning. The patient remains confined to her room. Continue to encourage her to do in-room exercises and walk about as needed. 7. Deep venous thrombosis prophylaxis. The patient has a history of deep venous thrombosis. She is on the Xarelto therapy. 8. Neutropenia. The patient's ANC improved to 2.06. We will continue to monitor. 9. Disposition. We will continue to monitor the patient peripherally. Please call us if needed. Dictated by EZEKIEL Wolff for Soy Borjas MD cc: MD South Serna MD [facility]
[2019-11-29] MEDS: XARELTO PO SCH (18:42)
--- NOTE | 2019-11-29 20:45 | PROGRESS NOTE ---
DATE: 11/29/2019 SUBJECTIVE: Upon my arrival, patient was sitting upright in her chair. She continues to have intermittent loose stools. She also continues to have significant wheezing. Over the course of the day, patient states she ambulated in her room. Her p.o. intake was adequate. This evening, patient is again sitting upright in her chair. She has noted no significant change from earlier. She denies fevers, chills, nausea, vomiting, shortness of breath, or chest discomfort. OBJECTIVE: Vital signs: T-max 98.4 degrees, heart rate 80 to 92, respirations 16 to 19, blood pressure 126 to 144 over 69 to 76. General: Well nourished, well developed, no acute distress. Cardiovascular: Regular rate and rhythm. No significant murmurs, rubs, or gallops. Pulmonary: Diffuse wheezing bilaterally. Adequate air movement. Abdomen: Soft, nontender, and nondistended. Positive bowel sounds. Extremities: Moves all extremities well. No significant clubbing, cyanosis, or edema. Dermatologic: Evaluation reveals no evidence of rash. LABORATORY DATA: White blood cell count 2.81, hemoglobin 9.6, hematocrit 30.5, platelet count is 207,000. Sodium 138, potassium 4.8, chloride 102, bicarb 25, BUN 18, creatinine 0.8, glucose 160, calcium 7.3, magnesium 1.6, phosphorus 1.3. ASSESSMENT AND PLAN: 1. Acute pyelonephritis: Patient completed 10 days of cefepime therapy. She is currently asymptomatic. 2. Clostridium difficile colitis: Patient continues to have intermittent loose stools. We will continue vancomycin for now. Should her condition continue, we will have a low threshold for adding Flagyl. 3. Influenza B: Patient is currently being treated with Tamiflu therapy. Overall, her condition is improving. 4. Acute bronchospasm: This is a consequence of her underlying influenza. She is currently being treated with bronchodilators and steroids. Symptoms are present, but slowly improving. We will follow this. 5. Hypocalcemia: The patient's calcium level is slowly improving. We will continue calcium plus vitamin D. 6. Hypomagnesemia: Once again, this is slowly improving. She is treated with oral replacement. 7. Hypophosphatemia: Neutra-Phos was added in the last several days. Thus far, she has tolerated it reasonably well. 8. Hyperkalemia: This has resolved with intravenous fluids. 9. Type 2 diabetes: We will continue her current medical regimen. Blood sugars are slightly elevated, associated with steroid use. 10. History of deep venous thrombosis: We will continue Xarelto therapy. 11. Coronary artery disease: Patient is treated with optimum medical and nonmedical management. She is asymptomatic. 12. Hypertension: Blood pressure is reasonably controlled on her current regimen. 13. Profound weakness: Symptoms are slowly improving. We will continue to encourage activity as tolerated. 14. Disposition: At this point, patient continues to require care home care in a hospital setting. We will plan discharge home once appropriate. cc: South Gaines MD
[2019-11-29] MEDS: MELATONIN PO SCH (20:49)
[2019-11-29] MEDS: NORVASC PO SCH (20:50)
[2019-11-29] MEDS: ZOCOR PO SCH (20:50)
[2019-11-29] MEDS: LEXAPRO PO SCH (20:50)
[2019-11-30] MEDS: VANCOCIN PO SCH ×4 (02:20→21:46)
[2019-11-30] MEDS: DUONEB (A & A) INH SCH ×5 (05:02→21:20)
[2019-11-30] MEDS: MAG-OX PO SCH ×3 (06:39→21:48)
[2019-11-30] MEDS: PRILOSEC PO SCH (06:39)
[2019-11-30 06:58] LABS: AGAP 14; BUN 20 mg/dL (8-22); CHLORIDE 96 mmol/L (98-107); COSMO 277; CREATININE 0.8 mg/dL (0.5-0.9); ESTIMATED GFR > 60; GLUCOSE 209 mg/dL (70-104); MAGNESIUM 1.5 mg/dL (1.5-2.7); PHOSPHORUS 1.6 mg/dL (2.7-4.5); POTASSIUM 5.2 mmol/L (3.5-5.1); SODIUM 134 mmol/L (136-145); TCO2 24 mmol/L (25-35)
[2019-11-30] MEDS: SOLU-MEDROL IV SCH ×2 (11:23→21:46)
[2019-11-30] MEDS: CALTRATE 600 + D PO SCH ×2 (11:23→21:46)
[2019-11-30] MEDS: TAMIFLU PO SCH ×2 (11:24→21:48)
[2019-11-30] MEDS: DIOVAN PO SCH (11:24)
[2019-11-30] MEDS: GLUCOPHAGE PO SCH ×2 (11:25→18:27)
[2019-11-30] MEDS: CULTURELLE PO SCH ×2 (11:25→21:47)
[2019-11-30] MEDS: VALTREX PO SCH (11:26)
[2019-11-30] MEDS: NEUTRA-PHOS PO SCH ×4 (11:26→21:47)
[2019-11-30] MEDS: FOLIC ACID PO SCH (11:26)
[2019-11-30] MEDS: XARELTO PO SCH (18:27)
--- NOTE | 2019-11-30 21:36 | PROGRESS NOTE ---
DATE: 11/30/2019 SUBJECTIVE: Upon my arrival this morning, the patient states she was doing reasonably well. The patient rested overnight. She was sitting upright in her chair. Throughout the day, patient again did reasonably well. She did note having an episode of loose stools this evening. Her pulmonary status is slowly improving; however, she does continue to have intermittent wheezing and cough. She denies fevers, chills, nausea, vomiting, shortness of breath, or chest discomfort. OBJECTIVE: Vital signs: T-max 98.8 degrees, heart rate 83 to 101, respirations 14 to 20, blood pressure 123 to 149 over 63 to 81. General: No acute distress. Cardiovascular: Regular rate and rhythm. No significant murmurs, rubs, or gallops. Pulmonary: Bilateral wheezes, improving from yesterday. Abdomen: Soft, nontender, and nondistended. Positive bowel sounds. Extremities: Moves all extremities well. No significant clubbing, cyanosis, or edema. Dermatologic: Evaluation reveals no evidence of rash. LABORATORY DATA: Sodium 134, potassium 5.2, chloride 96, bicarb 24, BUN 20, creatinine 0.8, glucose 209, calcium 8.0, magnesium 1.5, phosphorus 1.6. ASSESSMENT AND PLAN: 1. Acute pyelonephritis: Patient completed 10 days of cefepime therapy. She complains of urinary incontinence yesterday. We will recheck a urinalysis and determine if further intervention is warranted. 2. Clostridium difficile colitis: Unfortunately, she continues to have intermittently loose stools. The question is raised whether this is secondary to Clostridium difficile colitis or medication associated. We will continue vancomycin for now. We will recheck Clostridium difficile antigen. 3. Influenza B: The patient is treated with Tamiflu therapy. She will have completed a 5 day course tonight. We will plan to discontinue Tamiflu in the morning. We will remain aware that this could be contributing to her loose stools. 4. Acute bronchospasm: This is a consequence of her influenza. She is treated with bronchodilators and steroids. Symptoms are slowly improving. I anticipate decreasing her steroids as soon as tomorrow. 5. Hypocalcemia: Patient's calcium level is improving with calcium plus vitamin D. 6. Hypomagnesemia: Patient is experiencing improvement with replacement. We will remain aware that this also could be contributing to her diarrhea. 7. Hypophosphatemia: Patient is being treated with Neutra-Phos. Phosphorus levels are slowly improving. 8. Hyperkalemia: Potassium is modestly elevated. We will continue intravenous fluids. Renal function appears acceptable. 9. Type 2 diabetes: Blood sugars are increasing slightly, likely secondary to steroid use. We will continue her current regimen for now. 10. History of deep venous thrombosis: We will continue Xarelto therapy. 11. Hypertension: Blood pressure is reasonably controlled on her current regimen. 12. Profound weakness: We will continue to encourage activity as tolerated. 13. Disposition: At this point, patient continues to require [facility] care in a hospital setting. I anticipate discharge home in the near future. cc: South Gaines MD
[2019-11-30] MEDS: ZOCOR PO SCH (21:46)
[2019-11-30] MEDS: MELATONIN PO SCH (21:46)
[2019-11-30] MEDS: LEXAPRO PO SCH (21:47)
[2019-11-30] MEDS: NORVASC PO SCH (21:48)
[2019-11-30 23:50] LABS: URINE SOURCE CLEAN CATCH
[2019-12-01 02:00] LABS: BILIRUBIN URINE NEGATIVE (NEGATIVE); BLOOD URINE NEGATIVE (NEGATIVE); COLOR YELLOW; GLUCOSE URINE 500 mg/dL (NEGATIVE); KETONE URINE NEGATIVE (NEGATIVE); LEUKOCYTES URINE NEGATIVE (NEGATIVE); NITRITE URINE NEGATIVE (NEGATIVE); PROTEIN URINE NEGATIVE (NEGATIVE); SP GRAVITY URINE 1.015; TURBIDITY URINE HAZY (CLEAR); UROBILINOGEN URINE NORMAL (NORMAL)
[2019-12-01 02:01] LABS: UR EPITHELIAL CELLS <10 /HPF (<10); URINE BACTERIA 4+ /HPF; URINE RBC <10 /HPF (<10); URINE WBC <10 /HPF (<10)
[2019-12-01] MEDS: VANCOCIN PO SCH ×4 (02:34→20:37)
[2019-12-01] MEDS: DUONEB (A & A) INH SCH ×4 (03:42→22:25)
[2019-12-01] MEDS: PRILOSEC PO SCH (06:25)
[2019-12-01] MEDS: MAG-OX PO SCH ×3 (06:26→20:38)
[2019-12-01 07:34] LABS: AGAP 14; BUN 22 mg/dL (8-22); CALCIUM 8.7 mg/dL (8.8-10.2); CHLORIDE 95 mmol/L (98-107); COSMO 279; CREATININE 0.8 mg/dL (0.5-0.9); ESTIMATED GFR > 60; GLUCOSE 225 mg/dL (70-104); MAGNESIUM 1.5 mg/dL (1.5-2.7); PHOSPHORUS 2.1 mg/dL (2.7-4.5); POTASSIUM 5.1 mmol/L (3.5-5.1); SODIUM 134 mmol/L (136-145); TCO2 25 mmol/L (25-35)
[2019-12-01] MEDS ORDERED: PREDNISONE PO ONE (08:24)
[2019-12-01] MEDS: GLUCOPHAGE PO SCH ×2 (09:21→16:29)
[2019-12-01] MEDS: SOLU-MEDROL IV SCH (09:22)
[2019-12-01] MEDS: CALTRATE 600 + D PO SCH ×2 (09:22→20:37)
[2019-12-01] MEDS: FOLIC ACID PO SCH (09:22)
[2019-12-01] MEDS: VALTREX PO SCH (09:23)
[2019-12-01] MEDS: CULTURELLE PO SCH ×2 (09:23→20:37)
[2019-12-01] MEDS: DIOVAN PO SCH (09:23)
[2019-12-01] MEDS: NEUTRA-PHOS PO SCH ×4 (09:23→20:40)
[2019-12-01] MEDS: FLAGYL PO SCH ×3 (09:27→20:38)
--- NOTE | 2019-12-01 14:25 | PROGRESS NOTE ---
DATE: 12/01/2019 SUBJECTIVE: Upon my arrival this morning, the patient was sitting upright in bed. Overnight, she noted 1 episode of loose stools. She continues to have intermittent cough, congestion, and wheezing. This is slightly improved from previous. Throughout the day today, patient has done reasonably well. Upon my arrival this afternoon, patient was lying in bed. She noted some fatigue. Her p.o. intake remains adequate. Energy level, as described, remains low. OBJECTIVE: T-max 98.3 degrees, heart rate 84 to 101, respirations 18 to 20, blood pressure 123 to 162/74 to 96.General: Well nourished, well developed. No acute distress. Cardiovascular: Regular rate and rhythm. No significant murmurs, rubs, or gallops. Pulmonary: Occasional wheezes bilaterally, improving. Abdomen: Soft, nontender, nondistended. Positive bowel sounds. Extremities: Moves all extremities well. No significant clubbing, cyanosis, or edema. Dermatologic: No evidence of rash. LABORATORY DATA: Sodium 134, potassium 5.1, chloride 95, bicarb 25, BUN 22, creatinine 0.8, glucose 225, calcium 8.7. Magnesium 1.5, phosphorus 2.1. ASSESSMENT AND PLAN: 1. Acute pyelonephritis - patient has completed 10 days of cefepime therapy. Urinalysis from yesterday suggested 4+ bacteria, but no leukocytes present. We will continue supportive care for now. 2. Clostridium difficile colitis - unfortunately, she continues to have loose stools. The question is raised as to whether this is secondary to Clostridium difficile colitis or possibly medication-associated. We will continue vancomycin. We will add Flagyl therapy. We will continue isolation. 3. Influenza B - patient has completed Tamiflu therapy. We will discontinue this as she has had 5 days. Overall, symptoms are slowly improving. 4. Acute bronchospasm - this is a consequence of her influenza. Wheezing has decreased, although not resolved. At this point, we will transition the patient from IV to oral steroids. If the patient tolerates this well, I anticipate discharge home in the near future. 5. Hypocalcemia - patient has achieved improvement with IV calcium gluconate followed by calcium plus vitamin D. She has not required IV in approximately 2 days. 6. Hypomagnesemia - once again, patient was treated with IV replacement followed by oral replacement. In the last 2 days, no IV intervention has been warranted. 7. Hypophosphatemia - the patient has been treated with K-Phos IV while hospitalized. She now is being treated with Neutra-Phos. She has not required IV replacement in approximately 2 days. 8. Hyperkalemia - potassium today is acceptable. We will continue to encourage hydration. 9. Type 2 diabetes - I suspect blood sugars will improve with decreasing steroids. We will continue her current regimen. 10. History of deep venous thrombosis - we will continue Xarelto therapy. 11. Hypertension - blood pressure is controlled on her current regimen. We will continue this. 12. Profound weakness. The patient is achieving very slow improvement. We will continue activity as tolerated. 13. Disposition - at this point, patient continues to require senior living care in a hospital setting. We will plan discharge home once appropriate. cc: South Gaines MD
[2019-12-01] MEDS: XARELTO PO SCH (16:29)
[2019-12-01] MEDS: LEXAPRO PO SCH (20:38)
[2019-12-01] MEDS: MELATONIN PO SCH (20:39)
[2019-12-01] MEDS: NORVASC PO SCH (20:39)
[2019-12-01] MEDS: ZOCOR PO SCH (20:40)
[2019-12-02] MEDS: DUONEB (A & A) INH SCH ×4 (03:25→22:50)
[2019-12-02] MEDS: VANCOCIN PO SCH ×4 (04:00→21:36)
[2019-12-02] MEDS: MAG-OX PO SCH ×3 (06:09→21:37)
[2019-12-02] MEDS: FLAGYL PO SCH ×3 (06:09→21:37)
[2019-12-02] MEDS: PRILOSEC PO SCH (06:09)
[2019-12-02 07:42] LABS: AGAP 13; ALB/GLOB RATIO 1.6; ALBUMIN 3.6 g/dL (3.5-5.0); ALKALINE PHOSPHATASE 53 U/L (32-104); BUN 22 mg/dL (8-22); CALCIUM 9.1 mg/dL (8.8-10.2); CHLORIDE 94 mmol/L (98-107); COSMO 278; CREATININE 0.8 mg/dL (0.5-0.9); ESTIMATED GFR > 60; GLUCOSE 206 mg/dL (70-104); GOT 12 U/L (10-30); GPT 19 U/L (10-36); MAGNESIUM 1.5 mg/dL (1.5-2.7); PHOSPHORUS 2.5 mg/dL (2.7-4.5); POTASSIUM 5.1 mmol/L (3.5-5.1); SODIUM 134 mmol/L (136-145); TCO2 27 mmol/L (25-35); TOTAL BILIRUBIN 0.34 mg/dL (0.20-1.00); TOTAL PROTEIN 5.9 g/dL (6.3-8.3)
[2019-12-02] MEDS: GLUCOPHAGE PO SCH ×2 (08:14→16:21)
[2019-12-02] MEDS: CULTURELLE PO SCH ×2 (08:15→21:37)
[2019-12-02] MEDS: VALTREX PO SCH (08:15)
[2019-12-02] MEDS: DIOVAN PO SCH (08:16)
[2019-12-02] MEDS: FOLIC ACID PO SCH (08:16)
[2019-12-02] MEDS: CALTRATE 600 + D PO SCH ×2 (08:16→21:37)
[2019-12-02] MEDS: NEUTRA-PHOS PO SCH ×4 (08:17→21:36)
[2019-12-02] MEDS: MACROBID PO SCH ×2 (13:11→21:37)
[2019-12-02] MEDS: XARELTO PO SCH (16:21)
[2019-12-02] MEDS ORDERED: PREDNISONE PO ONE (19:45)
--- NOTE | 2019-12-02 20:39 | PROGRESS NOTE ---
DATE: 12/02/2019 SUBJECTIVE: Upon my arrival this morning, the patient was sitting upright in her chair. Overall, the patient stated she felt poorly as compared to yesterday. Throughout the day today, the patient's p.o. intake was adequate. Her activity level has remained stable. She did have 1 stool which she described as formed. This evening she continues to have some fatigue, but states she feels reasonably well. A cough is present, but nonproductive. Wheezing is slowly improving. OBJECTIVE: T-max 98.5, heart rate 79 to 89, respirations 17 to 18, blood pressure 83 to 138 over 65 to 98.General: Elderly. No acute distress. Cardiovascular: Regular rate and rhythm. No significant murmurs, rubs, or gallops. Pulmonary: Clear to auscultation bilaterally. Abdomen: Soft, nontender, nondistended. Positive bowel sounds. Extremities: Moves all extremities well. No significant clubbing, cyanosis, or edema. Dermatologic: Evaluation reveals no evidence of rash. LABORATORY DATA: Sodium 140, potassium 5.1, chloride 94, bicarb 27, BUN 22, creatinine 0.8, glucose 206. Calcium 9.1, magnesium 1.5, phosphorus 2.5. Total bilirubin 0.34, total protein 5.9, albumin 3.6, alkaline phosphatase 53, AST 12, ALT 19., ASSESSMENT AND PLAN: 1. Acute pyelonephritis - Patient has completed 10 days of cefepime therapy. Urinalysis on November 30 revealed 4+ bacteria, but no leukocytes present. Culture today suggests gram-negative rods are present. We will initiate Macrobid therapy. We will follow culture. 2. Clostridium difficile colitis - Patient's stool consistency is improving. We will continue vancomycin and Flagyl therapy. 3. Influenza B - Patient has completed Tamiflu therapy. We will treat bronchospasm as below. 4. Bronchospasms - This is a consequence of her underlying influenza. Wheezing continues to slowly improve. We have transitioned patient to oral steroids. We will continue bronchodilators. 5. Hypocalcemia - Patient has achieved improvement with oral calcium supplementation. 6. Hypomagnesemia - Patient has achieved improvement with oral supplementation. 7. Hypophosphatemia - Phosphorus continues to slowly improve with oral replacement. We will continue this. 8. Hyperkalemia - Potassium has returned within normal limits. We will continue to encourage hydration. 9. Type 2 diabetes - Blood sugars are slightly elevated. I anticipate improvement with decreasing steroids. 10. History of deep venous thrombosis -We will continue Xarelto therapy. 11. Hypertension - Blood pressure is controlled on her current regimen. We will continue this. 12. Profound weakness - Patient's condition is slowly improving. We will encourage activity. 13. Disposition - At this point, patient continues to require jail care in a hospital setting. We will plan discharge home once appropriate. cc: South Gaines MD
[2019-12-02] MEDS: NORVASC PO SCH (21:36)
[2019-12-02] MEDS: ZOCOR PO SCH (21:36)
[2019-12-02] MEDS: MELATONIN PO SCH (21:37)
[2019-12-02] MEDS: LEXAPRO PO SCH (21:37)
[2019-12-03] MEDS: VANCOCIN PO SCH ×2 (02:38→08:11)
[2019-12-03] MEDS: DUONEB (A & A) INH SCH (03:43)
[2019-12-03] MEDS: PRILOSEC PO SCH ×2 (05:34→06:12)
[2019-12-03] MEDS: MAG-OX PO SCH ×2 (05:35→06:12)
[2019-12-03] MEDS: FLAGYL PO SCH (05:35)
[2019-12-03 06:36] LABS: HEMATOCRIT 34.3 % (37.0-47.0); IMM GRAN# 0.06 X1000 (0.0-0.04); IMM GRAN% 1.2 % (0.0-0.5); LYMPH# 0.43 X1000 (1.2-3.4); LYMPH% 8.3 % (20.5-51.1); MCH 29.9 PG (27-31); MCHC 32.1 g/dL (33-37); MCV 93.2 FL (81-99); MONO% 3.9 % (1.7-9.3); NEUT# 4.46 X1000 (1.4-6.5); NEUT% 86.6 % (42.2-75.2); PLT 188 X1000 (130-400); RBC 3.68 XMIL (4.2-5.4); RDW 16.5 % (11.5-14.5); WBC 5.15 X1000 (4.8-10.8)
[2019-12-03 06:52] LABS: ALB/GLOB RATIO 2.2; ALBUMIN 3.8 g/dL (3.5-5.0); CREATININE 0.9 mg/dL (0.5-0.9); MAGNESIUM 1.4 mg/dL (1.5-2.7); PHOSPHORUS 3.3 mg/dL (2.7-4.5); TOTAL BILIRUBIN 0.4 mg/dL (0.20-1.00); TOTAL PROTEIN 5.5 g/dL (6.3-8.3)
[2019-12-03 07:30] VITALS: BP 126/60
[2019-12-03 07:38] LABS: LYMPHS 6 % (21-51); MONO 2 % (1-9); SEGS 90 % (42-75)
[2019-12-03] MEDS ORDERED: PREDNISONE PO ONE (08:07)
[2019-12-03] MEDS: MACROBID PO SCH (08:11)
[2019-12-03] MEDS: CULTURELLE PO SCH (08:11)
[2019-12-03] MEDS: NEUTRA-PHOS PO SCH (08:11)
[2019-12-03] MEDS: FOLIC ACID PO SCH (08:11)
[2019-12-03] MEDS: DIOVAN PO SCH (08:11)
[2019-12-03] MEDS: VALTREX PO SCH (08:11)
[2019-12-03] MEDS: GLUCOPHAGE PO SCH (08:11)
[2019-12-03] MEDS: CALTRATE 600 + D PO SCH (08:11)
--- NOTE | 2019-12-03 13:36 | HEMO/ONC PROGRESS NOTE ---
DATE: 12/03/2019 SUBJECTIVE: Ms. Weber is sitting up smiling in her chair this morning. She is happy to hear that she is going to be able to go home today. The patient states she feels a lot better. She is having formed bowel movements. She is not in any pain, and she feels stronger than she has in several weeks. OBJECTIVE: Vital Signs: Temperature 97.7 degrees, pulse rate 79, respiratory rate 17, blood pressure 126/60, and O2 saturation 97% on room air. She is in 0/10 pain. General: The patient is in no acute distress. She has a pleasant demeanor. Cardiovascular: Normal S1, S2. Heart rate and rhythm regular. Respiratory: Lung sounds are clear to auscultation. Abdomen: Soft, nontender, and nondistended. Positive bowel sounds. Extremities: No lower extremity edema noted. Neurological: Alert and oriented x3. No focal motor deficits noted. LABORATORY: Calcium 9.1, magnesium 1.6, and phosphorus 2.5. ASSESSMENT AND PLAN: 1. Acute pyelonephritis. The patient's culture grew E. Coli. The patient will go home on Macrobid therapy. 2.C. diff. The patient's stool consistency has improved. She will go home on vancomycin and Flagyl. 3. Influenza B. The patient completed therapy. She continues to have some bronchospasms that will slowly improve. She is on oral steroids and bronchodilators. 4. Hypocalcemia. The patient has improved to the normal level, and now with oral calcium. 5. Hypomagnesemia. The patient has improved. She is on oral supplementation. 6. Hypophosphatemia. This is also improved. The patient will continue with oral replacement 7. Hypokalemia. This has returned to normal limits. She will remain hydrated. 8. History of DVT. The patient will continue home on her Xarelto therapy. 9. Weakness. The patient will continue exercises. I am sure her condition will slowly improve. Dictated by EZEKIEL Wolff for Soy Borjas MD cc: MD South Serna MD [facility]
--- NOTE | 2019-12-04 05:20 | DISCHARGE SUMMARY ---
ADMISSION DATE: 11/13/2019 DISCHARGE DATE: 12/03/2019 ADMISSION DIAGNOSIS: 1. Fevers without chills. 2. Recent chemotherapy. DISCHARGE DIAGNOSES: 1. Acute pyelonephritis, resolved. 2. Subsequent urinary tract infection, treated. 3. Clostridium difficile colitis. 4. Influenza B. 5. Bronchospasms. 6. Hypocalcemia. 7. Hypomagnesemia. 8. Hypophosphatemia. 9. Hyperkalemia. 10. Type 2 diabetes, present on arrival. 11. History of deep venous thrombosis, present on arrival. 12. Hypertension, present on arrival. 13. Profound weakness, present on arrival. CONSULTATIONS: 1. Dr. Chavarria with Nephrology was consulted for further evaluation and management of persistent hypomagnesemia, hypophosphatemia, and hypomagnesemia. 2. Dr. Borjas with Oncology was consulted for further evaluation and management of underlying multiple myeloma. PROCEDURES: 1. CT scan of the abdomen and pelvis was performed on 11/13/2019 which revealed mild splenomegaly, small hiatal hernia, trace pleural fluid, and prominent atherosclerosis. 2. Initial urine culture from 11/13/2019 revealed E coli. Subsequent urine culture 12/01/2019 revealed E coli. HISTORY AND PHYSICAL: See admit note. PHYSICAL EXAMINATION PRIOR TO DISCHARGE: Vital Signs: Temperature 97.7 degrees, heart rate 79, respirations 17 blood pressure is 126/60. General: Well nourished, well developed, no acute distress. Cardiovascular: Regular rate and rhythm. No significant murmurs, rubs, or gallops. Pulmonary: Rare wheeze. Adequate air movement. Abdomen: Soft, nontender, nondistended. Positive bowel sounds. Extremities: Moves all extremities well. No significant clubbing, cyanosis, or edema. Dermatologic: Evaluation reveals no evidence of rash. LABORATORY DATA: White blood cell count 5.15, hemoglobin 11.0, hematocrit 34.3, platelet count is 188,000. Sodium 134, potassium 5.0, chloride 94, bicarbonate 24, BUN 28, creatinine 0.9, glucose 250, calcium 9.0, magnesium 1.4, phosphorus 3.3, total bilirubin 0.40, total protein 5.5, albumin 3.8, alkaline phosphatase 51, AST 15, ALT 22. HOSPITAL COURSE: Patient was admitted as per history and physical examination. Hospital course per condition is as follows: 1. Acute pyelonephritis. Upon admission, patient had symptoms most consistent with pyelonephritis. The patient was treated with cefepime therapy for a total of 10 days. With treatment, patient achieved resolution. She did develop a recurrent urinary tract infection as described below. 2. Urinary tract infection. This was diagnosed while hospitalized after 10 days of cefepime for pyelonephritis. The patient was started on Macrobid therapy. She will complete an additional 7 days as an outpatient. 3. Clostridium difficile colitis. Patient was having loose stools upon admission. After stool studies were performed, patient was indeed found to have a Clostridium difficile colitis. The patient was treated with vancomycin therapy although this did not completely resolve diarrhea. The patient had Flagyl added while hospitalized. Symptoms slowly improved. The patient will be discharged with Flagyl and vancomycin therapy for an additional 10 days. 4. Influenza B. Patient was diagnosed while hospitalized. She was treated with Tamiflu therapy. Symptoms are improving. 5. Bronchospasm. The patient was diagnosed associated with influenza. She required IV steroids and bronchodilators. With time, her overall condition improved. Patient will be discharged home with a prednisone taper and DuoNeb 3 times daily. 6. Hypocalcemia. This was quite interesting. Patient had a persistent significant hypocalcemia for several days. Patient was treated with calcium gluconate IV on a daily basis for many days. Ultimately, patient was transitioned to oral calcium supplementation. At this point, it is expected that this likely was secondary to Xgeva therapy versus chemotherapy. 7. Hypomagnesemia. Once again, this was quite impressive. Magnesium level remained significantly low for many days during hospitalization. She was treated with IV replacement. With stabilization of her magnesium level, patient was transitioned to oral magnesium 3 times daily. This will need to be followed as an outpatient. 8. Hypophosphatemia. Once again, this was quite interesting. Phosphorus level remained in the critical range. She was treated with potassium phosphate on multiple days. Ultimately, the patient did achieve stabilization. She was transitioned to oral Neutra-Phos. The patient will continue this for the next month. At that time, we will determine if discontinuing this is appropriate. 9. Hyperkalemia. While hospitalized, patient developed a mild hyperkalemia. With IV fluids, patient achieved resolution. 10. Type 2 diabetes. Patient's blood sugars were lightly elevated while on steroid therapy. We will continue her home regimen, but monitor this closely. 11. History of deep venous thrombosis. The patient was treated with Xarelto while hospitalized. 12. Hypertension. Blood pressure remains adequately controlled on her home regimen. 13. Profound weakness. Patient was treated with physical therapy while hospitalized. Symptoms are slowly improving. DISCHARGE CONDITION: Good. DISPOSITION: Discharge to home. MEDICATIONS: 1. Flagyl 500 mg every 8 hours for 10 days. 2. Vancomycin 125 mg every 6 hours for 10 days. 3. Calcium plus vitamin D twice daily. 4. Culturelle daily. 5. DuoNeb 3 times daily. 6. Neutra-Phos 1 packet 4 times daily for 1 month. 7. Prednisone taper starting at 25 mg tomorrow and decreasing 5 mg daily until off. 8. Zofran 4 mg as needed. 9. Macrobid 100 mg twice daily. 10. Simvastatin 20 mg at bedtime. 11. Metformin 1000 mg twice daily. 12. Folic acid 1 mg daily. 13. Xarelto 20 mg with supper. 14. Lexapro 10 mg at bedtime. 15. Melatonin 3 mg at bedtime. 16. Omeprazole 40 mg daily. 17. Valacyclovir 500 mg daily. 18. Valsartan 40 mg daily. 19. Magnesium oxide 400 mg 3 times daily. 20. Tylenol 650 every 6 hours as needed. 21. Amlodipine 2.5 mg at bedtime. 22. Timol/Brimon/Dorzo 1 drop each eye daily. 23. Ventolin HFA 1 puff every 4 to 6 hours as needed. FOLLOWUP: 1. The patient is to follow with me in approximately 1 to 2 weeks. We will plan to check a BMP, magnesium, and phosphorous. 2. Patient is to follow up with Dr. Borjas as arranged. cc: South Gaines MD
== END 2019-12-03 10:00 | disposition home health service (06) | DRG 690 ==
LOC: ED 11:24 → 4N 22:21
PROVIDERS: ADMIT Internal Medicine; ATTEND Internal Medicine